=== PATIENT | male | born 1945 | race Caucasian/White ===

== ENCOUNTER → 2024-12-18 15:56 | Outpatient (BNVA) | payer OTHER, MEDICARE, SELFPAY | PROVIDERS: PCP Student in an Organized Health Care Education/Training Program; Visit Provider Internal Medicine Cardiovascular Disease | DX: R07.9 Chest pain, unspecified (principal) | CPT/HCPCS: 93005 ==

== ENCOUNTER → 2025-01-28 13:19 | Outpatient (BNVA) | payer MEDICARE, SELFPAY | PROVIDERS: PCP Student in an Organized Health Care Education/Training Program; Visit Provider Nurse Practitioner Family | DX: I25.10 Atherosclerotic heart disease of native coronary artery without angina pectoris (principal); I10 Essential (primary) hypertension; E78.5 Hyperlipidemia, unspecified | CPT/HCPCS: 99213 ==

== ENCOUNTER 2025-01-30 15:10 | Emergency (ER) | payer MEDICARE, SELFPAY ==
[2025-01-30] VITALS (8 sets, daily range): BP systolic 99–154; BP diastolic 48–74; PULSE 39–86; RESP 15–18; TEMP 36.4; O2SAT 96–99; BMI 31.2
--- NOTE | 2025-01-30 15:32 | XRR_ITS ---
PROCEDURE INFORMATION: Exam: XR Chest Exam date and time: 01/30/2025 4:23 PM Age: 79 years old Clinical indication: Dyspnea TECHNIQUE: Imaging protocol: Radiologic exam of the chest. Views: 1 view. COMPARISON: No relevant prior studies available. FINDINGS: Lungs: Unremarkable. No consolidation or mass. Pleural spaces: Unremarkable. No pleural effusion. No pneumothorax. Heart/Mediastinum: Unremarkable. No cardiomegaly. Bones/joints: Unremarkable. XR/XR chest 1V portable 09000 IMPRESSION: No acute findings.
--- NOTE | 2025-01-30 15:50 | ECG_ITS ---
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
--- NOTE | 2025-01-30 15:57 | W.ED.GENADLT ---
HPI - General Adult General: Chief complaint: General Medical Stated complaint: low hr Time Seen by Provider: 01/30/25 15:42 History of Present Illness: 79-year-old male with three-vessel coronary artery disease who presents to the emergency department with bradycardia. It was noted incidentally while checking his twice daily blood pressures. He first noticed it last night around midnight. The rate has been mostly in the 40s and occasionally in the 80s. His blood pressure has been essentially normal. He had 1 blood pressure of 91/52 with a pulse rate of 47. Otherwise he has been normotensive. We have a long list of pulse and blood pressure that the has been recording. It does look like he has an irregular rhythm on the monitor and on exam. He denies any history of A-fib. No heart block. He takes no calcium channel blockers or beta-blockers. He is not on any antiarrhythmics. The patient does have three-vessel coronary artery disease and was recommended for CABG. However he did his own research and talk to multiple people and decided to refuse this. He has seen Dr. Arriola--Dr. Arriola is going to review his relatively recent angioplasty to consider him for high risk PCI. The patient reports he has not had any chest pressure tightness or discomfort. He feels a little bit winded and dizzy when he first stands up. However after about 15 seconds he feels normal. No other symptoms reported. Related Data Home Medications ?Medication ?Instructions ?Recorded ?Confirmed clopidogrel 75 mg tablet 75 mg PO DAILY 04/25/21 01/28/25 Berberine PO 12/18/24 01/28/25 Carb & Sugar Kiesha PO 12/18/24 01/28/25 Immununeti PO 12/18/24 01/28/25 apple cider vinegar 500 mg tablet mg PO 12/18/24 01/28/25 ascorbic acid (vitamin C) 500 mg 1 g PO DAILY 12/18/24 01/28/25 chewable tablet aspirin 81 mg tablet,delayed 81 mg PO DAILY 12/18/24 01/28/25 release atorvastatin 40 mg tablet (Lipitor) 40 mg PO DAILY 12/18/24 01/28/25 calcium carbonate 600 mg PO DAILY 12/18/24 01/28/25 cholecalciferol (vitamin D3) 125 125 mcg PO DAILY 12/18/24 01/28/25 mcg (5,000 unit) capsule chromium picolinate 1,000 mcg 1,000 mcg PO DAILY 12/18/24 01/28/25 tablet coenzyme Q10 400 mg capsule 400 mg PO DAILY 12/18/24 01/28/25 cyanocobalamin (vitamin B-12) 500 250 mcg PO DAILY 12/18/24 01/28/25 mcg tablet empagliflozin 25 mg tablet 25 mg PO DAILY 12/18/24 01/28/25 (Jardiance) ferrous sulfate 325 mg (65 mg 325 mg PO DAILY 12/18/24 01/28/25 iron) tablet fish oil PO 12/18/24 01/28/25 folic acid 400 mcg tablet 0.4 mg PO DAILY 12/18/24 01/28/25 gabapentin 300 mg capsule 300 mg PO DIRECTED 12/18/24 01/28/25 gkpusgaviwb-vmzsiotkq-P-Mn-boron tab PO 12/18/24 01/28/25 750 mg-600 mg-30 mg-1mg-1.5mg tablet herba vision gold PO 12/18/24 01/28/25 insulin NPH isoph U-100 human 100 20 unit SUBCUT QAM PRN 12/18/24 01/28/25 unit/mL (3 mL) subcutaneous pen (Novolin N FlexPen) insulin degludec 100 unit/mL (3 20 unit SUBCUT BID PRN 12/18/24 01/28/25 mL) subcutaneous pen (Tresiba FlexTouch U-100 insulin) isosorbide mononitrate 30 mg 30 mg PO DAILY 12/18/24 01/28/25 tablet,extended release 24 hr lidocaine HCl 4 %-menthol 1 % ea topical 12/18/24 01/28/25 topical solution roll-on (Nervive Pain Relieving) magnesium oxide 400 mg (241.3 mg 400 mg PO DAILY 12/18/24 01/28/25 magnesium) tablet metformin 1,000 mg tablet 500 mg PO DAILY 12/18/24 01/28/25 modern mushrooms PO 12/18/24 01/28/25 nitroglycerin 0.4 mg sublingual 0.4 mg sublingual Q5M PRN 12/18/24 01/28/25 tablet semaglutide 1 mg/dose (4 mg/3 mL) mg SUBCUT 12/18/24 01/28/25 subcutaneous pen injector (Ozempic) true focus PO 12/18/24 01/28/25 turmeric 400 mg capsule mg PO 12/18/24 01/28/25 vitamin A acetate 3,000 mcg mcg PO 12/18/24 01/28/25 (10,000 unit) sublingual tablet vitamin E (dl, acetate) 180 mg 180 mg PO DAILY 12/18/24 01/28/25 (400 unit) capsule zinc acetate 50 mg (zinc) capsule 50 mg PO DAILY 12/18/24 01/28/25 Previous Rx's ?Medication ?Instructions ?Recorded lisinopril 5 mg tablet 5 mg PO DAILY #90 tabs 12/18/24 Allergies Allergy/AdvReac Type Severity Reaction Status Date / Time No Known Allergies Allergy Verified 01/30/25 15:53 Review of Systems General: Reports: 10 or more systems reviewed and unremarkable except in HPI and below PFSH ED PFSH: Medical History (Updated 01/30/25 @ 20:00 by Jesse Bradford MD) CAD (coronary artery disease) HTN (hypertension) Family History Mother Pulmonary emboli Father Aortic aneurysm Brother Aortic aneurysm Sister Stroke Social History Smoking and tobacco/nicotine status: former use of tobacco/nicotine Physical Exam Const: COMMON NORMALS: no limitations, alert and well nourished EXAM LIMITATIONS: no altered mental status HENMT: COMMON NORMALS: normocephalic, atraumatic and external ears normal HEAD & SCALP: normocephalic and atraumatic EXTERNAL EAR: Yes external ears normal MOUTH: no muffled voice Eye: COMMON NORMALS: EOMs intact bilaterally, conjunctivae normal and no scleral icterus CONJUNCTIVA: Yes conjunctivae normal Neck/C-Spine: GENERAL: Yes normal visual inspection and Yes trachea midline Resp: COMMON NORMALS: normal respiratory effort, No use of accessory muscles and clear to auscultation bilaterally AUSCULTATION: clear to auscultation bilaterally Cardio: RATE: bradycardic RHYTHM: abnormal rhythm GI: COMMON NORMALS: Soft to palpation and non-tender PALPATION: Yes Soft to palpation and No Guarding due to palpation present (GI) Extremity: COMMON NORMALS: normal to inspection Neuro: COMMON NORMALS: moves all extremities, no focal motor deficits and no sensory deficits noted SENSORIUM/ORIENTATION: Yes alert SPEECH: speech normal Psych: COMMON NORMALS: mental status grossly normal, Normal thought process present, cooperative, normal affect and speech normal SPEECH: Yes normal speech THOUGHT PROCESS: Normal thought process present Skin: COMMON NORMALS: no rashes or lesions noted, turgor normal and no jaundice GENERAL SKIN EXAM: no rashes or lesions noted and turgor normal Course Vital Signs: Vital signs: Vital Signs Temperature 97.6 F 01/30/25 15:31 Pulse Rate 82 01/30/25 19:24 Respiratory Rate 16 01/30/25 19:24 Blood Pressure 135/69 01/30/25 19:24 Pulse Oximetry 97 01/30/25 19:24 Oxygen Delivery Me thod Room Air 01/30/25 19:24 MDM - General Adult Medical Decision Making EKG was obtained at 1537. This EKG does not have any apparent P waves. The QRS duration is slightly prolonged. There are no concerning ST segment elevations or depressions. There are prominent T waves through the precordium. The R to R interval appears normal. Rhythm is unclear. This could be a heart block or junctional rhythm. Shortly after this EKG, the patient's heart rate returned to the 80s and appeared irregular. We went to repeat an EKG and it dropped back down again. EKG was obtained at 1550. Ventricular rate is 41. The R to R interval is irregular. This appears to be a bradycardic atrial fibrillation. There is again prominent T waves through the precordium. No concerning ischemic changes otherwise. Differential diagnosis includes hyperkalemia, cardiomyopathy, coronary artery disease with ischemia, infarction of the atrial ventricular or sinoatrial nodes. Patient does not take any antiarrhythmics. Fortunately, he is hemodynamically stable at this time. I consulted with Dr. Cheek. He is advised that we look for secondary causes. He is also advised that we admit to the hospital. He can do a temporary pacer if needed. UPDATE 1615 Repeat EKG was obtained at 1609. This shows what appears to be a regular rhythm, ventricular rate of 80, no visible P waves. QRS duration of 100 ms. PVC x 1. Continues to have slightly prominent T waves through the precordium. Potassium is mildly elevated at 5.6. This seems unlikely to cause the arrhythmia on its own but could be contributing. We will err on the side of treatment. Patient has informed me that he will not be staying in the hospital. I have explained his abnormal rhythm and significant bradycardia is a great concern. I have advised him of hyperkalemia that may be contributing. I have advised him that the standard of care would be treatment of hyperkalemia and other secondary causes, admission to the hospital, cardiology consultation, telemetry. Patient advises that he understands but refuses. Patient is aware that if he becomes bradycardic he could lose consciousness and even have a cardiac arrest. Patient reports that he has elected to be DNR. He will take reasonable treatment in the emergency department. Initially he refused an IV. However, after informing him that the reasonable treatment for hyperkalemia involves IV medications in addition to oral medications, he consented to an IV. However, he request that he and his both have meal trays ordered. Patient understands that he will have to leave AGAINST MEDICAL ADVICE. My intention is to order him a hyperkalemia protocol including calcium gluconate, insulin with glucose, sodium bicarbonate, Kayexalate, Lasix. I will then repeat his potassium in a few hours. Update 2000 Patient heart rate in the 80s. He is having episodes of trigeminy, a few triplet PVCs. Patient's repeat troponin was stable. His potassium was repeated and has decreased to a normal level. I had a long discussion with the patient and his . The patient states he is aware of his abnormal rhythms including trigeminy, intermittent proximal atrial fibrillation with slow ventricular response, junctional rhythm with significant bradycardia, frequent PVCs. Patient understands that he could have decompensation to the point of loss of consciousness, , permanent disability. He refuses admission to the hospital. His is at bedside and disagrees with his decision. However, she agrees to check his vital signs frequently. The patient was invited to return to the emergency department if he changes his mind and wants treatment. He was given specific return precautions. I have asked that he follow-up with his lamination technician on Sunday. He also needs to have repeat kidney function and electrolytes next week. Lab Data 01/30/25 16:04 01/30/25 18:47 Radiology Impressions Chest X-Ray 01/30/25 15:32 IMPRESSION: No acute findings. Laboratory Results WBC 8.49 10^3/uL (3.29-11.43) 01/30/25 16:04 RBC 3.90 10^6/uL (3.85-5.65) 01/30/25 16:04 Hgb 12.00 g/dL (11.27-16.99) 01/30/25 16:04 Hct 38.8 % (37-53) 01/30/25 16:04 MCV 99.5 fl (82-101) 01/30/25 16:04 MCH 30.8 pg (27-33) 01/30/25 16:04 MCHC 30.9 g/dL (30-55) 01/30/25 16:04 RDW 13.8 % (12.1-15.1) 01/30/25 16:04 Plt Count 161 10^3/cmm (157-399) 01/30/25 16:04 MPV 12.5 fL (7.4-10.4) H 01/30/25 16:04 Neut % (Auto) 70.7 % 01/30/25 16:04 Lymph % (Auto) 19.0 % 01/30/25 16:04 [facility] % (Auto) 8.8 % 01/30/25 16:04 Eos % (Auto) 1.1 % 01/30/25 16:04 Baso % (Auto) 0.2 % 01/30/25 16:04 Neut # (Auto) 6.00 10^3/uL (1.8-7.7) 01/30/25 16:04 Lymph # (Auto) 1.6 10^3/uL (0.8-4.8) 01/30/25 16:04 [facility] # (Auto) 0.8 10^3/uL (0.2-0.9) 01/30/25 16:04 Eos # (Auto) 0.1 10^3/uL (0.0-0.8) 01/30/25 16:04 Baso # (Auto) 0.0 10^3/uL (0.0-0.1) 01/30/25 16:04 Nucleated RBC % (auto) 0 % 01/30/25 16:04 Nucleated RBCs # 0.0 /100WBC 01/30/25 16:04 Specimen Type Arterial 01/30/25 15:48 Sample Site Radial, right 01/30/25 15:48 Krzysztof Test Pos 01/30/25 15:48 Sodium 131.0 mmol/L (131-143) 01/30/25 15:48 Potassium 5.6 mmol/L (3.5-5.0) H 01/30/25 15:48 Glucose 113.0 mg/dL (70-115) 01/30/25 15:48 Ionized Calcium 1.2 mmol/L (1.1-1.4) 01/30/25 15:48 O2 Delivery Device Room air 01/30/25 15:48 FiO2 21.0 % 01/30/25 15:48 Pony Ride Operator ID [place] 01/30/25 15:48 Sodium 133 mmol/L (136-145) L 01/30/25 16:04 Potassium 4.8 mmol/L (3.5-5.1) 01/30/25 18:47 Chloride 102 mmol/L (98-107) 01/30/25 16:04 Carbon Dioxide 19 mmol/L (22-29) L 01/30/25 16:04 Anion Gap 18.2 (5-19) 01/30/25 16:04 BUN 51 mg/dL (8-23) H 01/30/25 16:04 Creatinine 2.3 mg/dL (0.7-1.2) H 01/30/25 16:04 GFR Calculation Not Reportable 01/30/25 16:04 Glucose 117 mg/dL (65-115) H 01/30/25 16:04 Calculated Osmolality 291 mOsm/kg (285-295) 01/30/25 16:04 Calcium 8.4 mg/dL (8.5-10.5) L 01/30/25 16:04 Magnesium 2.6 mg/dL (1.7-2.3) H 01/30/25 16:04 Total Bilirubin 0.4 mg/dL (0.15-1.2) 01/30/25 16:04 AST 25 U/L (0-40) 01/30/25 16:04 ALT 27 U/L (0-41) 01/30/25 16:04 Alkaline Phosphatase 90 U/L (40-130) 01/30/25 16:04 Troponin T Baseline 23 ng/L (0-15) H 01/30/25 16:04 Troponin T 120 Minute 22.44 ng/L (0-15) H 01/30/25 18:47 Delta Troponin T -0.56 ABS# (0-10) L 01/30/25 18:47 Total Protein 6.3 g/dL (6.6-8.7) L 01/30/25 16:04 Albumin 4.4 g/dL (3.5-5.2) 01/30/25 16:04 Globulin 1.9 g/dL (1.3-4.6) 01/30/25 16:04 All radiology interpretation(s) finalized by discharge ED provider radiology interpretation(s): Chest x-ray 1 view. No acute disease process. Critical Care Time Critical Care Time: Critical Care Time: Yes Total Critical Care Time: 30 Attestation: This case had a high probability of a clinically significant, sudden, or life threatening deterioration of this patient's condition which required my full and direct attention, intervention and personal management. Treatment of bradycardia and arrhythmia as well as hyperkalemia, discussions about goals of care, discussions about standards of care, and developing a treatment plan for the patient that would meet his needs and desires. Discharge Plan Discharge Patient Disposition: Left Against Medical Advice Clinical Impression: Junctional rhythm, Bradycardia, Atrial fibrillation with slow ventricular response, Trigeminy, Frequent PVCs, ADILENE (acute kidney injury), Hyperkalemia Condition: Stable Prescriptions: No Action clopidogrel 75 mg tablet 75 mg PO DAILY gabapentin 300 mg capsule 300 mg PO DIRECTED Rx Instructions: 300mg in the AM and 600mg in the PM metformin 1,000 mg tablet 500 mg PO DAILY isosorbide mononitrate 30 mg tablet extended release 24 hr 30 mg PO DAILY aspirin 81 mg tablet,delayed release (DR/EC) 81 mg PO DAILY Jardiance 25 mg tablet 25 mg PO DAILY Berberine PO Carb & Sugar Kiesha PO Immununeti PO vitamin A acetate 3,000 mcg (10,000 unit) tablet, sublingual PO cyanocobalamin (vitamin B-12) 500 mcg tablet 250 mcg PO DAILY cholecalciferol (vitamin D3) 125 mcg (5,000 unit) capsule 125 mcg PO DAILY vitamin E (dl, acetate) 180 mg (400 unit) capsule 180 mg PO DAILY chromium picolinate 1,000 mcg tablet 1,000 mcg PO DAILY modern mushrooms PO true focus PO turmeric 400 mg capsule PO folic acid 400 mcg tablet 0.4 mg PO DAILY ferrous sulfate 325 mg (65 mg iron) tablet 325 mg PO DAILY herba vision gold PO ascorbic acid (vitamin C) 500 mg tablet,chewable 1 g PO DAILY fish oil PO zinc acetate 50 mg (zinc) capsule 50 mg PO DAILY magnesium oxide 400 mg (241.3 mg magnesium) tablet 400 mg PO DAILY calcium carbonate 600 mg calcium (1,500 mg) tablet 600 mg PO DAILY apple cider vinegar 500 mg tablet PO thjsgdsb-bwuagj-qep C-Mn-boron 289-518-79-1 mg tablet PO atorvastatin [Lipitor] 40 mg tablet 40 mg PO DAILY Nervive Pain Relieving 4-1 % solution roll-on topical coenzyme Q10 400 mg capsule 400 mg PO DAILY nitroglycerin 0.4 mg tablet, sublingual 0.4 mg sublingual Q5M PRN Rx Instructions: do not exceed 3 doses per episode Novolin N FlexPen 100 unit/mL (3 mL) insulin pen 20 unit SUBCUT QAM PRN insulin degludec [Tresiba FlexTouch U-100] 100 unit/mL (3 mL) insulin pen 20 unit SUBCUT BID PRN Ozempic 1 mg/dose (4 mg/3 mL) pen injector SUBCUT lisinopril 5 mg tablet 5 mg PO DAILY Qty: 90 3RF Referrals: Yao Murcia [Primary Care Provider] - 02/06/25 Autumn Hale MD [Physician] - 02/02/25 (Bradycardia, frequent pvcs, pAF slow ventricular response, trigeminy, adilene, hyperK) Patient Instructions: Acute Kidney Injury (DC), Hyperkalemia (ED), Bradycardia (ED), Premature Ventricular Contractions (ED) Activity Restrictions/Additional Instructions: 1. You have had multiple different abnormal rhythms including junctional rhythm with bradycardia, brief episodes of what appears to be atrial fibrillation with slow ventricular response, frequent PVCs, triplets of PVCs, trigeminy. All of these are a sign of a sick pacemaker and conduction pathway in your heart. This can be a sign of underlying heart disease. You are known to have coronary artery disease. At any point in time, your heart rate could drop extremely low and you could lose consciousness or even suffer or permanent disability. Please follow-up with Dr. Arriola on Sunday. If you change your mind and want to have treatment in the hospital, return to the emergency department. 2. You had elevated potassium. This might be contributing. You were treated in the emergency department and your potassium normalized. Your kidney function was also abnormal. We do not have your baseline creatinine. You should have your potassium rechecked next week. Please read all discharge instructions and abide by recommendations and return precautions. Make an appointment to follow-up with your primary care doctor as directed for follow-up. Return to ER if getting worse or other emergent symptoms. Print Language: Central African Coding Level of Care Code ED Kelp Cutter for Uma Carlton
[2025-01-30 15:59] LABS: Blood Gas Allen Test Pos; Blood Gas Operator Identificat WALCI; Blood Gas Sample Site Radial, right; Blood Gas Sample Type Arterial; Ionized Calcium Level - ABG 1.2 mmol/L (1.1-1.4); Oxygen Device ROOM AIR; Potassium Level - ABG 5.6 mmol/L (3.5-5.0)
[2025-01-30 16:12] LABS: Basophils % 0.2 %; Eosinophils # 0.1 10^3/uL (0.0-0.8); Eosinophils % 1.1 %; Hematocrit 38.8 % (37-53); Lymphocytes # 1.6 10^3/uL (0.8-4.8); Mean Corpuscular HGB Conc 30.9 g/dL (30-55); Mean Corpuscular Hemoglobin 30.8 pg (27-33); Mean Corpuscular Volume 99.5 fl (82-101); Mean Platelet Volume 12.5 fL (7.4-10.4); Monocytes # 0.8 10^3/uL (0.2-0.9); Monocytes % 8.8 %; Neutrophils % 70.7 %; Nucleated Red Blood Cells % 0 %; Platelet Count 161 10^3/cmm (157-399); Red Cell Distribution Width 13.8 % (12.1-15.1); White Blood Count 8.49 10^3/uL (3.29-11.43)
[2025-01-30 16:33] LABS: Alanine Aminotransferase 27 U/L (0-41); Albumin Level 4.4 g/dL (3.5-5.2); Alkaline Phosphatase 90 U/L (40-130); Anion Gap 18.2 (5-19); Aspartate Amino Transferase 25 U/L (0-40); Blood Urea Nitrogen 51 mg/dL (8-23); Calcium 8.4 mg/dL (8.5-10.5); Carbon Dioxide 19 mmol/L (22-29); Chloride 102 mmol/L (98-107); Globulin 1.9 g/dL (1.3-4.6); Glucose 117 mg/dL (65-115); Magnesium 2.6 mg/dL (1.7-2.3); Osmolality Calculated 291 mOsm/kg (285-295); Potassium 6.2 mmol/L (3.5-5.1); Sodium 133 mmol/L (136-145); Total Bilirubin 0.4 mg/dL (0.15-1.2); Total Protein 6.3 g/dL (6.6-8.7)
[2025-01-30 16:34] LABS: Troponin(5th) Baseline 23 ng/L (0-15)
[2025-01-30] MEDS: sodium polystyrene sulfonate 15 gm/60 mL Btl PO (16:56)
[2025-01-30] MEDS: calcium gluconate 0.1 gm/mL 10% SDV 10mL 2 GM IVP (16:57)
[2025-01-30] MEDS: FUROsemide 10 mg/mL SDV 4mL 40 MG IVP (16:58)
[2025-01-30] MEDS: sodium bicarbonate 8.4% 1 mEq/mL 50mL Syr 50 MEQ IVP (16:59)
[2025-01-30] MEDS: dextrose 10% 250 ML 1000 ML IV (17:00)
[2025-01-30] MEDS: insulin regular-human 100 units/1 mL 10 UNIT IVP (17:00)
--- NOTE | 2025-01-30 17:34 | ECG_ITS ---
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
[2025-01-30 19:14] LABS: Troponin 5 2HR 22.44 ng/L (0-15)
[2025-01-30 19:15] LABS: Potassium 4.8 mmol/L (3.5-5.1); Troponin 5 2HR Delta -0.56 ABS# (0-10)
--- NOTE | 2025-01-30 21:34 | ECG_ITS ---
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
== END 2025-01-30 20:28 | disposition left against medical advice (07) ==
PROVIDERS: Emergency Provider Emergency Medicine; PCP Family Medicine
DX: R00.1 Bradycardia, unspecified (principal); I49.2 Junctional premature depolarization; I48.91 Unspecified atrial fibrillation; R00.8 Other abnormalities of heart beat; I49.3 Ventricular premature depolarization; N17.9 Acute kidney failure, unspecified; E87.5 Hyperkalemia; Z79.02 Long term (current) use of antithrombotics/antiplatelets; Z79.84 Long term (current) use of oral hypoglycemic drugs; Z79.82 Long term (current) use of aspirin; Z79.4 Long term (current) use of insulin; Z87.891 Personal history of nicotine dependence; I25.10 Atherosclerotic heart disease of native coronary artery without angina pectoris; I10 Essential (primary) hypertension
CPT/HCPCS: 36415; 36600; 71045; 80051; 80053; 83735; 84132; 84484; 85025; 93005; 96374; 96375; 99285; J0612; J1815; J1940; J7799; J9999

== ENCOUNTER 2025-02-24 08:23 | Inpatient (IN) | payer MEDICARE, SELFPAY ==
[2025-02-24] VITALS (22 sets, daily range): BP systolic 113–154; BP diastolic 50–84; PULSE 69–79; RESP 1–19; TEMP 36.4–36.6; O2SAT 88–100; BMI 32.1; BMI 31.1
[2025-02-24] MEDS: diphenhydrAMINE 50 mg Capsule PO (06:25)
[2025-02-24 06:36] LABS: Basophils % 0.5 %; Eosinophils # 0.3 10^3/uL (0.0-0.8); Eosinophils % 3.1 %; Hematocrit 39.9 % (37-53); Lymphocytes # 1.6 10^3/uL (0.8-4.8); Lymphocytes % 18.8 %; Mean Corpuscular HGB Conc 32.3 g/dL (30-55); Mean Corpuscular Hemoglobin 31.3 pg (27-33); Mean Corpuscular Volume 96.8 fl (82-101); Monocytes # 0.7 10^3/uL (0.2-0.9); Monocytes % 7.8 %; Neutrophils # 5.87 10^3/uL (1.8-7.7); Neutrophils % 69.4 %; Nucleated Red Blood Cells % 0 %; Platelet Count 181 10^3/cmm (157-399); Red Blood Count 4.12 10^6/uL (3.85-5.65); Red Cell Distribution Width 13.3 % (12.1-15.1); White Blood Count 8.45 10^3/uL (3.29-11.43)
[2025-02-24 06:55] LABS: Blood Urea Nitrogen 36 mg/dL (8-23); Calcium 9.1 mg/dL (8.5-10.5); Carbon Dioxide 25 mmol/L (22-29); Chloride 102 mmol/L (98-107); Creatinine Clr Calc Pharmacy 48.2836; Glucose 99 mg/dL (65-115); Osmolality Calculated 296 mOsm/kg (285-295); Sodium 139 mmol/L (136-145)
[2025-02-24 07:00] LABS: Anion Gap 16.4 (5-19); Potassium 4.4 mmol/L (3.5-5.1)
--- NOTE | 2025-02-24 07:28 | W.PM.OPSUD ---
Surgery/Procedure H&P Update DATE OF PROCEDURE: February 24, 2025 DATE H&P PERFORMED: 01/28/25 H&P UPDATE INFORMATION: I have reviewed H&P completed within last 30 days, I have examined patient prior to procedure and No changes to prior documentation PREOP DIAGNOSIS: Multivessel coronary artery disease refused CABG PRIMARY INDICATION FOR PROCEDURE: 79-year-old male past medical history significant for coronary artery disease hypertension hyperlipidemia congestive heart failure chronic kidney disease who refused CABG at multiple instances and would not like to have any open heart surgery even if he has complication during the procedure. Patient clearly understood that we do not have a surgical backup I have detailed discussion with him that in case of emergency will he allow me to transfer him to nearby hospital such as [facility] in [place] or in [place], patient in the presence of his refused and told me that he should be managed conservatively and if it is time to go let him go otherwise he will be full code in perioperative. Patient clearly understand he has 10 to 15% risk of stroke major bleed, he understand he has 15 to 20% risk of urgent emergent bypass surgery which he refused, he has 15 to 20% risk of vascular complications. Given his age underlying risk factors if femoral iliac arteries or not much diseased I would like to proceed with Impella supported multivessel PCI to reduce his risk for complication and to get through this multivessel high risk PCI. Again patient has been explained in detail all risk-benefit and alternative for the procedure as above. He would like to proceed with that. He clearly understand 10 to 15% risk of contrast-induced nephropathy leading to temporary or permanent dialysis. He has excepted all the risk and would like to proceed with it. PLANNED PROCEDURE: Operation Date: 02/24/25 07:00 Proposed Procedures p Cardiac Catheterization - [facility] w/wo LV & Coros(Left) - Autumn Hale MD PATIENT REASSESSED PRIOR TO SEDATION, WITH NO CHANGE NOTED: Yes PHYSICAL EXAM: alert, oriented x 3, clear to auscultation bilaterally, regular rate & rhythm and operative site marked AIRWAY EVAL/ANESTHESIA PLAN: ASA II, Risks, benefits & alternatives of sedation and/or procedure discussed and Patient agrees to continue as planned
--- NOTE | 2025-02-24 12:11 | PM.PROC ---
Procedure Note: Date of procedure: 02/24/25 Pre-procedure diagnosis: Multivessel coronary artery disease, refused CABG Post-procedure diagnosis: same Procedure: Impella facilitated multivessel PCI including ostial LAD mid LAD and proximal to mid circumflex using drug-eluting stents, balloon angioplasty of diagonal branch. Impella was taken out at the end of the procedure. Right common femoral artery was closed with preclosed Complication none Patient will be reloaded with Brilinta 180 mg today followed by 90 mg p.o. twice daily from tomorrow Continue aspirin 81 mg once a day from tomorrow Continue aspirin statin beta-dante Bedrest for 6 hours IV fluid 100 mL/h Check CBC BMP in the morning and Full note to be dictated. Coding Level of Care Code Acute Code for Uma Carlton
--- NOTE | 2025-02-24 12:21 | ECG_ITS ---
[facility] Test Date: 2025-02-24 Pat Name: Dago Bravo Department: Room: ICU10 Gender: Male Slagger: : 1945 Requested By: Autumn Hale Order Number: [id number] Collin MD: Kamaljit Abad M.D. Measurements Intervals [place] Rate: 74 P: 91 OR: 237 QRS: 2 QRSD: 181 T: 102 QT: 463 QTc: 516 Interpretive Statements SINUS RHYTHM WITH FIRST DEGREE AV BLOCK LEFT BUNDLE BRANCH BLOCK [120+ ms QRS DURATION, 80+ ms Q/S IN V1/V2, 85+ ms R IN I/aVL/V5/V6] Compared to ECG 01/30/2025 17:36:46 First degree AV block now present Left bundle-branch block now present Ventricular premature complex(es) no longer present Electronically Signed On 02-24-2025 21:20:21 CDT by Kamaljit Abad M.D. [id number] [id number]
[2025-02-24] MEDS: nitroglycerin drip 50 MG/250 ML PREMIX IV (12:35)
[2025-02-24] MEDS: sodium chloride 0.9% 1,000 ML 50 ML IV (12:36)
[2025-02-24] MEDS: aspirin 81 mg EC Tablet PO (12:38)
[2025-02-24] MEDS: sodium chloride 0.9% 1,000 ML 100 ML IV (12:38)
--- NOTE | 2025-02-24 12:45 | ECG_ITS ---
[facility] Test Date: 2025-02-24 Pat Name: Dago Bravo Department: Room: ICU10 Gender: Male Learning Support Resource Room Teacher: : 1945 Requested By: Autumn Hale Order Number: [id number] Collin MD: Kamaljit Abad M.D. Measurements Intervals [place] Rate: 76 P: 94 TN: 216 QRS: -1 QRSD: 186 T: 93 QT: 462 QTc: 520 Interpretive Statements SINUS RHYTHM WITH FIRST DEGREE AV BLOCK INTRAVENTRICULAR CONDUCTION DELAY [130+ ms QRS DURATION] Compared to ECG 02/24/2025 12:21:36 Intraventricular conduction delay now present Left bundle-branch block no longer present Electronically Signed On 02-25-2025 08:45:54 CDT by Kamaljit Abad M.D. [email or web address]
--- NOTE | 2025-02-24 12:48 | PC.NURSE ---
Patient arrived to ICU at 1212. Alert and orientated, slightly lethargic from sedation from procedure. Upon arrival hooked patient to telemetry, noticed change in tele, notified labor law professor, Dr. Hale bedside gave orders for EKG and repeat another EKG in 20 mins. Also received verbal orders for Nitro for chest pain. See MAR. Orders placed.
--- NOTE | 2025-02-24 12:57 | PC.NURSE ---
Dr Hale back for repeat EKG, gave orders for a pleitez and lasix, see MAR.
--- NOTE | 2025-02-24 13:05 | PC.NURSE ---
Patient refused pleitez at this time.
[2025-02-24] MEDS: FUROsemide 10 mg/mL SDV 4mL 40 MG IVP (13:07)
--- NOTE | 2025-02-24 16:18 | PC.NURSE ---
Patients voiced concern at how the femoral site appeared. Myself, charge nurse and another nurse assessed the site and all agreed that the site looked normal. Patient did not express any concern and had no complaints of pain or discomfort. is very anxious and continues to watch monitors and site.
[2025-02-24] MEDS: ondansetron 2 mg/ML SDV 2 mL 4 MG IVP (16:41)
--- NOTE | 2025-02-24 17:28 | PC.NURSE ---
Witnessed looking at IV pumps, medications, and touching pumps. Shortly after pumps began to sound. educated on importance of not touching medical equipment.
--- NOTE | 2025-02-24 18:12 | PC.NURSE ---
Dr Hale gave verbal orders to hold evening dose of Brilinta and begin 02/25/25 morning. Order for 40mg of protonix PO daily. Order placed.
[2025-02-24] MEDS: pantoprazole DR 40 mg Tablet PO (18:31)
[2025-02-24] MEDS: atorvastatin 40 mg Tablet 80 MG PO (21:23)
[2025-02-25] VITALS (96 sets, daily range): BP systolic 121–138; BP diastolic 53–64; PULSE 70–89; RESP 0–26; TEMP 36.8; O2SAT 97–100; BMI 31.1
[2025-02-25] MEDS: acetaminophen 325 mg Tablet 650 MG PO (02:23)
[2025-02-25] MEDS: sodium chloride 0.9% 1,000 ML 100 ML IV (02:58)
[2025-02-25 05:08] LABS: Basophils % 0.2 %; Eosinophils % 0.2 %; Hematocrit 39.3 % (37-53); Lymphocytes % 7.1 %; Mean Corpuscular HGB Conc 32.3 g/dL (30-55); Mean Corpuscular Hemoglobin 30.9 pg (27-33); Mean Corpuscular Volume 95.6 fl (82-101); Mean Platelet Volume 12.2 fL (7.4-10.4); Monocytes # 1.4 10^3/uL (0.2-0.9); Monocytes % 10.4 %; Neutrophils # 10.88 10^3/uL (1.8-7.7); Neutrophils % 81.6 %; Nucleated Red Blood Cells % 0 %; Platelet Count 193 10^3/cmm (157-399); Red Blood Count 4.11 10^6/uL (3.85-5.65); Red Cell Distribution Width 13.2 % (12.1-15.1); White Blood Count 13.33 10^3/uL (3.29-11.43)
[2025-02-25 05:45] LABS: Anion Gap 18.1 (5-19); Blood Urea Nitrogen 35 mg/dL (8-23); Calcium 8.6 mg/dL (8.5-10.5); Carbon Dioxide 21 mmol/L (22-29); Chloride 101 mmol/L (98-107); Creatinine Clr Calc Pharmacy 47.6556; Glucose 180 mg/dL (65-115); Osmolality Calculated 295 mOsm/kg (285-295); Potassium 4.1 mmol/L (3.5-5.1); Sodium 136 mmol/L (136-145)
[2025-02-25] MEDS: ondansetron 2 mg/ML SDV 2 mL 4 MG IVP (06:01)
--- OUTSIDE RECORDS SUMMARY | 2025-02-25 07:24 | XMS_ITS | Encounter Summary ---
Author Organization [facility] Address [address] [place] [address] Care Team Providers Care Rug Touch Up Painter Name Role Phone Micheline Cunningham Primary Care Provider Encounter Details Date Type Department Care Team (Latest Contact Info) Description 09/09/2001 Outpatient Historical [facility] Medicine[address] [address] Harjit Hinds MD [address] [address] DIABETES UNCOMPL ADULT-TYPE II (CMS/HCC) (Primary Dx); Pure hypercholesterolem; AFTERCARE PATIENT CASE MANAGER USE MEDICATN Social History Tobacco Use Types Packs/Day Years Used Date Smoking Tobacco: Never Assessed Sex and Gender Information Value Date Recorded Sex Assigned at Not on file Legal Sex Male 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 [facility] [address] PCP - General 11/24/03 documented as of this encounter
--- OUTSIDE RECORDS SUMMARY | 2025-02-25 07:24 | XMS_ITS | Clinical Summary ---
Author Organization [facility] Address [address] [place] [address] Care Team Providers Care Tin Can Laborer Name Role Phone Micheline Cunningham SHOP COORDINATOR Primary Care Provider Allergies No known active allergies Medications lovastatin (MEVACOR) 40 mg Oral tablet Take 40 mg by mouth daily with supper. Active metFORMIN (GLUCOPHAGE) 1,000 mg Oral tablet Take 1,000 mg by mouth 2 times daily with meals. Active clopidogrel (PLAVIX) 75 mg Oral Tab Take 75 mg by mouth daily. Active ENALAPRIL MALEATE ORAL Take by mouth. Ac tive NPH, HUMAN INSULIN ISOPHANE (NOVOLIN N SUBCUT) Inject by subcutaneous injection. 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 Sacroiliitis, not elsewhere classified 1 Family History Medical History Relation Name Comments Broken Bones Brother Hypertension Brother Stroke Brother Arthritis-osteo Father Diabetes Maternal Aunt Diabetes Maternal Uncle Heart Disease Mother Diabetes Paternal Aunt Diabetes Paternal Uncle Hypertension Sister Stroke Sister Relation Name Status Comments Brother Father Maternal Aunt Maternal Uncle Mother Paternal Aunt Paternal Uncle Sister Social History Tobacco Use Types Packs/Day Years Used Date Smoking Tobacco: Former Cigarettes Q uit: 04/19/1976 Smokeless Tobacco: Never Alcohol Use Standard Drinks/Week Comments Yes 0.8 (1 standard drink = 0.6 oz p ure alcohol) Sex and Gender Information Value Date Recorded Sex Assigned at Not on file Legal Sex Male 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 Gender Identity Not on file Sexual Orientation Not on file Last Filed Vital Signs Vital Sign Reading Time Taken Comments Blood Pressure 143/62 04/19/2011 11:49 AM CDT Pulse 80 04/19/2011 11:49 AM CDT Temperature - - Respiratory Rate - - Oxygen Saturation - - Inhaled Oxygen Concentration - - Weight 117.9 kg (260 lb) 04/19/2011 11:49 AM CDT Height 179.1 cm (5' 10.5 ) 04/19/2011 11:49 AM C DT Body Mass Index 36.78 04/19/2011 11:49 AM CDT Plan of Treatment Health Maintenance Due Date Last Done Comments DTAP/TDAP/TD VACCINES (1 - Tdap) 1963 PNEUMOCOCCAL VACCINE 50+ YEARS (1 of 1 - PCV) 06/27/19 94 ZOSTER VACCINE (1 of 2) 1994 RSV VACCINE (60+ or ) (1 - 1-dose 75+ series) 2019 INFLUENZA VACCINE (#1) 2024 Insurance MEDICARE PART [facility] B [facility] Care Teams Tin Can Laborer Relationship Specialty Start Date End Date Micheline Cunningham FNP [facility] [address], [address] [facility] [address] PCP - General 11/24/03
--- OUTSIDE RECORDS SUMMARY | 2025-02-25 07:24 | XMS_ITS | Encounter Summary ---
Author Organization [facility] Address [address] [place] [address] Care Team Providers Care Systems Navigator Name Role Phone Micheline Cunningham Primary Care Provider Encounter Details Date Type Department Care Team (Latest Contact Info) Description 07/15/2001 Outpatient Historical [facility] Medicine[address] [address] Harjit Hinds MD [address] [facility] [address] [place] [address] Type II or unspecified type diabetes mellitus without mention of complication, not stated as uncontrolled (Primary Dx); Edema Social History Tobacco Use Types Packs/Day Years Used Date Smoking Tobacco: Never Assessed Sex and Gender Information Value Date Recorded Sex Assigned at Not on file Legal Sex Male 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 [facility] [address] PCP - General 11/24/03 documented as of this encounter
--- OUTSIDE RECORDS SUMMARY | 2025-02-25 07:24 | XMS_ITS | Encounter Summary ---
Author Organization [facility] Address [address] [place] [address] Care Team Providers Care Entry Operator Name Role Phone Micheline Cunningham Primary Care Provider [phone] Encounter Details Date Type Department Care Team (Latest Contact Info) Description 05/16/2005 Outpatient Historical [facility] Medicine[address] [address] Maye Anderson MD [address] [place] [address] DIABETES MELLITUS TYPE II-UNCOMPL (CMS/HCC) (Primary Dx) Social History Tobacco Use Types Packs/Day Years Used Date Smoking Tobacco: Never Assessed Sex and Gender Information Value Date Recorded Sex Assigned at Not on file Legal Sex Male 4:03 AM 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 [place], [address] PCP - General 11/24/03 documented as of this encounter
--- OUTSIDE RECORDS SUMMARY | 2025-02-25 07:24 | XMS_ITS | Patient Health Record ---
Author Organization [facility] Address [address] [place], [place] [address] Care Team Providers Care Buckle Frame Shaper Name Role Phone Yuan Heath MD Unavailable [phone] Favian Murcia DO Unavailable Unavailable Reason For Referral No Information Medications Medication SIG (Take, Route, Frequency, Duration) Notes Start Date End Date Status Calcium, Magnesium and Zinc as directed Active Ozempic (0.25 mg or 0.5 mg dose) 2 mg/1.5 mL as directed subcutaneously once a week for 30 day(s) Active Vitamin B Complex as directed Active Echinacea as directed Active Tresiba FlexTouch 100 units/mL as directed subcutaneously once a day Active lisinopril 10 mg 1 tab orally once a day Active Vitamin D3 1000 intl units as directed orally once a day Active glimepiride 4 mg 1 tab orally 2 times a day Active Vitamin C 1000 mg 1 tab orally once a day Active metFORMIN 1000 mg 1 tab orally 2 times a day Active lovastatin 40 mg 1 tab orally once a day Active Turmeric Active [place]-3 1000 mg orally as directed Active NovoLIN R human recombinant 100 units/mL subcutaneously as directed Active Co Q-10 100 mg 1 cap orally once a day Active red yeast rice 600 mg orally as directed Active Plavix 75 mg 1 tab orally once a day Active gabapentin 300 mg 1 cap po orally TID for 90 days Active Social History Tobacco Use: Social History Observation Description Date Details (start date - stop date) Former Smoker NA - NA alcohol Question Answer Notes Did you have a drink containing alcohol in the p ast year? No Points 0 Interpretation Negative Tobacco use: Question Answer Notes : former smoker How long has it been since you last smoked? > 10 years When did you stop smoking? 1977 Problems Problem Type SNOMED Code ICD Code Onset Dates Problem Status W/U Status Risk Notes Problem Diabetic peripheral neuropathy associated with type 2 diabetes mellitus (0180604896233) Type 2 diabetes mellitus with diabetic neuropathy, unspecified (E11.40) Active confirmed Problem Sleep disorder (68501850) Other sleep disorders (G47.8) Active confirmed Problem Long-term current use of drug therapy (084524014) Other alf (current) drug therapy (Z79.899) Active confirmed Plan Of Treatment No Information Insurance Providers Payer Name Payer Address Payer Phone Subscriber Number Group Number Insured Name Patient Relationship to Insured Coverage Start Date Coverage End Date WPS Medicare Part B Claims Department [address] [address] [place] [address] [id number] Dago Bravo Self - patient is the insured [employer] [address] [place] [address] [id number] Dago Bravo Self - patient is the insured Medical (General) History Medical History History ICD Code Diabetes mellitus type II - uncontrolled Hypertension Hyperlipdidemia Actinic keratosis Shingles Diabetic neuropathy Left shoulder pain Surgical History Surgery Date(Month/Year) Appendectomy, 1964 Placement of heart stent, performed at [facility], 2002 Stent replaced, performed in [place], 2006 Bilateral cataract surgeries, performed at [facility] and [facility], 2014 Hospitalization History Reason Date(Month/Year) Covid, treated at [facility], 07/23/20
--- OUTSIDE RECORDS SUMMARY | 2025-02-25 07:24 | XMS_ITS | Encounter Summary ---
Author Organization [facility] Address [address] [place] [address] Care Team Providers Care Ship Design Teacher Name Role Phone Micheline Cunningham Primary Care Provider [phone] Encounter Details Date Type Department Care Team (Latest Contact Info) Description 06/11/2001 Outpatient Historical [facility] Medicine[address] [address] Pepe Dubon MD [address] [place] [address] Type II or unspecified type diabetes mellitus without mention of complication, not stated as uncontrolled (Primary Dx); Other noninfectious disorders of lymphatic channels; Other lymphedema Social History Tobacco Use Types Packs/Day Years Used Date Smoking Tobacco: Never Assessed Sex and Gender Information Value Date Recorded Sex Assigned at Not on file Legal Sex Male 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 [place], [address] PCP - General 11/24/03 documented as of this encounter
--- OUTSIDE RECORDS SUMMARY | 2025-02-25 07:24 | XMS_ITS | Encounter Summary ---
Author Organization [facility] Address [address] [place] [address] Care Team Providers Care Truck Driver Heavy Name Role Phone Micheline Cunningham Primary Care Provider Encounter Details Date Type Department Care Team (Latest Contact Info) Description 06/20/2004 Outpatient Historical [facility] Medicine- [address] [address] Maye Anderson MD [address] [place] [address] ASCVD (Primary Dx); DIABETES MELLITUS TYPE II-UNCOMPL (CMS/[facility]) Social History Tobacco Use Types Packs/Day Years Used Date Smoking Tobacco: Never Assessed Sex and Gender Information Value Date Recorded Sex Assigned at Not on file Legal Sex Male 4:03 AM PAPIER MACHE MOLDER Gender Identity Not on file Sexual Orientation Not on file documented as of this encounter Plan of Treatment Not on file documented as of this encounter Visit Diagnoses Diagnosis ASCVD- Primary Unspecified cardiovascular disease Type II or unspecified type diabetes mellitus without mention of complication, not stated as uncontrolled documented in this encounter Care Teams Truck Driver Heavy Relationship Specialty Start Date End Date Micheline Cunningham FNP [facility] [address], [address] [facility] [address] PCP - General 11/24/03 documented as of this encounter
--- OUTSIDE RECORDS SUMMARY | 2025-02-25 07:24 | XMS_ITS | Encounter Summary ---
Author Organization [facility] Address [address] [place] [address] Care Team Providers Care Flap Lining Binder Name Role Phone Micheline Cunningham Primary Care Provider [phone] Encounter Details Date Type Department Care Team (Late st Contact Info) Description 11/09/2003 Outpatient Historical [facility] Medicine[address] [address] Micheline Cunningham FNP [facility] [address], [address] [facility] [address] [facility] [address] Social History Tobacco Use Types Packs/Day Years Used Date Smoking Tobacco: Never Assessed Sex and Gender Information Value Date Recorded Sex Assigned at Not on file Legal Sex Male 4:03 AM LENS MAKER Gender Identity Not on file Sexual Orientation Not on file documented as of this encounter Plan of Treatment Not on file documented as of this encounter Visit Diagnoses Not on filedocumented in this encounter Care Teams Flap Lining Binder Relationship Specialty Start Date End Date Micheline Cunningham FNP [facility] [address], [address] [facility] [address] PCP - General 11/24/03 documented as of this encounter
--- OUTSIDE RECORDS SUMMARY | 2025-02-25 07:24 | XMS_ITS | Encounter Summary ---
Author Organization [facility] Address [address] [place] [address] Care Team Providers Care Air Chief Marshal Name Role Phone Micheline Cunningham Primary Care Provider Encounter Details Date Type Department Care Team (Latest Contact Info) Description 02/16/2003 Outpatient Historical [facility] Medicine[address] [address] Harjit Hinds MD [address] [address] Pure hypercholesterolem (Primary Dx); AFTERCARE [facility] USE MEDICATN Social History Tobacco Use Types Packs/Day Years Used Date Smoking Tobacco: Never Assessed Sex and Gender Information Value Date Recorded Sex Assigned at Not on file Legal Sex Male 4:03 AM ASSOCIATE PROFESSOR OF BIOLOGY Gender Identity Not on file Sexual Orientation Not on file documented as of this encounter Plan of Treatment Not on file documented as of this encounter Visit Diagnoses Diagnosis Pure hypercholesterolem- Primary Pure hypercholesterolemia Encounter for long-term (current) use of other medications documented in this encounter Care Teams Air Chief Marshal Relationship Specialty Start Date End Date Micheline Cunningham FNP [facility] [address], [address] [place], [address] PCP - General 11/24/03 documented as of this encounter
--- OUTSIDE RECORDS SUMMARY | 2025-02-25 07:24 | XMS_ITS | Encounter Summary ---
Author Organization [facility] Address [address] [place] [address] Care Team Providers Care Appliance Mechanic Name Role Phone Micheline Cunningham Primary Care Provider [phone] Encounter Details Date Type Department Care Team (Latest Contact Info) Description 06/13/2005 Outpatient Historical [facility] Medicine[address] [address] Micheline Cunningham FNP [facility] [address], 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 [facility] [address] PCP - General 11/24/03 documented as of this encounter
--- OUTSIDE RECORDS SUMMARY | 2025-02-25 07:24 | XMS_ITS | Encounter Summary ---
Author Organization [facility] Address [address] [place] [address] Care Team Providers Care District Agent Name Role Phone Micheline Cunningham Primary Care Provider [phone] Encounter Details Date Type Department Care Team (Latest Contact Info) Description 11/24/2003 [facility] [address] [place] [address] Maye Anderson MD [address] [facility] [place] [address] CHEST PAIN NOS (Primary Dx) Social History Tobacco Use Types Packs/Day Years Used Date Smoking Tobacco: Never Assessed Sex and Gender Information Value Date Recorded Sex Assigned at Not on file Legal Sex Male 4:03 AM PATROL MAN Gender Identity Not on file Sexual Orientation Not on file documented as of this encounter Plan of Treatment Not on file documented as of this encounter Visit Diagnoses Diagnosis Chest pain, unspecified- Primary documented in this encounter Care Teams District Agent Relationship Specialty Start Date End Date Micheline Cunningham FNP [facility] [address], [address] [place], [address] PCP - General 11/24/03 documented as of this encounter
--- OUTSIDE RECORDS SUMMARY | 2025-02-25 07:24 | XMS_ITS | Encounter Summary ---
Author Organization [facility] Address [address] [place] [address] Care Team Providers Care Highballer Name Role Phone Micheline Cunningham Primary Care Provider Encounter Details Date Type Department Care Team (Latest Contact Info) Description 01/19/2004 Outpatient Historical [facility] Cardiology- [place] [address] [place] [address] Bot-Jadyn Bear, CAN CARRIER [address] [facility] [address] [place] [address] CHR ISCHEMIC HRT DIS NEC (Primary Dx); MIXED HYPERLIPIDEMIA Social History Tobacco Use Types Packs/Day Years Used Date Smoking Tobacco: Never Assessed Sex and Gender Information Value Date Recorded Sex Assigned at Not on file Legal Sex Male 4:03 AM ORACLE ENGINEER Gender Identity Not on file Sexual Orientation Not on file documented as of this encounter Plan of Treatment Not on file documented as of this encounter Visit Diagnoses Diagnosis 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 [place], [address] PCP - General 11/24/03 documented as of this encounter
--- OUTSIDE RECORDS SUMMARY | 2025-02-25 07:24 | XMS_ITS | Encounter Summary ---
Author Organization [facility] Address [address] [place] [address] Care Team Providers Care Care Companion Name Role Phone Micheline Cunningham Primary Care Provider Encounter Details Date Type Department Care Team (Latest Contact Info) Description 12/03/2003 Outpatient Historical [facility] Cardiology- [place] [address] [place] [address] Satinder Coleman MD NO ADDRESS ON FILE ANGINA PECTORIS NEC/NOS (Primary Dx); MIXED HYPERLIPIDEMIA; ABNORMAL CARDIOVASC STUDY NOS Social History Tobacco Use Types Packs/Day Years Used Date Smoking Tobacco: Never Assessed Sex and Gender Information Value Date Recorded Sex Assigned at Not on file Legal Sex Male 4:03 AM ORACLE DATABASE DEVELOPER Gender Identity Not on file Sexual Orientation Not on file documented as of this encounter Plan of Treatment Not on file documented as of this encounter Visit Diagnoses Diagnosis Other and unspecified angina pectoris- Primary Mixed hyperlipidemia Nonspecific abnormal unspecified cardiovascular function study documented in this encounter Care Teams Care Companion Relationship Specialty Start Date End Date Micheline Cunningham FNP [facility] [address], [address] [place], [address] PCP - General 11/24/03 documented as of this encounter
--- OUTSIDE RECORDS SUMMARY | 2025-02-25 07:24 | XMS_ITS | Encounter Summary ---
Author Organization [facility] Address [address] [place] [address] Care Team Providers Care Wall Worker Name Role Phone Micheline Cunningham Primary Care Provider Encounter Details Date Type Department Care Team (Latest Contact Info) Description 05/01/2001 Outpatient Historical [facility] [address] Harjit Hinds MD [address] [address] Type II or unspecified type diabetes mellitus without mention of complication, not stated as uncontrolled (Primary Dx); Pure hypercholesterolem Social History Tobacco Use Types Packs/Day Years Used Date Smoking Tobacco: Never Assessed Sex and Gender Information Value Date Recorded Sex Assigned at Not on file Legal Sex Male 4:03 AM WOOL SPOTTER Gender Identity Not on file Sexual Orientation Not on file documented as of this encounter Plan of Treatment Not on file documented as of this encounter Visit Diagnoses Diagnosis Type II or unspecified type diabetes mellitus without mention of complication, not stated as uncontrolled- Primary Pure hypercholesterolem Pure hypercholesterolemia documented in this encounter Care Teams Wall Worker Relationship Specialty Start Date End Date Micheline Cunningham FNP [facility] [address], [address] [place] [address] PCP - General 11/24/03 documented as of this encounter
--- OUTSIDE RECORDS SUMMARY | 2025-02-25 07:24 | XMS_ITS | Encounter Summary ---
Author Organization [facility] Address [address] [place] [address] Care Team Providers Care Print Controller Name Role Phone Micheline Cunningham Primary Care Provider Encounter Details Date Type Department Care Team (Latest Contact Info) Description 11/20/2005 Outpatient Historical [facility] [place] [address] [place] [address] Satinder Coleman MD NO ADDRESS ON FILE ADMINISTRTVE ENCOUNT NOS (Primary Dx) Social History Tobacco Use Types Packs/Day Years Used Date Smoking Tobacco: Never Assessed Sex and Gender Information Value Date Recorded Sex Assigned at Not on file 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 76, [address] [facility] [id number] PCP - General 11/24/03 documented as of this encounter
--- OUTSIDE RECORDS SUMMARY | 2025-02-25 07:24 | XMS_ITS | Encounter Summary ---
Author Organization [facility] Address [address] [place] [address] Care Team Providers Care Food Counter Attendant Name Role Phone Micheline Cunningham Primary Care Provider Encounter Details Date Type Department Care Team (Latest Contact Info) Description 12/08/2003 Inpatient Historical [facility] Cardiac Material Mixer [address] [place] [address] Satinder Coleman MD NO ADDRESS ON FILE CORON ATHEROSCL [place] CORON VESSEL (Primary Dx) Social History Tobacco Use Types Packs/Day Years Used Date Smoking Tobacco: Never Assessed Sex and Gender Information Value Date Recorded Sex Assigned at Not on file 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 [facility] [id number] PCP - General 11/24/03 documented as of this encounter
--- OUTSIDE RECORDS SUMMARY | 2025-02-25 07:24 | XMS_ITS | Encounter Summary ---
Author Organization [facility] Address [address] [place] [address] Care Team Providers Care Cdl Service Technician Name Role Phone Micheline Cunningham Primary Care Provider [phone] Encounter Details Date Type Department Care Team (Latest Contact Info) Description 11/09/2003 Outpatient Historical [facility] Medicine[address] [address] Maye Anderson MD [address] [place] [address] DIABETES UNCOMPL ADULT-TYPE II (CMS/HCC) (Primary Dx); ESOPHAGEAL REFLUX; CHEST PAIN NOS Social History Tobacco Use Types Packs/Day Years Used Date Smoking Tobacco: Never Assessed Sex and Gender Information Value Date Recorded Sex Assigned at Not on file 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 [facility] [address] PCP - General 11/24/03 documented as of this encounter
--- OUTSIDE RECORDS SUMMARY | 2025-02-25 07:24 | XMS_ITS | Encounter Summary ---
Author Organization [facility] Address [address] [place] [address] Care Team Providers Care Supervisor Grounds Name Role Phone Valentin Lovett DO Primary Care Provider [phone] Encounter Details Date Type Department Care Team (Late st Contact Info) Description 02/03/2025 External Device Data [facility] ABSTRACTION Provider, Abstract NO ADDRESS ON FILE Social History Tobacco Use Types Packs/Day Years Used Date Smoking Tobacco: Former Cigarettes Q uit: 04/19/1976 Smokeless Tobacco: Never Alcohol Use Standard Drinks/Week Comments Yes 0.8 (1 standard drink = 0.6 oz p ure alcohol) Feeling Safe Answer Date Recorded Are you in a relationship wi th someone who hurts you emotionally and/or physically? 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
--- OUTSIDE RECORDS SUMMARY | 2025-02-25 07:24 | XMS_ITS | Encounter Summary ---
Author Organization [facility] Address [address] [place] [address] Care Team Providers Care Maintenance And Engineering Manager Name Role Phone Micheline Cunningham Primary Care Provider Encounter Details Date Type Department Care Team (Latest Contact Info) Description 12/08/2005 Outpatient Historical [facility] Medicine[address] [address] Micheline Cunningham FNP [facility] [address], 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 [place], [address] PCP - General 11/24/03 documented as of this encounter
--- OUTSIDE RECORDS SUMMARY | 2025-02-25 07:24 | XMS_ITS | Encounter Summary ---
Author Organization [facility] Address [address] [place] [address] Care Team Providers Care Incident Analyst Name Role Phone Micheline Cunningham Primary Care Provider Encounter Details Date Type Department Care Team (Late st Contact Info) Description 02/16/2003 Outpatient Historical [address] [address] Micheline Cunningham FNP [facility] [address], [address] 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 [facility] [address] PCP - General 11/24/03 documented as of this encounter
--- OUTSIDE RECORDS SUMMARY | 2025-02-25 07:25 | XMS_ITS | Clinical Summary ---
Author Organization [facility] Address [address] [facility] Attn: Epic Prelude ADT [place] [address] Care Team Providers Care Tree Chipper Name Role Phone Valentin Lovett DO Primary Care Provider [phone] Allergies No known active allergies Medications metFORMIN (GLUCOPHAGE XR) 500 mg Extended Release 24 hour tablet Take 500 mg by mouth daily. Active gabapentin (NEURONTIN) 100 mg capsule Take 100 mg by mouth. Active empagliflozin (Jardiance) 10 mg tablet Take by mouth daily in the morning. Active aspirin (MATTHEW CHEWABLE) 81 mg Tablet, Chewable Take 1 Tablet (81 mg) by mouth daily with breakfast. 60 Tablet 1 12/10/2024 Active atorvastatin (LIPITOR) 40 mg tablet Take 1 Tablet (40 mg) by mouth daily at bedtime. 60 Tablet 12/09/2024 Active clopidogreL (PLAVIX) 75 mg Tablet Take 1 Tablet (75 mg) by mouth daily. 60 Tablet 1 12/09/2024 Active isosorbide mononitrate (IMDUR) 30 mg Extended Release 24 hour tablet Take 1 Tablet (30 mg) by mouth daily in the morning. 60 Tablet 1 12/09/2024 4:42 PM ENVIRONMENTAL ENGINEER SCIENTIST 12/09/2024 Active nitroglycerin (NITROSTAT) 0.4 mg Tablet, Sublingual Place 1 Tablet (0.4 mg) under tongue every 5 minutes as needed for Chest Pain. 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 Sacroiliitis, not elsewhere classified 1 Encounters Date Type Department Care Team Description 02/03/2025 External Device Data [facility]STRACTION Provider, Abstract 01/07/2025 External Device Data [facility] Provider, Abstract 01/07/2025 External Device Data [facility]CTION Provider, Abstract 12/10/2024 Abstract [facility] [address] [place] [address] Provider, Abstract 12/10/2024 Orders Only [facility] [address] [place] [address] Provider, Abstract 12/09/2024 6:57 AM ENVIRONMENTAL ENGINEER SCIENTIST - 12/09/2024 11:59 PM ENVIRONMENTAL ENGINEER SCIENTIST Hospital Encounter [facility] Non-Invasive Procedure [address] [place] [id number] Discharge Disposition: Home or Self Care 12/09/2024 6:57 AM ENVIRONMENTAL ENGINEER SCIENTIST - 12/09/2024 11:59 PM ENVIRONMENTAL ENGINEER SCIENTIST Hospital Encounter [facility] Non-Invasive Procedure [address] [place] [address] Discharge Disposition: Home or Self Care 12/09/2024 External Device Data [facility] ABSTRACTION Provider, Abstract 12/09/2024 External Device Data [facility]CTION Provider, Abstract 12/09/2024 External Device Data [facility] ABSTRACTION Provider, Abstract 12/08/2024 2:10 PM ENVIRONMENTAL ENGINEER SCIENTIST - 12/08/2024 3:05 PM ENVIRONMENTAL ENGINEER SCIENTIST Surgery [facility] Cardiac Rebar Fabricator [address] [place] [address] Zenia Aguirre, DO Left heart cath 12/08/2024 7:05 AM ENVIRONMENTAL ENGINEER SCIENTIST - 12/08/2024 11:59 PM ENVIRONMENTAL ENGINEER SCIENTIST Hospital Encounter [facility] Echo [address] [place] [address] Vj Bar MD Discharge Disposition: Home or Self Care 12/08/2024 Abstract [facility] Cardiothoracic Surgery [facility] [address] [place] [address] Lobo Barnett 12/07/2024 Prep for Surgery [facility] Cardiology [facility] [address] [place] [address] Sinai Shah, MARISA NSTEMI, initial episode of care ([facility]) 12/06/2024 10:19 AM ENVIRONMENTAL ENGINEER SCIENTIST - 12/09/2024 4:49 PM ENVIRONMENTAL ENGINEER SCIENTIST Hospital Encounter [facility] 4A Cardiac [address] [facility] [place] [address] Venkata Lee, Vj Rodriguez MD Sohail, Muhammad Saad, MD NSTEMI (non-ST elevated myocardial infarction) ([facility]) Discharge Disposition: Left Against Medical Advice 12/06/2024 Travel from Last 3 Months Family History Medical History Relation Name Comments [...] on file Legal Sex Male 1:08 AM ENVIRONMENTAL ENGINEER SCIENTIST Gender Identity Not on file Sexual Orientation Not on file Last Filed Vital Signs Vital Sign Reading Time Taken Comments Blood Pressure 110/75 12/09/2024 1:21 PM ENVIRONMENTAL ENGINEER SCIENTIST Pulse 80 12/09/2024 1:21 PM ENVIRONMENTAL ENGINEER SCIENTIST Temperature 36.2 ??C (97.2 ??F) 12/09/2024 1:21 PM CS T Respiratory Rate 19 12/09/2024 1:21 PM ENVIRONMENTAL ENGINEER SCIENTIST Oxygen Saturation 97% 12/09/2024 1:21 PM ENVIRONMENTAL ENGINEER SCIENTIST Inhaled Oxygen Concentration - - Weight 112.3 kg (247 lb 9.2 oz) 12/09/2024 5:37 AM ENVIRONMENTAL ENGINEER SCIENTIST Height 179.1 cm (5' 10.5 ) 12/08/2024 4:54 AM CS T Body Mass Index 35.02 12/08/2024 4:54 AM ENVIRONMENTAL ENGINEER SCIENTIST Plan of Treatment Health Maintenance Due Date Last Done Comments DIABETES ANNUAL FOOT EXAM 1962 DIABETES ANNUAL RETINAL EXAM 1962 DIABETES MICROALBUMIN ANNUAL SCREEN 1962 LDL CHOLESTEROL ANNUAL 1962 DTAP/TDAP/TD VACCINES (1 - Tdap) 1963 PNEUMOCOCCAL VACCINE 50+ YEARS (1 of 2 - PCV) 06/27/19 63 ZOSTER VACCINE (1 of 2) 1994 RSV VACCINE (60+ or ) (1 - 1-dose 75+ series) 2019 INFLUENZA VACCINE (#1) 2024 DIABETES HBA1C Q 6 MONTHS 06/05/2025 12/06/2024 Procedures Procedure Name Priority Date/Time Associated Diagnosis Comments TELEMETRY REPORT 12/10/2024 2:20 AM ENVIRONMENTAL ENGINEER SCIENTIST POC GLUCOSE Routine 12/09/2024 11:45 AM ENVIRONMENTAL ENGINEER SCIENTIST US AD DOPPLER MAPPING LEGS BILAT Stat 12/09/2024 9:38 AM ENVIRONMENTAL ENGINEER SCIENTIST US CAROTID DOPPLER Stat 12/09/2024 9: 38 AM ENVIRONMENTAL ENGINEER SCIENTIST UNFRACTIONATED HEPARIN ACTIVITY Timed Study 12/09/2024 7:49 AM ENVIRONMENTAL ENGINEER SCIENTIST PULMONARY FUNCTION TEST Stat 12/09/2024 7:04 AM ENVIRONMENTAL ENGINEER SCIENTIST POC GLUCOSE Routine 12/09/2024 7:00 AM ENVIRONMENTAL ENGINEER SCIENTIST COMPREHENSIVE METABOLIC PANEL Routine 12/09/2024 2:08 AM ENVIRONMENTAL ENGINEER SCIENTIST UNFRACTIONATED HEPARIN ACTIVITY Timed Study 12/09/2024 2:08 AM ENVIRONMENTAL ENGINEER SCIENTIST CT CHEST WO CONTRAST Stat 12/08/2024 11:05 PM ENVIRONMENTAL ENGINEER SCIENTIST POC GLUCOSE Routine 12/08/2024 8:48 PM ENVIRONMENTAL ENGINEER SCIENTIST LEFT HEART CATH Routine 12/08/2024 3:08 PM ENVIRONMENTAL ENGINEER SCIENTIST NSTEMI, initial episode of care ([facility]) UNFRACTIONATED HEPARIN ACTIVITY Timed Study 12/08/2024 11:44 AM ENVIRONMENTAL ENGINEER SCIENTIST ECHO COMPLETE Routine 12/08/2024 9:30 AM ENVIRONMENTAL ENGINEER SCIENTIST POC GLUCOSE Routine 12/08/2024 7:22 AM ENVIRONMENTAL ENGINEER SCIENTIST UNFRACTIONATED HEPARIN ACTIVITY Stat 12/08/2024 4:41 AM ENVIRONMENTAL ENGINEER SCIENTIST COMPREHENSIVE METABOLIC PANEL Routine 12/08/2024 4:41 AM ENVIRONMENTAL ENGINEER SCIENTIST UNFRACTIONATED HEPARIN ACTIVITY Timed Study 12/07/2024 8:43 PM ENVIRONMENTAL ENGINEER SCIENTIST UNFRACTIONATED HEPARIN ACTIVITY Timed Study 12/07/2024 12:12 PM ENVIRONMENTAL ENGINEER SCIENTIST UNFRACTIONATED HEPARIN ACTIVITY Timed Study 12/07/2024 2:20 AM ENVIRONMENTAL ENGINEER SCIENTIST COMPREHENSIVE METABOLIC PANEL Routine 12/07/2024 2:20 AM ENVIRONMENTAL ENGINEER SCIENTIST EKG 12-LEAD Stat 12/06/2024 11:49 PM ENVIRONMENTAL ENGINEER SCIENTIST UNFRACTIONATED HEPARIN ACTIVITY Stat 12/06/2024 9:49 PM ENVIRONMENTAL ENGINEER SCIENTIST CT HEAD WO CONTRAST Stat 12/06/2024 6 :58 PM ENVIRONMENTAL ENGINEER SCIENTIST COMPREHENSIVE METABOLIC PANEL Stat 12/06/2024 4:58 PM ENVIRONMENTAL ENGINEER SCIENTIST TROPONIN 6 HR, 5TH GEN Timed Study 4:58 PM ENVIRONMENTAL ENGINEER SCIENTIST HEMOGLOBIN A1C Stat 12/06/2024 1:50 PM ENVIRONMENTAL ENGINEER SCIENTIST UNFRACTIONATED HEPARIN ACTIVITY Stat 12/06/2024 1:50 PM ENVIRONMENTAL ENGINEER SCIENTIST PTT Stat 12/06/2024 1:50 PM ENVIRONMENTAL ENGINEER SCIENTIST CBC WITHOUT DIFFERENTIAL Stat 12/06/2024 1:50 PM ENVIRONMENTAL ENGINEER SCIENTIST TROPONIN 2 HR, 5TH GEN Timed Study 12:47 PM ENVIRONMENTAL ENGINEER SCIENTIST EXTRA TUBE (URINE OLIVER) Stat 12/06/2024 11:10 AM ENVIRONMENTAL ENGINEER SCIENTIST URINALYSIS W/REFLEX MICROSCOPIC Stat 12/06/2024 11:10 AM ENVIRONMENTAL ENGINEER SCIENTIST INFLUENZA A/B, RSV AND COVID-19 PCR PANEL Stat 12/06/2024 10:49 AM ENVIRONMENTAL ENGINEER SCIENTIST INFLUENZA A/B, RSV AND COVID-19 PCR PANEL Stat 12/06/2024 10:49 AM ENVIRONMENTAL ENGINEER SCIENTIST TROPONIN BASELINE, 5TH GEN Stat 12/06/2024 10:49 AM ENVIRONMENTAL ENGINEER SCIENTIST EKG 12-LEAD Stat 12/06/2024 10:28 AM ENVIRONMENTAL ENGINEER SCIENTIST CRITICAL CARE Routine 12/06/2024 10:19 AM ENVIRONMENTAL ENGINEER SCIENTIST COMPREHENSIVE METABOLIC PANEL Routine 12/06/2024 8:19 AM ENVIRONMENTAL ENGINEER SCIENTIST PROTIME-INR Routine 12/06/2024 from Last 3 Months Results * TELEMETRY REPORT (12/10/2024 2:20 AM ENVIRONMENTAL ENGINEER SCIENTIST) us Provider Scanning ECG ORDERABLES Final Result * (ABNORMAL) POC GLUCOSE (12/09/2024 11:45 AM ENVIRONMENTAL ENGINEER SCIENTIST) Only the most recent of3 resultswithin the time period is included. GLUCOSE POC 159(A) 65 - 99 mg/dL [facility] SPECIMEN SOURCE, GLUCOSE POC [facility] INTERNAL KIT QC POC Pass Pass [facility] KIT LOT NUMBER POC 0 [facility] KIT EXP DATE POC 0 [facility] Comment:0 Blood, capillary 12/09/2024 11:45 AM ENVIRONMENTAL ENGINEER SCIENTIST us Autumn Wilson MD POINT OF CARE TESTING Fi nal Result Performing Organization Address City/State/[facility] Co de Phone Number [facility] CLIA#[id number](waived ) CLIA#[id number](non waived) [address] [place] [address] * US AD DOPPLER MAPPING LEGS BILAT (12/09/2024 9:38 AM ENVIRONMENTAL ENGINEER SCIENTIST) Anatomical Region Laterality Modality Lower Extremity Ultrasound 12/09/2024 7:50 AM ENVIRONMENTAL ENGINEER SCIENTIST Narrative 12/09/2024 5:28 PM ENVIRONMENTAL ENGINEER SCIENTIST [facility] Cardiovascular Services Noninvasive Vascular Laboratory [address] [place] [address] Noninvasive Vascular Lab Vein Mapping Complete Lower Extremity Patient: ?Lolly Siegel Study ID: ?? US AD DOPPLER M Gender: ? M : ?1945 Age: ?79 Room: ? 4123 Height: ? 179.1cm Weight: ? 112.3kg BSA: ?2.4m^2 Pt status: ??Inpatient Study Date: 12/09/2024 Study Time: 07:50:34 AM BSA: ?2.4m^2 Ordering: Mar Conteh Interpreting:Jamal Ramirez Caretaker Resort: Goldie Bryant RVT Indications: ?? Pre op. Summary Impression: 1. No evidence of deep or superficial venous thrombosis involving the right ?? lower extremity. 2. Pt did not wish to have the mapping exam completed and asked that the exam ?? be ended. Study data: ??Bilateral lower extremity vein mapping ? Vessel mapping. Height: 179.1cm. Height: 70.5in. ?Weight: 112.3kg. Weight: 247.6lb. ?BMI: 35kg/m^2. ?BSA: 2.4m^2. ??Location: ??Bedside. ??Patient status: ??Inpatient. ?? Study status: ??Routine. ??Procedure: ??A vascular evaluation was performed. Image quality was good. Venous flow and imaging: - Right common femoral Patent; Normal phasicity; spontaneous; compressible; ??normal augmentation - Right profunda femoral Patent; Normal phasicity; spontaneous; compressible; ??normal augmentation - Right femoral Patent; Normal phasicity; spontaneous; compressible; normal ??augmentation - Right popliteal Patent; Normal phasicity; spontaneous; compressible; normal ??augmentation - Right small saphenous Patent; Normal phasicity; spontaneous; compressible; ??normal augmentation - Right posterior tibial Patent; Compressible; normal augmentation - Right peroneal Patent; Compressible; normal augmentation - Right great saphenous Patent; Normal phasicity; spontaneous; compressible; ??normal augmentation - Left common femoral Patent; Normal phasicity; spontaneous; compressible; ??normal augmentation [facility] Vascular Lab is accredited with the Intersocietal Commission for the Accreditation of Vascular Laboratories (ICAVL) Prepared and Electronically Authenticated Jamal Ramirez Confirmed ?12/09/2024 17:28 Procedure Note Jamal Ramirez MD - 12/09/2024 [facility] Cardiovascular Services Noninvasive Vascular Laboratory [address] [place] [id number] Noninvasive Vascular Lab Vein Mapping Complete Lower Extremity Patient: Lolly Siegel Study ID: US AD DOPPLER M Gender: Hebert : 1945 Age: 79 Room: [facility] Height: 179.1cm Weight: 112.3kg BSA: 2.4m^2 Pt status: Inpatient Study Date: 12/09/2024 Study Time: 07:50:34 AM BSA: 2.4m^2 Ordering: Mar Conteh Interpreting:Jamal Ramirez Caretaker Resort: Goldie Bryant RVT Indications: Pre op. Summary Impression: 1. No evidence of deep or superficial venous thrombosis involving theright lower extremity. 2. Pt did not wish to have the mapping exam completed and asked that theexam be ended. Study data: Bilateral lower extremity vein mapping Vessel mapping. Height: 179.1cm. Height: 70.5in. Weight: 112.3kg. Weight: 247.6lb.BMI: 35kg/m^2. BSA: 2.4m^2. Location: Bedside. Patient status:Inpatient. Study status: Routine. Procedure: A vascular evaluation wasperformed. Image quality was good. Venous flow and imaging: - Right common femoral Patent; Normal phasicity; spontaneous;compressible; normal augmentation - Right profunda femoral Patent; Normal phasicity; spontaneous;compressible; normal augmentation - Right femoral Patent; Normal phasicity; spontaneous; compressible;normal augmentation - Right popliteal Patent; Normal phasicity; spontaneous; compressible;normal augmentation - Right small saphenous Patent; Normal phasicity; spontaneous;compressible; normal augmentation - Right posterior tibial Patent; Compressible; normal augmentation - Right peroneal Patent; Compressible; normal augmentation - Right great saphenous Patent; Normal phasicity; spontaneous;compressible; normal augmentation - Left common femoral Patent; Normal phasicity; spontaneous;compressible; normal augmentation [facility] Vascular Lab is accredited with theIntersoci[place] health [place] Commission for the Accreditation of Vascular Laboratories (ICAVL) Prepared and Electronically Authenticated Jamal Ramirez Confirmed 12/09/2024 17:28 us Mar [place] US ORDERABLES Final Re sult * US CAROTID DOPPLER (12/09/2024 9:38 AM ENVIRONMENTAL ENGINEER SCIENTIST) Anatomical Region Laterality Modality Neck Ultrasound 12/09/2024 7:56 AM ENVIRONMENTAL ENGINEER SCIENTIST Narrative 12/09/2024 5:17 PM ENVIRONMENTAL ENGINEER SCIENTIST [facility] Cardiovascular Services Noninvasive V[facility] [place] [address] Noninvasive Vascular Lab Cerebrovascular Exam Carotid Duplex Patient: ?Lolly Siegel Alex Study ID: ?? US CAROTID DOPPL Gender: ? M : ?1945 Age: ?79 Room: ? 4123 Height: ? 179.1cm Weight: ? 112.3kg BSA: ?2.4m^2 Pt status: ??Inpatient Study Date: 12/09/2024 Study Time: 07:56:47 AM BSA: ?2.4m^2 Ordering: Mar Conteh Interpreting:Jamal Ramirez Caretaker Resort: Goldie Bryant RVT Indications: ?? Pre op. History: ?? Coronary artery disease. ??Risk factors: ??Hypertension. Diabetes mellitus. Dyslipidemia. Summary Impression: Study demonstrates a <50% stenosis involving the right internal carotid artery and the left internal carotid artery. Study data: ??Carotid duplex study. ? Complete study and Doppler flow study including spectral analysis, color and oliver scale imaging. ?Height: 179.1cm. Height: 70.5in. ?Weight: 112.3kg. Weight: 247.6lb. ?BMI: 35kg/m^2. BSA: 2.4m^2. ??Location: ??Bedside. ??Patient status: ??Inpatient. ? Study status: ??Routine. ??Objective: ?? Pre-procedural evaluation for surgery. Procedure: ??A vascular evaluation was performed. Image quality was fair. Arterial flow: - Right CCA proximal: Right CCA proximal 1.19m/sec 0.14m/sec - Right CCA distal: Right CCA distal 0.77m/sec 0.1m/sec - Right ICA proximal: Right ICA proximal 0.6m/sec 0.1m/sec 0.5 0.72 - Right ICA distal: Right ICA distal 0.86m/sec 0.16m/sec 0.73 1.2 - Right ECA: Right ECA 1.02m/sec - Right vertebral: Right vertebral 0.78m/sec - Left CCA proximal: Left CCA proximal 1.31m/sec 0.17m/sec - Left CCA distal: Left CCA distal 1.09m/sec 0.17m/sec - Left ICA proximal: Left ICA proximal 0.78m/sec 0.18m/sec 0.6 1.08 - Left ICA distal: Left ICA distal 0.73m/sec 0.18m/sec 0.56 1.07 - Left ECA: Left ECA 1.19m/sec - Left vertebral: Left vertebral 0.45m/sec Velocity ratios: + +-----+-----+ ! ? !R PSV!L PSV! + +-----+-----+ !Proximal ICA/prox CCA!0.5 ??!0.6 ??! + +-----+-----+ [facility] Vascular Lab is accredited with the Intersocietal Commission for the Accreditation of Vascular Laboratories (ICAVL) Prepared and Electronically Authenticated Jamal Ramirez Confirmed ?12/09/2024 17:17 Procedure Note Jamal Ramirez MD - 12/09/2024 [facility] Cardiovascular Services Noninvasive Vascular Laboratory [address] [place] [address] Noninvasive Vascular Lab Cerebrovascular Exam Carotid Duplex Patient: Lolly Siegel Study ID: US CAROTID DOPPL Gender: M : 1945 Age: 79 Room: [facility] Height: 179.1cm Weight: 112.3kg BSA: 2.4m^2 Pt status: Inpatient Study Date: 12/09/2024 Study Time: 07:56:47 AM BSA: 2.4m^2 Ordering: Mar Conteh Interpreting:Jamal Ramierz Caretaker Resort: Goldie Bryant RVT Indications: Pre op. History: Coronary artery disease. Risk factors: Hypertension.Diabetes mellitus. Dyslipidemia. Summary Impression: Study demonstrates a <50% stenosis involving the right internal carotidartery and the left internal carotid artery. Study data: Carotid duplex study. Complete study and Doppler flowstudy including spectral analysis, color and oliver scale imaging. Height:179.1cm. Height: 70.5in. Weight: 112.3kg. Weight: 247.6lb. BMI: 35kg/m^2. BSA: 2.4m^2. Location: Bedside. Patient status: Inpatient. Study status: Routine. Objective: Pre-procedural evaluation for surgery. Procedure: A vascular evaluation was performed. Image quality was fair. Arterial flow: - Right CCA proximal: Right CCA proximal 1.19m/sec 0.14m/sec - Right CCA distal: Right CCA distal 0.77m/sec 0.1m/sec - Right ICA proximal: Right ICA proximal 0.6m/sec 0.1m/sec 0.5 0.72 - Right ICA distal: Right ICA distal 0.86m/sec 0.16m/sec 0.73 1.2 - Right ECA: Right ECA 1.02m/sec - Right vertebral: Right vertebral 0.78m/sec - Left CCA proximal: Left CCA proximal 1.31m/sec 0.17m/sec - Left CCA distal: Left CCA distal 1.09m/sec 0.17m/sec - Left ICA proximal: Left ICA proximal 0.78m/sec 0.18m/sec 0.6 1.08 - Left ICA distal: Left ICA distal 0.73m/sec 0.18m/sec 0.56 1.07 - Left ECA: Left ECA 1.19m/sec - Left vertebral: Left vertebral 0.45m/sec Velocity ratios: + +-----+-----+ ! !R PSV!L PSV! + +-----+-----+ !Proximal ICA/prox CCA!0.5 !0.6 ! + +-----+-----+ [facility] Vascular Lab is accredited with theIntersocietal Commission for the Accreditation of Vascular Laboratories (ICAVL) Prepared and Electronically Authenticated Jamal Ramirez Confirmed 12/09/2024 17:17 us Mar Conteh [facility] US ORDERABLES Final Re sult * UNFRACTIONATED HEPARIN MONITORING (12/09/2024 7:49 AM ENVIRONMENTAL ENGINEER SCIENTIST) Only the most recent of9 resultswithin the time period is included. ANTI-XA UNFRAC HEP 0.64 See Interpretation IU/mL 12/09/2024 8:12 AM [facility] Blood Venipuncture / Unknown 12/09/2024 7:49 AM ENVIRONMENTAL ENGINEER SCIENTIST 12/09/2024 7:55 AM [facility] Narrative [facility] - 12/09/2024 8:12 AM [facility] Therapeutic Range: PT/DVT Heparin Protocol ??0.3 - 0.7 IU/ml Cardiac Heparin Protocol ??0.3 - 0.6 IU/ml The reference range for this test is specific to the anticoagulant and is not appropriate for monitoring patients on a DOAC protocol. Autumn Wilson MD HEMATOLOGY ORDERABLES Fi nal Result [facility] CLMIRIAM # [id number] [id number] [place] [address] * PULMONARY FUNCTION TEST (12/09/2024 7:04 AM ENVIRONMENTAL ENGINEER SCIENTIST) Narrative Shanita Bowman RCP - 12/09/2024 7:04 AM ENVIRONMENTAL ENGINEER SCIENTIST Shanita Bowman RCP ? 12/09/2024 ??7:07 AM Pulmonary Function test order noted. ??PFT held due to patient in droplet isolation per department protocol. ?? Mar Schneider Yady WOOD CUT ENGRAVER PFT ORDERABLES Final Re sult * (ABNORMAL) COMPREHENSIVE METABOLIC PANEL (12/09/2024 2:08 AM ENVIRONMENTAL ENGINEER SCIENTIST) Only the most recent of5 resultswithin the time period is included. SODIUM 133(L) 136 - 145 mmol/L 12/09/2024 2:55 AM [facility] POTASSIUM 4.5 3.5 - 5.1 mmol/L 12/09/2024 2:55 AM [facility] CHLORIDE 97(L) 98 - 107 mmol/L 12/09/2024 2:55 AM [facility] CO2 20(L) 22 - 29 mmol/L 12/09/2024 2:55 AM [facility] CALCIUM 8.9 8.8 - 10.2 mg/dL 12/09/2024 2:55 AM [facility] BUN 29(H) 8 - 23 mg/dL 12/09/2024 2:55 AM [facility] CREATININE 1.66(H) 0.67 - 1.17 mg/dL 12/09/2024 2:55 AM [facility] Comment:The GFR result is no t clinically significant on patients <18 or >70 years of age. GLUCOSE 109(H) 74 - 99 mg/dL 12/09/2024 2:55 AM [facility] TOTAL PROTEIN 6.5 6.4 - 8.3 g/dL 12/09/2024 2:55 AM [facility] ALBUMIN 3.9 3.5 - 5.2 g/dL 12/09/2024 2:55 AM [facility] BILIRUBIN TOTAL 0.3 0.2 - 1.0 mg/dL 12/09/2024 2:55 AM [facility] ALKALINE PHOSPHATASE 86 40 - 129 U/L 12/09/2024 2:55 AM [facility] AST 27 10 - 50 U/L 12/09/2024 2:55 AM [facility] ALT 15 <=50 U/L 12/09/2024 2:55 AM [facility] GFR 41 mL/min/1. 73 sq meter 12/09/2024 2:55 AM [facility] Comment:eGFR calculated with 2020 CKD-EPI equation. Vegetarian diet, extremely high or low muscle mass, and may affect results. Cystatin C with Glomerular Filtration Rate is a suitable alternative for these patients. ANION GAP 16 9 - 20 mmol/L 12/09/2024 2:55 AM [facility] Blood Venipuncture / Unknown 12/09/2024 2:08 AM ENVIRONMENTAL ENGINEER SCIENTIST 12/09/2024 2:23 AM ENVIRONMENTAL ENGINEER SCIENTIST Vj Bar MD CHEMISTRY ORDERABLES Final Res ult [facility] CLIA # [id number] [address] [place] [address] [place] [address] * CT CHEST WO CONTRAST (12/08/2024 11:05 PM ENVIRONMENTAL ENGINEER SCIENTIST) Anatomical Region Laterality Modality Chest Computed Tomogra phy 12/08/2024 11:0 5 PM ENVIRONMENTAL ENGINEER SCIENTIST Impressions 12/08/2024 11:24 PM ENVIRONMENTAL ENGINEER SCIENTIST IMPRESSION: Please see below. Exam: CT CHEST WO CONTRAST Date/Time of Exam: 12/08/2024 11:05 PM Reason For Exam: Aortic atherosclerosis, CABG, aortic atherosclerosis. Diagnosis: NSTEMI (non-ST elevated myocardial infarction) ([facility]); Influenza A; NSTEMI, initial episode of care ([facility]). Technique: CT of the chest was performed without the administration of intravenous contrast. Findings: No IV contrast was utilized. There are no comparisons. There is no pneumothorax. There is minimal bilateral lower lobe atelectasis and/or scarring. The lungs are otherwise clear. No pathologic axillary, mediastinal or hilar mass or adenopathy is appreciated. No mediastinal fluid collections are noted. There is mild to moderate atherosclerotic calcification of the thoracic aorta. There is no evidence for thoracic aortic aneurysm. The main pulmonary artery is not enlarged. Heart size is within normal limits. There is severe coronary artery calcification. There is mild bilateral renal cortical scarring. There is mild bilateral perinephric stranding. There is an incompletely visualized right renal cyst. The bones are osteopenic. No acute bony abnormality is noted. IMPRESSION: 1. No acute radiographic abnormality. 2. Severe coronary artery calcifications. Narrative Procedure Note Selam Stein MD - 12/08/2024 IMPRESSION: Please see below. Exam: CT CHEST WO CONTRAST Date/Time of Exam: 12/08/2024 11:05 PM Reason For Exam: Aortic atherosclerosis, CABG, aortic atherosclerosis. Diagnosis: NSTEMI (non-ST elevated myocardial infarction) ([facility]); Influenza A; NSTEMI, initial episode of care ([facility]). Technique: CT of the chest was performed without the administration of intravenous contrast. Findings: No IV contrast was utilized. There are no comparisons. There is no pneumothorax. There is minimal bilateral lower lobe atelectasis and/or scarring. The lungs are otherwise clear. No pathologic axillary, mediastinal or hilar mass or adenopathy is appreciated. No mediastinal fluid collections are noted. There is mild to moderate atherosclerotic calcification of the thoracic aorta. There is no evidence for thoracic aortic aneurysm. The main pulmonary artery is not enlarged. Heart size is within normal limits. There is severe coronary artery calcification. There is mild bilateral renal cortical scarring. There is mild bilateral perinephric stranding. There is an incompletely visualized right renal cyst. The bones are osteopenic. No acute bony abnormality is noted. IMPRESSION: 1. No acute radiographic abnormality. 2. Severe coronary artery calcifications. Mar Conteh [facility] CT ORDERABLES Final Re sult * LEFT HEART CATH (12/08/2024 3:08 PM ENVIRONMENTAL ENGINEER SCIENTIST) 12/08/2024 2:51 PM ENVIRONMENTAL ENGINEER SCIENTIST Narrative [facility] - 12/08/2024 4:30 PM ENVIRONMENTAL ENGINEER SCIENTIST ?Ost RCA to Prox RCA lesion is 99% stenosed. ?Mid Cx lesion is 80% stenosed. ?1st Mrg lesion is 60% stenosed. ?Prox LAD lesion is 90% stenosed. ?1st Diag lesion is 90% stenosed. Multivessel calcific CAD RECOMMENDATIONS: CTS consult for CABG Coronary Findings Diagnostic Dominance: Right Left Main: There is mild diffuse disease in the vessel. Left Anterior Descending: Prox LAD lesion is 90% stenosed. The lesion is located at the bifurcation. The lesion is calcified. First Diagonal Branch: 1st Diag lesion is 90% stenosed. The lesion is located at the bifurcation. The lesion is calcified. Left Circumflex: Mid Cx lesion is 80% stenosed. First Obtuse Marginal Branch: 1st Mrg lesion is 60% stenosed. Right Coronary Artery: Ost RCA to Prox RCA lesion is 99% stenosed. The lesion is calcified. Intervention No interventions have been documented. Estimated Blood Loss There was minimal blood loss during procedure. [facility] CUP CATH ORDERABLES Final Re sult [facility] CLIA [id number] [address] [facility] [address] [place] [id number], [place] [phone] * ECHO COMPLETE - CONTRAST AND STRAIN IF INDICATED (12/08/2024 9:30 AM ENVIRONMENTAL ENGINEER SCIENTIST) EJECTION FRACTION 60 INTERFACE SYSTEM 12/08/2024 9:08 AM ENVIRONMENTAL ENGINEER SCIENTIST Narrative INTERFACE SYSTEM - 12/08/2024 11:16 AM ENVIRONMENTAL ENGINEER SCIENTIST [facility] Cardiovascular Services Echocardiography Laboratory [address] [place] [address] Transthoracic Echocardiography Patient: ?Lolly Siegel Study ID: ??ECHO COMPLETE - Gender: ? M ? : ?1945 Age: ? 79 Room: ? [facility] ? Study Date: 12/08/2024 Pt Status: Inpatient Study Time: 09:08:42 AM ? CSN #: ?[id number] Ordering:Vj Bar Caretaker Resort: Belia Ash Indications and History: ?Acute coronary syndrome. Summary and Conclusion: - Left ventricle: The cavity size is normal. Wall thickness is normal. Global ??systolic function is normal. For Epic reporting: the left ventricular ??ejection fraction is 60% by visual assessment. No diagnostic regional wall ??motion abnormality identified. Left ventricular diastolic function ??parameters are normal. - Right ventricle: The cavity size is normal. Systolic function is normal. The ??estimated peak pressure is 30mm Hg. - Aortic valve: There is mild regurgitation. - Mitral valve: The annulus is mildly calcified. There is trivial to mild ??regurgitation. - Tricuspid valve: There is mild regurgitation. - Pulmonic valve: There is mild regurgitation. Procedure information: ??No prior study is available for comparison. ??Study status: ??Routine. ??Procedure: ??A transthoracic echocardiogram was performed. Image quality was adequate. Scanning was performed from the parasternal, apical, subcostal, and suprasternal notch acoustic windows. ?Study components: M-mode, 2D, complete spectral Doppler, and color Doppler. Height: 179.1cm. Height: 70.5in. ?Weight: 112.3kg. Weight: 247.6lb. ?BMI: 35kg/m^2. ?BSA: 2.4m^2. ??Blood pressure: ? 116/46 ?Study date: 12/08/2024. Study time: 09:08 AM. ??Location: ??Bedside. Cardiac Anatomy: LEFT VENTRICLE: ??The cavity size is normal. Wall thickness is normal. Global systolic function is normal. For Epic reporting: the left ventricular ejection fraction is 60% by visual assessment. No diagnostic regional wall motion abnormality identified. Left ventricular diastolic function parameters are normal. RIGHT VENTRICLE: ??The cavity size is normal. Systolic function is normal. The estimated peak pressure is 30mm Hg. LEFT ATRIUM: ??The atrium is normal in size. RIGHT ATRIUM: ??The atrium is normal in size. ATRIAL SEPTUM: ??Not well visualized. AORTIC VALVE: ??Mobility is not restricted. ??There is no stenosis. ?? There is mild regurgitation. MITRAL VALVE: ??The annulus is mildly calcified. Mobility is not restricted. No evidence for prolapse. ??There is no evidence for stenosis. ?? There is trivial to mild regurgitation. TRICUSPID VALVE: ??Mobility is unrestricted. ??There is no evidence for stenosis. ?? There is mild regurgitation. PULMONIC VALVE: ??Not well visualized. ??The valve appears to be grossly normal. ?? There is no evidence for stenosis. ?? There is mild regurgitation. PERICARDIUM: ?? There is no pericardial effusion. AORTA: Aortic root: The root is not dilated. Measurements Left ventricle ? Value ? Right ventricle ? Value CHRISTINE, LAX ? 4.7 ?? cm ?CHRISTINE, LAX ?2.5 ?cm ESD, LAX ? 2.9 ?? cm ?CHRISTINE ? 2.5 ?cm CHRISTINE/bsa, LAX ? 2.0 ?? cm/m^2 ESD/bsa, LAX ? 1.2 ?? cm/m^2 ??Left atrium ? Value FS, LAX ?39 ?% ? AP dim, ES ?3.2 ?cm ESD major ax, A4C ?7.4 ?? cm ?AP dim index, ES ?1.3 ?cm/m^2 ESD/bsa major ax, A4C ??3.1 ?? cm/m^2 ??SI dim, A4C ? 5.1 ?cm CHRISTINE minor ax, A4C ?7.4 ?? cm ?Area ES, A4C ?14 ? cm^2 CHRISTINE/bsa minor ax, A4C ??3.1 ?? cm/m^2 ??Vol, S ?38 ? ml CHRISTINE major ax, A2C ?8.9 ?? cm ?Vol/bsa, S ?16 ? ml/m^2 ESD major ax, A2C ?7.4 ?? cm ?Vol, ES, 1-p A4C ?31 ? ml CHRISTINE/bsa major ax, A2C ??3.7 ?? cm/m^2 ??Vol/bsa, ES, 1-p A4C ??13 ? ml/m^2 ESD/bsa major ax, A2C ??3.1 ?? cm/m^2 ??Vol, ES, 1-p A2C ?40 ? ml IVS, ED ?0.8 ?? cm ?Vol/bsa, ES, 1-p A2C ??17 ? ml/m^2 ESD ?2.9 ?? cm ?Vol, ES, A/L ?32 ? ml ESD/bsa ?1.2 ?? cm/m^2 ??Vol/bsa, ES, A/L ?14 ? ml/m^2 PW, ED ? 0.8 ?? cm IVS/PW, ED ? 1.02 ?Right atrium ?Value EDV, 1-p A2C ? 93 ?ml ?Area, ES ?11 ? cm^2 ESV, 1-p A2C ? 54 ?ml ?Area, ES, A4C ? 11 ? cm^2 EF, 1-p A2C ?59 ?% EDV/bsa, 1-p A2C ? 38 ?ml/m^2 ??Aortic valve ?Value ESV/bsa, 1-p A2C ? 23 ?ml/m^2 ??Peak v, S ? 143.18 cm/sec EDV, 1-p A4C ? 101 ?? ml ?Peak grad, S ?8 ?mm Hg ESV, 1-p A4C ? 34 ?ml ?LVOT/AV, Vpeak ratio ??0.59 EF, 1-p A4C ?67 ?% ? AR peak v ? 3.41 ?? m/sec SV, 1-p A4C ?68 ?ml ?AR PHT ?489 ?ms EDV/bsa, 1-p A4C ? 42 ?ml/m^2 ??AR peak grad ?46 ? mm Hg ESV/bsa, 1-p A4C ? 14 ?ml/m^2 SV/bsa, 1-p A4C ?28 ?ml/m^2 ??Mitral valve ?Value EDV, 2-p ? 97 ?ml ?Peak E ?66.95 ??cm/sec ESV, 2-p ? 36 ?ml ?Peak A ?83.93 ??cm/sec EF, 2-p ?63 ?% ? Decel time ?191 ?ms SV, 2-p ?38 ?ml ?PHT ? 56 ? ms EDV/bsa, 2-p ? 40 ?ml/m^2 ??Peak E/A ratio ?0.8 ESV/bsa, 2-p ? 15 ?ml/m^2 ??MVA, PHT ?3.96 ?? cm^2 SV/bsa, 2-p ?15.9 ??ml/m^2 ??MVA/bsa, PHT ?1.65 ?? cm^2/m^2 ?Vena contracta width ??2.5 ?cm LVOT ? Value Peak coby, S ?83.89 cm/sec ??Tricuspid valve ? Value Peak grad, S ? 3 ? mm Hg ?? TR peak v ? 262.43 cm/sec ?Peak RV-RA grad, S ?28 ? mm Hg Legend: (L) ??and ??(H) ??gian values outside specified reference range. [facility] are accredited with the Intersocietal Accreditation Commission - Echocardiography. Prepared and Electronically Authenticated Clayton Danny FLOOD Confirmed ? 12/08/2024 11:16 Procedure Note Clayton Delgado MD - 12/08/2024 [facility] Echocardiography Laboratory [facility] [place] [address] Transthoracic Echocardiography Patient: Lolly Siegel Study ID: ECHOCOMPLETE - Gender: M : 1945 Age: 79 Room: [facility] Study Date: 12/08/2024 Pt Status: Inpatient Study Time: 09:08:42 AM CSN #: [id number] Ordering:Vj Bar Caretaker Resort: Belia Ash Indications and History: Acute coronary syndrome. Summary and Conclusion: - Left ventricle: The cavity size is normal. Wall thickness is normal.Global systolic function is normal. For Epic reporting: the left ventricular ejection fraction is 60% by visual assessment. No diagnostic regionalwall motion abnormality identified. Left ventricular diastolic function parameters are normal. - Right ventricle: The cavity size is normal. Systolic function is normal.The estimated peak pressure is 30mm Hg. - Aortic valve: There is mild regurgitation. - Mitral valve: The annulus is mildly calcified. There is trivial tomild regurgitation. - Tricuspid valve: There is mild regurgitation. - Pulmonic valve: There is mild regurgitation. Procedure information: No prior study is available for comparison.Study status: Routine. Procedure: A transthoracic echocardiogram wasperformed. Image quality was adequate. Scanning was performed from the parasternal, apical, subcostal, and suprasternal notch acoustic windows.Study components: M-mode, 2D, complete spectral Doppler, and color Doppler. Height: 179.1cm. Height: 70.5in. Weight: 112.3kg. Weight: 247.6lb.BMI: 35kg/m^2. BSA: 2.4m^2. Blood pressure: 116/46 Study date: 12/08/2024. Study time: 09:08 AM. Location: Bedside. Cardiac Anatomy: LEFT VENTRICLE: The cavity size is normal. Wall thickness is normal.Global systolic function is normal. For Epic reporting: the left ventricularejection fraction is 60% by visual assessment. No diagnostic regional wall motion abnormality identified. Left ventricular diastolic function parametersare normal. RIGHT VENTRICLE: The cavity size is normal. Systolic function is normal.The estimated peak pressure is 30mm Hg. LEFT ATRIUM: The atrium is normal in size. RIGHT ATRIUM: The atrium is normal in size. ATRIAL SEPTUM: Not well visualized. AORTIC VALVE: Mobility is not restricted. There is no stenosis. Thereis mild regurgitation. MITRAL VALVE: The annulus is mildly calcified. Mobility is notrestricted. No evidence for prolapse. There is no evidence for stenosis. There istrivial to mild regurgitation. TRICUSPID VALVE: Mobility is unrestricted. There is no evidence for stenosis. There is mild regurgitation. PULMONIC VALVE: Not well visualized. The valve appears to be grosslynormal. There is no evidence for stenosis. There is mild regurgitation. PERICARDIUM: There is no pericardial effusion. AORTA: Aortic root: The root is not dilated. Measurements Left ventricle Value Right ventricle Value CHRISTINE, LAX 4.7 cm CHRISTINE, LAX 2.5 cm ESD, LAX 2.9 cm CHRISTINE 2.5 cm CHRISTINE/bsa, LAX 2.0 cm/m^2 ESD/bsa, LAX 1.2 cm/m^2 Left atrium Value FS, LAX 39 % AP dim, ES 3.2 cm ESD major ax, A4C 7.4 cm AP dim index, ES 1.3cm/m^2 ESD/bsa major ax, A4C 3.1 cm/m^2 SI dim, A4C 5.1 cm CHRISTINE minor ax, A4C 7.4 cm Area ES, A4C 14 cm^2 CHRISTINE/bsa minor ax, A4C 3.1 cm/m^2 Vol, S 38 ml CHRISTINE major ax, A2C 8.9 cm Vol/bsa, S 16ml/m^2 ESD major ax, A2C 7.4 cm Vol, ES, 1-p A4C 31 ml CHRISTINE/bsa major ax, A2C 3.7 cm/m^2 Vol/bsa, ES, 1-p A4C 13ml/m^2 ESD/bsa major ax, A2C 3.1 cm/m^2 Vol, ES, 1-p A2C 40 ml IVS, ED 0.8 cm Vol/bsa, ES, 1-p A2C 17ml/m^2 ESD 2.9 cm Vol, ES, A/L 32 ml ESD/bsa 1.2 cm/m^2 Vol/bsa, ES, A/L 14ml/m^2 PW, ED 0.8 cm IVS/PW, ED 1.02 Right atrium Value EDV, 1-p A2C 93 ml Area, ES 11 cm^2 ESV, 1-p A2C 54 ml Area, ES, A4C 11 cm^2 EF, 1-p A2C 59 % EDV/bsa, 1-p A2C 38 ml/m^2 Aortic valve Value ESV/bsa, 1-p A2C 23 ml/m^2 Peak v, S 143.18cm/sec EDV, 1-p A4C 101 ml Peak grad, S 8 mm Hg ESV, 1-p A4C 34 ml LVOT/AV, Vpeak ratio 0.59 EF, 1-p A4C 67 % AR peak v 3.41 m/sec SV, 1-p A4C 68 ml AR PHT 489 ms EDV/bsa, 1-p A4C 42 ml/m^2 AR peak grad 46 mm Hg ESV/bsa, 1-p A4C 14 ml/m^2 SV/bsa, 1-p A4C 28 ml/m^2 Mitral valve Value EDV, 2-p 97 ml Peak E 66.95cm/sec ESV, 2-p 36 ml Peak A 83.93cm/sec EF, 2-p 63 % Decel time 191 ms SV, 2-p 38 ml PHT 56 ms EDV/bsa, 2-p 40 ml/m^2 Peak E/A ratio 0.8 ESV/bsa, 2-p 15 ml/m^2 MVA, PHT 3.96 cm^2 SV/bsa, 2-p 15.9 ml/m^2 MVA/bsa, PHT 1.65cm^2/m^2 Vena contracta width 2.5 cm LVOT Value Peak coby, S 83.89 cm/sec Tricuspid valve Value Peak grad, S 3 mm Hg TR peak v 262.43cm/sec Peak RV-RA grad, S 28 mm Hg Legend: (L) and (H) gian values outside specified reference range. [facility] are accredited with the[facility] Hospitalciunc health [place] Accreditation Commission - Echocardiography. Prepared and Electronically Authenticated Clayton Delgado MD Confirmed 12/08/2024 11:16 us Vj Bar MD US ORDERABLES Final Result Performing Organization Address [facility]/ZIP Co de Phone Number INTERFACE SYSTEM Refer to clinic/hospital department * (ABNORMAL) POC GLUCOSE (12/08/2024 7:22 AM ENVIRONMENTAL ENGINEER SCIENTIST) [facility] GLUCOSE POC 164(H) 74 - 99 mg/dL 12/08/2024 7:22 AM ENVIRONMENTAL ENGINEER SCIENTIST [facility] SPECIMEN SOURCE, GLUCOSE POC Capillary 12/08/2024 7:22 AM ENVIRONMENTAL ENGINEER SCIENTIST [facility] Blood, whole 12/08/2024 7:22 AM ENVIRONMENTAL ENGINEER SCIENTIST 12/08/2024 7:33 AM ENVIRONMENTAL ENGINEER SCIENTIST us Autumn Wilson MD POINT OF CARE TESTING Fi nal Result Performing Organization Address [facility] Co de Phone Number [facility] CLIA # [id number] [address] [facility] [place] [address] * EKG 12-LEAD (12/06/2024 11:49 PM ENVIRONMENTAL ENGINEER SCIENTIST) Only the most recent of2 resultswithin the time period is included. 12/06/2024 11:4 9 PM ENVIRONMENTAL ENGINEER SCIENTIST Narrative INTERFACE SYSTEM - 12/07/2024 1:03 PM ENVIRONMENTAL ENGINEER SCIENTIST ?[facility] ? [address] [place] [address] ? Test Date: ?2024-12-06 Pat Name: ? LOLLY SIEGEL ? Department: ?? 12 ? Room: ? 4123 01 Gender: ? Male ? Portable Router Operator: ?? [id number] : ?1945 ? Requested By: ?? Order Number: [id number] ? Reading MD: ?? Molly Dedrick ? Measurements Intervals ?[place] ? Rate: ? 93 ? P: ?46 FL: ? 210 ?QRS: ?41 QRSD: ? 104 ?T: ?-43 QT: ? 338 ? QTc: ?420 ? Interpretive Statements Sinus rhythm with 1st degree AV block Septal infarct, age undetermined ST & T wave abnormality, consider inferior ischemia Abnormal ECG Electronically Signed On 12-07-2024 13:03:06 ENVIRONMENTAL ENGINEER SCIENTIST by Molly Tse Procedure Note Provider, Historical - 12/07/2024 [id number] [place] [address] Test Date: 2024-12-06 Pat Name: LOLLY SIEGEL Department: 12 Room: [address] [place] [address] Gender: Male Portable Router Operator: [id number] : 1945 Requested By: Order Number: [id number] Reading MD: Molly Tse Measurements Intervals [place] Rate: 93 P: 46 FL: 210 QRS: 41 QRSD: 104 T: -43 QT: 338 QTc: 420 Interpretive Statements Sinus rhythm with 1st degree AV block Septal infarct, age undetermined ST & T wave abnormality, consider inferior ischemia Abnormal ECG Electronically Signed On 12-07-2024 13:03:06 ENVIRONMENTAL ENGINEER SCIENTIST by Molly Tse Vj Bar MD ECG ORDERABLES Final Result INTERFACE SYSTEM Refer to clinic/hospital department * CT HEAD WO CONTRAST (12/06/2024 6:58 PM ENVIRONMENTAL ENGINEER SCIENTIST) Anatomical Region Laterality Modality Head Computed Tomogra phy 12/06/2024 6:51 PM ENVIRONMENTAL ENGINEER SCIENTIST Impressions 12/06/2024 7:18 PM ENVIRONMENTAL ENGINEER SCIENTIST IMPRESSION: ?? Prominent generalized parenchymal atrophy and chronic small vessel disease are present. Narrative 12/06/2024 7:18 PM ENVIRONMENTAL ENGINEER SCIENTIST Exam: CT HEAD WO CONTRAST Date/Time of Exam: 12/06/2024 6:58 PM Reason For Exam: Head trauma, visual loss. Technique: Contiguous axial images were obtained through the head without IV contrast. Findings: Prominent generalized atrophy is present. ??Diffuse hypodensity is seen in the periventricular white matter, consistent with changes of chronic small vessel disease. ??There is no evidence of any intracranial hemorrhage or abnormal extra axial fluid collections. ?? There is no midline shift or mass effect and the basilar cisterns are patent. ??No fractures are seen at the levels that were scanned. Procedure Note Yuan Conway MD - 12/06/2024 Exam: CT HEAD WO CONTRAST Date/Time of Exam: 12/06/2024 6:58 PM Reason For Exam: Head trauma, visual loss. Technique: Contiguous axial images were obtained through the head without IV contrast. Findings: Prominent generalized atrophy is present. Diffuse hypodensity is seen in the periventricular white matter, consistent with changes of chronic small vessel disease. There is no evidence of any intracranial hemorrhage or abnormal extra axial fluid collections. There is no midline shift or mass effect and the basilar cisterns are patent. No fractures are seen at the levels that were scanned. IMPRESSION: Prominent generalized parenchymal atrophy and chronic small vessel disease are present. us Vj Bar MD CT ORDERABLES Final Result * (ABNORMAL) TROPONIN 6 HR, 5TH GEN (12/06/2024 4:58 PM ENVIRONMENTAL ENGINEER SCIENTIST) TROPONIN T, 6 HR 5TH GEN 313(HH) <=15 ng/L 12/06/2024 5:49 PM ENVIRONMENTAL ENGINEER SCIENTIST [facility] [employer] [facility] DEL[place] 6HR TROPONIN T % 46(HH) See Interp. % 12/06/2024 5:49 PM ENVIRONMENTAL ENGINEER SCIENTIST [facility] [employer] [facility] Blood Venipuncture / Unknown 12/06/2024 4:58 PM ENVIRONMENTAL ENGINEER SCIENTIST 12/06/2024 5:05 PM ENVIRONMENTAL ENGINEER SCIENTIST Narrative [facility] [employer] [facility] - 12/06/2024 5:49 PM ENVIRONMENTAL ENGINEER SCIENTIST Troponin elevated. Delta significant change. Venkata Lee DO CHEMISTRY ORDERABLES Final Resu lt [facility] CLIA # [id number] [address] [address] * PTT (12/06/2024 1:50 PM ENVIRONMENTAL ENGINEER SCIENTIST) [facility] PTT 34.8 24.8 - 37.2 seconds 12/06/2024 2:12 PM [facility] Blood Venipuncture / Unknown 12/06/2024 1:50 PM ENVIRONMENTAL ENGINEER SCIENTIST 12/06/2024 1:55 PM ENVIRONMENTAL ENGINEER SCIENTIST [facility] - 12/06/2024 2:12 PM ENVIRONMENTAL ENGINEER SCIENTIST Therapeutic Range: ?? Hi-level PE/DVT heparin protocol ?? 80.1 - 95.0 sec ? Lo-level PE/DVT ??heparin protocol ??70.1 - 85.0 sec ?? Cardiac Heparin Protocol 70.1 - 100.0 sec Venkata Lee DO HEMATOLOGY ORDERABLES Final Res ult [facility] CLIA # [id number] [address] [place] [address] * (ABNORMAL) CBC WITHOUT DIFFERENTIAL (12/06/2024 1:50 PM ENVIRONMENTAL ENGINEER SCIENTIST) [facility] WBC 6.4 4.8 - 10.8 K/uL 12/06/2024 1:58 PM [facility] RBC 4.43(L) 4.60 - 6.20 M/uL 12/06/2024 1:58 PM [facility] HEMOGLOBIN 13.8(L) 14.0 - 18.0 g/dL 12/06/2024 1:58 PM [facility] HEMATOCRIT 42.2 41.0 - 53.0 % 12/06/2024 1:58 PM [facility] MCV 95.3 84.0 - 103.0 fL 12/06/2024 1:58 PM [facility] MCH 31.2 27.0 - 34.0 pg 12/06/2024 1:58 PM [facility] MCHC 32.7 30.0 - 35.0 g/dL 12/06/2024 1:58 PM [facility] PLATELETS 133(L) 140 - 440 K/uL 12/06/2024 1:58 PM [facility] MPV 12.4 8.9 - 12.8 fL 12/06/2024 1:58 PM [facility] RDW 12.6 11.0 - 14.5 % 12/06/2024 1:58 PM [facility] RDW-STDEV 44.4 37.0 - 54.0 fL 12/06/2024 1:58 PM [facility] Blood Venipuncture / Unknown 12/06/2024 1:50 PM ENVIRONMENTAL ENGINEER SCIENTIST 12/06/2024 1:55 PM ENVIRONMENTAL ENGINEER SCIENTIST Vj Bar MD HEMATOLOGY ORDERABLES Final Re sult [facility] CLIA # [id number] [address] [place] [address] * (ABNORMAL) HEMOGLOBIN A1C (12/06/2024 1:50 PM ENVIRONMENTAL ENGINEER SCIENTIST) HEMOGLOBIN A1C 7.9(H) <=5.6 % 12/10/2024 10:17 AM [facility] EST. AVG GLUCOSE, A1C 180 mg/dL 12/10/2024 10:17 AM [facility] Blood Venipuncture / Unknown 12/06/2024 1:50 PM ENVIRONMENTAL ENGINEER SCIENTIST 12/06/2024 1:55 PM ENVIRONMENTAL ENGINEER SCIENTIST Narrative [facility] - 12/10/2024 10:17 AM ENVIRONMENTAL ENGINEER SCIENTIST HGB A1C INTERPRETATION NORMAL: ? <5.7% PRE-DIABETES: 5.7 - 6.4% DIABETES: ? 6.5% OR GREATER us Mar Conteh WOOD CUT ENGRAVER CHEMISTRY ORDERABLES Fin al Result Performing Organization Address [facility] Co de Phone Number [facility] CLIA # [id number] [address] [address] [place] [address] * (ABNORMAL) TROPONIN 2 HR, 5TH GEN (12/06/2024 12:47 PM ENVIRONMENTAL ENGINEER SCIENTIST) TROPONIN T, 2 HR 5TH GEN 260(HH) <=15 ng/L 12/06/2024 1:29 PM ENVIRONMENTAL ENGINEER SCIENTIST [facility] DELTA 2HR TROPONIN T % 21(HH) See Interp. % 12/06/2024 1:29 PM ENVIRONMENTAL ENGINEER SCIENTIST [facility] Blood Venipuncture / Unknown 12/06/2024 12:47 PM ENVIRONMENTAL ENGINEER SCIENTIST 12/06/2024 12:54 PM ENVIRONMENTAL ENGINEER SCIENTIST Narrative [facility] - 12/06/2024 1:29 PM ENVIRONMENTAL ENGINEER SCIENTIST Troponin elevated. Delta significant change. us Venkata Lee DO CHEMISTRY ORDERABLES Final Resu lt Performing Organization Address [facility] Co de Phone Number [facility] CLIA # [id number] [address] [address] [place] [address] * EXTRA TUBE (URINE OLIVER) (12/06/2024 11:10 AM ENVIRONMENTAL ENGINEER SCIENTIST) Urine URINE SPECIMEN OBTAINED BY CLEAN CATCH PROCEDURE / Unknown Collection / Unknown 12/06/2024 11:10 AM ENVIRONMENTAL ENGINEER SCIENTIST 12/06/2024 11:16 AM ENVIRONMENTAL ENGINEER SCIENTIST Venkata Lee DO URINE ORDERABLES Final Result Performing Organization Address [facility] Co de Phone Number [facility] CLIA # [id number] [address] [place] [address] * (ABNORMAL) URINALYSIS WITH REFLEX MICROSCOPIC (12/06/2024 11:10 AM ENVIRONMENTAL ENGINEER SCIENTIST) Pathologist [facility] COLOR UA Pale Yellow Pale to Dark Yellow 12/06/2024 11:29 AM [facility] CLARITY UA Clear Clear 12/06/2024 11:29 AM [facility] SPECIFIC GRAVITY UA 1.021 1.003 - 1.035 12/06/2024 11:29 AM [facility] PH UA 6.0 5.0 - 8.0 12/06/2024 11:29 AM [facility] LEUKOCYTE ESTERASE UA Negative Negative 12/06/2024 11:29 AM [facility] NITRITE UA Negative Negative 12/06/2024 11:29 AM [facility] PROTEIN UA Negative Negative 12/06/2024 11:29 AM [facility] GLUCOSE UA 4+(A) Negative 12/06/2024 11:29 AM [facility] [facility] UA Negative Negative 12/06/2024 11:29 AM [facility] UROBILINOGEN UA <2.0 <2.0 mg/dL 11:29 AM [facility] BILIRUBIN UA Negative Negative 12/06/2024 11:29 AM [facility] BLOOD UA Negative Negative 12/06/2024 11:29 AM [facility] Urine URINE SPECIMEN OBTAINED BY CLEAN CATCH PROCEDURE / Unknown Collection / Unknown 12/06/2024 11:10 AM ENVIRONMENTAL ENGINEER SCIENTIST 12/06/2024 11:16 AM [facility] Venkata Lee DO URINE ORDERABLES Final Result [facility] CLIA # [id number] [address] [place] [address] [place], [place] [id number] * (ABNORMAL) INFLUENZA A/B, RSV AND COVID-19 PCR PANEL (12/06/2024 10:49 AM ENVIRONMENTAL ENGINEER SCIENTIST) Pathologist [facility] [place] COVID-19 PCR NOT DETECTED Not Detected 12/06/19 11:54 AM [facility] Influenza A by PCR DETECTED(A) Not Detected 12/06/2024 11:54 AM [facility] Influenza B by PCR NOT DETECTED Not Detected 12/06/2024 11:54 AM [facility] RSV by PCR NOT DETECTED Not Detected 12/06/2024 11:54 AM [facility] Upper Respiratory ENTIRE NASOPHARYNX / Unknown Collection / Unknown 12/06/2024 10:49 AM ENVIRONMENTAL ENGINEER SCIENTIST 12/06/2024 10:55 AM ENVIRONMENTAL ENGINEER SCIENTIST Cheng [facility] - 12/06/2024 11:54 AM ENVIRONMENTAL ENGINEER SCIENTIST This test has been authorized by the FDA under an Emergency Use Authorization for use by authorized laboratories.?? This test has been validated in accordance with the FDA's guidance regarding Coronavirus Disease-2019 testing.?? Optimum specimen types and timing for peak viral levels during infection have not been determined.?? A negative RT-PCR result does not rule out infection with the 2019-Novel Coronavirus. us Venkata Lee DO MICROBIOLOGY - GENERAL ORDERABL ES Final Result [facility] CLIA # [id number] [address] [place] [address] * (ABNORMAL) TROPONIN BASELINE, 5TH GEN (12/06/2024 10:49 AM ENVIRONMENTAL ENGINEER SCIENTIST) TROPONIN T, BASELINE 5TH GEN 215(HH) <=15 ng/L 12/06/2024 11:38 AM ENVIRONMENTAL ENGINEER SCIENTIST [facility] Blood Venipuncture / Unknown 12/06/2024 10:49 AM ENVIRONMENTAL ENGINEER SCIENTIST 12/06/2024 10:59 AM ENVIRONMENTAL ENGINEER SCIENTIST Cheng [facility] - 12/06/2024 11:38 AM ENVIRONMENTAL ENGINEER SCIENTIST Troponin elevated. us Venkata Lee DO CHEMISTRY ORDERABLES Final Resu lt [facility] CLIA # [id number] [id number] [place] [address] * Critical Care (12/06/2024 10:19 AM ENVIRONMENTAL ENGINEER SCIENTIST) Narrative Venkata Lee DO - 12/06/2024 10:19 AM ENVIRONMENTAL ENGINEER SCIENTIST Venkata Lee, DO ? 12/06/2024 ??1:38 PM Critical Care Performed by: Venkata Lee DO Authorized by: Venkata Lee DO ?? Critical care provider statement: ??Critical care time (minutes): ??35 ??Critical care time was exclusive of: ??Separately billable procedures and treating other patients and teaching time ??Critical care was necessary to treat or prevent imminent or life-threatening deterioration of the following conditions: ??Cardiac failure ??Critical care was time spent personally by me on the following activities: ??Blood draw for specimens, development of treatment plan with patient or surrogate, discussions with consultants, evaluation of patient's response to treatment, examination of patient, interpretation of cardiac output measurements, obtaining history from patient or surrogate, ordering and performing treatments and interventions, ordering and review of laboratory studies, ordering and review of radiographic studies, pulse oximetry, re-evaluation of patient's condition and review of old charts Venkata Lee DO PROCEDURE/MINOR SURGICAL ORDERA BLES Final Result * PROTIME-INR (12/06/2024) ABSTRACTED PROTIME 11.1 ABSTRACTED INR 1 Blood 12/06/2024 Abstract Provider HEMATOLOGY ORDERABLES Final Re sult from Last 3 Months Insurance [facility] [id number] RX [employer] (INTERNAL) [facility] Internal Plans Advance Directives For more information, please contact: [phone] * Full Code (Latest Code Status on File) Date Activated Date Inactivated Comments 12/08/2024 5:19 PM 12/09/2024 6:55 PM * NO CPR (In Event of Cardiopulmonary Arrest) Date Activated Date Inactivated Comments 12/07/2024 4:44 PM 12/08/2024 5:19 PM Question Answer Comments Mechanical Ventilation (for respiratory distress) - Invasive (i.e. intubation): Yes Mechanical Ventilation (for respiratory distress) - Non-Invasive (i.e. BiPAP, CPAP): Yes * Full Code Date Activated Date Inactivated Comments 12/06/2024 9:02 PM 12/07/2024 4:44 PM * NO CPR (In Event of Cardiopulmonary Arrest) Date Activated Date Inactivated Comments 12/06/2024 4:22 PM 12/06/2024 9:02 PM Question Answer Comments Mechanical Ventilation (for respiratory distress) - Invasive (i.e. intubation): No Mechanical Ventilation (for respiratory distress) - Non-Invasive (i.e. BiPAP, CPAP): Yes Care Teams Tree Chipper Relationship Specialty Start Date End Date Valentin Lovett DO [address] [place] [address] PCP - General Family Practice 12/06/24
[2025-02-25] MEDS: ticagrelor 90 mg Tablet PO (08:59)
[2025-02-25] MEDS: pantoprazole DR 40 mg Tablet PO (08:59)
[2025-02-25] MEDS: aspirin 81 mg EC Tablet PO (09:00)
--- NOTE | 2025-02-25 09:28 | PM.PN ---
Subjective Subjective: Patient seen today in rounds with Dr. Hale and is doing well s/p high risk stenting to the ostial LAD, mid LAD, and proximal to mid circ. with balloon angioplasty of the diag and impella placement. Creatinine is stable at 1.5. His groin site looks good with some minor bruising. He is eager to go home. Vitals/I&O/Wt Last Vital Signs Temp 98.2 F 02/25/25 08:00 Pulse 73 02/25/25 09:00 Resp 12 02/25/25 09:00 BP 121/61 02/25/25 09:00 Pulse Ox 99 02/25/25 08:00 O2 Del Method Nasal Cannula 02/24/25 16:00 O2 Flow Rate 2 02/24/25 16:00 02/24/25 02/25/25 02/25/25 22:59 06:59 14:59 Intake Total 1480 / 1484.817 0 / 1484.817 360 / 360 Output Total 400 / 850 200 / 200 Balance 1080 / 634.817 0 / 634.817 160 / 160 Weight last 48 hrs Weight 223 lb 12.307 oz Weight 223 lb 12.307 oz Weight 230 lb Physical Exam Narrative: General: No apparent distress, healthy appearing, well nourished HENMT: normoceophalic Eye: PERRL Muskuloskeletal: Full ROM Respiratory: Normal respiratory effort, clear to auscultation bilaterally throughout all lung powell, no use of accessory muscles Cardio: No JVD, regular rate, regular rhythm, S1 S2 normal, no murmurs, peripheral pulses 2+ radial palpated bilaterally GI: Normal to inspection, nondistended Extremities: Full ROM, normal, normal capillary refill, no cyanosis, trace edema bilateral lower extremities Neuro: Alert and oriented x4, no focal motor deficits Psych: Affect normal,mental status grossly normal Skin: evidence of varicose veins present bilaterally, right groin site clean, dry, w/o hematoma, soft, nontender, mild bruising to the area Data 02/25/25 04:37 02/25/25 04:37 A&P Assessment and plan (1) HTN (hypertension): Qualifiers: Hypertension type: essential hypertension Qualified Code(s): I10 - Essential (primary) hypertension (2) CAD (coronary artery disease): Qualifiers: Associated angina: without angina Coronary Disease-Associated Artery/Lesion type: [place] artery [place] vs. transplanted heart: [place] heart Qualified Code(s): I25.10 - Atherosclerotic heart disease of [place] coronary artery without angina pectoris (3) Diabetes mellitus: Qualifiers: Diabetes mellitus complication detail: with other circulatory complications Diabetes mellitus complication status: with circulatory complication Diabetes mellitus terminal press operator insulin use: with fdc use Diabetes mellitus type: type 2 Qualified Code(s): E11.59 - Type 2 diabetes mellitus with other circulatory complications; Z79.4 - long term acute care registered nurse (current) use of insulin (4) CKD (chronic kidney disease): Qualifiers: Chronic kidney disease stage: unspecified stage Qualified Code(s): N18.9 - Chronic kidney disease, unspecified Plan Originally, the plan was to keep the patient for 2 days, but he is doing well, renal function is stable. He has walked without difficulty. He would like to go home at this time. We will have him seen in the clinic in 7 days. He will need to come get a BMP Sunday to recheck renal function. We will give him lasix and potassium prn weight gain of 3 pounds in 1 day. He will continue Brilinta and Aspirin. We will start him on coreg as well. PDMP PDMP Reviewed: Not Reviewed Attestations Medical Necessity Statement*: Patient stay not expected to cross 2 midnights due to above defined care. Coding Level of Care Code Acute Code for [facility] Fwd Diagnoses Essential hypertension I10 Hypertension type: essential hypertension Coronary artery disease involving [place] coronary artery of [place] heart without angina pectoris I25.10 Associated angina: without angina Coronary Disease-Associated Artery/Lesion type: [place] artery [place] vs. transplanted heart: [place] heart Type 2 diabetes mellitus with other circulatory complication, with long-term current use of insulin E11.59; Z79.4 Diabetes mellitus complication detail: with other circulatory complications Diabetes mellitus complication status: with circulatory complication Diabetes mellitus terminal press operator insulin use: with fdc use Diabetes mellitus type: type 2 Chronic kidney disease, unspecified CKD stage N18.9 Chronic kidney disease stage: unspecified stage
--- NOTE | 2025-02-25 09:36 | P.DS_ITS ---
<Statement entered by Autumn Hale MD - 02/25/25 11:53> Patient was evaluated and cared for in conjunction with an advanced practice practitioner. I personally examined the patient and reviewed the chart and all pertinent data including imaging, telemetry, and laboratory results. I discussed the patient in detail with the advanced practice practitioner. Please see their note for complete H&P testing result and agreed upon plan of care for the patient. Discharge Providers Date of Admission: 02/24/25 08:23 Date of Discharge: February 25, 2025 Attending Provider at Admission: Autumn Hale MD Attending Provider at Discharge: Autumn Hale MD Primary Care Provider: Valentin Lovett MD Diagnoses at Discharge Discharge Diagnosis (1) HTN (hypertension): Status: Acute Qualifiers: Hypertension type: essential hypertension Qualified Code(s): I10 - Essential (primary) hypertension (2) CAD (coronary artery disease): Status: Acute Qualifiers: Associated angina: without angina Coronary Disease-Associated Artery/Lesion type: [place] artery [place] vs. transplanted heart: [place] heart Qualified Code(s): I25.10 - Atherosclerotic heart disease of [place] coronary artery without angina pectoris (3) Diabetes mellitus: Status: Acute Qualifiers: Diabetes mellitus complication detail: with other circulatory complications Diabetes mellitus complication status: with circulatory complication Diabetes mellitus alf insulin use: with alf use Diabetes mellitus type: type 2 Qualified Code(s): E11.59 - Type 2 diabetes mellitus with other circulatory complications; Z79.4 - jail (current) use of insulin (4) CKD (chronic kidney disease): Status: Chronic Qualifiers: Chronic kidney disease stage: unspecified stage Qualified Code(s): N18.9 - Chronic kidney disease, unspecified Reason for Visit Reason for Visit: I25.10 Brief History: The patient is an 79-year-old male presenting with hx of recurrent chest discomfort and dizziness. He has a documented history of coronary artery disease with stent placement performed in April 2006. The patient notes chronic chest discomfort thought to be due to gastroesophageal reflux disease (GERD). He experiences burning chest sensations after meals, more pronounced when eating late, managed partially with Prilosec. The patient reported episodes of chest discomfort during physical exertion, which resembles his typical GERD symptoms rather than exertional angina. Occasional dizziness occurs primarily with positional changes, though without loss of consciousness. He has undergone multiple cardiovascular assessments, including a nuclear stress test, showing no definitive new pathology, and an angiogram identifying significant coronary blockages. Evaluation for potential interventions noted surgical options; however, the patient has declined CABG as recommended. He had angiogram at another facility showing severe 3 vessel disease. Echo showed preserved EF. He refused CABG and came for planned high risk PCI. - Tests and Diagnostics: - Nuclear Stres s Test (March 2021): No significant abnormalities noted. - Coronary Angiography (November): Identi fied four blockages with 90% stenosis at the proximal LAD, and other relevant stenosis at different segments. Please see cath report. - Carotid Ultrasound: Less than 50% sten osis bilaterally. Hospital Course Hospital Course Patient underwent Impella facilitated multivessel PCI including ostial LAD mid LAD and proximal to mid circumflex using drug-eluting stents, balloon angioplasty of diagonal branch. Impella was taken out at the end of the procedure. Right common femoral artery was closed with preclosed Complication none Patient was reloaded with Brilinta 180 mg today followed by 90 mg p.o. twice daily. He did well w/o complications. Renal function was stable. Originally, the plan was to keep him inpatient, however, he improved and did better than expected and was deemed appropriate for discharge. Due to this, he was discharged in stable to improved condition. Physical Exam Narrative: General: No apparent distress, healthy appearing, well nourished HENMT: normoceophalic Eye: PERRL Muskuloskeletal: Full ROM Respiratory: Normal respiratory effort, clear to auscultation bilaterally throughout all lung powell, no use of accessory muscles Cardio: No JVD, regular rate, regular rhythm, S1 S2 normal, no murmurs, periph eral pulses 2+ radial palpated bilaterally GI: Normal to inspection, nondistended Extremities: Full ROM, normal, normal capillary refill, no cyanosis, trace edema bilateral lower extremities Neuro: Alert and oriented x4, no focal motor deficits Psych: Affect normal,mental status grossly normal Skin: evidence of varicose veins present bilaterally, right groin site clean, dry, w/o hematoma, soft, nontender, mild bruising to the area Discharge Data Studies Completed and Pending Pending at discharge Category Date Time Status [employer] AGENT request for service Routine Exams 02/24/25 06:01 Taken Laboratory Results WBC 13.33 10^3/uL (3.29-11.43) H 04/23/25 04:37 RBC 4.11 10^6/uL (3.85-5.65) 02/25/25 04:37 Hgb 12.70 g/dL (11.27-16.99) 02/25/25 04:37 Hct 39.3 % (37-53) 02/25/25 04:37 MCV 95.6 fl (82-101) 02/25/25 04:37 MCH 30.9 pg (27-33) 02/25/25 04:37 MCHC 32.3 g/dL (30-55) 02/25/25 04:37 RDW 13.2 % (12.1-15.1) 02/25/25 04:37 Plt Count 193 10^3/cmm (157-399) 02/25/25 04:37 MPV 12.2 fL (7.4-10.4) H 02/25/25 04:37 Neut % (Auto) 81.6 % 02/25/25 04:37 Lymph % (Auto) 7.1 % 02/25/25 04:37 [place] % (Auto) 10.4 % 02/25/25 04:37 Eos % (Auto) 0.2 % 02/25/25 04:37 Baso % (Auto) 0.2 % 02/25/25 04:37 Neut # (Auto) 10.88 10^3/uL (1.8-7.7) H 02/25/25 04:37 Lymph # (Auto) 1.0 10^3/uL (0.8-4.8) 02/25/25 04:37 [place] # (Auto) 1.4 10^3/uL (0.2-0.9) H 02/25/25 04:37 Eos # (Auto) 0.0 10^3/uL (0.0-0.8) 02/25/25 04:37 Baso # (Auto) 0.0 10^3/uL (0.0-0.1) 02/25/25 04:37 Nucleated RBC % (auto) 0 % 02/25/25 04:37 Nucleated RBCs # 0.0 /100WBC 02/25/25 04:37 Sodium 136 mmol/L (136-145) 02/25/25 04:37 Potassium 4.1 mmol/L (3.5-5.1) 02/25/25 04:37 Chloride 101 mmol/L (98-107) 02/25/25 04:37 Carbon Dioxide 21 mmol/L (22-29) L 02/25/25 04:37 Anion Gap 18.1 (5-19) 02/25/25 04:37 BUN 35 mg/dL (8-23) H 02/25/25 04:37 Creatinine 1.5 mg/dL (0.7-1.2) H 02/25/25 04:37 GFR Calculation Not Reportable 02/25/25 04:37 Glucose 180 mg/dL (65-115) H 02/25/25 04:37 Calculated Osmolality 295 mOsm/kg (285-295) 02/25/25 04:37 Calcium 8.6 mg/dL (8.5-10.5) 02/25/25 04:37 Procedures Performed Date of procedure: 02/24/25 Pre-procedure diagnosis: Multivessel coronary artery disease, refused CABG Post-procedure diagnosis: same Procedure: Impella facilitated multivessel PCI including ostial LAD mid LAD and proximal to mid circumflex using drug-eluting stents, balloon angioplasty of diagonal branch. Impella was taken out at the end of the procedure. Right common femoral artery was closed with preclosed Complication none Vitals Last Vital Signs Temp 98.2 F 02/25/25 08:00 Pulse 73 02/25/25 09:00 Resp 12 02/25/25 09:00 BP 121/61 02/25/25 09:00 Pulse Ox 99 02/25/25 08:00 O2 Del Method Nasal Cannula 02/24/25 16:00 O2 Flow Rate 2 02/24/25 16:00 Discharge Plan Discharge Patient Disposition: Home Condition: Stable Prescriptions: New atorvastatin [Lipitor] 80 mg tablet 80 mg PO BEDTIME Qty: 30 0RF aspirin 81 mg Tablet,Delayed Release (Dr/Ec) 81 mg PO DAILY Qty: 90 0RF pantoprazole 40 mg Tablet,Delayed Release (Dr/Ec) 40 mg PO DAILY Qty: 30 0RF Brilinta 90 mg Tablet 90 mg PO BID Qty: 180 0RF carvedilol [Coreg] 3.125 mg tablet 3.125 mg PO BID Qty: 60 1RF Rx Instructions: must administer with a meal/food furosemide [Lasix] 40 mg tablet 40 mg PO PRN PRN (Reason: weight gain) Qty: 30 0RF Rx Instructions: take 1 40 mg tablet orally as needed with one 20 meq potassium for weight gain of 3 pounds in 1 day potassium chloride [K-Tab] 20 mEq tablet extended release 20 meq PO PRN PRN (Reason: weight gain) Qty: 30 0RF Rx Instructions: Take 1 20 meq tablet as needed only if you have to take a lasix for weight gain Continued gabapentin 300 mg capsule 300 mg PO DIRECTED Rx Instructions: 300mg in the AM and 600mg in the PM isosorbide mononitrate 30 mg tablet extended release 24 hr 30 mg PO DAILY Jardiance 25 mg tablet 25 mg PO DAILY Carb & Sugar Kiesha 1 tab PO DAILY Immununeti 1 tab PO DAILY vitamin A acetate 3,000 mcg (10,000 unit) tablet, sublingual 3,000 mcg PO DAILY cyanocobalamin (vitamin B-12) 500 mcg tablet 250 mcg PO DAILY cholecalciferol (vitamin D3) 125 mcg (5,000 unit) capsule 125 mcg PO DAILY vitamin E (dl, acetate) 180 mg (400 unit) capsule 180 mg PO DAILY chromium picolinate 1,000 mcg tablet 1,000 mcg PO DAILY modern mushrooms 1 tab PO DAILY true focus 1 tab PO DAILY turmeric 400 mg capsule 400 mg PO DAILY folic acid 400 mcg tablet 0.4 mg PO DAILY ferrous sulfate 325 mg (65 mg iron) tablet 325 mg PO DAILY herba vision gold 1 tab PO DAILY ascorbic acid (vitamin C) 500 mg tablet,chewable 1 g PO DAILY fish oil 1 cap PO DAILY zinc acetate 50 mg (zinc) capsule 50 mg PO DAILY magnesium oxide 400 mg (241.3 mg magnesium) tablet 400 mg PO DAILY calcium carbonate 600 mg calcium (1,500 mg) tablet 600 mg PO DAILY apple cider vinegar 500 mg tablet 500 mg PO DAILY [id number]-dqn C-Mn-boron [id number] mg tablet 1 tab PO DAILY Nervive Pain Relieving 4-1 % solution roll-on 1 ea topical DAILY coenzyme Q10 400 mg capsule 400 mg PO DAILY nitroglycerin 0.4 mg tablet, sublingual 0.4 mg sublingual Q5M PRN (Reason: Chest Pain) Rx Instructions: do not exceed 3 doses per episode Novolin N FlexPen 100 unit/mL (3 mL) insulin pen 20 unit SUBCUT QAM PRN (Reason: Hyperglycemia) insulin degludec [Tresiba FlexTouch U-100] 100 unit/mL (3 mL) insulin pen 20 unit SUBCUT BID PRN (Reason: Hyperglycemia) Changed lisinopril 5 mg tablet 2.5 mg PO DAILY Qty: 90 3RF Held metformin 1,000 mg tablet 500 mg PO DAILY Hold Instructions: Resume on 02/28/25. Discontinued clopidogrel 75 mg tablet 75 mg PO DAILY aspirin 81 mg tablet,delayed release (DR/EC) 81 mg PO DAILY atorvastatin [Lipitor] 40 mg tablet 40 mg PO DAILY Discharge Orders: Discharge Order (Routine); Ordered 02/25/25 Ordered By: Jazmine Horn Other Ambulatory Orders: Basic Metabolic Panel (Routine) Timeframe: 2 Days Facility: [facility] - Location: Lab - Main Lab Ordered By: Jazmine Horn Complete Blood Count w/Auto (Routine) Timeframe: 2 Days Location: Determined by Patient Ordered By: Jazmine Horn Referrals: Selam Bateman FNP [Nurse Practitioner] - 4-7 days (F/U in at least 7 days) Nando Sprague MD [Physician] - 2 weeks Discharge Diet: Cardiac and Diabetic Discharge Activity: Limit activity as instructed Patient Instructions: Coronary Artery Disease (DC), Coronary Angioplasty (DC), Chest Pain Stoplight, Opioid Safety, Post Angiogram Home Care Instructions Activity Restrictions/Additional Instructions: Discussed with patient no heavy lifting more than a gallon of milk as well as going up or down steps for 3 days. No driving for 3 days. Monitor for and report signs or symptoms of bleeding. Monitor for and report s/s of infection such as fever 101 or greater, swelling, redness or pain to the groin. Plan of Treatment: Patient will be discharged home. Continue Brilinta and Aspirin. Repeat BMP and CBC on Sunday, f/u in the clinic in 7 days for reassessment. We have sent a referral to endocrinology for diabetes management. Discharge Attestations Time Spent in Discharge Care*: less than 30 min Quality Metrics Clinical Quality Measures [ No reported AMI, CVA or VTE this stay] Coding Level of Care Code Acute Code for [facility] Fwd Diagnoses Essential hypertension I10 Hypertension type: essential hypertension Coronary artery disease involving [place] coronary artery of [place] heart without angina pectoris I25.10 Associated angina: without angina Coronary Disease-Associated Artery/Lesion type: [place] artery [place] vs. transplanted heart: [place] heart Type 2 diabetes mellitus with other circulatory complication, with long-term current use of insulin E11.59; Z79.4 Diabetes mellitus complication detail: with other circulatory complications Diabetes mellitus complication status: with circulatory complication Diabetes mellitus intermodal customer service insulin use: with alf use Diabetes mellitus type: type 2 Chronic kidney disease, unspecified CKD stage N18.9 Chronic kidney disease stage: unspecified stage
--- NOTE | 2025-02-25 11:24 | PC.NURSE ---
Patient discharged via wheelchair to personal vehicle with at 1115. Patient given discharge paperwork with followup appointments, discharge instructions, education on care following cath procedure and stent placement, medication changes reviewed and patient had no questions about them. Ivs removed, pressure applied and sites wrapped. No bleeding noted from IV site when dressed. All prescriptions sent to patients preferred pharmacy. All discharge education discussed with patient and . Both stated understanding. All personal belongings sent with patient.
--- NOTE | 2025-02-25 11:55 | PM.HP ---
Providers/Chief Complaint Admitting Physician: Autumn Hale MD Primary Care Provider: Valentin Lovett MD Chief Complaint: I25.10 History of Present Illness Please note that this is H&P from yesterday dated Dago Bravo is a 79 year old male past medical history significant for hypertension hyperlipidemia coronary artery disease chronic kidney disease underwent left heart catheterization as an outside hospital, due to multivessel highly calcified coronary artery disease, patient was suggested for coronary artery bypass surgery. Patient refused at multiple occasion CABG, he would like to proceed with left heart catheterization with PCI only and also refused in case of emergency any backup CT surgery. Today he is here for left heart catheterization and PCI which will be Impella guided due to high risk nature of the multivessel coronary artery disease and moderately depressed left ventricular ejection fraction. Patient has been explained all risk-benefit and alternative for the procedure he would like to proceed with it. Medications/Allergies Home Medications ?Medication ?Instructions ?Recorded ?Confirmed ?Last Taken ?Type Carb & Sugar Kiesha 1 tab PO DAILY 12/18/24 02/24/25 02/22/25 History Immununeti 1 tab PO DAILY 12/18/24 02/24/25 02/23/25 08:00 History apple cider vinegar 500 mg tablet 500 mg PO DAILY 12/18/24 02/24/25 02/22/25 History ascorbic acid (vitamin C) 500 mg 1 g PO DAILY 12/18/24 02/24/25 02/22/25 History chewable tablet calcium carbonate 600 mg PO DAILY 12/18/24 02/24/25 02/22/25 History cholecalciferol (vitamin D3) 125 125 mcg PO DAILY 12/18/24 02/24/25 02/23/25 08:00 History mcg (5,000 unit) capsule chromium picolinate 1,000 mcg 1,000 mcg PO DAILY 12/18/24 02/24/25 02/23/25 08:00 History tablet coenzyme Q10 400 mg capsule 400 mg PO DAILY 12/18/24 02/23/25 Unknown History cyanocobalamin (vitamin B-12) 500 250 mcg PO DAILY 12/18/24 02/24/25 02/23/25 08:00 History mcg tablet empagliflozin 25 mg tablet 25 mg PO DAILY 12/18/24 02/24/25 02/23/25 08:00 History (Jardiance) ferrous sulfate 325 mg (65 mg 325 mg PO DAILY 12/18/24 02/24/25 02/22/25 History iron) tablet fish oil 1 cap PO DAILY 12/18/24 02/24/25 02/22/25 History folic acid 400 mcg tablet 0.4 mg PO DAILY 12/18/24 02/24/25 02/22/25 History gabapentin 300 mg capsule 300 mg PO DIRECTED 12/18/24 02/24/25 02/23/25 08:00 History xfnauxwvodw-rrkyzvxvh-L-Mn-boron 1 tab PO DAILY 12/18/24 02/24/25 02/22/25 History 750 mg-600 mg-30 mg-1mg-1.5mg tablet herba vision gold 1 tab PO DAILY 12/18/24 02/24/25 02/22/25 History insulin NPH isoph U-100 human 100 20 unit SUBCUT QAM PRN 12/18/24 02/23/25 Unknown History unit/mL (3 mL) subcutaneous pen Hyperglycemia (Novolin N FlexPen) insulin degludec 100 unit/mL (3 20 unit SUBCUT BID PRN 12/18/24 02/24/25 02/23/25 20:00 History mL) subcutaneous pen (Tresiba Hyperglycemia FlexTouch U-100 insulin) isosorbide mononitrate 30 mg 30 mg PO DAILY 12/18/24 02/24/25 02/23/25 08:00 History tablet,extended release 24 hr lidocaine HCl 4 %-menthol 1 % 1 ea topical DAILY 12/18/24 02/24/25 Unknown History topical solution roll-on (Nervive Pain Relieving) magnesium oxide 400 mg (241.3 mg 400 mg PO DAILY 12/18/24 02/24/25 02/22/25 History magnesium) tablet metformin 1,000 mg tablet 500 mg PO DAILY 12/18/24 02/24/25 02/23/25 08:00 History Held on 02/25/25. Instructions: Resume on 02/28/25. modern mushrooms 1 tab PO DAILY 12/18/24 02/24/25 02/22/25 History nitroglycerin 0.4 mg sublingual 0.4 mg sublingual Q5M PRN Chest 12/18/24 02/23/25 Unknown History tablet Pain true focus 1 tab PO DAILY 12/18/24 02/24/25 02/22/25 History turmeric 400 mg capsule 400 mg PO DAILY 12/18/24 02/24/25 02/22/25 History vitamin A acetate 3,000 mcg 3,000 mcg PO DAILY 12/18/24 02/24/25 02/23/25 08:00 History (10,000 unit) sublingual tablet vitamin E (dl, acetate) 180 mg 180 mg PO DAILY 12/18/24 02/24/25 02/23/25 08:00 History (400 unit) capsule zinc acetate 50 mg (zinc) capsule 50 mg PO DAILY 12/18/24 02/24/25 02/22/25 History aspirin 81 mg tablet,delayed 81 mg PO DAILY #90 tabs 02/25/25 Unknown Rx release atorvastatin 80 mg tablet (Lipitor) 80 mg PO BEDTIME #30 tabs 02/25/25 Unknown Rx carvedilol 3.125 mg tablet (Coreg) 3.125 mg PO BID #60 tabs 02/25/25 Unknown Rx furosemide 40 mg tablet (Lasix) 40 mg PO PRN PRN weight gain #30 02/25/25 Unknown Rx tabs lisinopril 5 mg tablet 2.5 mg (1/2 x 5 mg) PO DAILY #90 02/25/25 02/24/25 02/23/25 08:00 Rx tabs pantoprazole 40 mg tablet,delayed 40 mg PO DAILY #30 tabs 02/25/25 Unknown Rx release potassium chloride 20 mEq 20 meq PO PRN PRN weight gain #30 02/25/25 Unknown Rx tablet,extended release (K-Tab) tabs ticagrelor 90 mg tablet (Brilinta) 90 mg PO BID #180 tabs 02/25/25 Unknown Rx Allergies Allergy/AdvReac Type Severity Reaction Status Date / Time No Known Allergies Allergy Verified 01/30/25 15:53 PFSH Acute PFSH: Medical History (Updated 02/25/25 @ 09:32 by Jazmine Horn NP) Diabetes mellitus CAD (coronary artery disease) HTN (hypertension) Family History Mother Pulmonary emboli Father Aortic aneurysm Brother Aortic aneurysm Sister Stroke Social History Smoking and tobacco/nicotine status: former use of tobacco/nicotine Vitals/I&O/Wt Last Vital Signs Temp 98.2 F 02/25/25 10:16 Pulse 89 02/25/25 10:28 Resp 12 02/25/25 10:28 BP 121/60 02/25/25 10:30 Pulse Ox 98 02/25/25 10:16 O2 Del Method Nasal Cannula 02/24/25 16:00 O2 Flow Rate 2 02/24/25 16:00 02/24/25 02/25/25 02/25/25 22:59 06:59 14:59 Intake Total 1480 / 1484.817 0 / 1484.817 360 / 360 Output Total 400 / 850 200 / 200 Balance 1080 / 634.817 0 / 634.817 160 / 160 Weight last 48 hrs Weight 223 lb 12.307 oz Weight 223 lb 12.307 oz Weight 230 lb Physical Exam Const: OTHER: GENERAL: Patient is alert, awake and oriented x3. HEART: Regular S1 and S2. No murmur, rub or gallop. LUNGS: Clear to auscultate bilaterally. CENTRAL NERVOUS SYSTEM: Grossly nonfocal. EXTREMITIES: Lower extremities with out edema bilaterally. Data 02/25/25 04:37 02/25/25 04:37 A&P Assessment and plan (1) CAD (coronary artery disease): Qualifiers: Coronary Disease-Associated Artery/Lesion type: pilot station artery [place] vs. transplanted heart: pilot station heart Associated angina: without angina Qualified Code(s): I25.10 - Atherosclerotic heart disease of [place] coronary artery without angina pectoris (2) HTN (hypertension): Qualifiers: Hypertension type: essential hypertension Qualified Code(s): I10 - Essential (primary) hypertension (3) CKD (chronic kidney disease): Qualifiers: Chronic kidney disease stage: unspecified stage Qualified Code(s): N18.9 - Chronic kidney disease, unspecified Plan Patient has been explained all risk-benefit and already for the procedure he would like to proceed with it. Will proceed with Impella guided multivessel PCI which is high risk. PDMP PDMP Reviewed: Not Reviewed Attestations Medical Necessity Statement*: I am expecting patient stay to cross more than 2 midnights. Reason behind his Impella guided multivessel high risk PCI chronic kidney disease requiring IV hydration post PCI in order to monitor for any complication. Coding Level of Care Code Acute Code for Chg Fwd Diagnoses Coronary artery disease involving pilot station coronary artery of [place] heart without angina pectoris I25.10 Coronary Disease-Associated Artery/Lesion type: pilot station artery [place] vs. transplanted heart: pilot [place] heart Associated angina: without angina Essential hypertension I10 Hypertension type: essential hypertension Chronic kidney disease, unspecified CKD stage N18.9 Chronic kidney disease stage: unspecified stage
== END 2025-02-25 11:15 | disposition home or self-care (01) | DRG 218 ==
LOC: ICU 13:39
PROVIDERS: Admitting Provider Internal Medicine Cardiovascular Disease; PCP Family Medicine; Visit Provider Internal Medicine Cardiovascular Disease
PROC: 02HA3RJ Insertion of Short-term External Heart Assist System into Heart, Intraoperative, Percutaneous Approach (ICD-10-PCS; principal; 2025-02-24 07:00)
PROC: 02HA3RJ Insertion of Short-term External Heart Assist System into Heart, Intraoperative, Percutaneous Approach (ICD-10-PCS; 2025-02-24 07:00)
DX: I25.10 Atherosclerotic heart disease of native coronary artery without angina pectoris (principal); N18.9 Chronic kidney disease, unspecified; E11.22 Type 2 diabetes mellitus with diabetic chronic kidney disease; E78.5 Hyperlipidemia, unspecified; I12.9 Hypertensive chronic kidney disease with stage 1 through stage 4 chronic kidney disease, or unspecified chronic kidney disease; E11.59 Type 2 diabetes mellitus with other circulatory complications; Z79.84 Long term (current) use of oral hypoglycemic drugs; Z79.4 Long term (current) use of insulin; Z79.82 Long term (current) use of aspirin; Z87.891 Personal history of nicotine dependence
CPT/HCPCS: 33990; 36415; 80048; 85025; 85347; 92972; 92978; 93005; 93458; 96374; 99152; 99153; C1725; C1753; C1760; C1761; C1769; C1874; C1887; C1894; C9600; C9601; G0269; J1644; J1940; J2250; J2405; J3010; J3490; J7030; J9999; Q0163; Q9967

== ENCOUNTER → 2025-03-02 16:05 | Outpatient (BNVA) | payer MEDICARE, SELFPAY | PROVIDERS: PCP Family Medicine; Visit Provider Internal Medicine Cardiovascular Disease | DX: I25.10 Atherosclerotic heart disease of native coronary artery without angina pectoris (principal); I11.0 Hypertensive heart disease with heart failure; I50.20 Unspecified systolic (congestive) heart failure; Z87.891 Personal history of nicotine dependence | CPT/HCPCS: 99214 ==

== ENCOUNTER 2025-03-31 04:51 | Observation (INO) | payer MEDICARE, SELFPAY ==
[2025-03-31] VITALS (9 sets, daily range): BP systolic 98–122; BP diastolic 46–67; PULSE 74–99; RESP 16–22; TEMP 36.5–37.1; O2SAT 93–98; BMI 30.7
--- NOTE | 2025-03-31 04:55 | XRR_ITS ---
PROCEDURE INFORMATION: Exam: XR Chest Exam date and time: 03/31/2025 5:04 AM Age: 79 years old Clinical indication: Pain; Chest pressure; Additional info: Chest pain TECHNIQUE: Imaging protocol: Radiologic exam of the chest. Views: 1 view. COMPARISON: CR XR chest 1V portable [id number] 01/30/2025 4:23 PM FINDINGS: Lungs: Unremarkable. No consolidation. Low lung volumes. Pleural spaces: Unremarkable. No pleural effusion. No pneumothorax. Heart/Mediastinum: Unremarkable. No cardiomegaly. Bones/joints: Unremarkable. XR/XR chest 1V portable [id number] IMPRESSION: No evidence of acute cardiopulmonary process.
--- NOTE | 2025-03-31 04:56 | ECG_ITS ---
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1945 Requested By: Haydee Stanford Order Number: [id number] Collin MD: VIVIANA CALL Measurements Intervals [place] Rate: 84 P: 88 MA: 201 QRS: -10 QRSD: 172 T: 110 QT: 458 QTc: 542 Interpretive Statements SINUS RHYTHM WITH FREQUENT VENTRICULAR PREMATURE COMPLEXES LEFT BUNDLE BRANCH BLOCK [120+ ms QRS DURATION, 80+ ms Q/S IN V1/V2, 85+ ms R IN I/aVL/V5/V6] Compared to ECG 02/24/2025 12:52:47 Ventricular premature complex(es) now present Left bundle-branch block now present First degree AV block no longer present Intraventricular conduction delay no longer present Electronically Signed On 04-08-2025 22:53:09 CDT by VIVIANA CALL [email or web address] [id number]
--- NOTE | 2025-03-31 04:56 | ECG_ITS ---
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1945 Requested By: Haydee Stanford Order Number: [id number] Collin MD: VIVIANA CALL Measurements Intervals [place] Rate: 84 P: 88 MN: 201 QRS: -10 QRSD: 172 T: 110 QT: 458 QTc: 542 Interpretive Statements SINUS RHYTHM WITH FREQUENT VENTRICULAR PREMATURE COMPLEXES LEFT BUNDLE BRANCH BLOCK [120+ ms QRS DURATION, 80+ ms Q/S IN V1/V2, 85+ ms R IN I/aVL/V5/V6] Compared to ECG 02/24/2025 12:52:47 Ventricular premature complex(es) now present Left bundle-branch block now present First degree AV block no longer present Intraventricular conduction delay no longer present Electronically Signed On 04-08-2025 22:45:31 CDT by VIVIANA CALL [id number]
--- NOTE | 2025-03-31 05:01 | W.ED.CHESTPA ---
Documented by User: Haydee Turner MD 03/31/25 05:22 HPI - Chest Pain General: Chief Complaint: Chest Pain Stated Complaint: Chest Pains Time Seen by Provider: 03/31/25 04:55 History of Present Illness: 79-year-old with a history of coronary artery disease with multivessel disease was opted to not do a CABG, congestive heart failure, hyperlipidemia, and diabetes who presents to the emergency room with chest pain and shortness of breath. He said he awoke about [address] Says he feels a knot in his lower central chest area. Some tightness. No new lower extremity swelling. No fevers. No cough. No altered mental status. Related Data Home Medications ?Medication ?Instructions ?Recorded ?Confirmed Carb & Sugar Kiesha 1 tab PO DAILY 12/18/24 03/02/25 Immununeti 1 tab PO DAILY 12/18/24 03/02/25 apple cider vinegar 500 mg tablet 500 mg PO DAILY 12/18/24 03/02/25 ascorbic acid (vitamin C) 500 mg 1 g PO DAILY 12/18/24 03/02/25 chewable tablet calcium carbonate 600 mg PO DAILY 12/18/24 03/02/25 cholecalciferol (vitamin D3) 125 125 mcg PO DAILY 12/18/24 03/02/25 mcg (5,000 unit) capsule chromium picolinate 1,000 mcg 1,000 mcg PO DAILY 12/18/24 03/02/25 tablet coenzyme Q10 400 mg capsule 400 mg PO DAILY 12/18/24 03/02/25 cyanocobalamin (vitamin B-12) 500 250 mcg PO DAILY 12/18/24 03/02/25 mcg tablet empagliflozin 25 mg tablet 25 mg PO DAILY 12/18/24 03/02/25 (Jardiance) ferrous sulfate 325 mg (65 mg 325 mg PO DAILY 12/18/24 03/02/25 iron) tablet fish oil 1 cap PO DAILY 12/18/24 03/02/25 folic acid 400 mcg tablet 0.4 mg PO DAILY 12/18/24 03/02/25 gabapentin 300 mg capsule 300 mg PO DIRECTED 12/18/24 03/02/25 uutfewxyqtk-weaeekbwb-H-Mn-boron 1 tab PO DAILY 12/18/24 03/02/25 750 mg-600 mg-30 mg-1mg-1.5mg tablet herba vision gold 1 tab PO DAILY 12/18/24 03/02/25 insulin NPH isoph U-100 human 100 20 unit SUBCUT QAM PRN 12/18/24 03/02/25 unit/mL (3 mL) subcutaneous pen Hyperglycemia (Novolin N FlexPen) insulin degludec 100 unit/mL (3 20 unit SUBCUT BID PRN 12/18/24 03/02/25 mL) subcutaneous pen (Tresiba Hyperglycemia FlexTouch U-100 insulin) isosorbide mononitrate 30 mg 30 mg PO DAILY 12/18/24 03/02/25 tablet,extended release 24 hr lidocaine HCl 4 %-menthol 1 % 1 ea topical DAILY 12/18/24 03/02/25 topical solution roll-on (Nervive Pain Relieving) magnesium oxide 400 mg (241.3 mg 400 mg PO DAILY 12/18/24 03/02/25 magnesium) tablet metformin 1,000 mg tablet 500 mg PO DAILY 12/18/24 03/02/25 Held on 02/25/25. Instructions: Resume on 02/28/25. modern mushrooms 1 tab PO DAILY 12/18/24 03/02/25 nitroglycerin 0.4 mg sublingual 0.4 mg sublingual Q5M PRN Chest 12/18/24 03/02/25 tablet Pain true focus 1 tab PO DAILY 12/18/24 03/02/25 turmeric 400 mg capsule 400 mg PO DAILY 12/18/24 03/02/25 vitamin A acetate 3,000 mcg 3,000 mcg PO DAILY 12/18/24 03/02/25 (10,000 unit) sublingual tablet vitamin E (dl, acetate) 180 mg 180 mg PO DAILY 12/18/24 03/02/25 (400 unit) capsule zinc acetate 50 mg (zinc) capsule 50 mg PO DAILY 12/18/24 03/02/25 Previous Rx's ?Medication ?Instructions ?Recorded aspirin 81 mg tablet,delayed 81 mg PO DAILY #90 tabs 02/25/25 release atorvastatin 80 mg tablet (Lipitor) 80 mg PO BEDTIME #30 tabs 02/25/25 clopidogrel 300 mg tablet 600 mg (2 x 300 mg) PO ONCE #2 tabs 02/25/25 furosemide 40 mg tablet (Lasix) 40 mg PO PRN PRN weight gain #30 02/25/25 tabs lisinopril 5 mg tablet 2.5 mg (1/2 x 5 mg) PO DAILY #90 02/25/25 tabs potassium chloride 20 mEq 20 meq PO PRN PRN weight gain #30 02/25/25 tablet,extended release (K-Tab) tabs carvedilol 3.125 mg tablet (Coreg) 3.125 mg PO BID #180 tabs 03/13/25 omeprazole 40 mg capsule,delayed 40 mg PO BID #180 caps 03/13/25 release ticagrelor 90 mg tablet (Brilinta) 90 mg PO BID #180 tabs 03/13/25 Allergies Allergy/AdvReac Type Severity Reaction Status Date / Time No Known Allergies Allergy Verified 03/02/25 16:46 Review of Systems Narrative: Constitutional symptoms: Negative except as documented in HPI. Skin symptoms: Negative except as documented in HPI. Eye symptoms: Negative except as documented in HPI. ENMT symptoms: Negative except as documented in HPI. Respiratory symptoms: Negative except as documented in HPI. Cardiovascular symptoms: Negative except as documented in HPI. Gastrointestinal symptoms: Negative except as documented in HPI. Genitourinary symptoms: Negative except as documented in HPI. Musculoskeletal symptoms: Negative except as documented in HPI. Neurologic symptoms: Negative except as documented in HPI. Psychiatric symptoms: Negative except as documented in HPI. Endocrine symptoms: Negative except as documented in HPI. PFS ED PFSH: Medical History (Updated 03/31/25 @ 07:01 by Shane Giron DO) Diabetes mellitus CAD (coronary artery disease) HTN (hypertension) Family History Mother Pulmonary emboli Father Aortic aneurysm Brother Aortic aneurysm Sister Stroke Social History Smoking and tobacco/nicotine status: former use of tobacco/nicotine Physical Exam Narrative: EXAM NARRATIVE: General: Alert, no acute distress. Skin: Warm, dry. Head: Normocephalic, atraumatic. Neck: Supple, trachea midline. Eye: Extraocular movements are intact. Ears, nose, mouth and throat: mucosa moist. Cardiovascular: Regular, Normal peripheral perfusion. Respiratory: Lungs are clear to auscultation, respirations are non-labored, breath sounds are equal, Symmetrical chest wall expansion. Gastrointestinal: Soft, Nontender, Non distended Musculoskeletal: Normal ROM, no deformity. Neurological: Alert and oriented, No focal neurological deficit observed. Psychiatric: Cooperative, appropriate mood & affect. Course Vital Signs: Vital signs: Vital Signs Temperature 98.8 F 03/31/25 04:54 Pulse Rate 88 03/31/25 06:18 Respiratory Rate 17 03/31/25 06:18 Blood Pressure 98/61 03/31/25 06:18 Pulse Oximetry 94 03/31/25 06:18 Oxygen Delivery Me thod Room Air 03/31/25 06:00 MDM - Chest Pain Medical Decision Making Differential diagnosis for patient with chest pain includes but is not limited to and based on the above HPI, review of systems and physical exam: Pneumonia. unstable angina. angina. Acute coronary syndrome / MN. Pulmonary embolism. Costochondritis / musculoskeletal. Pleurisy. Pericarditis. Esophageal spasm. Pancreatis. Cholecystitis. Orders placed to evaluate differential diagnosis based on the above differential, HPI and physical exam EKG: Time 4:56 AM. Rate 84. Normal sinus rhythm, No ST-T changes, PVCs, left bundle branch block, This was reviewed and interpreted by myself the ER physician at 5:00 AM. Left bundle branch block has been present in the past. Compared to previous EKGs. Chest x-ray: No acute process. No infiltrate. No pneumothorax. Films were interpreted by myself the emergency room provider and pending final radiology review. Lab Review: Laboratory results were reviewed and interpreted by myself the emergency room physician. I reviewed the patient's medical record. He has been to the culinary manager recently. Is opted not to have surgical intervention for multivessel coronary disease. Patient care transitioned Dr. Giron at shift change. Lab Data 03/31/25 05:00 03/31/25 05:00 Radiology Impressions Chest X-Ray 03/31/25 04:55 IMPRESSION: No evidence of acute cardiopulmonary process. Laboratory Results WBC 10.27 10^3/uL (3.29-11.43) 03/31/25 05:00 RBC 4.18 10^6/uL (3.85-5.65) 03/31/25 05:00 Hgb 12.80 g/dL (11.27-16.99) 03/31/25 05:00 Hct 40.8 % (37-53) 03/31/25 05:00 MCV 97.6 fl (82-101) 03/31/25 05:00 MCH 30.6 pg (27-33) 03/31/25 05:00 MCHC 31.4 g/dL (30-55) 03/31/25 05:00 RDW 13.3 % (12.1-15.1) 03/31/25 05:00 Plt Count 148 10^3/cmm (157-399) L 03/31/25 05:00 MPV 12.1 fL (7.4-10.4) H 03/31/25 05:00 Neut % (Auto) 80.4 % 03/31/25 05:00 Lymph % (Auto) 7.1 % 03/31/25 05:00 [place] % (Auto) 11.4 % 03/31/25 05:00 Eos % (Auto) 0.1 % 03/31/25 05:00 Baso % (Auto) 0.3 % 03/31/25 05:00 Neut # (Auto) 8.26 10^3/uL (1.8-7.7) H 03/31/25 05:00 Lymph # (Auto) 0.7 10^3/uL (0.8-4.8) L 03/31/25 05:00 [place] # (Auto) 1.2 10^3/uL (0.2-0.9) H 03/31/25 05:00 Eos # (Auto) 0.0 10^3/uL (0.0-0.8) 03/31/25 05:00 Baso # (Auto) 0.0 10^3/uL (0.0-0.1) 03/31/25 05:00 Nucleated RBC % (auto) 0 % 03/31/25 05:00 Nucleated RBCs # 0.0 /100WBC 03/31/25 05:00 Sodium 136 mmol/L (136-145) 03/31/25 05:00 Potassium 4.9 mmol/L (3.5-5.1) 03/31/25 05:00 Chloride 97 mmol/L (98-107) L 03/31/25 05:00 Carbon Dioxide 20 mmol/L (22-29) L 03/31/25 05:00 Anion Gap 23.9 (5-19) H 03/31/25 05:00 BUN 31 mg/dL (8-23) H 03/31/25 05:00 Creatinine 1.8 mg/dL (0.7-1.2) H 03/31/25 05:00 GFR Calculation Not Reportable 03/31/25 05:00 Glucose 169 mg/dL (65-115) H 03/31/25 05:00 Calculated Osmolality 292 mOsm/kg (285-295) 03/31/25 05:00 Calcium 9.7 mg/dL (8.5-10.5) 03/31/25 05:00 Total Bilirubin 0.7 mg/dL (0.15-1.2) 03/31/25 05:00 AST 13 U/L (0-40) 03/31/25 05:00 ALT 10 U/L (0-41) 03/31/25 05:00 Alkaline Phosphatase 123 U/L (40-130) 03/31/25 05:00 Troponin T Baseline 55 ng/L (0-15) H 03/31/25 05:00 Total Protein 7.4 g/dL (6.6-8.7) 03/31/25 05:00 Albumin 4.5 g/dL (3.5-5.2) 03/31/25 05:00 Globulin 2.9 g/dL (1.3-4.6) 03/31/25 05:00 Discharge Plan Discharge Patient Disposition: Admitted As Inpatient Clinical Impression: Unstable angina pectoris, Diabetes mellitus, CKD (chronic kidney disease), Multiple vessel coronary artery disease, CAD (coronary artery disease) Condition: Stable Sign Out Sign Out Data: Patient Sign Out occurred on 03/31/25 at 05:29. Patient's care was discussed, and care was transferred from Haydee Turner MD to Shane Giron DO. Coding Level of Care Code ED Skin Washer for Chg Fwd Documented by User: Shane Giron DO 03/31/25 07:01 HPI - Chest Pain General: Chief Complaint: Chest Pain Stated Complaint: Chest Pains Time Seen by Provider: 03/31/25 04:55 Related Data Home Medications ?Medication ?Instructions ?Recorded ?Confirmed Carb & Sugar Kiesha 1 tab PO DAILY 12/18/24 03/02/25 Immununeti 1 tab PO DAILY 12/18/24 03/02/25 apple cider vinegar 500 mg tablet 500 mg PO DAILY 12/18/24 03/02/25 ascorbic acid (vitamin C) 500 mg 1 g PO DAILY 12/18/24 03/02/25 chewable tablet calcium carbonate 600 mg PO DAILY 12/18/24 03/02/25 cholecalciferol (vitamin D3) 125 125 mcg PO DAILY 12/18/24 03/02/25 mcg (5,000 unit) capsule chromium picolinate 1,000 mcg 1,000 mcg PO DAILY 12/18/24 03/02/25 tablet coenzyme Q10 400 mg capsule 400 mg PO DAILY 12/18/24 03/02/25 cyanocobalamin (vitamin B-12) 500 250 mcg PO DAILY 12/18/24 03/02/25 mcg tablet empagliflozin 25 mg tablet 25 mg PO DAILY 12/18/24 03/02/25 (Jardiance) ferrous sulfate 325 mg (65 mg 325 mg PO DAILY 12/18/24 03/02/25 iron) tablet fish oil 1 cap PO DAILY 12/18/24 03/02/25 folic acid 400 mcg tablet 0.4 mg PO DAILY 12/18/24 03/02/25 gabapentin 300 mg capsule 300 mg PO DIRECTED 12/18/24 03/02/25 rptzhrgtsqc-tdhozwksx-Z-Mn-boron 1 tab PO DAILY 12/18/24 03/02/25 750 mg-600 mg-30 mg-1mg-1.5mg tablet herba vision gold 1 tab PO DAILY 12/18/24 03/02/25 insulin NPH isoph U-100 human 100 20 unit SUBCUT QAM PRN 12/18/24 03/02/25 unit/mL (3 mL) subcutaneous pen Hyperglycemia (Novolin N FlexPen) insulin degludec 100 unit/mL (3 20 unit SUBCUT BID PRN 12/18/24 03/02/25 mL) subcutaneous pen (Tresiba Hyperglycemia FlexTouch U-100 insulin) isosorbide mononitrate 30 mg 30 mg PO DAILY 12/18/24 03/02/25 tablet,extended release 24 hr lidocaine HCl 4 %-menthol 1 % 1 ea topical DAILY 12/18/24 03/02/25 topical solution roll-on (Nervive Pain Relieving) magnesium oxide 400 mg (241.3 mg 400 mg PO DAILY 12/18/24 03/02/25 magnesium) tablet metformin 1,000 mg tablet 500 mg PO DAILY 12/18/24 03/02/25 Held on 02/25/25. Instructions: Resume on 02/28/25. modern mushrooms 1 tab PO DAILY 12/18/24 03/02/25 nitroglycerin 0.4 mg sublingual 0.4 mg sublingual Q5M PRN Chest 12/18/24 03/02/25 tablet Pain true focus 1 tab PO DAILY 12/18/24 03/02/25 turmeric 400 mg capsule 400 mg PO DAILY 12/18/24 03/02/25 vitamin A acetate 3,000 mcg 3,000 mcg PO DAILY 12/18/24 03/02/25 (10,000 unit) sublingual tablet vitamin E (dl, acetate) 180 mg 180 mg PO DAILY 12/18/24 03/02/25 (400 unit) capsule zinc acetate 50 mg (zinc) capsule 50 mg PO DAILY 12/18/24 03/02/25 Previous Rx's ?Medication ?Instructions ?Recorded aspirin 81 mg tablet,delayed 81 mg PO DAILY #90 tabs 02/25/25 release atorvastatin 80 mg tablet (Lipitor) 80 mg PO BEDTIME #30 tabs 02/25/25 clopidogrel 300 mg tablet 600 mg (2 x 300 mg) PO ONCE #2 tabs 02/25/25 furosemide 40 mg tablet (Lasix) 40 mg PO PRN PRN weight gain #30 02/25/25 tabs lisinopril 5 mg tablet 2.5 mg (1/2 x 5 mg) PO DAILY #90 02/25/25 tabs potassium chloride 20 mEq 20 meq PO PRN PRN weight gain #30 02/25/25 tablet,extended release (K-Tab) tabs carvedilol 3.125 mg tablet (Coreg) 3.125 mg PO BID #180 tabs 03/13/25 omeprazole 40 mg capsule,delayed 40 mg PO BID #180 caps 03/13/25 release ticagrelor 90 mg tablet (Brilinta) 90 mg PO BID #180 tabs 03/13/25 Allergies Allergy/AdvReac Type Severity Reaction Status Date / Time No Known Allergies Allergy Verified 03/02/25 16:46 [facility] ED PFSH: Medical History (Updated 03/31/25 @ 07:01 by Shane Giron DO) Diabetes mellitus CAD (coronary artery disease) HTN (hypertension) Family History Mother Pulmonary emboli Father Aortic aneurysm Brother Aortic aneurysm Sister Stroke Social History Smoking and tobacco/nicotine status: former use of tobacco/nicotine Course Vital Signs: Vital signs: Vital Signs Temperature 98.8 F 03/31/25 04:54 Pulse Rate 88 03/31/25 06:18 Respiratory Rate 17 03/31/25 06:18 Blood Pressure 98/61 03/31/25 06:18 Pulse Oximetry 94 03/31/25 06:18 Oxygen Delivery Me thod Room Air 03/31/25 06:00 MDM - Chest Pain Medical Decision Making Differential diagnosis for patient with chest pain includes but is not limited to and based on the above HPI, review of systems and physical exam: Pneumonia. unstable angina. angina. Acute coronary syndrome / MN. Pulmonary embolism. Costochondritis / musculoskeletal. Pleurisy. Pericarditis. Esophageal spasm. Pancreatis. Cholecystitis. Orders placed to evaluate differential diagnosis based on the above differential, HPI and physical exam EKG: Time 4:56 AM. Rate 84. Normal sinus rhythm, No ST-T changes, PVCs, left bundle branch block, This was reviewed and interpreted by myself the ER physician at 5:00 AM. Left bundle branch block has been present in the past. Compared to previous EKGs. Chest x-ray: No acute process. No infiltrate. No pneumothorax. Films were interpreted by myself the emergency room provider and pending final radiology review. Lab Review: Laboratory results were reviewed and interpreted by myself the emergency room physician. I reviewed the patient's medical record. He has been to the culinary manager recently. Is opted not to have surgical intervention for multivessel coronary disease. Patient care transitioned Dr. Giron at shift change. Care assumed at change of shift patient has not had his morning medicines tells me he is taking all of his regular medicines through last evening. He did have some relief of his chest pain with sublingual nitro at home he still having chest pain now he was given fentanyl and topical nitro had good relief after the topical nitro. He has multivessel disease declined CABG. Confirmed with the patient and his who is at the bedside that they do not wish to be resuscitated he wants to be Do Not Recussitate. Will admit for possible NSTEMI. Discussed with cardiology waiting on second Trope he does have some chronic kidney disease which could be the cause of his initial Trope being elevated. Dr. Avalos recommends awaiting if there is a positive delta to initiate heparin. He is advises that the patient should be on heparin for 48 hours if there is a positive delta. Initial EKG shows a left bundle branch block which has been present in the past. Patient does wish to continue to be medical management only. Discussed with hospitalist will admit consult cardiology Lab Data 03/31/25 05:00 03/31/25 05:00 Radiology Impressions Chest X-Ray 03/31/25 04:55 IMPRESSION: No evidence of acute cardiopulmonary process. Laboratory Results WBC 10.27 10^3/uL (3.29-11.43) 03/31/25 05:00 RBC 4.18 10^6/uL (3.85-5.65) 03/31/25 05:00 Hgb 12.80 g/dL (11.27-16.99) 03/31/25 05:00 Hct 40.8 % (37-53) 03/31/25 05:00 MCV 97.6 fl (82-101) 03/31/25 05:00 MCH 30.6 pg (27-33) 03/31/25 05:00 MCHC 31.4 g/dL (30-55) 03/31/25 05:00 RDW 13.3 % (12.1-15.1) 03/31/25 05:00 Plt Count 148 10^3/cmm (157-399) L 03/31/25 05:00 MPV 12.1 fL (7.4-10.4) H 03/31/25 05:00 Neut % (Auto) 80.4 % 03/31/25 05:00 Lymph % (Auto) 7.1 % 03/31/25 05:00 [place] % (Auto) 11.4 % 03/31/25 05:00 Eos % (Auto) 0.1 % 03/31/25 05:00 Baso % (Auto) 0.3 % 03/31/25 05:00 Neut # (Auto) 8.26 10^3/uL (1.8-7.7) H 03/31/25 05:00 Lymph # (Auto) 0.7 10^3/uL (0.8-4.8) L 03/31/25 05:00 [place] # (Auto) 1.2 10^3/uL (0.2-0.9) H 03/31/25 05:00 Eos # (Auto) 0.0 10^3/uL (0.0-0.8) 03/31/25 05:00 Baso # (Auto) 0.0 10^3/uL (0.0-0.1) 03/31/25 05:00 Nucleated RBC % (auto) 0 % 03/31/25 05:00 Nucleated RBCs # 0.0 /100WBC 03/31/25 05:00 Sodium 136 mmol/L (136-145) 03/31/25 05:00 Potassium 4.9 mmol/L (3.5-5.1) 03/31/25 05:00 Chloride 97 mmol/L (98-107) L 03/31/25 05:00 Carbon Dioxide 20 mmol/L (22-29) L 03/31/25 05:00 Anion Gap 23.9 (5-19) H 03/31/25 05:00 BUN 31 mg/dL (8-23) H 03/31/25 05:00 Creatinine 1.8 mg/dL (0.7-1.2) H 03/31/25 05:00 GFR Calculation Not Reportable 03/31/25 05:00 Glucose 169 mg/dL (65-115) H 03/31/25 05:00 Calculated Osmolality 292 mOsm/kg (285-295) 03/31/25 05:00 Calcium 9.7 mg/dL (8.5-10.5) 03/31/25 05:00 Total Bilirubin 0.7 mg/dL (0.15-1.2) 03/31/25 05:00 AST 13 U/L (0-40) 03/31/25 05:00 ALT 10 U/L (0-41) 03/31/25 05:00 Alkaline Phosphatase 123 U/L (40-130) 03/31/25 05:00 Troponin T Baseline 55 ng/L (0-15) H 03/31/25 05:00 Total Protein 7.4 g/dL (6.6-8.7) 03/31/25 05:00 Albumin 4.5 g/dL (3.5-5.2) 03/31/25 05:00 Globulin 2.9 g/dL (1.3-4.6) 03/31/25 05:00 All radiology interpretation(s) finalized by discharge Discharge Plan Discharge Patient Disposition: Admitted As Inpatient Clinical Impression: Unstable angina pectoris, Diabetes mellitus, CKD (chronic kidney disease), Multiple vessel coronary artery disease, CAD (coronary artery disease) Condition: Stable Sign Out Sign Out Data: Patient Sign Out occurred on 03/31/25 at 05:29. Patient's care was discussed, and care was transferred from Haydee Turner MD to Shane Giron DO. Coding Level of Care Code ED Skin Washer for Uma Carlton
[2025-03-31 05:13] LABS: Basophils % 0.3 %; Eosinophils % 0.1 %; Hematocrit 40.8 % (37-53); Lymphocytes # 0.7 10^3/uL (0.8-4.8); Lymphocytes % 7.1 %; Mean Corpuscular HGB Conc 31.4 g/dL (30-55); Mean Corpuscular Hemoglobin 30.6 pg (27-33); Mean Corpuscular Volume 97.6 fl (82-101); Mean Platelet Volume 12.1 fL (7.4-10.4); Monocytes # 1.2 10^3/uL (0.2-0.9); Monocytes % 11.4 %; Neutrophils # 8.26 10^3/uL (1.8-7.7); Neutrophils % 80.4 %; Nucleated Red Blood Cells % 0 %; Platelet Count 148 10^3/cmm (157-399); Red Blood Count 4.18 10^6/uL (3.85-5.65); Red Cell Distribution Width 13.3 % (12.1-15.1); White Blood Count 10.27 10^3/uL (3.29-11.43)
[2025-03-31 05:31] LABS: Troponin(5th) Baseline 55 ng/L (0-15)
[2025-03-31 05:46] LABS: Alanine Aminotransferase 10 U/L (0-41); Albumin Level 4.5 g/dL (3.5-5.2); Alkaline Phosphatase 123 U/L (40-130); Anion Gap 23.9 (5-19); Aspartate Amino Transferase 13 U/L (0-40); Blood Urea Nitrogen 31 mg/dL (8-23); Calcium 9.7 mg/dL (8.5-10.5); Carbon Dioxide 20 mmol/L (22-29); Chloride 97 mmol/L (98-107); Creatinine Clr Calc Pharmacy 39.3963; Globulin 2.9 g/dL (1.3-4.6); Glucose 169 mg/dL (65-115); Osmolality Calculated 292 mOsm/kg (285-295); Potassium 4.9 mmol/L (3.5-5.1); Sodium 136 mmol/L (136-145); Total Bilirubin 0.7 mg/dL (0.15-1.2); Total Protein 7.4 g/dL (6.6-8.7)
[2025-03-31] MEDS: fentaNYL 50 mcg/mL INJ 2mL 25 MCG IVP (06:18)
[2025-03-31] MEDS: aspirin 81 mg Chew Tablet 324 MG PO (06:18)
[2025-03-31] MEDS: nitroglycerin 1 gm/inch oint Pkt 0.5 INCH TOPICAL (06:18)
[2025-03-31 07:03] LABS: Troponin 5 2HR 48.71 ng/L (0-15); Troponin 5 2HR Delta -6.29 ABS# (0-10)
--- NOTE | 2025-03-31 09:38 | P.CONIM_ITS ---
<Statement entered by Emmett Cheek M.D - 03/31/25 23:14> Patient was evaluated and cared for in conjunction with an advanced practice practitioner. I personally examined the patient and reviewed the chart and all pertinent data including imaging, telemetry, and laboratory results. I discussed the patient in detail with the advanced practice practitioner. Please see their note for complete progress note, results and agreed upon plan of care for the patient. Patient had PCI of LAD and left circumflex artery last month. He has presented with chest pain that woke him up during the night. On discussion he feels sore in the chest still. He has residual left main artery disease. Patient does not want any further invasive procedures. He only wants medical therapy. Troponins elevated but trending down. I have recommended him to continue medical therapy and have 48 hours of anticoagulation however patient is adament he wants to go home and does not want to stay. Risks associated with leaving including and CA discussed. Discharge plan per primary team however cardiology recommendations are to continue medical therapy for 48 hours. GENERAL: Patient is alert and oriented HEART: Regular S1 and S2 LUNGS: Clear to auscultation bilaterally EXTREMITIES: Lower extremities with no edema Providers/Reason For Consult 2 Consulting Physician/Specialty*: Dr Cheek, cardiology Reason for Consult*: Chest pain, troponin elevation Requesting Physician: Dr Giron Attending Physician: Chandana Celaya MD Primary Care Provider: Valentin Lovett MD History of Present Illness History of Present Illness Dago Bravo is a 79 year old male with past medical history of multivessel CAD and has declined CABG, underwent PCI of the ostial LAD, mid LAD to proximal left circumflex and balloon angioplasty of the diagonal last month. Also has history of systolic CHF, LVEF by LV gram last month 45%, hypertension, hyperlipidemia, diabetes, CKD. He presented to the emergency room this morning after waking up with chest pain around 3 AM, described as a twisting sensation in the epigastric region accompanied by shortness of breath. The chest pain was worse with inspiration. Troponin series: 55-> 48. His baseline creatinine is 1.5, today is 1.8. He appears euvolemic. Review of Systems 2 Const: Denies: fever(s), chills, change in weight, fatigue or diaphoresis Eyes: Denies: change in vision ENMT: Denies: epistaxis Card: Denies: chest pain, palpitations, irregular heart rhythm, edema, syncope, pre-syncope, dyspnea on exertion, orthopnea or leg pain with exertion Resp: Denies: dyspnea, productive cough or wheezing GI: Denies: nausea, vomiting, hematemesis, hematochezia or melena : Denies: hematuria Musc: Denies: extremity swelling Carlos/Lymph: Denies: easy bruising or easy bleeding Medications/Allergies Home Medications ?Medication ?Instructions ?Recorded ?Confirmed ?Last Taken ?Type Carb & Sugar Kiesha 1 tab PO DAILY 12/18/2403/0603/29/25 History Immununeti 1 tab PO DAILY 12/18/2403/0603/29/25 History apple cider vinegar 500 mg tablet 500 mg PO DAILY 12/0603/31/25 03/29/25 History ascorbic acid (vitamin C) 500 mg 1 g PO DAILY 12/18/24 03/31/25 03/29/25 History chewable tablet calcium carbonate 600 mg PO DAILY 12/18/2403/29/25 History cholecalciferol (vitamin D3) 125 125 mcg PO DAILY 12/0603/31/25 03/29/25 History mcg (5,000 unit) capsule chromium picolinate 1,000 mcg 1,000 mcg PO DAILY 12/1803/31/25 03/29/25 History tablet coenzyme Q10 400 mg capsule 400 mg PO DAILY 12/18/24 0 03/31/25 Unknown History cyanocobalamin (vitamin B-12) 500 250 mcg PO DAILY 03/31/25 03/29/25 History mcg tablet empagliflozin 25 mg tablet 25 mg PO DAILY 12/18/2403/30/25 History (Jardiance) ferrous sulfate 325 mg (65 mg 325 mg PO DAILY 12/18/24 03/31/25 03/29/25 History iron) tablet folic acid 400 mcg tablet 0.4 mg PO DAILY 12/18/2403/29/25 History gabapentin 300 mg capsule 300 mg PO DIRECTED 03/31/25 03/30/25 History awdikdcjeod-nqjmjqmya-J-Mn-boron 1 tab PO DAILY 03/31/25 03/29/25 History 750 mg-600 mg-30 mg-1mg-1.5mg tablet herba vision gold 2 gummy PO DAILY 12/18/2403/29/25 History insulin NPH isoph U-100 human 100 20 unit SUBCUT QAM P RN 12/18/24 03/31/25 Unknown History unit/mL (3 mL) subcutaneous pen Hyperglycemia (Novolin N FlexPen) insulin degludec 100 unit/mL (3 20 unit SUBCUT BID PRN 12/18/24 03/31/25 03/30/25 History mL) subcutaneous pen (Tresiba Hyperglycemia FlexTouch U-100 insulin) isosorbide mononitrate 30 mg 30 mg PO DAILY 12/18/24 0 03/31/25 03/30/25 History tablet,extended release 24 hr magnesium oxide 400 mg (241.3 mg 400 mg PO DAILY 12/1803/31/25 03/29/25 History magnesium) tablet metformin 1,000 mg tablet 500 mg PO DAILY 12/18/2403/30/25 History Held on 02/25/25. Instructions: Resume on 02/28/25. modern mushrooms 1 tab PO DAILY 12/18/2403/0603/29/25 History nitroglycerin 0.4 mg sublingual 0.4 mg sublingual Q5M PRN Chest 12/18/24 03/31/25 03/31/25 History tablet Pain true focus 1 tab PO DAILY 12/18/24/05/2903/29/25 History turmeric 400 mg capsule 400 mg PO DAILY 12/18/2403/29/25 History vitamin A acetate 3,000 mcg 3,000 mcg PO DAILY 5 03/31/25 03/29/25 History (10,000 unit) sublingual tablet vitamin E (dl, acetate) 180 mg 180 mg PO DAILY 5 03/31/25 03/30/25 History (400 unit) capsule zinc acetate 50 mg (zinc) capsule 50 mg PO DAILY 12/1803/31/25 03/29/25 History aspirin 81 mg tablet,delayed 81 mg PO DAILY #90 tabs 0 02/25/25 03/31/25 03/30/25 Rx release atorvastatin 80 mg tablet (Lipitor) 80 mg PO BEDTIME # 30 tabs 02/25/25 03/31/25 03/30/25 Rx furosemide 40 mg tablet (Lasix) 40 mg PO PRN PRN weigh t gain #30 02/25/25 03/31/25 Unknown Rx tabs lisinopril 5 mg tablet 2.5 mg (1/2 x 5 mg) PO DAILY #90 02/25/25 03/31/25 03/30/25 Rx tabs carvedilol 3.125 mg tablet (Coreg) 3.125 mg PO BID #18 0 tabs 03/13/25 03/31/25 03/30/25 Rx omeprazole 40 mg capsule,delayed 40 mg PO BID #180 cap s 03/13/25 03/31/25 03/30/25 Rx release ticagrelor 90 mg tablet (Brilinta) 90 mg PO BID #180 t abs 03/13/25 03/31/25 Unknown Rx Nervive 3 tab PO DAILY 03/31/2503/0603/29/25 History clopidogrel 75 mg tablet 75 mg PO DAILY 03/31/2503/0603/30/25 History omega 9-fey-ytu-fish oil 1,000 mg 2 cap PO DAILY 03/3103/31/25 03/29/25 History (120 mg-180 mg) capsule (Fish Oil) potassium chloride 20 mEq See Rx Instructions .Route . COMPLEX 03/31/25 03/31/25 Unknown History tablet,extended release Allergies Allergy/AdvReac Type Severity Reaction Status Date / Time No Known Allergies Allergy Verified 03/31/25 07:34 PFSH Acute 2 PFSH: Medical History Diabetes mellitus CAD (coronary artery disease) HTN (hypertension) Family History Mother Pulmonary embolism Father Aortic aneurysm Brother Aortic aneurysm Sister Stroke Social History Smoking and tobacco/nicotine status: unknown if used tobacco/nicotine Vitals/I&O/Wt Last Vital Signs Temp 98.8 F 03/31/25 04:54 Pulse 81 03/31/25 08:33 Resp 18 03/31/25 06:58 BP 112/65 03/31/25 08:33 Pulse Ox 95 03/31/25 08:33 O2 Del Method Room Air 03/31/25 06:58 Weight last 48 hrs Weight 220 lb Physical Exam 2 Const: COMMON NORMALS: no acute distress and patient oriented x3 GENERAL APPEARANCE: cooperative and comfortable ORIENTATION/CONSCIOUSNESS: Yes awake, Yes oriented to person, Yes oriented to place and Yes oriented to time Chest: COMMONS NORMALS: normal inspection of the chest and normal palpation of entire chest wall CHEST: Yes Symmetrical chest wall rise Resp: COMMON NORMALS: normal respiratory effort, No retractions, No use of accessory muscles and clear to auscultation bilaterally EFFORT & INSPECTION: Yes symmetric chest movement AUSCULTATION: clear to auscultation bilaterally Cardio: COMMON NORMALS: regular rate, regular rhythm, S1 normal heart sound present, S2 normal heart sound present, No gallops present (Cardio), No clicks present (Cardio), No murmurs present (Cardio) and No rub (Cardio) RATE: r egular rate RHYTHM: regular rhythm HEART SOUNDS: S1 normal heart sound present and S2 normal heart sound present PERIPHERAL PULSES: radial pulses present Extremity: COMMON NORMALS: no pedal edema Neuro: COMMON NORMALS: patient oriented x3 and moves all extremities S ENSORIUM/ORIENTATION: Yes oriented to person, Yes oriented to place and Yes oriented to time Data 03/31/25 05:00 03/31/25 05:00 A&P Assessment and plan (1) CAD (coronary artery disease): (2) Heart failure with reduced ejection fraction: (3) HTN (hypertension): (4) CKD (chronic kidney disease): (5) Diabetes mellitus: Plan He has troponin elevation and woke up with chest pain this morning. Creatinine is elevated higher than baseline, cannot rule out NSTEMI however troponin is downtrending currently and he is chest pain-free. Recommendation would be to continue DAPT, start him on heparin infusion for 48 hours since he did have residual 1st diagonal disease from the procedure last month. However, patient is adamant, despite the risks to go home. Will discuss with hospitalist service, plan to discharge home with medical management of chest pain. Blood pressure and heart rate are stable. PDMP PDMP Reviewed: Not Reviewed Consult Attestations 2 Medical Necessity Statement: chest pain, troponin elevation, hx of multivessel CAD Coding Level of Care Code Acute Code for g Fwd Diagnoses Coronary artery disease involving [place] coronary artery of [place] heart without angina pectoris I25.10 Associated angina: without angina Coronary Disease-Associated Artery/Lesion type: [place] artery [place] vs. 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
--- NOTE | 2025-03-31 09:38 | PM.CONSULT ---
Providers/Reason For Consult Consulting Physician/Specialty*: Dr Cheek, cardiology Reason for Consult*: Chest pain, troponin elevation Requesting Physician: Dr Giron Attending Physician: Chandana Celaya MD Primary Care Provider: Valentin Lovett MD History of Present Illness History of Present Illness Dago Bravo is a 79 year old male with past medical history of multivessel CAD and has declined CABG, underwent PCI of the ostial LAD, mid LAD to proximal left circumflex and balloon angioplasty of the diagonal last month. Also has history of systolic CHF, LVEF by LV gram last month 45%, hypertension, hyperlipidemia, diabetes, CKD. He presented to the emergency room this morning after waking up with chest pain around 3 AM, described as a twisting sensation in the epigastric region accompanied by shortness of breath. The chest pain was worse with inspiration. Troponin series: 55-> 48. His baseline creatinine is 1.5, today is 1.8. He appears euvolemic. Review of Systems Const: Denies: fever(s), chills, change in weight, fatigue or diaphoresis Eyes: Denies: change in vision ENMT: Denies: epistaxis Card: Denies: chest pain, palpitations, irregular heart rhythm, edema, syncope, pre-syncope, dyspnea on exertion, orthopnea or leg pain with exertion Resp: Denies: dyspnea, productive cough or wheezing GI: Denies: nausea, vomiting, hematemesis, hematochezia or melena : Denies: hematuria Musc: Denies: extremity swelling Carlos/Lymph: Denies: easy bruising or easy bleeding Medications/Allergies Home Medications ?Medication ?Instructions ?Recorded ?Confirmed ?Last Taken ?Type Carb & Sugar Kiesha 1 tab PO DAILY 12/18/24 03/31/25 03/29/25 History Immununeti 1 tab PO DAILY 12/18/24 03/31/25 03/29/25 History apple cider vinegar 500 mg tablet 500 mg PO DAILY 12/18/24 03/31/25 03/29/25 History ascorbic acid (vitamin C) 500 mg 1 g PO DAILY 12/18/24 03/31/25 03/29/25 History chewable tablet calcium carbonate 600 mg PO DAILY 12/18/24 03/31/25 03/29/25 History cholecalciferol (vitamin D3) 125 125 mcg PO DAILY 12/18/24 03/31/2503/29/25 History mcg (5,000 unit) capsule chromium picolinate 1,000 mcg 1,000 mcg PO DAILY 12/18/24 03/31/25 03/29/25 History tablet coenzyme Q10 400 mg capsule 400 mg PO DAILY 12/18/24 03/31/25 Unknown History cyanocobalamin (vitamin B-12) 500 250 mcg PO DAILY 12/18/24 03/31/25 03/29/25 History mcg tablet empagliflozin 25 mg tablet 25 mg PO DAILY 12/18/24 03/31/25 03/30/25 History (Jardiance) ferrous sulfate 325 mg (65 mg 325 mg PO DAILY 12/18/24 03/31/25 03/29/25 History iron) tablet folic acid 400 mcg tablet 0.4 mg PO DAILY 12/18/24 03/31/25 03/29/25 History gabapentin 300 mg capsule 300 mg PO DIRECTED 12/18/24 03/31/25 03/30/25 History onmymxwzija-eltzvakme-T-Mn-boron 1 tab PO DAILY 12/18/24 03/31/25 03/29/25 History 750 mg-600 mg-30 mg-1mg-1.5mg tablet herba vision gold 2 gummy PO DAILY 12/18/24 03/31/25 03/29/25 History insulin NPH isoph U-100 human 100 20 unit SUBCUT QAM PRN 12/18/24 03/31/25 Unknown History unit/mL (3 mL) subcutaneous pen Hyperglycemia (Novolin N FlexPen) insulin degludec 100 unit/mL (3 20 unit SUBCUT BID PRN 12/18/24 03/31/25 03/30/25 History mL) subcutaneous pen (Tresiba Hyperglycemia FlexTouch U-100 insulin) isosorbide mononitrate 30 mg 30 mg PO DAILY 12/18/24 03/31/25 03/30/25 History tablet,extended release 24 hr magnesium oxide 400 mg (241.3 mg 400 mg PO DAILY 12/18/24 03/31/25 03/29/25 History magnesium) tablet metformin 1,000 mg tablet 500 mg PO DAILY 12/18/24 03/31/25 03/30/25 History Held on 02/25/25. Instructions: Resume on 02/28/25. modern mushrooms 1 tab PO DAILY 12/18/24 03/31/25 03/29/25 History nitroglycerin 0.4 mg sublingual 0.4 mg sublingual Q5M PRN Chest 12/18/24 03/31/25 03/31/25 History tablet Pain true focus 1 tab PO DAILY 12/18/24 03/31/25 03/29/25 History turmeric 400 mg capsule 400 mg PO DAILY 12/18/24 03/31/25 03/29/25 History vitamin A acetate 3,000 mcg 3,000 mcg PO DAILY 12/18/24 03/31/25 03/29/25 History (10,000 unit) sublingual tablet vitamin E (dl, acetate) 180 mg 180 mg PO DAILY 12/18/24 03/31/25 03/30/25 History (400 unit) capsule zinc acetate 50 mg (zinc) capsule 50 mg PO DAILY 12/18/24 03/31/25 03/29/25 History aspirin 81 mg tablet,delayed 81 mg PO DAILY #90 tabs 02/25/25 03/31/25 03/30/25 Rx release atorvastatin 80 mg tablet (Lipitor) 80 mg PO BEDTIME #30 tabs 02/25/25 03/31/25 03/30/25 Rx furosemide 40 mg tablet (Lasix) 40 mg PO PRN PRN weight gain #30 02/25/25 03/31/25 Unknown Rx tabs lisinopril 5 mg tablet 2.5 mg (1/2 x 5 mg) PO DAILY #90 02/25/25 03/31/25 03/30/25 Rx tabs carvedilol 3.125 mg tablet (Coreg) 3.125 mg PO BID #180 tabs 03/13/25 03/31/25 03/30/25 Rx omeprazole 40 mg capsule,delayed 40 mg PO BID #180 caps 03/13/25 03/31/25 03/30/25 Rx release ticagrelor 90 mg tablet (Brilinta) 90 mg PO BID #180 tabs 03/13/25 03/31/25 Unknown Rx Nervive 3 tab PO DAILY 03/31/25 03/31/25 03/29/25 History clopidogrel 75 mg tablet 75 mg PO DAILY 03/31/25 03/31/25 03/30/25 History omega 8-fxr-nph-fish oil 1,000 mg 2 cap PO DAILY 03/31/25 03/31/25 03/29/25 History (120 mg-180 mg) capsule (Fish Oil) potassium chloride 20 mEq See Rx Instructions .Route .COMPLEX 03/31/25 03/31/25 Unknown History tablet,extended release Allergies Allergy/AdvReac Type Severity Reaction Status Date / Time No Known Allergies Allergy Verified 03/31/25 07:34 PFSH Acute PFSH: Medical History Diabetes mellitus CAD (coronary artery disease) HTN (hypertension) Family History Mother Pulmonary embolism Father Aortic aneurysm Brother Aortic aneurysm Sister Stroke Social History Smoking and tobacco/nicotine status: unknown if used tobacco/nicotine Vitals/I&O/Wt Last Vital Signs Temp 98.8 F 03/31/25 04:54 Pulse 81 03/31/25 08:33 Resp 18 03/31/25 06:58 BP 112/65 03/31/25 08:33 Pulse Ox 95 03/31/25 08:33 O2 Del Method Room Air 03/31/25 06:58 Weight last 48 hrs Weight 220 lb Physical Exam Const: COMMON NORMALS: no acute distress and patient oriented x3 GENERAL APPEARANCE: cooperative and comfortable ORIENTATION/CONSCIOUSNESS: Yes awake, Yes oriented to person, Yes oriented to place and Yes oriented to time Chest: COMMONS NORMALS: normal inspection of the chest and normal palpation of entire chest wall CHEST: Yes Symmetrical chest wall rise Resp: COMMON NORMALS: normal respiratory effort, No retractions, No use of accessory muscles and clear to auscultation bilaterally EFFORT & INSPECTION: Yes symmetric chest movement AUSCULTATION: clear to auscultation bilaterally Cardio: COMMON NORMALS: regular rate, regular rhythm, S1 normal heart sound present, S2 normal heart sound present, No gallops present (Cardio), No clicks present (Cardio), No murmurs present (Cardio) and No rub (Cardio) RATE: regular rate RHYTHM: regular rhythm HEART SOUNDS: S1 normal heart sound present and S2 normal heart sound present PERIPHERAL PULSES: radial pulses present Extremity: COMMON NORMALS: no pedal edema Neuro: COMMON NORMALS: patient oriented x3 and moves all extremities SENSORIUM/ORIENTATION: Yes oriented to person, Yes oriented to place and Yes oriented to time Data 03/31/25 05:00 03/31/25 05:00 A&P Assessment and plan (1) CAD (coronary artery disease): (2) Heart failure with reduced ejection fraction: (3) HTN (hypertension): (4) CKD (chronic kidney disease): (5) Diabetes mellitus: Plan He has troponin elevation and woke up with chest pain this morning. Creatinine is elevated higher than baseline, cannot rule out NSTEMI however troponin is downtrending currently and he is chest pain-free. Recommendation would be to continue DAPT, start him on heparin infusion for 48 hours since he did have residual 1st diagonal disease from the procedure last month. However, patient is adamant, despite the risks to go home. Will discuss with hospitalist service, plan to discharge home with medical management of chest pain. Blood pressure and heart rate are stable. PDMP PDMP Reviewed: Not Reviewed Consult Attestations Medical Necessity Statement: chest pain, troponin elevation, hx of multivessel CAD Coding Level of Care Code Acute Code for [facility] Fwd Diagnoses Coronary artery disease involving [place] coronary artery of [place] heart without angina pectoris I25.10 Associated angina: without angina Coronary Disease-Associated Artery/Lesion type: [place] artery [place] vs. 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
--- NOTE | 2025-03-31 10:00 | PC.NURSE ---
Patient states that after being seen by Selam Bateman NP that he will be discharging.
[2025-03-31 10:18] LABS: Creatine Phosphokinase 26 U/L (39-308)
[2025-03-31 10:43] LABS: D Dimer 0.71 ug/mLFEU (0-0.59)
[2025-03-31 11:19] LABS: Troponin 5 6HR 51.91 ng/L (0-15); Troponin 5 6HR Delta -3.09 ng/L (0-12)
--- NOTE | 2025-03-31 11:52 | PM.SDS ---
Short Stay Summary Providers Date of Admit/Discharge: 03/31/25 Attending Provider: Chandana Celaya MD Primary Care Provider: Valentin Lovtet MD Chief Complaint: Chest Pains HPI History of Present Illness Dago Bravo is a 79 year old male with a history of advanced coronary artery disease with multiple blockages and diabetes mellitus presented with chest pain described as a knot in the middle of the chest, which started around 2 AM and woke the patient from sleep. The pain would get worse with turning like onto his side or taking deep breaths. The pain was initially rated 4-5/10 and decreased to 2/10 at the time of evaluation. The patient took nitroglycerin tablets at home three times with only partial relief. In the hospital, the patient received fentanyl, nitroglycerin paste, and four aspirins. The patient denied recent cough, shortness of breath, phlegm production, headache, muscle aches, nausea, vomiting, or diarrhea. There was a report of chills the previous night, which resolved after using an electric blanket. The patient reported a bed sore on the buttocks and some dryness on the arms. No recent swelling in the legs, though there was swelling about a week ago, for which furosemide was taken once. The patient denied increased shortness of breath when lying flat but noted that deep breaths increased chest pain. No history of oxygen use or sleep apnea. The patient uses insulin (Tresiba) for diabetes, last taken on Sunday, and as-needed Novolog, not used in the past five days. No recent hypoglycemia reported. The patient takes aspirin and clopidogrel for heart disease, with the last dose on Sunday. There was some confusion about the correct dose of clopidogrel. The patient denied burning with urination, blood in urine, urgency, or skin rashes. The patient is being admitted for monitoring and further evaluation of chest pain, with a cardiology consult planned. On discussion of CODE STATUS he would not want resuscitative attempts or artificial means of life support. Review of Systems Const: Denies: fever(s), chills, body aches or malaise ENMT: Denies: throat pain Card: Denies: chest pain, edema, pre-syncope or dyspnea on exertion Resp: Denies: dyspnea, productive cough, change in phlegm color or hemoptysis GI: Denies: abdominal pain, nausea, vomiting, diarrhea, constipation, hematochezia or melena : Denies: flank pain, difficulty urinating, urinary frequency or hematuria Musc: Denies: back pain, joint swelling or joint redness Skin/Breast: Denies: rash or new lesions Neuro: Denies: headache(s) or confusion Home Meds/Allergies Home Medications and Allergies Home Medications ?Medication ?Instructions ?Recorded ?Confirmed ?Type Carb & Sugar Kiesha 1 tab PO DAILY 12/18/24 03/31/25 History Immununeti 1 tab PO DAILY 12/18/24 03/31/25 History apple cider vinegar 500 mg tablet 500 mg PO DAILY 12/18/24 03/31/25 History ascorbic acid (vitamin C) 500 mg 1 g PO DAILY 12/18/24 03/31/25 History chewable tablet calcium carbonate 600 mg PO DAILY 12/18/24 03/31/25 History cholecalciferol (vitamin D3) 125 125 mcg PO DAILY 12/18/24 03/31/25 History mcg (5,000 unit) capsule chromium picolinate 1,000 mcg 1,000 mcg PO DAILY 12/18/24 03/31/25 History tablet coenzyme Q10 400 mg capsule 400 mg PO DAILY 12/18/24 03/31/25 History cyanocobalamin (vitamin B-12) 500 250 mcg PO DAILY 12/18/24 03/31/25 History mcg tablet empagliflozin 25 mg tablet 25 mg PO DAILY 12/18/24 03/31/25 History (Jardiance) ferrous sulfate 325 mg (65 mg 325 mg PO DAILY 12/18/24 03/31/25 History iron) tablet folic acid 400 mcg tablet 0.4 mg PO DAILY 12/18/24 03/31/25 History gabapentin 300 mg capsule 300 mg PO DIRECTED 12/18/24 03/31/25 History uzbricxutit-nmeebrtul-D-Mn-boron 1 tab PO DAILY 12/18/24 03/31/25 History 750 mg-600 mg-30 mg-1mg-1.5mg tablet herba vision gold 2 gummy PO DAILY 12/18/24 03/31/25 History insulin NPH isoph U-100 human 100 20 unit SUBCUT QAM PRN 12/18/24 03/31/25 History unit/mL (3 mL) subcutaneous pen Hyperglycemia (Novolin N FlexPen) insulin degludec 100 unit/mL (3 20 unit SUBCUT BID PRN 12/18/24 03/31/25 History mL) subcutaneous pen (Tresiba Hyperglycemia FlexTouch U-100 insulin) isosorbide mononitrate 30 mg 30 mg PO DAILY 12/18/24 03/31/25 History tablet,extended release 24 hr magnesium oxide 400 mg (241.3 mg 400 mg PO DAILY 12/18/24 03/31/25 History magnesium) tablet metformin 1,000 mg tablet 500 mg PO DAILY 12/18/24 03/31/25 History modern mushrooms 1 tab PO DAILY 12/18/24 03/31/25 History nitroglycerin 0.4 mg sublingual 0.4 mg sublingual Q5M PRN Chest 12/18/24 03/31/25 History tablet Pain true focus 1 tab PO DAILY 12/18/24 03/31/25 History turmeric 400 mg capsule 400 mg PO DAILY 12/18/24 03/31/25 History vitamin A acetate 3,000 mcg 3,000 mcg PO DAILY 12/18/24 03/31/25 History (10,000 unit) sublingual tablet vitamin E (dl, acetate) 180 mg 180 mg PO DAILY 12/18/24 03/31/25 History (400 unit) capsule zinc acetate 50 mg (zinc) capsule 50 mg PO DAILY 12/18/24 03/31/25 History Nervive 3 tab PO DAILY 03/31/25 03/31/25 History clopidogrel 75 mg tablet 75 mg PO DAILY 03/31/25 03/31/25 History omega 0-hsr-wal-fish oil 1,000 mg 2 cap PO DAILY 03/31/25 03/31/25 History (120 mg-180 mg) capsule (Fish Oil) potassium chloride 20 mEq See Rx Instructions .Route .COMPLEX 03/31/25 03/31/25 History tablet,extended release Allergies Allergy/AdvReac Type Severity Reaction Status Date / Time No Known Allergies Allergy Verified 03/31/25 07:34 PFSH Acute PFSH: Medical History Diabetes mellitus CAD (coronary artery disease) HTN (hypertension) Family History Mother Pulmonary embolism Father Aortic aneurysm Brother Aortic aneurysm Sister Stroke Social History Smoking and tobacco/nicotine status: unknown if used tobacco/nicotine Vitals/I&O/Wt Last Vital Signs Temp 98.8 F 03/31/25 04:54 Pulse 75 03/31/25 10:00 Resp 20 H 03/31/25 10:00 BP 105/49 03/31/25 10:00 Pulse Ox 94 03/31/25 10:00 O2 Del Method Room Air 03/31/25 06:58 Weight last 48 hrs Weight 99.79 kg Physical Exam Narrative: Accompanied by his both on initial evaluation and reevaluation prior to discharge. Const: COMMON NORMALS: patient oriented x3 and alert GENERAL APPEARANCE: cooperative ORIENTATION/CONSCIOUSNESS: Yes awake HENMT: COMMON NORMALS: oropharynx normal Neck/C-Spine: COMMON NORMALS: no JVD Resp: COMMON NORMALS: normal respiratory effort and clear to auscultation bilaterally AUSCULTATION: clear to auscultation bilaterally Cardio: COMMON NORMALS: no JVD, regular rhythm, S1 normal heart sound present, S2 normal heart sound present and No murmurs present (Cardio) RHYTHM: regular rhythm HEART SOUNDS: S1 normal heart sound present and S2 normal heart sound present GI: COMMON NORMALS: Normal to inspection, nondistended, normoactive bowel sounds present, Soft to palpation and non-tender PALPATION: Yes Soft to palpation Extremity: COMMON NORMALS: no joint enlargement GENERAL: Yes edema (Trace) Neuro: COMMON NORMALS: patient oriented x3 and moves all extremities SENSORIUM/ORIENTATION: Yes alert Skin: COMMON NORMALS: no rashes or lesions noted GENERAL SKIN EXAM: no rashes or lesions noted Hospital Course Hospital Course He was hospitalized, troponin series completed with noted mild to moderate elevation 55-48-52, with old LBBB on EKG. the pain was somewhat atypical, worse when he was turning or taking a deep breath. Further workup was in progress, D-dimer obtained, 0.71, appropriate for his age. Vitals, CBC, CMP, chest x-ray were reviewed. Chest x-ray without evidence of acute cardiopulmonary process. Further assessment sought with echocardiogram, cardiology evaluation, continues on aspirin and Plavix, and on discussion with cardiology was recommended to undergo 48 hours of treatment with heparin with monitoring with risk of bleeding, as cardiac ischemia could not be definitively excluded with severe underlying coronary disease. He declined further assessment and treatment after discussion with cardiology, and discussed again with cardiology and then also myself regarding risks for discharge, choosing to still go ahead and return home. Discussed with him noted soft blood pressure on presentation 98/61, possibly low blood pressure at home. Discussed to hold lisinopril for now with risk of hypotension possibly contributing to her symptoms, monitor blood pressure closely, hold other medications that may decrease blood pressure in case of low blood pressure including carvedilol, Imdur, gabapentin. He takes Lasix only as needed. Please reassess blood pressures in the office. He is asked to follow-up for reassessment with PCP as well as cardiology. He incidentally mentions early pressure sore on his bottom from frequently sitting in the chair, please visit with him. SSS Data Data Completed and Pending: Completed Studies During Hospitalization Category Date Time Status XR chest 1V winter ble 38861 Stat Exams 03/31/25 04:55 Completed Pending at discharge Category Date Time Status Complete Blood Co unt w/Auto AM LABS Lab 04/01/25 04:00 Ordered Comprehensive Met abolic Panel AM LA BS Lab 04/01/25 04:00 Ordered Diagnoses at Discharge Discharge Diagnosis (1) CAD (coronary artery disease): Status: Acute Qualifiers: Associated angina: without angina Coronary Disease-Associated Artery/Lesion type: [place] artery [place] vs. transplanted heart: [place] heart Qualified Code(s): I25.10 - Atherosclerotic heart disease of [place] coronary artery without angina pectoris (2) Heart failure with reduced ejection fraction: Status: Acute (3) HTN (hypertension): Status: Acute Qualifiers: Hypertension type: essential hypertension Qualified Code(s): I10 - Essential (primary) hypertension (4) CKD (chronic kidney disease): Status: Chronic Qualifiers: Chronic kidney disease stage: unspecified stage Qualified Code(s): N18.9 - Chronic kidney disease, unspecified (5) Diabetes mellitus: Status: Acute Qualifiers: Diabetes mellitus complication detail: with other circulatory complications Diabetes mellitus complication status: with circulatory complication Diabetes mellitus exterminator insulin use: with senior living use Diabetes mellitus type: type 2 Qualified Code(s): E11.59 - Type 2 diabetes mellitus with other circulatory complications; Z79.4 - terminal worker (current) use of insulin Discharge Plan Discharge Patient Disposition: Home Condition: Fair Prescriptions: New lidocaine 5 % Adhesive Patch,Medicated 1 patch topical [id number] Qty: 5 0RF Continued gabapentin 300 mg capsule 300 mg PO DIRECTED Rx Instructions: 300mg in the AM and 600mg in the PM metformin 1,000 mg tablet 500 mg PO DAILY isosorbide mononitrate 30 mg tablet extended release 24 hr 30 mg PO DAILY Jardiance 25 mg tablet 25 mg PO DAILY Carb & Sugar Kiesha 1 tab PO DAILY Immununeti 1 tab PO DAILY vitamin A acetate 3,000 mcg (10,000 unit) tablet, sublingual 3,000 mcg PO DAILY cyanocobalamin (vitamin B-12) 500 mcg tablet 250 mcg PO DAILY cholecalciferol (vitamin D3) 125 mcg (5,000 unit) capsule 125 mcg PO DAILY vitamin E (dl, acetate) 180 mg (400 unit) capsule 180 mg PO DAILY chromium picolinate 1,000 mcg tablet 1,000 mcg PO DAILY modern mushrooms 1 tab PO DAILY true focus 1 tab PO DAILY turmeric 400 mg capsule 400 mg PO DAILY folic acid 400 mcg tablet 0.4 mg PO DAILY ferrous sulfate 325 mg (65 mg iron) tablet 325 mg PO DAILY herba vision gold 2 gummy PO DAILY ascorbic acid (vitamin C) 500 mg tablet,chewable 1 g PO DAILY zinc acetate 50 mg (zinc) capsule 50 mg PO DAILY magnesium oxide 400 mg (241.3 mg magnesium) tablet 400 mg PO DAILY calcium carbonate 600 mg calcium (1,500 mg) tablet 600 mg PO DAILY apple cider vinegar 500 mg tablet 500 mg PO DAILY dynjtvfl-wccllu-zki C-Mn-boron [id number] mg tablet 1 tab PO DAILY coenzyme Q10 400 mg capsule 400 mg PO DAILY nitroglycerin 0.4 mg tablet, sublingual 0.4 mg sublingual Q5M PRN (Reason: Chest Pain) Rx Instructions: do not exceed 3 doses per episode Novolin N FlexPen 100 unit/mL (3 mL) insulin pen 20 unit SUBCUT QAM PRN (Reason: Hyperglycemia) insulin degludec [Tresiba FlexTouch U-100] 100 unit/mL (3 mL) insulin pen 20 unit SUBCUT BID PRN (Reason: Hyperglycemia) omeprazole 40 mg capsule,delayed release(DR/EC) 40 mg PO BID Qty: 180 3RF carvedilol [Coreg] 3.125 mg tablet 3.125 mg PO BID Qty: 180 3RF Rx Instructions: must administer with a meal/food Brilinta 90 mg tablet 90 mg PO BID Qty: 180 3RF atorvastatin [Lipitor] 80 mg tablet 80 mg PO BEDTIME Qty: 30 0RF aspirin 81 mg Tablet,Delayed Release (Dr/Ec) 81 mg PO DAILY Qty: 90 0RF furosemide [Lasix] 40 mg tablet 40 mg PO PRN PRN (Reason: weight gain) Qty: 30 0RF Rx Instructions: take 1 40 mg tablet orally as needed with one 20 meq potassium for weight gain of 3 pounds in 1 day clopidogrel 75 mg tablet 75 mg PO DAILY omega 8-ero-kdi-fish oil [Fish Oil] 1,000 (120-180) mg Capsule 2 cap PO DAILY potassium chloride 20 mEq tablet extended release See Rx Instructions .ROUTE .COMPLEX Rx Instructions: TAKE 1 TABLET BY MOUTH ONCE DAILY NEEDED WEIGHT GAIN . TAKE ONLY IF YOU HAVE TO TAKE THE LASIX Nervive 3 tab PO DAILY Held lisinopril 5 mg tablet 2.5 mg PO DAILY Qty: 90 3RF Hold Instructions: Resume on 04/02/25. Discharge Orders: Discharge Order (Routine); Ordered 03/31/25 Ordered By: Eduard Zamora Referrals: Selam Bateman FNP [Nurse Practitioner, Cardiology] - 04/07/25 2:00 pm Valentin Lovett MD [Primary Care Provider] - 04/06/25 11:40 am Patient Instructions: Heart Failure (DC), CHF Stoplight, Chest Pain Stoplight Activity Restrictions/Additional Instructions: Follow-up with your primary doctor as well as with cardiology for reassessment after episode of chest pain. Chest pain may be musculoskeletal, but cannot rule out cardiac ischemia with significant underlying coronary artery disease. Please note that your workup and treatment was not completed in the hospital with you leaving prematurely with possible heart attack or other cause of the pain not excluded, with risk of possible life-threatening and/or disabling event. Please seek medical attention in case of any worsening or new concerning symptoms. Your blood pressure is noted to sometimes trend down on the low side down into the 90s, please hold lisinopril at this time, take Lasix only as needed, and if blood pressure is low (less than 100 top number or 60 bottom number) hold Imdur and carvedilol at that time as well. Please note gabapentin can also decrease your blood pressure. Please follow-up with your primary doctor and cardiology for reassessment of blood pressures and further adjustment of your medications. Attestations Medical Necessity Statement*: Observation in hospital due to chest pain with underlying advanced coronary disease. Time Spent in Patient Care*: greater than 30 min Quality Metrics Clinical Quality Measures: [ No reported AMI, CVA or VTE this stay] and High MDM includes amount and/or complexity of data reviewed/ordered [ resulted lab(s)/test(s), ordered lab(s)/test(s) and other healthcare professional discussion] and described risk of complication, morbidity or mortality of management as documented Diagnoses Coronary artery disease involving [place] coronary artery of [place] heart without angina pectoris I25.10 Associated angina: without angina Coronary Disease-Associated Artery/Lesion type: [place] artery [place] vs. transplanted heart: [place] heart Heart failure with reduced ejection fraction I50.20 Essential hypertension I10 Hypertension type: essential hypertension Chronic kidney disease, unspecified CKD stage N18.9 Chronic kidney disease stage: unspecified stage Type 2 diabetes mellitus with other circulatory complication, with long-term current use of insulin E11.59; Z79.4 Diabetes mellitus complication detail: with other circulatory complications Diabetes mellitus complication status: with circulatory complication Diabetes mellitus senior living insulin use: with exterminator use Diabetes mellitus type: type 2
== END 2025-03-31 14:00 | disposition home or self-care (01) ==
LOC: ER 07:01 → CSU 11:42
PROVIDERS: Emergency Medicine; Admitting Provider Internal Medicine; Emergency Provider Family Medicine; PCP Family Medicine; Visit Provider Internal Medicine
DX: R07.9 Chest pain, unspecified (principal); I25.10 Atherosclerotic heart disease of native coronary artery without angina pectoris; I13.0 Hypertensive heart and chronic kidney disease with heart failure and stage 1 through stage 4 chronic kidney disease, or unspecified chronic kidney disease; E11.22 Type 2 diabetes mellitus with diabetic chronic kidney disease; N18.9 Chronic kidney disease, unspecified; I50.20 Unspecified systolic (congestive) heart failure; Z79.4 Long term (current) use of insulin; Z79.82 Long term (current) use of aspirin; K21.9 Gastro-esophageal reflux disease without esophagitis; E78.5 Hyperlipidemia, unspecified; Z87.891 Personal history of nicotine dependence; Z66 Do not resuscitate; Z79.84 Long term (current) use of oral hypoglycemic drugs
CPT/HCPCS: 36415; 71045; 80053; 82550; 84484; 85025; 85378; 93005; 96374; 96375; 99285; G0378; J3010; J9999

== ENCOUNTER → 2025-04-07 13:49 | Outpatient (BNVA) | payer MEDICARE, SELFPAY | PROVIDERS: PCP Family Medicine; Visit Provider Nurse Practitioner Family | DX: I25.10 Atherosclerotic heart disease of native coronary artery without angina pectoris (principal); Z09 Encounter for follow-up examination after completed treatment for conditions other than malignant neoplasm; I13.0 Hypertensive heart and chronic kidney disease with heart failure and stage 1 through stage 4 chronic kidney disease, or unspecified chronic kidney disease; E11.22 Type 2 diabetes mellitus with diabetic chronic kidney disease; N18.30 Chronic kidney disease, stage 3 unspecified; I50.23 Acute on chronic systolic (congestive) heart failure; Z79.4 Long term (current) use of insulin; Z79.84 Long term (current) use of oral hypoglycemic drugs; K21.9 Gastro-esophageal reflux disease without esophagitis; M25.519 Pain in unspecified shoulder; Z79.02 Long term (current) use of antithrombotics/antiplatelets; Z79.82 Long term (current) use of aspirin; Z87.891 Personal history of nicotine dependence | CPT/HCPCS: 99214 ==

== ENCOUNTER 2025-04-16 09:51 | Observation (INO) | payer MEDICARE, SELFPAY ==
[2025-04-16] VITALS (8 sets, daily range): BP systolic 104–129; BP diastolic 55–62; PULSE 57–82; RESP 16–20; TEMP 36.4–36.8; O2SAT 91–95; BMI 30.7
--- NOTE | 2025-04-16 10:14 | XR_ITS ---
WS: [id number] Portable AP upright chest, 04/16/2025 Clinical Data: Weakness Comparison: Portable chest, 03/31/2025 Findings: There are patchy opacities in both lower lobes more on the left than the right. There may be a small left effusion. The heart is enlarged. No nodules or masses are present. The upper lobes are clear and there is no pulmonary vascular congestion. No pneumothorax is noted. The aortic arch shows calcification. Monitor leads are on the chest wall. Both shoulders show osteoarthritis. XR/XR chest 1V portable [id number] Impression: 1. Patchy opacities in both lower lobes more on left than right which could rep resent atelectasis and/or pneumonia. 2. Atherosclerosis and cardiomegaly.
--- NOTE | 2025-04-16 10:14 | ECG_ITS ---
[facility] Test Date: 2025-04-16 Pat Name: Dago Bravo Department: Room: 268 Gender: Male Residential Treatment Specialist: : 1945 Requested By: Haydee Stanford Order Number: [id number] Polanco MD: Emmett Cheek M.D. Measurements Intervals [place] Rate: 80 P: 26 [place]: 195 QRS: 23 QRSD: 181 T: 135 QT: 432 QTc: 501 Interpretive Statements SINUS RHYTHM WITH OCCASIONAL VENTRICULAR PREMATURE COMPLEXES LEFT BUNDLE BRANCH BLOCK [120+ ms QRS DURATION, 80+ ms Q/S IN V1/V2, 85+ ms R IN I/aVL/V5/V6] WARNING: DATA QUALITY MAY AFFECT INTERPRETATION Compared to ECG 03/31/2025 04:56:28 No significant changes Electronically Signed On 04-17-2025 14:58:22 CDT by Emmett Cheek M.D. [email or web address]
--- NOTE | 2025-04-16 10:20 | W.ED.RECABL ---
HPI - Recheck/Abnormal Lab/Rx General: Chief Complaint: Recheck/Abnormal Lab/Rx Stated Complaint: abnormal heart monitor readings Time Seen by Provider: 04/16/25 10:07 History of Present Illness: 79-year-old man with history of coronary artery disease and congestive heart failure, chronic kidney disease, and diabetes who presents to the emergency room at the instruction of his doctor with abnormal labs. Patient is unsure what lab he was worried about but he thinks it has to do with his heart. Review of the lab work that he brought does show a proBNP of 7900. Otherwise his renal function appears at baseline. No leukocytosis. No anemia. Also his CRP is quite elevated at 14. He says he did have some swelling in his legs a few days ago but took some extra Lasix and that has improved. No shortness of breath. He says he was at the doctor because he just was not feeling well. He is sleeping all the time and achy all over. His doctor started him on doxycycline yesterday. He has had 1 dose. He thinks he might have tick disease. Related Data Home Medications ?Medication ?Instructions ?Recorded ?Confirmed Carb & Sugar Kiesha 1 tab PO DAILY 12/18/24 04/16/25 Immununeti 1 tab PO DAILY 12/18/24 04/07/25 apple cider vinegar 500 mg tablet 500 mg PO DAILY 12/18/24 04/16/25 ascorbic acid (vitamin C) 500 mg 1 g PO DAILY 12/18/24 04/16/25 chewable tablet calcium carbonate 600 mg PO DAILY 12/18/24 04/16/25 cholecalciferol (vitamin D3) 125 125 mcg PO DAILY 12/18/24 04/16/25 mcg (5,000 unit) capsule chromium picolinate 1,000 mcg 1,000 mcg PO DAILY 12/18/24 04/16/25 tablet coenzyme Q10 400 mg capsule 400 mg PO DAILY 12/18/24 04/07/25 cyanocobalamin (vitamin B-12) 500 250 mcg PO DAILY 12/18/24 04/07/25 mcg tablet empagliflozin 25 mg tablet 25 mg PO DAILY 12/18/24 04/07/25 (Jardiance) ferrous sulfate 325 mg (65 mg 325 mg PO DAILY 12/18/24 04/07/25 iron) tablet folic acid 400 mcg tablet 0.4 mg PO DAILY 12/18/24 04/07/25 gabapentin 300 mg capsule 300 mg PO DIRECTED 12/18/24 04/07/25 dzlyifcgwiw-noturmbkh-U-Mn-boron 1 tab PO DAILY 12/18/24 04/07/25 750 mg-600 mg-30 mg-1mg-1.5mg tablet herba vision gold 2 gummy PO DAILY 12/18/24 04/07/25 insulin NPH isoph U-100 human 100 20 unit SUBCUT QAM PRN 12/18/24 04/07/25 unit/mL (3 mL) subcutaneous pen Hyperglycemia (Novolin N FlexPen) insulin degludec 100 unit/mL (3 20 unit SUBCUT BID PRN 12/18/24 04/07/25 mL) subcutaneous pen (Tresiba Hyperglycemia FlexTouch U-100 insulin) isosorbide mononitrate 30 mg 30 mg PO DAILY 12/18/24 04/07/25 tablet,extended release 24 hr magnesium oxide 400 mg (241.3 mg 400 mg PO DAILY 12/18/24 04/07/25 magnesium) tablet metformin 1,000 mg tablet 500 mg PO DAILY 12/18/24 04/07/25 modern mushrooms 1 tab PO DAILY 12/18/24 04/07/25 nitroglycerin 0.4 mg sublingual 0.4 mg sublingual Q5M PRN Chest 12/18/24 04/07/25 tablet Pain true focus 1 tab PO DAILY 12/18/24 04/07/25 turmeric 400 mg capsule 400 mg PO DAILY 12/18/24 04/07/25 vitamin A acetate 3,000 mcg 3,000 mcg PO DAILY 12/18/24 04/07/25 (10,000 unit) sublingual tablet vitamin E (dl, acetate) 180 mg 180 mg PO DAILY 12/18/24 04/07/25 (400 unit) capsule zinc acetate 50 mg (zinc) capsule 50 mg PO DAILY 12/18/24 04/07/25 Nervive 3 tab PO DAILY 03/31/25 04/07/25 clopidogrel 75 mg tablet 75 mg PO DAILY 03/31/25 04/16/25 omega 0-xac-por-fish oil 1,000 mg 2 cap PO DAILY 03/31/25 04/07/25 (120 mg-180 mg) capsule (Fish Oil) potassium chloride 20 mEq See Rx Instructions .Route .COMPLEX 03/31/25 04/07/25 tablet,extended release doxycycline hyclate 100 mg tablet 100 mg PO BID [id number] 04/16/25 04/16/25 pantoprazole 40 mg tablet,delayed 40 mg PO QAM 04/16/25 04/16/25 release Previous Rx's ?Medication ?Instructions ?Recorded aspirin 81 mg tablet,delayed 81 mg PO DAILY #90 tabs 02/25/25 release atorvastatin 80 mg tablet (Lipitor) 80 mg PO BEDTIME #30 tabs 02/25/25 furosemide 40 mg tablet (Lasix) 40 mg PO PRN PRN weight gain #30 02/25/25 tabs lisinopril 5 mg tablet 2.5 mg (1/2 x 5 mg) PO DAILY #90 02/25/25 tabs carvedilol 3.125 mg tablet (Coreg) 3.125 mg PO BID #180 tabs 03/13/25 lidocaine 5 % topical patch 1 patch topical [id number] #5 ea 03/31/25 pantoprazole 40 mg tablet,delayed 40 mg PO DAILY #30 tabs 04/03/25 release Allergies Allergy/AdvReac Type Severity Reaction Status Date / Time No Known Allergies Allergy Verified 04/07/25 13:54 Review of Systems Narrative: Constitutional symptoms: Negative except as documented in HPI. Skin symptoms: Negative except as documented in HPI. Eye symptoms: Negative except as documented in HPI. ENMT symptoms: Negative except as documented in HPI. Respiratory symptoms: Negative except as documented in HPI. Cardiovascular symptoms: Negative except as documented in HPI. Gastrointestinal symptoms: Negative except as documented in HPI. Genitourinary symptoms: Negative except as documented in HPI. Musculoskeletal symptoms: Negative except as documented in HPI. Neurologic symptoms: Negative except as documented in HPI. Psychiatric symptoms: Negative except as documented in HPI. Endocrine symptoms: Negative except as documented in HPI. PFSH ED PFSH: Medical History Diabetes mellitus CAD (coronary artery disease) HTN (hypertension) Family History Mother Pulmonary embolism Father Aortic aneurysm Brother Aortic aneurysm Sister Stroke Social History Smoking and tobacco/nicotine status: former use of tobacco/nicotine Physical Exam Narrative: EXAM NARRATIVE: General: Alert, no acute distress. Skin: Warm, dry. Head: Normocephalic, atraumatic. Neck: Supple, trachea midline. Eye: Extraocular movements are intact. Ears, nose, mouth and throat: mucosa moist. Cardiovascular: Regular, Normal peripheral perfusion. Respiratory: Lungs are clear to auscultation, respirations are non-labored, breath sounds are equal, Symmetrical chest wall expansion. Gastrointestinal: Soft, Nontender, Non distended Musculoskeletal: Normal ROM, no deformity. Neurological: Alert and oriented, No focal neurological deficit observed. Psychiatric: Cooperative, appropriate mood & affect. Course Vital Signs: Vital signs: Vital Signs Temperature 98.2 F 04/16/25 10:14 Pulse Rate 82 04/16/25 10:14 Respiratory Rate 18 04/16/25 10:14 Blood Pressure 104/60 04/16/25 10:14 Pulse Oximetry 92 04/16/25 10:14 Oxygen Delivery Me thod Room Air 04/16/25 10:14 MDM - Recheck/Abnormal Lab/Rx Medical Decision Making Medical decision making: Differential diagnosis for patient presenting with generalized weakness including but not limited to and based on the above HPI, review of systems and physical exam: Sepsis. Dehydration. Renal failure. Electrolyte abnormalities. Anemia. Congestive heart failure. Hypotension. Coronary syndrome. Hepatitis. Cirrhosis. Infections such as pneumonia, urinary tract infection, Tick bourne illness, Cellulitis, Viral infections including influenza and Covid-19. Workup: labwork and lab/exam driven imaging ordered to evaluate, rule in and rule out above pathologies. EKG: Time 10:06 AM. Rate 80. Normal sinus rhythm, No ST-T changes, PVCs, right bundle branch block, This was reviewed and interpreted by myself the ER physician at 10:10 AM. Chest x-ray: Atherosclerosis. Cardiomegaly. Patchy opacities in both lower lobes that could be atelectasis or pneumonia. This was reviewed and interpreted by myself the emergency room physician. I also reviewed the radiology report. CT chest ordered to clarify chest x-ray: Bilateral moderate pleural effusions with compressive atelectasis. Severe coronary disease. This was reviewed and interpreted by myself the emergency room physician. I also reviewed the radiology report. Lab Review: Laboratory results were reviewed and interpreted by myself the emergency room physician. Leukocytosis improving from yesterday. Hemoglobin stable at 10. BUN/creatinine slightly above baseline at 34 and 1.5. CRP is elevated at 300 but down from yesterday. He has been receiving doxycycline. proBNP was 1000 according to the patient's physician in February. It was almost 8000 yesterday and over 10,000 today. Worsening heart failure. I reviewed the patient's medical record. Reexamination: Patient remained stable. No increased work of breathing. No altered mental status. No focal motor deficits. Consultation: I spoke with Dr. Valentin Lovett. This was the patient's PCP. He had sent him here. He had concern for pneumonia. Take disease. And worsening heart failure. Consultation: I spoke with Dr. Zamora who is on-call for the hospitalist service who agrees to admission to observation. Assessment and plan: Congestive heart failure Malaise Possible tick illness Pleural effusions Coronary artery disease ?IV Lasix and IV doxycycline in the emergency room -I discussed the patient with the hospitalist on-call who is admitting the patient. - Discussed findings and plan with patient. Answered any questions. - All laboratory values were reviewed and interpreted personally by myself, the ER physician - All imaging was reviewed and interpreted personally by myself, the ER physician. - Evaluation and treatment of this problem were appropriate in the emergency setting Lab Data 04/16/25 10:33 04/16/25 10:33 Radiology Impressions Chest X-Ray 04/16/25 10:14 Impression: 1. Patchy opacities in both lower lobes more on left than right which could represent atelectasis and/or pneumonia. 2. Atherosclerosis and cardiomegaly. Chest CT 04/16/25 10:37 IMPRESSION: 1. Moderate bilateral pleural effusions with compressive atelectasis. 2. Severe coronary arterial calcification, indicating the presence of coronary artery disease. If the patient has associated symptoms recommend management as per chest pain guidelines. If the patient is asymptomatic consider reviewing modifiable cardiovascular risk factors and managing as per guidelines for primary prevention. Laboratory Results WBC 7.70 10^3/uL (3.29-11.43) 04/16/25 10:33 RBC 3.43 10^6/uL (3.85-5.65) L 04/16/25 10:33 Hgb 10.10 g/dL (11.27-16.99) L 04/16/25 10:33 Hct 31.8 % (37-53) L 04/16/25 10:33 MCV 92.7 fl (82-101) 04/16/25 10:33 MCH 29.4 pg (27-33) 04/16/25 10:33 MCHC 31.8 g/dL (30-55) 04/16/25 10:33 RDW 13.8 % (12.1-15.1) 04/16/25 10:33 Plt Count 225 10^3/cmm (157-399) 04/16/25 10:33 MPV 11.7 fL (7.4-10.4) H 04/16/25 10:33 Neut % (Auto) 77.2 % 04/16/25 10:33 Lymph % (Auto) 8.7 % 04/16/25 10:33 Lanier % (Auto) 12.9 % 04/16/25 10:33 Eos % (Auto) 0.3 % 04/16/25 10:33 Baso % (Auto) 0.4 % 04/16/25 10:33 Neut # (Auto) 5.95 10^3/uL (1.8-7.7) 04/16/25 10:33 Lymph # (Auto) 0.7 10^3/uL (0.8-4.8) L 04/16/25 10:33 [place]ier # (Auto) 1.0 10^3/uL (0.2-0.9) H 04/16/25 10:33 Eos # (Auto) 0.0 10^3/uL (0.0-0.8) 04/16/25 10:33 Baso # (Auto) 0.0 10^3/uL (0.0-0.1) 04/16/25 10:33 Nucleated RBC % (auto) 0 % 04/16/25 10:33 Nucleated RBCs # 0.0 /100WBC 04/16/25 10:33 ESR 33 mm/hr (0-10) H 04/16/25 10:33 Sodium 135 mmol/L (136-145) L 04/16/25 10:33 Potassium 4.1 mmol/L (3.5-5.1) 04/16/25 10:33 Chloride 98 mmol/L (98-107) 04/16/25 10:33 Carbon Dioxide 20 mmol/L (22-29) L 04/16/25 10:33 Anion Gap 21.1 (5-19) H 04/16/25 10:33 BUN 34 mg/dL (8-23) H 04/16/25 10:33 Creatinine 1.5 mg/dL (0.7-1.2) H 04/16/25 10:33 GFR Calculation Not Reportable 04/16/25 10:33 Glucose 112 mg/dL (65-115) 04/16/25 10:33 Calculated Osmolality 288 mOsm/kg (285-295) 04/16/25 10:33 Lactic Acid 0.8 mmol/L (0.5-2.2) 04/16/25 10:33 Calcium 8.3 mg/dL (8.5-10.5) L 04/16/25 10:33 Total Bilirubin 0.5 mg/dL (0.15-1.2) 04/16/25 10:33 AST 39 U/L (0-40) 04/16/25 10:33 ALT 51 U/L (0-41) H 04/16/25 10:33 Alkaline Phosphatase 156 U/L (40-130) H 04/16/25 10:33 Troponin T Baseline 66 ng/L (0-15) H 04/16/25 10:33 C-Reactive Protein 302.4 mg/L (0.0-4.9) H 04/16/25 10:33 NT-Pro-B Natriuret Pep 62686 pg/mL (0-450) H 04/16/25 10:33 Total Protein 5.4 g/dL (6.6-8.7) L 04/16/25 10:33 Albumin 3.2 g/dL (3.5-5.2) L 04/16/25 10:33 Globulin 2.2 g/dL (1.3-4.6) 04/16/25 10:33 Procalcitonin 0.19 ng/mL (0-0.5) 04/16/25 10:33 All radiology interpretation(s) finalized by discharge Discharge Plan Discharge Patient Disposition: Placed in Observation Clinical Impression: Heart failure with reduced ejection fraction, Pleural effusion, bilateral, Multiple vessel coronary artery disease CKD (chronic kidney disease) Qualifiers: Chronic kidney disease stage: unspecified stage Qualified Code(s): N18.9 - Chronic kidney disease, unspecified Coding Level of Care Code ED Calender [employer] Up Tender for Uma Carlton
--- NOTE | 2025-04-16 10:37 | CTR_ITS ---
PROCEDURE INFORMATION: Exam: CT Chest Without Contrast; Diagnostic Exam date and time: 04/16/2025 10:53 AM Age: 79 years old Clinical indication: Abnormal findings; Abnormal radiologic exam of lung or chest; Additional info: Abnormal chest xray TECHNIQUE: Imaging protocol: Diagnostic computed tomography of the chest without contrast. Total images: 1 Radiation optimization: All CT scans at this facility use at least one of these dose optimization techniques: automated exposure control; mA and/or kV adjustment per patient size (includes targeted exams where dose is matched to clinical indication); or iterative reconstruction. COMPARISON: CT chest wo con [id number] 12/08/2024 10:59 PM RADIATION DOSE METRICS: Total DLP (mGy-cm): 602.35 FINDINGS: Lungs: Compressive atelectasis of the lungs. Pleural spaces: Moderate bilateral pleural effusions are present. Heart: Unremarkable. No cardiomegaly. No pericardial effusion. Coronary arteries: Severe coronary arterial calcification, indicating the presence of coronary artery disease. Lymph nodes: Unremarkable. No enlarged lymph nodes. Vasculature: Unremarkable. No aortic aneurysm. Bones/joints: Spondylosis is noted with exuberant anterior and lateral osteophyte formation. Soft tissues: Unremarkable. Other findings: Moderate atherosclerotic disease burden is evident. CT/CT chest wo con [id number] IMPRESSION: 1. Moderate bilateral pleural effusions with compressive atelectasis. 2. Severe coronary arterial calcification, indicating the presence of coronary artery disease. If the patient has associated symptoms recommend management as per chest pain guidelines. If the patient is asymptomatic consider reviewing modifiable cardiovascular risk factors and managing as per guidelines for primary prevention.
--- NOTE | 2025-04-16 10:39 | PC.PHAR ---
Addendum entered by Kavita Bourgeois 04/16/25 11:32: Pt carries his own list of medications and many supplements. Original Note: [facility] 10:39am 04/16/25
[2025-04-16 10:45] LABS: Basophils % 0.4 %; Eosinophils % 0.3 %; Hematocrit 31.8 % (37-53); Lymphocytes # 0.7 10^3/uL (0.8-4.8); Lymphocytes % 8.7 %; Mean Corpuscular HGB Conc 31.8 g/dL (30-55); Mean Corpuscular Hemoglobin 29.4 pg (27-33); Mean Corpuscular Volume 92.7 fl (82-101); Mean Platelet Volume 11.7 fL (7.4-10.4); Monocytes % 12.9 %; Neutrophils # 5.95 10^3/uL (1.8-7.7); Neutrophils % 77.2 %; Nucleated Red Blood Cells % 0 %; Platelet Count 225 10^3/cmm (157-399); Red Blood Count 3.43 10^6/uL (3.85-5.65); Red Cell Distribution Width 13.8 % (12.1-15.1)
[2025-04-16 10:52] LABS: Erythrocyte Sedimentation Rate 33 mm/hr (0-10)
[2025-04-16 11:06] LABS: Troponin(5th) Baseline 66 ng/L (0-15)
[2025-04-16 11:09] LABS: Lactic Sepsis W/Reflex 0.8 mmol/L (0.5-2.2)
[2025-04-16 11:24] LABS: Procalcitonin 0.19 ng/mL (0-0.5)
[2025-04-16 11:25] LABS: Alanine Aminotransferase 51 U/L (0-41); Albumin Level 3.2 g/dL (3.5-5.2); Alkaline Phosphatase 156 U/L (40-130); Anion Gap 21.1 (5-19); Aspartate Amino Transferase 39 U/L (0-40); Blood Urea Nitrogen 34 mg/dL (8-23); C Reactive Protein 302.4 mg/L (0.0-4.9); Calcium 8.3 mg/dL (8.5-10.5); Carbon Dioxide 20 mmol/L (22-29); Chloride 98 mmol/L (98-107); Creatinine Clr Calc Pharmacy 47.2756; Globulin 2.2 g/dL (1.3-4.6); Glucose 112 mg/dL (65-115); NT Pro B Type Natriuretic Pept 10991 pg/mL (0-450); Osmolality Calculated 288 mOsm/kg (285-295); Potassium 4.1 mmol/L (3.5-5.1); Sodium 135 mmol/L (136-145); Total Bilirubin 0.5 mg/dL (0.15-1.2); Total Protein 5.4 g/dL (6.6-8.7)
[2025-04-16] MEDS: doxycycline 100 mg Tablet PO ×2 (12:12→17:41)
--- NOTE | 2025-04-16 12:14 | ECG_ITS ---
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 Measurements Intervals [place] Rate: 80 P: 26 GA: 195 QRS: 23 QRSD: 181 T: 135 QT: 432 QTc: 501 Interpretive Statements SINUS RHYTHM WITH OCCASIONAL VENTRICULAR PREMATURE COMPLEXES LEFT BUNDLE BRANCH BLOCK [120+ ms QRS DURATION, 80+ ms Q/S IN V1/V2, 85+ ms R IN I/aVL/V5/V6] WARNING: DATA QUALITY MAY AFFECT INTERPRETATION Compared to ECG 03/31/2025 04:56:28 No significant changes Electronically Signed On 04-17-2025 15:10:49 CDT by Emmett Cheek M.D. [email or web address]
[2025-04-16] MEDS: FUROsemide 10 mg/mL SDV 10mL 40 MG IVP (12:26)
[2025-04-16 13:06] LABS: Troponin 5 2HR 63.77 ng/L (0-15)
[2025-04-16 13:07] LABS: Troponin 5 2HR Delta -2.23 ABS# (0-10)
[2025-04-16 13:25] LABS: Bilirubin Urine Negative (Negative); Blood Urine Negative (Negative); Glucose Urine UA 3+ (Normal); Ketones Urine 1+ (Negative); Leukocyte Esterase Urine Negative (Negative); Nitrate Urine Negative (Negative); Protein Urine 1+ (Negative); Specific Gravity, Urine 1.017 (1.005-1.030); Urine Appearance Clear (CLEAR); Urine Color Yellow (Yellow)
[2025-04-16 13:27] LABS: Bacteria Urine None Seen /hpf; Hyaline Casts Urine 1.65 /lpf; RBC Urine 0-2 /hpf (0-2); Squamous Epithelial Cell Urine 0-5 /hpf (0-5); WBC Urine 0-5 /hpf (0-5)
[2025-04-16 13:41] LABS: Creatine Phosphokinase 37 U/L (39-308)
--- NOTE | 2025-04-16 13:58 | PM.HP ---
Providers/Chief Complaint Admitting Physician: Eduard Zamora Primary Care Provider: Valentin Lovett MD Chief Complaint: abnormal heart monitor readings History of Present Illness Dago Bravo is a 79 year old male Pleasant 79-year-old gentleman with history of CAD, HTN, DM2, congestive heart failure, following with Dr. Hale, with multivessel coronary disease, had declined CABG, underwent revascularization with stenting on 02/24/2025, short hospital stay on 03/31 with an episode of chest pain at that time, possible unstable angina, was initially on treatment with anticoagulation, assessed by cardiology, although ended up leaving that hospitalization prematurely. He had since followed up with primary provider, had been experiencing generalized weakness after sustaining several tick bites, as well as pain and discomfort in both right and left shoulders subsequently some pain and discomfort going toward the elbows was started on doxycycline after tick panel was sent out by his primary provider. He came in for evaluation to emergency department after finding of abnormal labs, it appears with elevation of CRP and ESR, elevation of NT proBNP up to 10,991 here in the emergency department. He is found to have bilateral pleural effusions on CT of the chest in addition to NT-proBNP elevation. He and his report generalized weakness to where he was having trouble lifting his legs onto the bed. His ESR is 33, his CRP is 302.4. When asked about symptoms of infection, he denies any respiratory symptoms, any GI symptoms. He denies any urinary, integumentary or other symptoms of infection. On questioning he does report having had an earache on the left side a couple days ago which had since resolved. He denies any current chest pain or discomfort. Denies current shoulder pain. Denies any vision loss, any temporal tenderness or pain, jaw claudication. Review of Systems Const: Reports: body aches and fatigue; Denies: fever(s) or chills ENMT: Denies: throat pain Card: Reports: edema (A few days ago); Denies: chest pain, pre-syncope or dyspnea on exertion Resp: Denies: dyspnea, productive cough, change in phlegm color or hemoptysis GI: Denies: abdominal pain, nausea, vomiting, diarrhea, constipation, hematochezia or melena : Denies: flank pain, difficulty urinating, urinary frequency or hematuria Musc: Denies: back pain, joint swelling or joint redness Skin/Breast: Denies: rash or new lesions Neuro: Denies: headache(s) or confusion Medications/Allergies Home Medications ?Medication ?Instructions ?Recorded ?Confirmed ?Last Taken ?Type Carb & Sugar Kiesha 1 tab PO DAILY 12/18/24 04/16/25 04/16/25 History Immununeti 1 tab PO DAILY 12/18/24 04/16/25 04/15/25 History apple cider vinegar 500 mg tablet 500 mg PO DAILY 12/18/24 04/16/25 04/16/25 History ascorbic acid (vitamin C) 500 mg 1 g PO DAILY 12/18/24 04/16/25 04/16/25 History chewable tablet calcium carbonate 600 mg PO DAILY 12/18/24 04/16/25 04/16/25 History cholecalciferol (vitamin D3) 125 125 mcg PO DAILY 12/18/24 04/16/25 04/16/25 History mcg (5,000 unit) capsule chromium picolinate 1,000 mcg 1,000 mcg PO DAILY 12/18/24 04/16/25 04/16/25 History tablet coenzyme Q10 400 mg capsule 400 mg PO DAILY 12/18/24 04/16/25 04/16/25 History cyanocobalamin (vitamin B-12) 500 250 mcg PO DAILY 12/18/24 04/16/25 04/16/25 History mcg tablet empagliflozin 25 mg tablet 25 mg PO DAILY 12/18/24 04/16/25 04/16/25 History (Jardiance) ferrous sulfate 325 mg (65 mg 325 mg PO DAILY 12/18/24 04/16/25 04/16/25 History iron) tablet folic acid 400 mcg tablet 0.4 mg PO DAILY 12/18/24 04/16/25 04/16/25 History gabapentin 300 mg capsule See Rx Instructions .Route .COMPLEX 12/18/24 04/16/25 04/16/25 History qkqjfkvfqsa-bxaoeqnws-P-Mn-boron 1 tab PO DAILY 12/18/24 04/16/25 04/16/25 History 750 mg-600 mg-30 mg-1mg-1.5mg tablet herba vision gold 2 gummy PO DAILY 12/18/24 04/16/25 04/16/25 History insulin NPH isoph U-100 human 100 20 unit SUBCUT QAM PRN 12/18/24 04/16/25 Unknown History unit/mL (3 mL) subcutaneous pen Hyperglycemia (Novolin N FlexPen) insulin degludec 100 unit/mL (3 20 unit SUBCUT BID PRN 12/18/24 04/16/25 04/16/25 History mL) subcutaneous pen (Tresiba Hyperglycemia FlexTouch U-100 insulin) magnesium oxide 400 mg (241.3 mg 400 mg PO DAILY 12/18/24 04/16/25 04/15/25 History magnesium) tablet metformin 1,000 mg tablet 500 mg PO DAILY 12/18/24 04/16/25 04/16/25 History modern mushrooms 1 tab PO DAILY 12/18/24 04/16/25 04/15/25 History nitroglycerin 0.4 mg sublingual 0.4 mg sublingual Q5M PRN Chest 12/18/24 04/16/25 03/31/25 History tablet Pain true focus 1 tab PO DAILY 12/18/24 04/16/25 04/15/25 History turmeric 400 mg capsule 400 mg PO DAILY 12/18/24 04/16/25 04/15/25 History vitamin A acetate 3,000 mcg 3,000 mcg PO DAILY 12/18/24 04/16/25 04/15/25 History (10,000 unit) sublingual tablet vitamin E (dl, acetate) 180 mg 180 mg PO DAILY 12/18/24 04/16/25 04/15/25 History (400 unit) capsule zinc acetate 50 mg (zinc) capsule 50 mg PO DAILY 12/18/24 04/16/25 04/15/25 History aspirin 81 mg tablet,delayed 81 mg PO DAILY #90 tabs 02/25/25 04/16/25 04/16/25 Rx release atorvastatin 80 mg tablet (Lipitor) 80 mg PO BEDTIME #30 tabs 02/25/25 04/16/25 04/15/25 Rx furosemide 40 mg tablet (Lasix) 40 mg PO PRN PRN weight gain #30 02/25/25 04/16/25 Unknown Rx tabs lisinopril 5 mg tablet 2.5 mg (1/2 x 5 mg) PO DAILY #90 02/25/25 04/16/25 04/16/25 Rx tabs carvedilol 3.125 mg tablet (Coreg) 3.125 mg PO BID #180 tabs 03/13/25 04/16/25 04/16/25 Rx Nervive 3 tab PO DAILY 03/31/25 04/16/25 04/15/25 History clopidogrel 75 mg tablet 75 mg PO DAILY 03/31/25 04/16/25 04/16/25 History lidocaine 5 % topical patch 1 patch topical [id number] #5 ea 03/31/25 04/16/25 Unknown Rx omega 9-eck-mgq-fish oil 1,000 mg 2 cap PO DAILY 03/31/25 04/16/25 04/15/25 History (120 mg-180 mg) capsule (Fish Oil) potassium chloride 20 mEq See Rx Instructions .Route .COMPLEX 03/31/25 04/16/25 Unknown History tablet,extended release pantoprazole 40 mg tablet,delayed 40 mg PO DAILY #30 tabs 04/03/25 04/16/25 04/16/25 Rx release doxycycline hyclate 100 mg tablet 100 mg PO BID [id number] 04/16/25 04/16/25 04/16/25 History isosorbide mononitrate 60 mg 60 mg PO QAM 04/16/25 04/16/25 04/16/25 History tablet,extended release 24 hr Allergies Allergy/AdvReac Type Severity Reaction Status Date / Time No Known Allergies Allergy Verified 04/07/25 13:54 PFSH Acute PFSH: Medical History Diabetes mellitus CAD (coronary artery disease) HTN (hypertension) Family History Mother Pulmonary embolism Father Aortic aneurysm Brother Aortic aneurysm Sister Stroke Social History Smoking and tobacco/nicotine status: former use of tobacco/nicotine Alcohol intake: never Substance/Drug Use: never Marital status: Vitals/I&O/Wt Last Vital Signs Temp 98.2 F 04/16/25 10:14 Pulse 79 04/16/25 12:41 Resp 16 04/16/25 12:41 BP 129/55 04/16/25 12:41 Pulse Ox 93 04/16/25 12:41 O2 Del Method Room Air 04/16/25 12:24 Weight last 48 hrs Weight 99.79 kg Physical Exam Narrative: Accompanied by his Const: COMMON NORMALS: patient oriented x3 and alert GENERAL APPEARANCE: cooperative ORIENTATION/CONSCIOUSNESS: Yes awake HENMT: COMMON NORMALS: oropharynx normal OTHER: Opacification with fluid behind the left TM minor surrounding erythema Neck/C-Spine: COMMON NORMALS: no JVD Resp: COMMON NORMALS: normal respiratory effort and clear to auscultation bilaterally AUSCULTATION: clear to auscultation bilaterally Cardio: COMMON NORMALS: no JVD, regular rhythm, S1 normal heart sound present, S2 normal heart sound present and No murmurs present (Cardio) RHYTHM: regular rhythm HEART SOUNDS: S1 normal heart sound present and S2 normal heart sound present GI: COMMON NORMALS: Normal to inspection, nondistended, normoactive bowel sounds present, Soft to palpation and non-tender PALPATION: Yes Soft to palpation Extremity: COMMON NORMALS: no joint enlargement and no pedal edema OTHER: Trace lower extremity edema Shoulder bilaterally without swelling, erythema, tenderness on palpation, full ROM. No impingement. Without sign of tendinitis or bursitis. Neuro: COMMON NORMALS: patient oriented x3 and moves all extremities SENSORIUM/ORIENTATION: Yes alert Skin: COMMON NORMALS: no rashes or lesions noted GENERAL SKIN EXAM: no rashes or lesions noted Data 04/16/25 10:33 04/16/25 10:33 Micro: Microbiology 04/16/25 10:39 Blood Culture - Preliminary Blood SPECIMEN COLLECTED 04/16/25 10:33 Blood Culture - Preliminary Blood SPECIMEN COLLECTED A&P Assessment and plan (1) Generalized weakness: Generalized weakness and malaise. With bilateral shoulder and upper arm pain a few days ago. Elevated CRP, ESR. She is noted to have acute systolic congestive heart failure with bilateral pleural effusions, elevated NT proBNP at 10,991. Some dyspnea on exertion. Denies orthopnea. No significant peripheral edema. Has had a recent brief hospitalization for possible unstable angina which ended prematurely. Discussed with him and his will obtain additional imaging with TTE to further reassess cardiac function. Continue cardiac medications at this time. Reviewed vitals, CBC, CMP, troponin, CK, procalcitonin, UA, chest x-ray, chest CT, ED provider note, discussed with ED provider. Discussed therapy elevation could be secondary to recent ear infection with noted opacification of fluid behind left TM. His symptoms overall have improved pain resolved. No active drainage. Discussed treatment with antibiotic at this time with consideration of treatment of possible PMR. Recent tick bites with possible tickborne infection, although without leukopenia, does have some mild lymphopenia, 0.7, WBC normal. Minimal transaminitis, ALT up to 51. Minimal hyponatremia 135. Platelets are normal. Afebrile. Empirically on doxycycline and tick panel had been sent by PCP per ED provider discussion. Continue doxycycline for now. With possibility of PMR with elevated inflammatory markers, shoulder girdle symptoms, without signs of ongoing infection apart from recovering from the recent suspected otitis media, possible recent viral illness, will request broader viral panel, he reports recently tested for flu and COVID and was negative. Has not had symptoms of GCA, cautioned him and his to watch out for any symptoms of temporal pain, vision loss or change, jaw claudication, etc. Discussed consideration of initiation of treatment given significant symptoms, discussed options and risk with corticosteroid treatment with prednisone, including hyperglycemia, hypertension, gastritis. They are agreeable to initiate. Will obtain PT assessment. 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 Requested CK. Check aldolase, LDH. (2) Heart failure with reduced ejection fraction: Treat acute systolic CHF with noted bilateral pleural effusions, NT proBNP elevation. Recent brief hospitalization due to chest pain, possible unstable angina with known coronary disease for which previously CABG had been discussed and considered, patient elected instead of CABG to undergo high risk PCI performed in February. Troponin with mild elevation with flat trend so far, complete series. Will reassess TTE with acute CHF, requested. Diuresis with IV Lasix every 12 hours, monitor electrolytes with risk of deficiency, reassess kidney function with risk of ADILENE. Monitor intake and output. (3) Pleural effusion, bilateral: Treat CHF as above. Will need follow-up. As discussed with him his should improve with diuresis, would not usually drain these. (4) Tick bites: Reported recent tick bites, tick panel been sent by PCP. Continue doxycycline. (5) Otitis media: With noted opacification, fluid behind left TM, recent ear pain which had resolved. Discussed with him and his treatment with amoxicillin. Plan CAD, with recent bradycardia stay in the hospital with possible unstable angina. Continue aspirin, Plavix, hold beta-kiesha for now with soft blood pressure, reassess blood pressures. 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 With multivessel coronary disease, previously with consideration of CABG. DM2 continue insulin, monitor POC glucose. Consult carbohydrate diet. HTN: Blood pressure soft, hold carvedilol. Monitor blood pressures. Goals of care discussion: On discussion with him and his , in case of cardiopulmonary arrest would not want CPR or resuscitation, however, in case of isolated respiratory arrest would be okay with mechanical ventilatory support. PDMP PDMP Reviewed: Not Reviewed Attestations Medical Necessity Statement*: Place in observation for additional assessment management of acute systolic CHF, generalized weakness, possible PMR, possible tickborne infection, additional comorbidities as above. and High MDM includes amount and/or complexity of data reviewed/ordered [ previous or external records, resulted lab(s)/test(s), ordered lab(s)/test(s) and other healthcare professional discussion] and described risk of complication, morbidity or mortality of management as documented Diagnoses Generalized weakness R53.1 Heart failure with reduced ejection fraction I50.20 Pleural effusion, bilateral J90 Tick bites W57.XXXA Otitis media H66.90
--- NOTE | 2025-04-16 14:05 | USCV_ITS ---
Dago Bravo Age: 79 Gender: M : 1945 Exam Date: 04/16/2025 21:09 Ordering Phys: Eduard Zamora MD Technologist: FINESSE Exam Location: [facility] – [place] Indication: chf History of CAD s/p cardiac stenting, HTN, DM2, CHF, bilateral pleural effusions. BP: 114 / 57 HR: 76 Rhythm: Sinus Technical Quality: Adequate MEASUREMENTS (Male / Female) Normal Values 2D ECHO LV Diastolic Diameter PLAX 4.9 cm 4.2 - 5.9 / 3.9 - 5.3 cm IVS Diastolic Thickness 1.4 cm 0.6 - 1.0 / 0.6 - 0.9 cm IVS Systolic Thickness 1.3 cm LVPW Diastolic Thickness 1.3 cm 0.6 - 1.0 / 0.6 - 0.9 cm LVPW Systolic Thickness 1.6 cm LVOT Diameter 2.1 cm LV Ejection Fraction 2D Teich 32.5 % LV Ejection Fraction MOD 4C 27.7 % LV Ejection Fraction MOD 2C 34.0 % LV Ejection Fraction 2C AL 34.5 % LA Diameter 3.7 cm Aorta at Sinotubular Diameter 2.4 cm IVC Diameter 2.1 cm M-MODE LA Ao Ratio MM 1.5 AV Cusp Separation MM 1.6 cm DOPPLER AV Peak Velocity 184.0 cm/s LVOT Peak Velocity 79.0 cm/s AV Area Cont Eq vti 1.5 cm squared AV Area Cont Eq pk 1.5 cm squared MV Peak Velocity 108.0 cm/s MV Area PHT 6.2 cm squared Mitral E to A Ratio 1.5 TV Peak Velocity 281.5 cm/s TR Peak Velocity 293.0 cm/s TR Peak Gradient 34.3 mmHg TV Peak E Velocity 37.0 cm/s PV Peak Velocity 109.0 cm/s FINDINGS Left Ventricle Left ventricle is normal in size. LV systolic function is severely reduced with EF of 30-35%. Moderate to severe global hypokinesis with severe hypokinesis of the inferolateral and anterolateral love. Right Ventricle Grossly normal Right Atrium Normal in size Left Atrium Dilated Mitral Valve Structurally normal mitral valve. Mild mitral regurgitation. Aortic Valve Aortic valve is thickened. Mild to moderate aortic regurgitation.No significant stenosis. Tricuspid Valve Mild tricuspid regurgitation. RVSP is 35 to 40 mmHg. This is consistent with mild pulmonary hypertension. Pulmonic Valve Not well visualized Pericardium Pleural effusion seen Aorta Normal in size IVC Appears to be dilated CONCLUSIONS LV systolic function is severely reduced with EF of 30-35%. Left atrial dilation. Mild mitral regurgitation. Mild to moderate aortic regurgitation. Mild tricuspid regurgitation. Mild pulmonary hypertension. Pleural effusion seen. The IVC appears to be dilated. Emmett Cheek MD (Electronically Signed) Final Date: 17 April 2025 10:29 S
[2025-04-16] MEDS: predniSONE 20 mg Tablet PO (14:55)
--- NOTE | 2025-04-16 15:20 | ECG_ITS ---
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 Measurements Intervals [place] Rate: 80 P: 7 [place]: 168 QRS: 8 QRSD: 184 T: 146 QT: 429 QTc: 498 Interpretive Statements SUPRAVENTRICULAR IRREGULAR RHYTHM. BASELINE ARTIFACT LEFT BUNDLE BRANCH BLOCK [120+ ms QRS DURATION, 80+ ms Q/S IN V1/V2, 85+ ms R IN I/aVL/V5/V6] Compared to ECG 04/16/2025 10:06:05 No significant changes Electronically Signed On 04-17-2025 15:09:04 CDT by Emmett Cheek M.D. [id number]
[2025-04-16 15:54] LABS: Adenovirus Not Detected (NOT DETECT); Chlamydia Pneumoniae Not Detected (NOT DETECT); Coronavirus 229E,HKU1,NL63,OC4 Not Detected (NOT DETECT); Human Metapneumovirus Not Detected (NOT DETECT); Human Rhinovirus/Enterovirus Not Detected (NOT DETECT); Influenza A Not Detected (NOT DETECT); Influenza A H1 Not Detected (NOT DETECT); Influenza A H1-2009 Not Detected (NOT DETECT); Influenza A H3 Not Detected (NOT DETECT); Influenza B Not Detected (NOT DETECT); Mycoplasma Pneumoniae Not Detected (NOT DETECT); Parainfluenza Virus Type 1 Not Detected (NOT DETECT); Parainfluenza Virus Type 2 Not Detected (NOT DETECT); Parainfluenza Virus Type 3 Not Detected (NOT DETECT); Parainfluenza Virus Type 4 Not Detected (NOT DETECT); Respiratory Syncytial Virus A Not Detected (NOT DETECT); Respiratory Syncytial Virus B Not Detected (NOT DETECT); SARS-COV-2 Not Detected (NOT DETECT)
--- NOTE | 2025-04-16 17:02 | PC.NURSE ---
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 The reading on his dexcom this evening read 102 so nurse did not administer insulin and messaged the doctor asking if we can use patient's monitoring system. Waiting for doctor to respond.
[2025-04-16 17:15] LABS: Troponin 5 6HR 64.97 ng/L (0-15)
[2025-04-16 17:16] LABS: Troponin 5 6HR Delta -1.03 ng/L (0-12)
[2025-04-16] MEDS: gabapentin 300 mg Capsule 600 MG PO (17:41)
[2025-04-16 17:42] LABS: Lactate Dehydrogenase 188 U/L (135-225)
[2025-04-16] MEDS: amoxicillin 500 mg Capsule PO (17:42)
--- NOTE | 2025-04-16 22:03 | PC.NURSE ---
pt refused both lantus and humalog, stated blood sugar is 171 and he does not want to take any insulin because he doesnt feel he needs to
[2025-04-17] VITALS (8 sets, daily range): BP systolic 107–123; BP diastolic 55–79; PULSE 71–122; RESP 16–21; TEMP 36.3–36.7; O2SAT 94–97
--- NOTE | 2025-04-17 01:13 | PC.NURSE ---
pt requesting some insulin now because he is concerned his BS is not coming down as he expected, spoke with Dr. Celaya and order received to give 15 units of lantus, pt verbalized concern about what lantus might do to his blood sugar because at home he takes trucivia and Dr. Celaya stated that both Lantus and trucivia is 24 hour and pt would benefit more from long acting and if pt wants short acting we can also give him 2 units but pt declined short acting
[2025-04-17] MEDS: insulin glargine 100 units/1 mL 15 UNIT SUBCUT (01:40)
[2025-04-17] MEDS: FUROsemide 10 mg/mL SDV 4mL 40 MG IVP (03:54)
[2025-04-17 05:36] LABS: Basophils % 0.1 %; Hematocrit 38.4 % (37-53); Lymphocytes # 0.6 10^3/uL (0.8-4.8); Lymphocytes % 8.4 %; Mean Corpuscular HGB Conc 32.6 g/dL (30-55); Mean Corpuscular Hemoglobin 29.8 pg (27-33); Mean Corpuscular Volume 91.6 fl (82-101); Mean Platelet Volume 11.6 fL (7.4-10.4); Monocytes # 0.6 10^3/uL (0.2-0.9); Monocytes % 7.9 %; Neutrophils # 6.25 10^3/uL (1.8-7.7); Neutrophils % 83.2 %; Nucleated Red Blood Cells % 0 %; Platelet Count 269 10^3/cmm (157-399); Red Blood Count 4.19 10^6/uL (3.85-5.65); Red Cell Distribution Width 13.8 % (12.1-15.1); White Blood Count 7.51 10^3/uL (3.29-11.43)
[2025-04-17 05:55] LABS: Alanine Aminotransferase 146 U/L (0-41); Albumin Level 3.5 g/dL (3.5-5.2); Alkaline Phosphatase 181 U/L (40-130); Anion Gap 24.2 (5-19); Aspartate Amino Transferase 199 U/L (0-40); Blood Urea Nitrogen 38 mg/dL (8-23); Calcium 8.5 mg/dL (8.5-10.5); Carbon Dioxide 20 mmol/L (22-29); Chloride 93 mmol/L (98-107); Creatinine Clr Calc Pharmacy 44.3208; Globulin 3.7 g/dL (1.3-4.6); Glucose 177 mg/dL (65-115); Magnesium 2.3 mg/dL (1.7-2.3); Osmolality Calculated 289 mOsm/kg (285-295); Potassium 4.2 mmol/L (3.5-5.1); Sodium 133 mmol/L (136-145); Total Bilirubin 0.4 mg/dL (0.15-1.2); Total Protein 7.2 g/dL (6.6-8.7)
[2025-04-17] MEDS: isosorbide mononitrate ER 60 mg Tablet PO (06:06)
[2025-04-17] MEDS: gabapentin 300 mg Capsule PO (06:06)
[2025-04-17] MEDS: metoprolol tartrate 25 mg Tablet 12.5 MG PO ×3 (07:52→20:08)
--- NOTE | 2025-04-17 07:53 | ECG_ITS ---
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 Measurements Intervals [place] Rate: 122 P: 0 [place]: 0 QRS: 11 QRSD: 180 T: 152 QT: 362 QTc: 517 Interpretive Statements ATRIAL FIBRILLATION WITH RAPID VENTRICULAR RESPONSE LEFT BUNDLE BRANCH BLOCK [120+ ms QRS DURATION, 80+ ms Q/S IN V1/V2, 85+ ms R IN I/aVL/V5/V6] Compared to ECG 04/16/2025 15:20:03 Sinus rhythm no longer present Ventricular premature complex(es) no longer present Electronically Signed On 04-17-2025 15:02:21 CDT by Emmett Cheek M.D. [email or web address]
[2025-04-17] MEDS: amiodarone 150 MG/100 ML PREMIX 400 MG IV (08:21)
[2025-04-17] MEDS: ferrous sulfate EC 325 mg Tablet PO (08:55)
[2025-04-17] MEDS: predniSONE 20 mg Tablet PO (08:55)
[2025-04-17] MEDS: magnesium oxide 400 mg tablet PO (08:55)
[2025-04-17] MEDS: pantoprazole DR 40 mg Tablet PO (08:55)
[2025-04-17] MEDS: doxycycline 100 mg Tablet PO ×2 (08:55→17:26)
[2025-04-17] MEDS: clopidogrel 75 mg Tablet PO (08:55)
[2025-04-17] MEDS: aspirin 81 mg EC Tablet PO (08:55)
[2025-04-17] MEDS: amoxicillin 500 mg Capsule PO ×2 (09:47→17:26)
[2025-04-17] MEDS: digoxin 250 mcg/ml INJ 2 mL 125 MCG IVP (09:47)
--- NOTE | 2025-04-17 10:39 | PC.NURSE ---
received into room 112-2 from m/s at 1000.report received.pt is alert and awake and oriented x 4.denies pain at present.afib on monitor with rate 99-110.had been bolused with amiodarone prior to arrival.amiodarone infusion began at 1 mg per hour as orderered.oriented to room environment.instructed to notify staff for any chest pain,sob,dizziness or for any concerns at all.pt verb understanding of instructions
--- NOTE | 2025-04-17 14:57 | P.PN_ITS ---
Subjective 2 Subjective: He denies chest pain or pressure. He feels little bit better, stronger today, is able to get up and sit at the edge of the bed go to the restroom and back. Today he is having atrial fibrillation with RVR. Denies chest pain or pressure. No shortness of breath. Vitals/I&O/Wt Last Vital Signs Temp 97.5 F L 04/17/25 11:49 Pulse 98 04/17/25 11:49 Resp 17 04/17/25 11:49 BP 118/66 04/17/25 11:49 Pulse Ox 97 04/17/25 11:49 O2 Del Method Room Air 04/17/25 11:49 04/16/25 04/17/25 04/17/25 22:59 06:59 14:59 Intake Total 780 / 780 480 / 1260 460 / 460 Balance 780 / 780 480 / 1260 460 / 460 Weight last 48 hrs Weight 99.79 kg Weight 99.79 kg Weight 99.79 kg Physical Exam 2 Narrative: Accompanied by his on second visit Const: COMMON NORMALS: patient oriented x3 and alert GENERAL APPEARANCE: c ooperative ORIENTATION/CONSCIOUSNESS: Yes awake HENMT: COMMON NORMALS: oropharynx normal Neck/C-Spine: COMMON NORMALS: no JVD Resp: COMMON NORMALS: normal respiratory effort and clear to auscultation bilaterally AUSCULTATION: clear to auscultation bilaterally Cardio: COMMON NORMALS: no JVD, regular rhythm, S1 normal heart sound present, S2 normal heart sound present and No murmurs present (Cardio) RATE: t achycardic RHYTHM: regular rhythm HEART SOUNDS: S1 normal heart sound present and S2 normal heart sound present GI: COMMON NORMALS: Normal to inspection, nondistended, normoactive bowel sounds present, Soft to palpation and non-tender PALPATION: Yes Soft to palpation Extremity: COMMON NORMALS: no joint enlargement and no pedal edema OTHER: 2+ lower extremity edema Shoulder bilaterally without swelling, erythema, tenderness on palpation, full ROM. No impingement. Without sign of tendinitis or bursitis. Neuro: COMMON NORMALS: patient oriented x3 and moves all extremities S ENSORIUM/ORIENTATION: Yes alert Skin: COMMON NORMALS: no rashes or lesions noted GENERAL SKIN EXAM: no rashes or lesions noted Data 04/17/25 05:20 04/17/25 05:20 Micro: Microbiology 04/16/25 10:33 Blood Culture - Preliminary Blood NEGATIVE TO DATE 04/16/25 10:39 Blood Culture - Preliminary Blood NEGATIVE TO DATE A&P Assessment and plan (1) Paroxysmal atrial fibrillation with RVR: New atrial fibrillation with RVR this morning, heart rates 120s, rising up as high as 160s. Blood pressure soft on presentation could not resume carvedilol. Blood pressure slightly better today after holding Imdur, lisinopril, started on metoprolol 12.5 mg twice daily. Heart rate still persistently elevated, started amiodarone drip after bolus. Had to moved to [facility]. Gave small dose of digoxin, but will not continue due to renal dysfunction. Discussed with him risk of premature discharge as he had been stating he is leaving home today. Discussed risk of persistent tachycardia, congestive heart failure, low output failure, lack of organ perfusion, significant/severe disability and/or . Discussed with him he is requiring monitoring with treatment with antiarrhythmic. He stated understanding, states that in case the things happen he has been prepared for them and is not afraid. Discussed with him consideration of hospice care which he declines at the moment. Discussed also with his . Further discussed with him and his regarding risk of stroke. Discussed with cardiology, appreciate recommendation. Concern for risk of bleeding with triple therapy. Discussed initiation of anticoagulation, will be able to stop aspirin continue Plavix with Eliquis. He is agreeable. Does appear to have history of atrial fibrillation on review of old EKG from January. (2) Generalized weakness: Symptomatically he is feeling slightly better today. Reviewed echocardiogram, noted new decrease in ejection fraction down to 35% compared to 45% prior noted on coronary angiogram. IVC is dilated. Pleural effusion. Acute systolic congestive heart failure. Discussed with cardiology, recently also with brief stay in hospital with possible unstable angina although left prematurely. Consideration of further ischemic cardiomyopathy leading to decrease in EF versus tachycardia related cardiomyopathy, although did not have atrial fibrillation on presentation, only noted this morning. Possibility of paroxysmal episodes as he is not very symptomatic with the tachycardia. Appreciate cardiology consultation. 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 Follow-up aldolase. Noted new transaminitis discussed with him and his . Continue doxycycline. Tick panel pending with the PCP. Reviewed vitals, CBC, CMP. Discussed with nursing, field case manager. Generalized weakness and malaise. With bilateral shoulder and upper arm pain a few days ago. Elevated CRP, ESR. He is noted to have acute systolic congestive heart failure with bilateral pleural effusions. Recent tick bites with possible tickborne infection. With possibility of PMR with elevated inflammatory markers, shoulder girdle symptoms, without signs of ongoing infection apart from recovering from the recent suspected otitis media, possible recent viral illness, will request broader viral panel, he reports recently tested for flu and COVID and was negative. Has not had symptoms of GCA, cautioned him and his to watch out for any symptoms of temporal pain, vision loss or change, jaw claudication, etc. Discussed consideration of initiation of treatment given significant symptoms, discussed options and risk with corticosteroid treatment with prednisone, including hyperglycemia, hypertension, gastritis. They are agreeable to initiate. Pending PT assessment. 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 Reviewed CK, unremarkable. Reviewed aldolase, LDH. Aldolase pending. LDH normal. (3) Heart failure with reduced ejection fraction: Reviewed intake and output. No output charted. Still significant lower extremity edema. Noted dilated IVC on echo. Will increase Lasix to 60 mg. Monitor for risk of electrolyte deficiency. Reviewed magnesium, chemistry. Treat acute systolic CHF with noted bilateral pleural effusions, NT proBNP elevation. Recent brief hospitalization due to chest pain, possible unstable angina with known coronary disease for which previously CABG had been discussed and considered, patient elected instead of CABG to undergo high risk PCI performed in February. Troponin with mild elevation with flat trend so far, complete series. Will reassess TTE with acute CHF, requested. Diuresis with IV Lasix every 12 hours, monitor electrolytes with risk of deficiency, reassess kidney function with risk of ADILENE. Monitor intake and output. (4) Pleural effusion, bilateral: Treat CHF as above. Will need follow-up. As discussed with him his should improve with diuresis, would not usually drain these. (5) Tick bites: Reported recent tick bites, tick panel been sent by PCP. Continue doxycycline. (6) Otitis media: With noted opacification, fluid behind left TM, recent ear pain which had resolved. Discussed with him and his treatment with amoxicillin. Plan CAD, with recent bradycardia stay in the hospital with possible unstable angina. Continue aspirin, Plavix, hold beta-dante for now with soft blood pressure, reassess blood pressures. 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 With multivessel coronary disease, previously with consideration of CABG. DM2 continue insulin, monitor POC glucose. Consult carbohydrate diet. HTN: Blood pressure soft, hold carvedilol. Monitor blood pressures. Goals of care discussion: On discussion with him and his , in case of cardiopulmonary arrest would not want CPR or resuscitation, however, in case of isolated respiratory arrest would be okay with mechanical ventilatory support. PDMP PDMP Reviewed: Not Reviewed Attestations 2 Medical Necessity Statement*: Continue hospitalization for additional assessment and management of acute systolic congestive heart failure, treating with A-fib with RVR, additional consideration of ischemic cardiomyopathy, cardiology consultation. and High MDM includes amount and/or complexity of data reviewed/ordered [ resulted lab(s)/test(s), ordered lab(s)/test(s) and other healthcare professional discussion] and described risk of complication, morbidity or mortality of management as documented Diagnoses Paroxysmal atrial fibrillation with RVR I48.0 Generalized weakness R53.1 Heart failure with reduced ejection fraction I50.20 Pleural effusion, bilateral J90 Tick bites W57.XXXA Otitis media H66.90
[2025-04-17] MEDS: enoxaparin 40 mg/0.4 mL Syringe SUBCUT (15:26)
--- NOTE | 2025-04-17 15:31 | P.CONIM_ITS ---
Providers/Reason For Consult 2 Consulting Physician/Specialty*: MITCHELL Abad MD/cardiology Reason for Consult*: Patient with history of atherosclerotic heart diseas, presenting with generalized weakness found to have new onset of atrial fibrillation with rapid ventricular rate Requesting Physician: Dr. Zamora Attending Physician: Eduard Zamora Primary Care Provider: Valentin Lovett MD History of Present Illness History of Present Illness Dago Bravo is a 79 year old male with a history of atherosclerotic heart diseas, high blood pressure, dyslipidemia, is admitted to hospital through the emergency room where he presented with complaints of progressive weakness/fatigue. He was found to be atrial fibrillation with rapid ventricular rate. His echocardiac revealed an ejection fraction around 30 to 35%, a significant drop from the ejection fraction in February of this year. Cardiology consult is requested for further cardiac evaluation and recommendations. Mr. Orona is known to have atherosclerotic heart disease. He had the initial PCI in 2002. 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 He went to [facility] on medical tourism and had PCI in [facility]. According to the patient, he has been doing okay since then with no specific cardiac symptoms. He used to be followed by . In December of this year, he had an episode of syncope , for which he was finally taken to the [facility]. He had a cardiac catheterization and was told to undergo open heart surgery. The patient refused the open heart surgery and was discharged home. He was referred to for a second opinion. Patient underwent multivessel angioplasty/stent placement here in this hospital in February with hemodynamic support-Impella. The patient had an uneventful postprocedure course. He has been compliant with the medications. Last Sunday he was on the road. Apparently he started getting extremely weak and somewhat listless. So he had to spend the night in a motel. His advised him to take more oral fluids. He took Pedialyte and other type of oral fluids. In the morning, he felt better. But he continued to have the feeling of weakness/fatigue. He was seen by his primary care provider yesterday and subsequently was sent to our emergency room for further evaluation management. He was found to have features of congestive heart failure and chest x-ray evidence of possible pneumonia/consolidation findings from atelectasis. He is admitted to hospital for further evaluation. While being in the telemetry floor, he was found to be in atrial fibrillation with rapid ventricular rate. He was moved down to the CSU for close monitoring and further management. He was started on IV amiodarone. He also tis taking metoprolol p.o. The heart rate seems to be slowly getting under control. He has no chest pain. No fever, chills or cough. No unusual shortness of breath. He was found to have bilateral pleural effusion, at least moderate by chest x-ray. Review of Systems 2 Narrative: CONSTITUTIONAL: No fever or chills. Feeling of generalized weakness/fatigue EYES: No blurring of vision or other visual disturbances lately. ENT: No hoarseness of voice, auditory disturbances or sore throat. CARDIOVASCULAR: As mentioned above. RESPIRATORY: No significant cough. GASTROINTESTINAL: No hematemesis or melena. GENITOURINARY: No dysuria or hematuria. INTEGUMENTARY: No skin rashes or history of skin cancer. NEURO: No transient ischemic attacks or amaurosis. PSYCHIATRIC: No history of psychosis or major depression. HEMATOLOGIC: No bleeding disorders or significant anemia. ENDOCRINE: No history of polyuria or polydipsia. MUSCULOSKELETAL: No recent joint pain or swelling. ALLERGY/IMMUNOLOGY: As mentioned above. Medications/Allergies Home Medications ?Medication ?Instructions ?Recorded ?Confirmed ?Last Taken ?Type Carb & Sugar Kiesha 1 tab PO DAILY 12/18/2404/0504/16/25 History Immununeti 1 tab PO DAILY 12/18/2404/0504/15/25 History apple cider vinegar 500 mg tablet 500 mg PO DAILY 12/0604/16/25 04/16/25 History ascorbic acid (vitamin C) 500 mg 1 g PO DAILY 12/18/24 04/16/25 04/16/25 History chewable tablet calcium carbonate 600 mg PO DAILY 12/18/2410/2904/16/25 History cholecalciferol (vitamin D3) 125 125 mcg PO DAILY 12/0604/16/25 04/16/25 History mcg (5,000 unit) capsule chromium picolinate 1,000 mcg 1,000 mcg PO DAILY 12/1804/16/25 04/16/25 History tablet coenzyme Q10 400 mg capsule 400 mg PO DAILY 12/18/24 0 04/16/25 04/16/25 History cyanocobalamin (vitamin B-12) 500 250 mcg PO DAILY 04/16/25 04/16/25 History mcg tablet empagliflozin 25 mg tablet 25 mg PO DAILY 12/18/2410/2904/16/25 History (Jardiance) ferrous sulfate 325 mg (65 mg 325 mg PO DAILY 12/18/24 04/16/25 04/16/25 History iron) tablet folic acid 400 mcg tablet 0.4 mg PO DAILY 12/18/2410/2904/16/25 History gabapentin 300 mg capsule See Rx Instructions .Route . COMPLEX 12/18/24 04/16/25 04/16/25 History wgkaygzesld-nnitskfbp-O-Mn-boron 1 tab PO DAILY 04/16/25 04/16/25 History 750 mg-600 mg-30 mg-1mg-1.5mg tablet herba vision gold 2 gummy PO DAILY 12/18/2404/16/25 History insulin NPH isoph U-100 human 100 20 unit SUBCUT QAM P RN 12/18/24 04/16/25 Unknown History unit/mL (3 mL) subcutaneous pen Hyperglycemia (Novolin N FlexPen) insulin degludec 100 unit/mL (3 20 unit SUBCUT BID PRN 12/18/24 04/16/25 04/16/25 History mL) subcutaneous pen (Tresiba Hyperglycemia FlexTouch U-100 insulin) magnesium oxide 400 mg (241.3 mg 400 mg PO DAILY 12/1804/16/25 04/15/25 History magnesium) tablet metformin 1,000 mg tablet 500 mg PO DAILY 12/18/2410/2904/16/25 History modern mushrooms 1 tab PO DAILY 12/18/2404/0504/15/25 History nitroglycerin 0.4 mg sublingual 0.4 mg sublingual Q5M PRN Chest 12/18/24 04/16/25 03/31/25 History tablet Pain true focus 1 tab PO DAILY 12/18/2404/0504/15/25 History turmeric 400 mg capsule 400 mg PO DAILY 12/18/2410/2904/15/25 History vitamin A acetate 3,000 mcg 3,000 mcg PO DAILY 5 04/16/25 04/15/25 History (10,000 unit) sublingual tablet vitamin E (dl, acetate) 180 mg 180 mg PO DAILY 5 04/16/25 04/15/25 History (400 unit) capsule zinc acetate 50 mg (zinc) capsule 50 mg PO DAILY 12/1804/16/25 04/15/25 History aspirin 81 mg tablet,delayed 81 mg PO DAILY #90 tabs 0 02/25/25 04/16/25 04/16/25 Rx release atorvastatin 80 mg tablet (Lipitor) 80 mg PO BEDTIME # 30 tabs 02/25/25 04/16/25 04/15/25 Rx furosemide 40 mg tablet (Lasix) 40 mg PO PRN PRN weigh t gain #30 02/25/25 04/16/25 Unknown Rx tabs lisinopril 5 mg tablet 2.5 mg (1/2 x 5 mg) PO DAILY #90 02/25/25 04/16/25 04/16/25 Rx tabs carvedilol 3.125 mg tablet (Coreg) 3.125 mg PO BID #18 0 tabs 03/13/25 04/16/25 04/16/25 Rx Nervive 3 tab PO DAILY 03/31/2504/0504/15/25 History clopidogrel 75 mg tablet 75 mg PO DAILY 03/31/2504/0504/16/25 History lidocaine 5 % topical patch 1 patch topical [id number] #5 ea 03/31/25 04/16/25 Unknown Rx omega 0-bsx-jhe-fish oil 1,000 mg 2 cap PO DAILY 03/3104/16/25 04/15/25 History (120 mg-180 mg) capsule (Fish Oil) potassium chloride 20 mEq See Rx Instructions .Route . COMPLEX 03/31/25 04/16/25 Unknown History tablet,extended release pantoprazole 40 mg tablet,delayed 40 mg PO DAILY #30 t abs 04/03/25 04/16/25 04/16/25 Rx release doxycycline hyclate 100 mg tablet 100 mg PO BID x10day s 04/16/25 04/16/25 04/16/25 History isosorbide mononitrate 60 mg 60 mg PO QAM 04/16/2510/2904/16/25 History tablet,extended release 24 hr Allergies Allergy/AdvReac Type Severity Reaction Status Date / Time No Known Allergies Allergy Verified 04/07/25 13:54 Current Medications Generic Name Dose Route Start Last Admin Trade Name Dorita PRN Reason Stop Dose Admin Amoxicillin 500 mg 04/16/25 18:00 04/17/25 09:47 Amoxicillin 500 Mg Capsule PO 500 mg BID [facility] Administration Protocol Aspirin 81 mg 04/17/25 09:00 04/17/25 08:55 Aspirin 81 Mg Ec Tablet PO 81 mg DAILY AKHIL Administration Clopidogrel Bisulfate 75 mg 04/17/25 09:00 04/17/25 08:55 Clopidogrel 75 Mg Tablet PO 75 mg DAILY [facility] Administration Doxycycline Monohydrate 100 mg 04/16/25 18:00 04/17/25 08:55 Doxycycline 100 Mg Tablet PO 100 mg BID AKHIL Administration Enoxaparin Sodium 40 mg 04/16/25 15:00 04/17/25 15:26 Enoxaparin 40 Mg/0.4 Ml Syringe SUBCUT 40 mg Q24H AKHIL Administration Ferrous Sulfate 325 mg 04/17/25 09:00 04/17/25 08:55 Ferrous Sulfate Ec 325 Mg Tablet PO 325 mg DAILY AKHIL Administration Gabapentin 300 mg 04/17/25 06:00 04/17/25 06:06 Gabapentin 300 Mg Capsule PO 300 mg QAM [facility] Administration Gabapentin 600 mg 04/16/25 18:00 04/16/25 17:41 Gabapentin 300 Mg Capsule PO 600 mg QPM [facility] Administration Amiodarone HCl/Dextrose 360 mg in 200 mls @ 0 mls/hr 04/17/25 07:57 04/17/25 10:15 Nexterone IV 1 mg/min .Q0M [facility] 33.33 mls/hr Protocol Administration Per Protocol Insulin Glargine 20 unit 04/16/25 20:00 04/17/25 08:22 Insulin Glargine 100 Units/1 Ml SUBCUT Not Given Q12H [facility] Insulin Human Lispro 0 unit 04/16/25 18:00 04/17/25 14:10 Insulin Lispro 100 Unit/1 Ml SUBCUT Not Given WM&BEDTIME [facility] Protocol Isosorbide Mononitrate 60 mg 04/17/25 06:00 04/17/25 06:06 Isosorbide Mononitrate Er 60 Mg Tablet PO 60 mg QAM AKHIL Administration Magnesium Oxide 400 mg 04/17/25 09:00 04/17/25 08:55 Magnesium Oxide 400 Mg Tablet PO 400 mg DAILY AKHIL Administration Metoprolol Tartrate 12.5 mg 04/17/25 09:00 04/17/25 07:52 Metoprolol Tartrate 25 Mg Tablet PO 12.5 mg BID@0900,2100 AKHIL Administration Pantoprazole Sodium 40 mg 04/17/25 09:00 04/17/25 08:[address] 40 Mg Tablet PO 40 mg DAILY AKHIL Administration Prednisone 20 mg 04/16/25 14:05 04/17/25 08:55 Prednisone 20 Mg Tablet PO 20 mg DAILY AKHIL Administration PFSH Acute 2 PFSH: Medical History Diabetes mellitus CAD (coronary artery disease) HTN (hypertension) Family History Mother Pulmonary embolism Father Aortic aneurysm Brother Aortic aneurysm Sister Stroke Social History Smoking and tobacco/nicotine status: former use of tobacco/nicotine Alcohol intake: never Substance/Drug Use: never Marital status: Vitals/I&O/Wt Last Vital Signs Temp 97.5 F L 04/17/25 11:49 Pulse 98 04/17/25 11:49 Resp 17 04/17/25 11:49 BP 118/66 04/17/25 11:49 Pulse Ox 97 04/17/25 11:49 O2 Del Method Room Air 04/17/25 11:49 04/17/25 04/17/25 04/17/25 06:59 14:59 22:59 Intake Total 480 / 1260 460 / 460 Balance 480 / 1260 460 / 460 Weight last 48 hrs Weight 220 lb Weight 220 lb Weight 220 lb Physical Exam 2 Narrative: GENERAL: The patient is alert and oriented times three. Not in any acute distress. HEENT: No significant pallor, icterus or lymphadenopathy.Oral cavity: There are no mucous membrane lesions. NECK: Trachea appears to be central. No masses noted. No JVD or thyromegaly appreciated. RESPIRATORY: Chest is symmetrical. No intercostals muscle retraction or any accessory muscle activation. There is no chest wall tenderness. Breath sounds are heard bilaterally. No rales or rhonchi heard. No evidence of any consolidation. BREASTS: Deferred. HEART: The heart sounds are normal. No S3 or S4. Short systolic murmur grade 2 or 6 in the mitral area. No diastolic murmurs. No pericardial rub ABDOMEN: No vessel pulsations or distention. No tenderness. No organomegaly appreciated. Bowel sounds are normally heard. : Deferred. RECTAL: Deferred. LYMPHATIC: No lymphadenopathy noted in the neck. EXTREMITIES: No edema or cyanosis. No clubbing. 1+ edema both lower extremities. MUSCULOSKELETAL: No acute joint deformities or swelling SKIN: There are no significant rashes or ecchymosis NEUROPSYCHIATRIC: The patient is alert and oriented x3. Appears to be in a good mood. No tremors or rigidity noted. Data 04/18/25 04:09 04/18/25 04:09 Other Labs: Laboratory Last Values WBC 7.51 10^3/uL (3.29-11.43) 04/17/25 05:20 RBC 4.19 10^6/uL (3.85-5.65) 04/17/25 05:20 Hgb 12.50 g/dL (11.27-16.99) 04/17/25 05:20 Hct 38.4 % (37-53) 04/17/25 05:20 MCV 91.6 fl (82-101) 04/17/25 05:20 MCH 29.8 pg (27-33) 04/17/25 05:20 MCHC 32.6 g/dL (30-55) 04/17/25 05:20 RDW 13.8 % (12.1-15.1) 04/17/25 05:20 Plt Count 269 10^3/cmm (157-399) 04/17/25 05:20 MPV 11.6 fL (7.4-10.4) H 04/17/25 05:20 Neut % (Auto) 83.2 % 04/17/25 05:20 Lymph % (Auto) 8.4 % 04/17/25 05:20 [place] % (Auto) 7.9 % 04/17/25 05:20 Eos % (Auto) 0.0 % 04/17/25 05:20 Baso % (Auto) 0.1 % 04/17/25 05:20 Neut # (Auto) 6.25 10^3/uL (1.8-7.7) 04/17/25 05:20 Lymph # (Auto) 0.6 10^3/uL (0.8-4.8) L 04/17/25 05:20 [place] # (Auto) 0.6 10^3/uL (0.2-0.9) 04/17/25 05:20 Eos # (Auto) 0.0 10^3/uL (0.0-0.8) 04/17/25 05:20 Baso # (Auto) 0.0 10^3/uL (0.0-0.1) 04/17/25 05:20 Nucleated RBC % (auto) 0 % 04/17/25 05:20 Nucleated RBCs # 0.0 /100WBC 04/17/25 05:20 ESR 33 mm/hr (0-10) H 04/16/25 10:33 Sodium 133 mmol/L (136-145) L 04/17/25 05:20 Potassium 4.2 mmol/L (3.5-5.1) 04/17/25 05:20 Chloride 93 mmol/L (98-107) L 04/17/25 05:20 Carbon Dioxide 20 mmol/L (22-29) L 04/17/25 05:20 Anion Gap 24.2 (5-19) H 04/17/25 05:20 BUN 38 mg/dL (8-23) H 04/17/25 05:20 Creatinine 1.6 mg/dL (0.7-1.2) H 04/17/25 05:20 GFR Calculation Not Reportable 04/17/25 05:20 Glucose 177 mg/dL (65-115) H 04/17/25 05:20 Calculated Osmolality 289 mOsm/kg (285-295) 04/17/25 05:20 Lactic Acid 0.8 mmol/L (0.5-2.2) 04/16/25 10:33 Calcium 8.5 mg/dL (8.5-10.5) 04/17/25 05:20 Magnesium 2.3 mg/dL (1.7-2.3) 04/17/25 05:20 Total Bilirubin 0.4 mg/dL (0.15-1.2) 04/17/25 05:20 AST 199 U/L (0-40) H 04/17/25 05:20 ALT 146 U/L (0-41) H 04/17/25 05:20 Alkaline Phosphatase 181 U/L (40-130) H 04/17/25 05:20 Lactate Dehydrogenase 188 U/L (135-225) 04/16/25 10:33 Creatine Kinase 37 U/L (39-308) L 04/16/25 12:22 Troponin T Baseline 66 ng/L (0-15) H 04/16/25 10:33 Troponin T 120 Minute 63.77 ng/L (0-15) H 04/16/25 12:22 Delta Troponin T -2.23 ABS# (0-10) L 04/16/25 12:22 Troponin T Hi Sens 6Hr 64.97 ng/L (0-15) H 04/16/25 16:18 Troponin T Hi Sens 6Hr Delta -1.03 ng/L (0-12) L 04/16/25 16:18 C-Reactive Protein 302.4 mg/L (0.0-4.9) H 04/16/25 10:33 NT-Pro-B Natriuret Pep 03613 pg/mL (0-450) H 04/16/25 10:33 Total Protein 7.2 g/dL (6.6-8.7) D 04/17/25 05:20 Albumin 3.5 g/dL (3.5-5.2) 04/17/25 05:20 Globulin 3.7 g/dL (1.3-4.6) 04/17/25 05:20 Procalcitonin 0.19 ng/mL (0-0.5) 04/16/25 10:33 Urine Color Yellow (Yellow) 04/16/25 13:12 Urine Appearance Clear (CLEAR) 04/16/25 13:12 Urine pH 5.0 (5-7) 04/16/25 13:12 Ur Specific [place] 1.017 (1.005-1.030) 04/16/25 13:12 Urine Protein 1+ (Negative) A 04/16/25 13:12 Urine Glucose (UA) 3+ (Normal) H 04/16/25 13:12 Urine Ketones 1+ (Negative) H 04/16/25 13:12 Urine Blood Negative (Negative) 04/16/25 13:12 Urine Nitrate Negative (Negative) 04/16/25 13:12 Urine Bilirubin Negative (Negative) 04/16/25 13:12 Urine Urobilinogen 1.0 mg/dL (Negative) 04/16/25 13:12 Ur Leukocyte Esterase Negative (Negative) 04/16/25 13:12 Urine RBC 0-2 /hpf (0-2) 04/16/25 13:12 Urine WBC 0-5 /hpf (0-5) 04/16/25 13:12 Ur Squamous Epith Cells 0-5 /hpf (0-5) 04/16/25 13:12 Amorphous Sediment Not Reportable 04/16/25 13:12 Urine Bacteria None seen /hpf (NONE) 04/16/25 13:12 Hyaline Casts 1.65 /lpf 04/16/25 13:12 Adenovirus (PCR) Not detected (NOT DETECT) 04/16/25 13:55 C. pneumoniae DNA (PCR) Not detected (NOT DETECT) 04/16/25 13:55 Coronavirus 229E (PCR) Not detected (NOT DETECT) 04/16/25 13:55 Human Metapneumovir PCR Not detected (NOT DETECT) 04/16/25 13:55 Influenza A (H1) PCR Not detected (NOT DETECT) 04/16/25 13:55 Influ A (H1/09) PCR Not detected (NOT DETECT) 04/16/25 13:55 Influenza A (H3) PCR Not detected (NOT DETECT) 04/16/25 13:55 Influenza Type A (PCR) Not detected (NOT DETECT) 04/16/25 13:55 Influenza Type B (PCR) Not detected (NOT DETECT) 04/16/25 13:55 M. pneumoniae (PCR) Not detected (NOT DETECT) 04/16/25 13:55 Parainfluenza 1 (PCR) Not detected (NOT DETECT) 04/16/25 13:55 Parainfluenza 2 (PCR) Not detected (NOT DETECT) 04/16/25 13:55 Parainfluenza 3 (PCR) Not detected (NOT DETECT) 04/16/25 13:55 Parainfluenza 4 (PCR) Not detected (NOT DETECT) 04/16/25 13:55 RSV Type A (PCR) Not detected (NOT DETECT) 04/16/25 13:55 RSV Type B (PCR) Not detected (NOT DETECT) 04/16/25 13:55 Entero/Rhino (PCR) Not detected (NOT DETECT) 04/16/25 13:55 SARS-CoV-2 (PCR) Not detected (NOT DETECT) 04/16/25 13:55 Micro: Microbiology 04/16/25 10:33 Blood Culture - Preliminary Blood NEGATIVE TO DATE 04/16/25 10:39 Blood Culture - Preliminary Blood NEGATIVE TO DATE Other data: Echocardiogram from yesterday LV systolic function is severely reduced with EF of 30-35%. Left atrial dilation. Mild mitral regurgitation. Mild to moderate aortic regurgitation. Mild tricuspid regurgitation. Mild pulmonary hypertension. Pleural effusion seen. The IVC appears to be dilated. Cardiac catheterization on 02/24/2025 iagnostic Findings * Left Main has no disease. * Proximal Left Anterior Descending: severe 90% stenosis, TRAVIS: 3 flow. * Mid Left Anterior Descending: severe 90% stenosis, TRAVIS: 3 flow. * Proximal Circumflex: severe 90% stenosis, TRAVIS: 3 flow. * Proximal Right Coronary Artery: subtotal occlusion, TRAVIS: 3 flow. * 1st Diagonal: severe 90% stenosis, TRAVIS: 3 flow. * CIRC AV: significant 80% stenosis, TRAVIS: 3 flow. * Coronary angiography shows left dominance. 1. There is subtotal occlusion coronary artery disease with three vessel disease. 2. The apex, septal, anterior, mid posterior love are hypokinetic. 3. Mild left ventricular systolic dysfunction. Ejection fraction of 45%. 4. Proximal Left Anterior Descending was treated with a Balloon, Drug Eluting Stent, Balloon, and Balloon. 5. Mid Left Anterior Descending was treated with a Drug Eluting Stent. 6. Proximal Circumflex was treated with a Balloon, Balloon, Balloon, Balloon, Drug Eluting Stent, Balloon, Balloon, and Balloon. 7. 1st Diagonal was treated with a Balloon. A&P Assessment and plan (1) Heart failure with reduced ejection fraction: Patient may be carefully treated with IV diuretics and other symptomatic measures. Try to optimize the afterload reducing agents. Will optimize the afterload reducing agent (2) New onset atrial fibrillation: Patient may be kept on the IV amiodarone for the time being. May gradually go up on the dose of the metoprolol. Based on the clinical response, further medication adjustments may need to be done. Also may be started on IV heparin, may switch to oral anticoagulants later on (3) Multiple vessel coronary artery disease: Patient status post multivessel PCI. May continue on the Plavix. Because of the advanced age and the need for Eliquis, it might be appropriate to hold off on the baby aspirin and continue the Plavix with the Eliquis (4) HTN (hypertension): Patient may continue the current medication. Need to closely monitor the blood pressure. (5) Diabetes mellitus: Importance of appropriate blood sugar control, cardiovascular complications of uncontrolled diabetes and the need for dietary compliance were discussed. Patient seems to understand these well. Advised to have close follow-up with the primary care provider (6) CKD (chronic kidney disease): Kidney function seems to be stable. May continue on the current management. 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 We may consider doing a Myocardial perfusion imaging sometime down the line to evaluate for any underlying coronary ischemia. Will continue on the Plavix, Eliquis and other medication. Will hold off on the baby aspirin for the time being. Plan Based on the patient clinical progress, further recommendations will be made. May consider starting the patient on hydralazine 25 mg p.o. 3 times daily, if the blood pressure tolerates. 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
[2025-04-17] MEDS: FUROsemide 10 mg/mL SDV 4mL 60 MG IVP (16:06)
[2025-04-17] MEDS: insulin lispro 100 unit/1 mL SUBCUT ×2 (17:25→20:09)
[2025-04-17] MEDS: gabapentin 300 mg Capsule 600 MG PO (17:27)
[2025-04-17] MEDS: insulin glargine 100 units/1 mL 20 UNIT SUBCUT (20:10)
[2025-04-18] VITALS: BP 97/46; PULSE 65; RESP 16; TEMP 36.6; O2SAT 96
[2025-04-18 03:40] VITALS: BP 99/53; PULSE 63; RESP 15; TEMP 36.4; O2SAT 95
[2025-04-18 04:45] LABS: Basophils % 0.1 %; Hematocrit 33.2 % (37-53); Lymphocytes # 0.9 10^3/uL (0.8-4.8); Mean Corpuscular HGB Conc 33.4 g/dL (30-55); Mean Corpuscular Hemoglobin 30.2 pg (27-33); Mean Corpuscular Volume 90.5 fl (82-101); Mean Platelet Volume 11.3 fL (7.4-10.4); Monocytes # 0.7 10^3/uL (0.2-0.9); Monocytes % 8.3 %; Neutrophils # 6.87 10^3/uL (1.8-7.7); Neutrophils % 81.1 %; Nucleated Red Blood Cells % 0 %; Platelet Count 243 10^3/cmm (157-399); Red Blood Count 3.67 10^6/uL (3.85-5.65); Red Cell Distribution Width 13.6 % (12.1-15.1); White Blood Count 8.47 10^3/uL (3.29-11.43)
[2025-04-18 04:51] LABS: Alanine Aminotransferase 127 U/L (0-41); Albumin Level 3.2 g/dL (3.5-5.2); Alkaline Phosphatase 152 U/L (40-130); Anion Gap 17.8 (5-19); Aspartate Amino Transferase 96 U/L (0-40); Blood Urea Nitrogen 45 mg/dL (8-23); Calcium 8.9 mg/dL (8.5-10.5); Carbon Dioxide 26 mmol/L (22-29); Chloride 95 mmol/L (98-107); Creatinine Clr Calc Pharmacy 42.0339; Glucose 190 mg/dL (65-115); Osmolality Calculated 297 mOsm/kg (285-295); Potassium 3.8 mmol/L (3.5-5.1); Sodium 135 mmol/L (136-145); Total Bilirubin 0.3 mg/dL (0.15-1.2); Total Protein 6.2 g/dL (6.6-8.7)
[2025-04-18] MEDS: isosorbide mononitrate ER 60 mg Tablet PO (05:52)
[2025-04-18] MEDS: gabapentin 300 mg Capsule PO (05:52)
[2025-04-18 08:00] VITALS: BP 107/71; PULSE 67; RESP 18; TEMP 36.2; O2SAT 97
--- NOTE | 2025-04-18 08:06 | PC.NURSE ---
04/17/25....dexcom readings at lunch were 187 and dinner 294.pt allowed tx with 8 units of humalog insulin per s/s prior to dinner.pt has refused accuchecks by staff.
[2025-04-18] MEDS: magnesium oxide 400 mg tablet PO (08:49)
[2025-04-18] MEDS: clopidogrel 75 mg Tablet PO (08:49)
[2025-04-18] MEDS: amoxicillin 500 mg Capsule PO (08:49)
[2025-04-18] MEDS: amiodarone 200 mg Tablet PO ×2 (08:49→11:12)
[2025-04-18] MEDS: ferrous sulfate EC 325 mg Tablet PO (08:49)
[2025-04-18] MEDS: predniSONE 20 mg Tablet PO (08:49)
[2025-04-18] MEDS: doxycycline 100 mg Tablet PO (08:49)
[2025-04-18] MEDS: pantoprazole DR 40 mg Tablet PO (08:49)
--- NOTE | 2025-04-18 08:54 | PC.NURSE ---
pt had converted to nsr overnight.bp has been soft.hr now low 60's.dr steele notified.she ordered to start amioderone 200 mg po and discontinue drip.
--- NOTE | 2025-04-18 10:25 | PM.PN ---
Subjective Subjective: The patient is feeling better. The rhythm changed to normal sinus last night. Currently he is staying in the sinus rhythm. No chest pain. No unusual shortness of breath. No chest pain or chest tightness. No fever or chills. The heart rate stays in the low 60s Medications: Medication Review Details: Current Medications Acetaminophen (Acetaminophen 325 Mg Tablet) 650 mg PO Q6H PRN PRN Reason: Mild/Mod Pain Or Temp >/= 101 Amiodarone HCl (Amiodarone 200 Mg Tablet) 200 mg PO BID [facility] Last Admin: 04/18/25 08:49 Dose: 200 mg Amoxicillin (Amoxicillin 500 Mg Capsule) 500 mg PO BID [facility]; Protocol Last Admin: 04/18/25 08:49 Dose: 500 mg Aspirin (Aspirin 81 Mg Ec Tablet) 81 mg PO DAILY [facility] Last Admin: 04/17/25 08:55 Dose: 81 mg Clopidogrel Bisulfate (Clopidogrel 75 Mg Tablet) 75 mg PO DAILY [facility] Last Admin: 04/18/25 08:49 Dose: 75 mg Doxycycline Monohydrate (Doxycycline 100 Mg Tablet) 100 mg PO BID [facility] Last Admin: 04/18/25 08:49 Dose: 100 mg Enoxaparin Sodium (Enoxaparin 40 Mg/0.4 Ml Syringe) 40 mg SUBCUT Q24H [facility] Last Admin: 04/17/25 15:26 Dose: 40 mg Ferrous Sulfate (Ferrous Sulfate Ec 325 Mg Tablet) 325 mg PO DAILY [facility] Last Admin: 04/18/25 08:49 Dose: 325 mg Furosemide (Furosemide 10 Mg/Ml Sdv 4ml) 60 mg IVP BID@0400,1600 [facility] Last Admin: 04/18/25 03:44 Dose: Not Given Gabapentin (Gabapentin 300 Mg Capsule) 300 mg PO QAM [facility] Last Admin: 04/18/25 05:52 Dose: 300 mg Gabapentin (Gabapentin 300 Mg Capsule) 600 mg PO QPM [facility] Last Admin: 04/17/25 17:27 Dose: 600 mg Glucagon (Glucagon 1 Mg/Ml Kit 1 Ml) 1 mg IM ONCE PRN; Protocol PRN Reason: Adult Acute Hypoglycemia Nursing Prot. Dextrose (D5w) 500 mls @ 0 mls/hr IV ONCE PRN; Protocol PRN Reason: Adult Acute Hypoglycemia Prot Dextrose (D10w) 125 mls @ 750 mls/hr IV PRN PRN; Protocol PRN Reason: Adult Acute Hypoglycemia Nursing Protocol Dextrose (D10w) 250 mls @ 1,000 mls/hr IV PRN PRN; Protocol PRN Reason: Adult Acute Hypoglycemia Nursing Protocol Amiodarone HCl/Dextrose (Nexterone) 360 mg in 200 mls @ 0 mls/hr IV .Q0M [facility]; Protocol Last Titration: 04/18/25 08:53 Dose: Infused Insulin Glargine (Insulin Glargine 100 Units/1 Ml) 20 unit SUBCUT Q12H [facility] Last Admin: 04/18/25 09:00 Dose: Not Given Insulin Human Lispro (Insulin Lispro 100 Unit/1 Ml) 0 unit SUBCUT WM&BEDTIME [facility]; Protocol Last Admin: 04/18/25 09:00 Dose: Not Given Isosorbide Mononitrate (Isosorbide Mononitrate Er 60 Mg Tablet) 60 mg PO QAM [facility] Last Admin: 04/18/25 05:52 Dose: 60 mg Magnesium Oxide (Magnesium Oxide 400 Mg Tablet) 400 mg PO DAILY [facility] Last Admin: 04/18/25 08:49 Dose: 400 mg Metoprolol Tartrate (Metoprolol Tartrate 25 Mg Tablet) 12.5 mg PO BID@0900,2100 [facility] Last Admin: 04/17/25 20:08 Dose: 12.5 mg Nitroglycerin (Nitroglycerin 0.4 Mg Sublingual Tablet) 0.4 mg SUBLINGUAL Q5M PRN PRN Reason: CHEST PAIN Ondansetron HCl (Ondansetron 2 Mg/Ml Sdv 2 Ml) 4 mg IVP Q8H PRN PRN Reason: vomiting, or N/V if npo Pantoprazole Sodium (Pantoprazole Dr 40 Mg Tablet) 40 mg PO DAILY [facility] Last Admin: 04/18/25 08:49 Dose: 40 mg Prednisone (Prednisone 20 Mg Tablet) 20 mg PO DAILY [facility] Last Admin: 04/18/25 08:49 Dose: 20 mg Vitals/I&O/Wt Last Vital Signs Temp 97.2 F L 04/18/25 08:00 Pulse 67 04/18/25 08:00 Resp 18 04/18/25 08:00 BP 107/71 04/18/25 08:00 Pulse Ox 97 04/18/25 08:00 O2 Del Method Nasal Cannula 04/18/25 08:00 O2 Flow Rate 2 04/18/25 08:00 04/17/25 04/18/25 04/18/25 22:59 06:59 14:59 Intake Total 584.425 / 1044.425 241.983 / 1286.408 560 / 560 Output Total 1750 / 1750 1100 / 2850 225 / 225 Balance -1165.575 / -705.575 -858.017 / -1563.592 335 / 335 Weight last 48 hrs Weight 223 lb 9.6 oz Weight 220 lb Weight 220 lb Physical Exam Narrative: GENERAL: The patient is alert and oriented times three. Not in any acute distress. HEENT: No significant pallor, icterus or lymphadenopathy.Oral cavity: There are no mucous membrane lesions. NECK: Trachea appears to be central. No masses noted. No JVD or thyromegaly appreciated. RESPIRATORY: Chest is symmetrical. No intercostals muscle retraction or any accessory muscle activation. There is no chest wall tenderness. Breath sounds are heard bilaterally. No rales or rhonchi heard. No evidence of any consolidation. BREASTS: Deferred. HEART: The heart sounds are normal. No S3 or S4. Short systolic murmur grade 2 or 6 in the mitral area. No diastolic murmurs. No pericardial rub ABDOMEN: No vessel pulsations or distention. No tenderness. No organomegaly appreciated. Bowel sounds are normally heard. : Deferred. RECTAL: Deferred. LYMPHATIC: No lymphadenopathy noted in the neck. EXTREMITIES: No edema or cyanosis. No clubbing. 1+ edema both lower extremities. MUSCULOSKELETAL: No acute joint deformities or swelling SKIN: There are no significant rashes or ecchymosis NEUROPSYCHIATRIC: The patient is alert and oriented x3. Appears to be in a good mood. No tremors or rigidity noted. Data 04/18/25 04:09 04/18/25 04:09 Micro: Microbiology 04/16/25 10:33 Blood Culture - Preliminary Blood NEGATIVE TO DATE 04/16/25 10:39 Blood Culture - Preliminary Blood NEGATIVE TO DATE A&P Assessment and plan (1) New onset atrial fibrillation: The patient will be started on amiodarone 4 oh milligram p.o. twice daily. Discontinue the IV amiodarone. Also because of bradycardia, may discontinue the metoprolol. Will do an EKG today to look for any new changes (2) Heart failure with reduced ejection fraction: Patient may be carefully treated with IV diuretics and other symptomatic measures. Try to optimize the afterload reducing agents. Patient may start on losartan 25 mg p.o. daily, if the blood pressure tolerates. May start on Entresto as an outpatient, if he tolerates the losartan well (3) Multiple vessel coronary artery disease: Patient status post multivessel PCI. May continue on the Plavix. Because of the advanced age and the need for Eliquis, it might be appropriate to hold off on the baby aspirin and continue the Plavix with the Eliquis (4) HTN (hypertension): Patient may continue the current medication. Need to closely monitor the blood pressure. (5) Diabetes mellitus: May continue on the current management (6) CKD (chronic kidney disease): Kidney function seems to be stable. May continue on the current management. This may need to be closely monitored (7) Elevated troponin: Most likely is related to type II AR. We may consider doing a Myocardial perfusion imaging sometime down the line to evaluate for any underlying coronary ischemia. Will continue on the Plavix, Eliquis and other medication. Will hold off on the baby aspirin for the time being. Plan if he continues to remain stable, may be discharged home with amiodarone 400 mg p.o. twice daily for a week followed by 400 mg daily for a week followed by 200 mg daily. Appointment at the [facility] to be seen by the nurse practitioner in 1 week. 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
[2025-04-18] MEDS: enoxaparin 100 mg/mL Syringe SUBCUT (11:12)
[2025-04-18] MEDS: aspirin 81 mg EC Tablet PO (11:12)
--- NOTE | 2025-04-18 11:57 | P.PN_ITS ---
Subjective 2 Subjective: seen this am pt's amio was turned off this AM. he was on 0.5 per hour since 4 pm yesterday switched to oral amio this am pt states he is asymptomatic and would like to go home pt's family member states that at night she somtimes sees him gasping for air. pt was placed on o2 overnight and now on 2L NC saturating 98%, i discussed regarding a sleep study. pt states that is long ways from now . Vitals/I&O/Wt Last Vital Signs Temp 97.2 F L 04/18/25 08:00 Pulse 67 04/18/25 08:00 Resp 18 04/18/25 08:00 BP 107/71 04/18/25 08:00 Pulse Ox 97 04/18/25 08:00 O2 Del Method Nasal Cannula 04/18/25 08:00 O2 Flow Rate 2 04/18/25 08:00 04/17/25 04/18/25 04/18/25 22:59 06:59 14:59 Intake Total 584.425 / 1044.425 241.983 / 1286.408 560 / 560 Output Total 1750 / 1750 1100 / 2850 225 / 225 Balance -1165.575 / -705.575 -858.017 / -1563.592 335 / 335 Weight last 48 hrs Weight 101.423 kg Weight 99.79 kg Weight 99.79 kg Physical Exam 2 Narrative: GENERAL: The patient is alert and oriented times three. Not in any acute distress. HEENT: No significant pallor, icterus or lymphadenopathy RESPIRATORY: Clear to auscultation b/l, no wheezes, no ronchi HEART: The heart sounds are normal. systolic murmur present. No diastolic murmurs. ABDOMEN: No vessel pulsations or distention. No tenderness. No organomegaly appreciated. Bowel sounds are normally heard. EXTREMITIES: No edema or cyanosis. No clubbing. 1+ edema both lower extremities. Data 04/18/25 04:09 04/18/25 04:09 Micro: Microbiology 04/16/25 10:33 Blood Culture - Preliminary Blood NEGATIVE TO DATE 04/16/25 10:39 Blood Culture - Preliminary Blood NEGATIVE TO DATE A&P Assessment and plan (1) Paroxysmal atrial fibrillation with RVR: New atrial fibrillation with RVR this morning, heart rates 120s, rising up as high as 160s. Blood pressure soft on presentation could not resume carvedilol. Blood pressure slightly better today after holding Imdur, lisinopril, started on metoprolol 12.5 mg twice daily. Heart rate still persistently elevated, started amiodarone drip after bolus. Had to moved to [facility]. Gave small dose of digoxin, but will not continue due to renal dysfunction. Discussed with him risk of premature discharge as he had been stating he is leaving home today. Discussed risk of persistent tachycardia, congestive heart failure, low output failure, lack of organ perfusion, significant/severe disability and/or . Discussed with him he is requiring monitoring with treatment with antiarrhythmic. He stated understanding, states that in case the things happen he has been prepared for them and is not afraid. Discussed with him consideration of hospice care which he declines at the moment. Discussed also with his . Further discussed with him and his regarding risk of stroke. Discussed with cardiology, appreciate recommendation. Concern for risk of bleeding with triple therapy. Discussed initiation of anticoagulation, will be able to stop aspirin continue Plavix with Eliquis. He is agreeable. Does appear to have history of atrial fibrillation on review of old EKG from January. (2) Generalized weakness: Symptomatically he is feeling slightly better today. Reviewed echocardiogram, noted new decrease in ejection fraction down to 35% compared to 45% prior noted on coronary angiogram. IVC is dilated. Pleural effusion. Acute systolic congestive heart failure. Discussed with cardiology, recently also with brief stay in hospital with possible unstable angina although left prematurely. Consideration of further ischemic cardiomyopathy leading to decrease in EF versus tachycardia related cardiomyopathy, although did not have atrial fibrillation on presentation, only noted this morning. Possibility of paroxysmal episodes as he is not very symptomatic with the tachycardia. Appreciate cardiology consultation. 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 Follow-up aldolase. Noted new transaminitis discussed with him and his . Continue doxycycline. Tick panel pending with the PCP. Reviewed vitals, CBC, CMP. Discussed with nursing, case packer and sealer. Generalized weakness and malaise. With bilateral shoulder and upper arm pain a few days ago. Elevated CRP, ESR. He is noted to have acute systolic congestive heart failure with bilateral pleural effusions. Recent tick bites with possible tickborne infection. With possibility of PMR with elevated inflammatory markers, shoulder girdle symptoms, without signs of ongoing infection apart from recovering from the recent suspected otitis media, possible recent viral illness, will request broader viral panel, he reports recently tested for flu and COVID and was negative. Has not had symptoms of GCA, cautioned him and his to watch out for any symptoms of temporal pain, vision loss or change, jaw claudication, etc. Discussed consideration of initiation of treatment given significant symptoms, discussed options and risk with corticosteroid treatment with prednisone, including hyperglycemia, hypertension, gastritis. They are agreeable to initiate. Pending PT assessment. 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 Reviewed CK, unremarkable. Reviewed aldolase, LDH. Aldolase pending. LDH normal. (3) Heart failure with reduced ejection fraction: Reviewed intake and output. No output charted. Still significant lower extremity edema. Noted dilated IVC on echo. Will increase Lasix to 60 mg. Monitor for risk of electrolyte deficiency. Reviewed magnesium, chemistry. Treat acute systolic CHF with noted bilateral pleural effusions, NT proBNP elevation. Recent brief hospitalization due to chest pain, possible unstable angina with known coronary disease for which previously CABG had been discussed and considered, patient elected instead of CABG to undergo high risk PCI performed in February. Troponin with mild elevation with flat trend so far, complete series. Will reassess TTE with acute CHF, requested. Diuresis with IV Lasix every 12 hours, monitor electrolytes with risk of deficiency, reassess kidney function with risk of ADILENE. Monitor intake and output. (4) Pleural effusion, bilateral: Treat CHF as above. Will need follow-up. As discussed with him his should improve with diuresis, would not usually drain these. (5) Tick bites: Reported recent tick bites, tick panel been sent by PCP. Continue doxycycline. (6) Otitis media: With noted opacification, fluid behind left TM, recent ear pain which had resolved. Discussed with him and his treatment with amoxicillin. Plan CAD, with recent bradycardia stay in the hospital with possible unstable angina. Continue aspirin, Plavix, hold beta-dante for now with soft blood pressure, reassess blood pressures. 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 With multivessel coronary disease, previously with consideration of CABG. DM2 continue insulin, monitor POC glucose. Consult carbohydrate diet. HTN: Blood pressure soft, hold carvedilol. Monitor blood pressures. Goals of care discussion: On discussion with him and his , in case of cardiopulmonary arrest would not want CPR or resuscitation, however, in case of isolated respiratory arrest would be okay with mechanical ventilatory support. 04/18/2025 seen this am stopped amio gtt will switch to oral amio 400 mg bid discussed with dr Abad at length pt will most likely need outpatient cath we will continue to monitor for now plan to dc home later today towards the afternoon. PDMP PDMP Reviewed: Not Reviewed Attestations 2 Medical Necessity Statement*: plan for dc later today Diagnoses Paroxysmal atrial fibrillation with RVR I48.0 Generalized weakness R53.1 Heart failure with reduced ejection fraction I50.20 Pleural effusion, bilateral J90 Tick bites W57.XXXA Otitis media H66.90
[2025-04-18 12:00] VITALS: BP 117/58; PULSE 67; RESP 16; TEMP 36.4; O2SAT 97
--- NOTE | 2025-04-18 13:10 | ECG_ITS ---
[facility] Date: 2025-04-18 Pat Name: Dago Bravo Department: Room: 103 Gender: Male Health Support Specialist: : 1945 Requested By: Kamaljit Abad Order Number: [id number] Collin MD: Kamaljit Abad M.D. Measurements Intervals [place] Rate: 66 P: 31 UT: 179 QRS: 6 QRSD: 180 T: 130 QT: 497 QTc: 524 Interpretive Statements SINUS RHYTHM LEFT BUNDLE BRANCH BLOCK [120+ ms QRS DURATION, 80+ ms Q/S IN V1/V2, 85+ ms R IN I/aVL/V5/V6] Compared to ECG 04/17/2025 07:53:38 Atrial fibrillation no longer present Electronically Signed On 04-18-2025 14:36:08 CDT by Kamaljit Abad M.D. [email or web address]
--- NOTE | 2025-04-18 13:27 | ECG_ITS ---
[facility] Test Date: 2025-04-18 Pat Name: Baljinder Rosas Department: Room: Gender: Male Motor Runner: : 1960-07-07 Requested By: Shane Stanford Order Number: [id number] Reading MD: Measurements Intervals [place] Rate: 66 P: 31 MT: 179 QRS: 6 QRSD: 180 T: 130 QT: 497 QTc: 524 Interpretive Statements SINUS RHYTHM LEFT BUNDLE BRANCH BLOCK [120+ ms QRS DURATION, 80+ ms Q/S IN V1/V2, 85+ ms R IN I/aVL/V5/V6] [email or web address]
--- NOTE | 2025-04-18 16:40 | P.DS_ITS ---
Discharge Providers Date of Admission: 04/16/25 13:27 Date of Discharge: April 18, 2025 Attending Provider at Admission: Eduard Zamora Attending Provider at Discharge: Tootie Greenberg MD Primary Care Provider: Valentin Lovett MD Diagnoses at Discharge Discharge Diagnosis (1) New onset atrial fibrillation: Status: Acute (2) Heart failure with reduced ejection fraction: Status: Acute (3) Multiple vessel coronary artery disease: Status: Acute (4) HTN (hypertension): Status: Acute Qualifiers: Hypertension type: essential hypertension Qualified Code(s): I10 - Essential (primary) hypertension (5) Diabetes mellitus: Status: Acute Qualifiers: Diabetes mellitus complication detail: with other circulatory complications Diabetes mellitus complication status: with circulatory complication Diabetes mellitus kitchen steward/stewardess insulin use: with senior care use Diabetes mellitus type: type 2 Qualified Code(s): E11.59 - Type 2 diabetes mellitus with other circulatory complications; Z79.4 - [facility] (current) use of insulin (6) CKD (chronic kidney disease): Status: Chronic Qualifiers: Chronic kidney disease stage: unspecified stage Qualified Code(s): N18.9 - Chronic kidney disease, unspecified (7) Elevated troponin: Status: Resolved (8) Pleural effusion, bilateral: Status: Resolved (9) Generalized weakness: Status: Resolved (10) Tick bites: Status: Resolved (11) Otitis media: Status: Resolved (12) Paroxysmal atrial fibrillation with RVR: Status: Acute Reason for Visit Reason for Visit: abnormal heart monitor readings Hospital Course Hospital Course Patient was mated to the hospital with new onset paroxysmal atrial fibrillation with RVR, generalized weakness and possible tick bite. He was placed on amiodarone drip. Cardiology was consulted. Patient was discharged home on amiodarone, aspirin, atorvastatin, Plavix. Eliquis 2.5 twice daily was added. Medications were discussed with cardiology at time of discharge. During hospitalization patient was also diuresed and has not improved. Please see previous progress notes for more detail. Physical Exam Narrative: GENERAL: The patient is alert and oriented times three. Not in any acute distress. HEENT: No significant pallor, icterus or lymphadenopathy RESPIRATORY: Clear to auscultation b/l, no wheezes, no ronchi HEART: The heart sounds are normal. systolic murmur present. No diastolic murmurs. ABDOMEN: No vessel pulsations or distention. No tenderness. No organomegaly appreciated. Bowel sounds are normally heard. EXTREMITIES: No edema or cyanosis. No clubbing. 1+ edema both lower extremities. Discharge Data Studies Completed and Pending Completed Studies During Hospitalization Category Date Time Status CT chest wo con [id number] Stat Cat Scan 04/16/25 10:37 Completed XR chest 1V portable [id number] Stat Exams 04/16/25 10:14 Completed CV. echo complete* [id number] Routine Ultrasound 04/16/25 14:05 Completed Pending at discharge Category Date Time Status Aldolase Routine Lab 04/16/25 10:33 Received Blood Culture Stat Lab 04/16/25 10:39 Results Complete Blood Count w/Auto AM LABS Lab 04/19/25 04:00 Ordered Comprehensive Metabolic Panel AM LABS Lab 04/19/25 04:00 Ordered Radiology Impressions Chest X-Ray 04/16/25 10:14 Impression: 1. Patchy opacities in both lower lobes more on left than right which could represent atelectasis and/or pneumonia. 2. Atherosclerosis and cardiomegaly. Chest CT 04/16/25 10:37 IMPRESSION: 1. Moderate bilateral pleural effusions with compressive atelectasis. 2. Severe coronary arterial calcification, indicating the presence of coronary artery disease. If the patient has associated symptoms recommend management as per chest pain guidelines. If the patient is asymptomatic consider reviewing modifiable cardiovascular risk factors and managing as per guidelines for primary prevention. Laboratory Results WBC 8.47 10^3/uL (3.29-11.43) 04/18/25 04:09 RBC 3.67 10^6/uL (3.85-5.65) L 04/18/25 04:09 Hgb 11.10 g/dL (11.27-16.99) L 04/18/25 04:09 Hct 33.2 % (37-53) L 04/18/25 04:09 MCV 90.5 fl (82-101) 04/18/25 04:09 MCH 30.2 pg (27-33) 04/18/25 04:09 MCHC 33.4 g/dL (30-55) 04/18/25 04:09 RDW 13.6 % (12.1-15.1) 04/18/25 04:09 Plt Count 243 10^3/cmm (157-399) 04/18/25 04:09 MPV 11.3 fL (7.4-10.4) H 04/18/25 04:09 Neut % (Auto) 81.1 % 04/18/25 04:09 Lymph % (Auto) 10.0 % 04/18/25 04:09 [place] % (Auto) 8.3 % 04/18/25 04:09 Eos % (Auto) 0.0 % 04/18/25 04:09 Baso % (Auto) 0.1 % 04/18/25 04:09 Neut # (Auto) 6.87 10^3/uL (1.8-7.7) 04/18/25 04:09 Lymph # (Auto) 0.9 10^3/uL (0.8-4.8) 04/18/25 04:09 [place] # (Auto) 0.7 10^3/uL (0.2-0.9) 04/18/25 04:09 Eos # (Auto) 0.0 10^3/uL (0.0-0.8) 04/18/25 04:09 Baso # (Auto) 0.0 10^3/uL (0.0-0.1) 04/18/25 04:09 Nucleated RBC % (auto) 0 % 04/18/25 04:09 Nucleated RBCs # 0.0 /100WBC 04/18/25 04:09 ESR 33 mm/hr (0-10) H 04/16/25 10:33 Sodium 135 mmol/L (136-145) L 04/18/25 04:09 Potassium 3.8 mmol/L (3.5-5.1) 04/18/25 04:09 Chloride 95 mmol/L (98-107) L 04/18/25 04:09 Carbon Dioxide 26 mmol/L (22-29) 04/18/25 04:09 Anion Gap 17.8 (5-19) 04/18/25 04:09 BUN 45 mg/dL (8-23) H 04/18/25 04:09 Creatinine 1.7 mg/dL (0.7-1.2) H 04/18/25 04:09 GFR Calculation Not Reportable 04/18/25 04:09 Glucose 190 mg/dL (65-115) H 04/18/25 04:09 Calculated Osmolality 297 mOsm/kg (285-295) H 04/18/25 04:09 Lactic Acid 0.8 mmol/L (0.5-2.2) 04/16/25 10:33 Calcium 8.9 mg/dL (8.5-10.5) 04/18/25 04:09 Magnesium 2.3 mg/dL (1.7-2.3) 04/17/25 05:20 Total Bilirubin 0.3 mg/dL (0.15-1.2) 04/18/25 04:09 AST 96 U/L (0-40) H 04/18/25 04:09 ALT 127 U/L (0-41) H 04/18/25 04:09 Alkaline Phosphatase 152 U/L (40-130) H 04/18/25 04:09 Lactate Dehydrogenase 188 U/L (135-225) 04/16/25 10:33 Creatine Kinase 37 U/L (39-308) L 04/16/25 12:22 Troponin T Baseline 66 ng/L (0-15) H 04/16/25 10:33 Troponin T 120 Minute 63.77 ng/L (0-15) H 04/16/25 12:22 Delta Troponin T -2.23 ABS# (0-10) L 04/16/25 12:22 Troponin T Hi Sens 6Hr 64.97 ng/L (0-15) H 04/16/25 16:18 Troponin T Hi Sens 6Hr Delta -1.03 ng/L (0-12) L 04/16/25 16:18 C-Reactive Protein 302.4 mg/L (0.0-4.9) H 04/16/25 10:33 NT-Pro-B Natriuret Pep 75232 pg/mL (0-450) H 04/16/25 10:33 Total Protein 6.2 g/dL (6.6-8.7) L 04/18/25 04:09 Albumin 3.2 g/dL (3.5-5.2) L 04/18/25 04:09 Globulin 3.0 g/dL (1.3-4.6) 04/18/25 04:09 Procalcitonin 0.19 ng/mL (0-0.5) 04/16/25 10:33 Urine Color Yellow (Yellow) 04/16/25 13:12 Urine Appearance Clear (CLEAR) 04/16/25 13:12 Urine pH 5.0 (5-7) 04/16/25 13:12 Ur Specific [place] 1.017 (1.005-1.030) 04/16/25 13:12 Urine Protein 1+ (Negative) A 04/16/25 13:12 Urine Glucose (UA) 3+ (Normal) H 04/16/25 13:12 Urine Ketones 1+ (Negative) H 04/16/25 13:12 Urine Blood Negative (Negative) 04/16/25 13:12 Urine Nitrate Negative (Negative) 04/16/25 13:12 Urine Bilirubin Negative (Negative) 04/16/25 13:12 Urine Urobilinogen 1.0 mg/dL (Negative) 04/16/25 13:12 Ur Leukocyte Esterase Negative (Negative) 04/16/25 13:12 Urine RBC 0-2 /hpf (0-2) 04/16/25 13:12 Urine WBC 0-5 /hpf (0-5) 04/16/25 13:12 Ur Squamous Epith Cells 0-5 /hpf (0-5) 04/16/25 13:12 Amorphous Sediment Not Reportable 04/16/25 13:12 Urine Bacteria None seen /hpf (NONE) 04/16/25 13:12 Hyaline Casts 1.65 /lpf 04/16/25 13:12 Adenovirus (PCR) Not detected (NOT DETECT) 04/16/25 13:55 C. pneumoniae DNA (PCR) Not detected (NOT DETECT) 04/16/25 13:55 Coronavirus 229E (PCR) Not detected (NOT DETECT) 04/16/25 13:55 Human Metapneumovir PCR Not detected (NOT DETECT) 04/16/25 13:55 Influenza A (H1) PCR Not detected (NOT DETECT) 04/16/25 13:55 Influ A (H1/09) PCR Not detected (NOT DETECT) 04/16/25 13:55 Influenza A (H3) PCR Not detected (NOT DETECT) 04/16/25 13:55 Influenza Type A (PCR) Not detected (NOT DETECT) 04/16/25 13:55 Influenza Type B (PCR) Not detected (NOT DETECT) 04/16/25 13:55 M. pneumoniae (PCR) Not detected (NOT DETECT) 04/16/25 13:55 Parainfluenza 1 (PCR) Not detected (NOT DETECT) 04/16/25 13:55 Parainfluenza 2 (PCR) Not detected (NOT DETECT) 04/16/25 13:55 Parainfluenza 3 (PCR) Not detected (NOT DETECT) 04/16/25 13:55 Parainfluenza 4 (PCR) Not detected (NOT DETECT) 04/16/25 13:55 RSV Type A (PCR) Not detected (NOT DETECT) 04/16/25 13:55 RSV Type B (PCR) Not detected (NOT DETECT) 04/16/25 13:55 Entero/Rhino (PCR) Not detected (NOT DETECT) 04/16/25 13:55 SARS-CoV-2 (PCR) Not detected (NOT DETECT) 04/16/25 13:55 Vitals Last Vital Signs Temp 97.6 F 04/18/25 12:00 Pulse 67 04/18/25 12:00 Resp 16 04/18/25 12:00 BP 117/58 04/18/25 12:00 Pulse Ox 97 04/18/25 12:00 O2 Del Method Nasal Cannula 04/18/25 12:00 O2 Flow Rate 3 04/18/25 12:00 Discharge Plan Discharge Patient Disposition: Home Condition: Stable Prescriptions: New amiodarone [Pacerone] 200 mg Tablet See Rx Instructions .ROUTE .COMPLEX Qty: 90 0RF Rx Instructions: 400 mg BID x 7 days 400 mg daily x 7 days 200 mg daily thereafter Eliquis 2.5 mg tablet 2.5 mg PO BID Qty: 60 0RF amoxicillin 500 mg Capsule 500 mg PO BID 5 Days Qty: 10 0RF Continued gabapentin 300 mg capsule See Rx Instructions .ROUTE .COMPLEX Rx Instructions: Take 300 mg by mouth in the AM and 600mg in the PM. Jardiance 25 mg tablet 25 mg PO DAILY Carb & Sugar Kiesha 1 tab PO DAILY Immununeti 1 tab PO DAILY vitamin A acetate 3,000 mcg (10,000 unit) tablet, sublingual 3,000 mcg PO DAILY cyanocobalamin (vitamin B-12) 500 mcg tablet 250 mcg PO DAILY cholecalciferol (vitamin D3) 125 mcg (5,000 unit) capsule 125 mcg PO DAILY vitamin E (dl, acetate) 180 mg (400 unit) capsule 180 mg PO DAILY turmeric 400 mg capsule 400 mg PO DAILY folic acid 400 mcg tablet 0.4 mg PO DAILY ferrous sulfate 325 mg (65 mg iron) tablet 325 mg PO DAILY herbtom vision gold 2 gummy PO DAILY ascorbic acid (vitamin C) 500 mg tablet,chewable 1 g PO DAILY zinc acetate 50 mg (zinc) capsule 50 mg PO DAILY magnesium oxide 400 mg (241.3 mg magnesium) tablet 400 mg PO DAILY calcium carbonate 600 mg calcium (1,500 mg) tablet 600 mg PO DAILY [id number]-hbw C-Mn-boron [id number] mg tablet 1 tab PO DAILY nitroglycerin 0.4 mg tablet, sublingual 0.4 mg sublingual Q5M PRN (Reason: Chest Pain) Rx Instructions: do not exceed 3 doses per episode Novolin N FlexPen 100 unit/mL (3 mL) insulin pen 20 unit SUBCUT QAM PRN (Reason: Hyperglycemia) insulin degludec [Tresiba FlexTouch U-100] 100 unit/mL (3 mL) insulin pen 20 unit SUBCUT BID PRN (Reason: Hyperglycemia) pantoprazole 40 mg tablet,delayed release (DR/EC) 40 mg PO DAILY Qty: 30 0RF atorvastatin [Lipitor] 80 mg tablet 80 mg PO BEDTIME Qty: 30 0RF aspirin 81 mg Tablet,Delayed Release (Dr/Ec) 81 mg PO DAILY Qty: 90 0RF clopidogrel 75 mg tablet 75 mg PO DAILY omega 6-bkg-use-fish oil [Fish Oil] 1,000 (120-180) mg Capsule 2 cap PO DAILY potassium chloride 20 mEq tablet extended release See Rx Instructions .ROUTE .COMPLEX Rx Instructions: TAKE 1 TABLET BY MOUTH ONCE DAILY NEEDED WEIGHT GAIN . TAKE ONLY IF YOU HAVE TO TAKE THE LASIX lidocaine 5 % Adhesive Patch,Medicated 1 patch topical [id number] Qty: 5 0RF doxycycline hyclate 100 mg Tablet 100 mg PO BID isosorbide mononitrate 60 mg tablet extended release 24 hr 60 mg PO QAM Changed furosemide [Lasix] 40 mg tablet 40 mg PO DAILY Qty: 30 0RF Rx Instructions: take 1 40 mg tablet orally as needed with one 20 meq potassium for weight gain of 3 pounds in 1 day Held metformin 1,000 mg tablet 500 mg PO DAILY Hold Instructions: see pcp chromium picolinate 1,000 mcg tablet 1,000 mcg PO DAILY Hold Instructions: see pcp modern mushrooms 1 tab PO DAILY Hold Instructions: see pcp true focus 1 tab PO DAILY Hold Instructions: see pcp coenzyme Q10 400 mg capsule 400 mg PO DAILY Hold Instructions: see pcp Nervive 3 tab PO DAILY Hold Instructions: see pcp Discontinued apple cider vinegar 500 mg tablet 500 mg PO DAILY carvedilol [Coreg] 3.125 mg tablet 3.125 mg PO BID Qty: 180 3RF Rx Instructions: must administer with a meal/food lisinopril 5 mg tablet 2.5 mg PO DAILY Qty: 90 3RF Discharge Orders: Discharge Order (Routine); Ordered 04/18/25 Ordered By: Tootie Greenberg Referrals: Kamaljit Abad MD [Physician, Cardiology] - 1 month Referral Note: We have notified your physician's clinic of the need for a follow-up appointment to be scheduled. If you have not heard from them within the next 2 business days, please call them directly. Selam Bateman FNP [Nurse Practitioner, Cardiology] - 4-7 days Referral Note: We have notified your physician's clinic of the need for a follow-up appointment to be scheduled. If you have not heard from them within the next 2 business days, please call them directly. Valentin Lovett MD [Primary Care Provider] - 1-3 days Referral Note: Patient will need to call Doctors office to make follow up appt in 7-10 days Discharge Diet: Cardiac Discharge Activity: Oxygen as instructed Patient Instructions: Atrial Fibrillation, Tick Bites, Amoxicillin (By mouth), Amiodarone (By mouth) (Cordarone, Pacerone), Apixaban (By mouth) (Eliquis), Heart Failure (DC), A-fib (Atrial Fibrillation) (DC), CHF Stoplight, Opioid Safety, Stroke Stoplight Discharge Attestations Time Spent in Discharge Care*: less than 30 min Quality Metrics Clinical Quality Measures [ No reported AMI, CVA or VTE this stay] Coding Level of Care Code Acute Code for g Fwd Diagnoses New onset atrial fibrillation I48.91 Heart failure with reduced ejection fraction I50.20 Multiple vessel coronary artery disease I25.10 Essential hypertension I10 Hypertension type: essential hypertension Type 2 diabetes mellitus with other circulatory complication, with long-term current use of insulin E11.59; Z79.4 Diabetes mellitus complication detail: with other circulatory complications Diabetes mellitus complication status: with circulatory complication Diabetes mellitus kitchen steward/stewardess insulin use: with kitchen steward/stewardess use Diabetes mellitus type: type 2 Chronic kidney disease, unspecified CKD stage N18.9 Chronic kidney disease stage: unspecified stage Elevated troponin R79.89 Pleural effusion, bilateral J90 Generalized weakness R53.1 Tick bites W57.XXXA Otitis media H66.90 Paroxysmal atrial fibrillation with RVR I48.0
[2025-04-18 16:49] VITALS: O2SAT 92; O2SAT 94
[2025-04-18 17:00] VITALS: BP 108/54; PULSE 67; RESP 18; O2SAT 97
--- NOTE | 2025-04-18 17:37 | PC.NURSE ---
has remained in [facility] all shift.discharge instructions given and explained.pt and spouse verb understanding of instructions.discharged via w/c to exit at this time.spouse to drive pt home
[2025-04-20 13:09] LABS: Aldolase 4.5 U/L (< OR = 8.1)
== END 2025-04-18 17:39 | disposition home or self-care (01) ==
LOC: ER 11:39 → MEDSURG 13:28 → CSU 04-17 10:06
PROVIDERS: Admitting Provider Internal Medicine; Emergency Provider Emergency Medicine; PCP Family Medicine; Visit Provider Internal Medicine
DX: I48.0 Paroxysmal atrial fibrillation (principal); I50.20 Unspecified systolic (congestive) heart failure; I25.10 Atherosclerotic heart disease of native coronary artery without angina pectoris; Z79.4 Long term (current) use of insulin; E11.22 Type 2 diabetes mellitus with diabetic chronic kidney disease; I13.0 Hypertensive heart and chronic kidney disease with heart failure and stage 1 through stage 4 chronic kidney disease, or unspecified chronic kidney disease; N18.9 Chronic kidney disease, unspecified; R79.89 Other specified abnormal findings of blood chemistry; J90 Pleural effusion, not elsewhere classified; W57.XXXA Bitten or stung by nonvenomous insect and other nonvenomous arthropods, initial encounter; H66.90 Otitis media, unspecified, unspecified ear; Z79.82 Long term (current) use of aspirin; Z79.84 Long term (current) use of oral hypoglycemic drugs; K21.9 Gastro-esophageal reflux disease without esophagitis; Z87.891 Personal history of nicotine dependence
CPT/HCPCS: 36415; 71045; 71250; 80053; 81001; 82085; 82550; 83605; 83615; 83735; 83880; 84145; 84484; 85025; 85651; 86140; 87040; 87486; 87581; 87633; 93005; 93306; 94760; 96365; 96372; 96375; 96376; 97110; 97161; 99285; G0378; J0283; J1160; J1650; J1815; J1938; J7512; J9999

== ENCOUNTER → 2025-04-27 12:51 | Outpatient (BNVA) | payer MEDICARE, SELFPAY | PROVIDERS: PCP Family Medicine; Visit Provider Nurse Practitioner Family | DX: I25.10 Atherosclerotic heart disease of native coronary artery without angina pectoris (principal); I48.91 Unspecified atrial fibrillation; Z79.01 Long term (current) use of anticoagulants; I11.0 Hypertensive heart disease with heart failure; I50.20 Unspecified systolic (congestive) heart failure; Z87.891 Personal history of nicotine dependence | CPT/HCPCS: 99214 ==

== ENCOUNTER → 2025-06-17 14:38 | Outpatient (BNVA) | payer MEDICARE, SELFPAY | PROVIDERS: PCP Family Medicine; Visit Provider Internal Medicine Cardiovascular Disease | DX: I25.10 Atherosclerotic heart disease of native coronary artery without angina pectoris (principal); I11.0 Hypertensive heart disease with heart failure; I50.20 Unspecified systolic (congestive) heart failure; I48.91 Unspecified atrial fibrillation; Z79.01 Long term (current) use of anticoagulants; Z79.82 Long term (current) use of aspirin; I08.3 Combined rheumatic disorders of mitral, aortic and tricuspid valves; I27.20 Pulmonary hypertension, unspecified; Z95.5 Presence of coronary angioplasty implant and graft; Z87.891 Personal history of nicotine dependence; I50.9 Heart failure, unspecified; I50.1 Left ventricular failure, unspecified | CPT/HCPCS: 99214 ==

== ENCOUNTER 2025-08-11 14:20 | Emergency (ER) | payer MEDICARE, SELFPAY ==
[2025-08-11 14:21] VITALS: BP 109/62; PULSE 72; TEMP 36.4; O2SAT 95
--- OUTSIDE RECORDS SUMMARY | 2025-08-11 14:26 | XMS_ITS | Encounter Summary ---
Author Organization [facility] Address [address] [place] [address] Care Team Providers Care Professor Of Special Education Name Role Phone Micheline Cunningham Primary Care Provider Encounter Details Date Type Department Care Team (Latest Contact Info) Description 06/11/2001 Outpatient Historical [facility] Medicine[address] [address] Pepe Dubon MD [address] [place] [address] Type II or unspecified type diabetes mellitus without mention of complication, not stated as uncontrolled (Primary Dx); Other noninfectious disorders of lymphatic channels; Other lymphedema Social History Tobacco Use Types Packs/Day Years Used Date Smoking Tobacco: Never Assessed Sex and Gender Information Value Date Recorded Sex Assigned at Not on file 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 [place], [address] PCP - General 11/24/03 documented as of this encounter
--- OUTSIDE RECORDS SUMMARY | 2025-08-11 14:26 | XMS_ITS | Clinical Summary ---
Author Organization Address [address] [address] Phone Care Team Providers Care Jig Builder Name Role Phone Valentin Lovett Primary Care Provider [phone] Allergies No known active allergies Medications amiodarone (Pacerone) 200 mg tablet Take 200 mg by mouth 1 (one) time each day. 5 Active Eliquis 2.5 mg tablet Take 2.5 mg by mouth 2 (two) times a day. 5 Active aspirin 81 mg chewable tablet Chew 81 mg 1 (one) time each day. 5 Active atorvastatin (Lipitor) 40 mg tablet Take by mouth 1 (one) time each day. 5 Active clopidogreL (Plavix) 75 mg tablet Take 75 mg by mouth 1 (one) time each day. 5 Active empagliflozin (Jardiance) 10 mg Take 10 mg by mouth 1 (one) time each day. 5 Active furosemide (Lasix) 40 mg tablet Take 40 mg by mouth 1 (one) time each day if needed. 5 Active gabapentin (Neurontin) 300 mg capsule Take 300 mg by mouth 2 (two) times a day. 5 Active isosorbide mononitrate ER (Imdur) 30 mg 24 hr tablet Take 30 mg by mouth 1 (one) time each day. Active lidocaine (Lidoderm) 5 % patch APPLY ONE PATCH TOPICALLY TO CLEAN, DRY SKIN. LEAVE ON FOR 12 HOURS THEN REMOVE. MUST WAIT AT LEAST 12 HOURS BEFORE APPLYING PATCH(ES) AGAIN. 5 Active nitroglycerin (Nitrostat) 0.4 mg SL tablet DISSOLVE ONE TABLET UNDER THE TONGUE EVERY 5 MINUTES NEEDED Active pantoprazole (ProtoNix) 40 mg EC tablet TAKE 1 TABLET BY MOUTH ONCE DAILY IN THE COMPONENT OVERHAUL OPERATOR Active potassium chloride CR (K-Tab) 20 mEq ER tablet TAKE 1 TABLET BY MOUTH ONCE DAILY NEEDED WEIGHT GAIN . 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 Encounters Date Type Department Care Team Description 07/13/2025 Results [facility] [address] [place] [id number] Oanh Beaver LPN US retroperitoneum complete 06/12/2025 10:00 AM CDT Office Visit [facility] [address] [place] [id number] Reuben Macedo MD Stage 3b chronic kidney disease (CMS/HCC) (Primary Dx); CKD (chronic kidney disease) stage 3, GFR 30-59 ml/min (CMS/HCC); Primary hypertension; Elevated serum creatinine 05/14/2025 Telephone [facility] [address] [place] [phone] Сергей Dunbar MD Appointment from Last 3 Months Social History Tobacco Use Types Packs/Day Years Used Date Smoking Tobacco: Former Cigarettes S tarted: 1965 Smokeless Tobacco: Never Tobacco Cessation:Counseling Given: Not Answered AUDIT-C Answer Date Recorded Q1: How often do you have a drink containing alcohol? Never 06/12/2025 Q2: How many drinks containi ng alcohol do you have on a typical day when you are drinking? Patient does not drink Q3: How often do you have si x or more drinks on one occasion? Never 06/12/2025 PHQ-2 Answer Date Recorded Patient Health Questionnaire-2 Score 0 06/12/2025 [facility] - Mental Health Answer Date Recorde d Little interest or pleasure in doing things Not at all 06/12/2025 Feeling down, depressed, or hopeless Not at all 06/12/2025 Feeling of Stress Not on file 06/12/2025 Sex and Gender Information Value Date Recorded Sex Assigned at Not on file Legal Sex Male 12:36 PM CDT Gender Identity Not on file Sexual Orientation Not on file Last Filed Vital Signs Vital Sign Reading Time Taken Comments Blood Pressure 123/69 06/12/2025 10:04 AM CDT Pulse 54 06/12/2025 10:04 AM CDT Temperature 36.4 C (97.6 F) 06/12/2025 10:04 AM CDT Respiratory Rate 22 06/12/2025 10:04 AM CDT Oxygen Saturation 93% 06/12/2025 10:04 AM CDT Inhaled Oxygen Concentration - - Weight 98.9 kg (218 lb) 06/12/2025 10:04 AM CDT Height 177.8 cm (5' 10 ) 06/12/2025 10:04 AM CDT Body Mass Index 31.28 06/12/2025 10:04 AM CDT Plan of Treatment Upcoming Encounters Date Type Department Care Team (Late st Contact Info) Description 12/15/2025 11:15 AM JIG AND FIXTURE MAKER Office Visit [facility] [address] [place] [address] [id number] Reuben Shay MD [address] [place] [phone] [id number] Health Maintenance Due Date Last Done Comments Creatinine Level 1944 Diabetes: Hemoglobin A1C 1944 Potassium Level 1944 MMR Vaccines (1 of 1 - Stand iraida series) 1945 DTaP,Tdap,and Td Vaccines (1 - Tdap) 1951 Diabetes: Foot Exam 1954 Diabetes: Retinopathy Screening 1954 Varicella Vaccines (1 of 2 - 13+ 2-dose series) 1957 Social Drivers of Health (SDoH) 1962 Diabetes: Urine Protein Screening 1963 Pneumococcal Vaccine: 50+ Ye ars (1 of 1 - PCV) 1994 Zoster Vaccines (1 of 2) 1994 RSV Vaccines (1 - 1-dose 75+ series) 2019 COVID-19 Vaccine (1 - 2023-2 5 season) 2025 Influenza Vaccine (#1) 2025 Complete Fall Risk Assessment 06/12/2026 06/12/2025 Depression Screening 06/13/2026 06/12/2025 HIB Vaccines Aged Out No longer eligi ble based on patient's age to complete this topic HPV Vaccines Aged Out No longer eligi ble based on patient's age to complete this topic Hepatitis A Vaccines Aged Out No long er eligible based on patient's age to complete this topic Hepatitis B Vaccines Aged Out No long er eligible based on patient's age to complete this topic IPV Vaccines Aged Out No longer eligi ble based on patient's age to complete this topic Meningococcal B Vaccine Aged Out No l onger eligible based on patient's age to complete this topic Meningococcal Vaccine Aged Out No ana rosa sapna eligible based on patient's age to complete this topic Pneumococcal Vaccine Aged Out No long er eligible based on patient's age to complete this topic Rotavirus Vaccines Aged Out No longer eligible based on patient's age to complete this topic Procedures Procedure Name Priority Date/Time Associated Diagnosis Comments US RETROPERITONEUM COMPLETE Routine 07/09/2025 Elevated serum creatinine from Last 3 Months Results * US retroperitoneum complete (07/09/2025) Anatomical Region Laterality Modality Body Ultrasound us Reuben Laurita FLOOD [facility] US PROCEDURES Final Result from Last 3 Months Insurance [employer] MEDICARE Care Teams Jig Builder Relationship Specialty Start Date End Date Valentin Lovett [address] [phone] PCP - General 05/11/25
--- OUTSIDE RECORDS SUMMARY | 2025-08-11 14:26 | XMS_ITS | Encounter Summary ---
Author Organization [facility] Address [address] [place] [address] Care Team Providers Care Boom Cat Operator Name Role Phone Micheline Cunningham Primary Care Provider [phone] Encounter Details Date Type Department Care Team (Latest Contact Info) Description 09/09/2001 Outpatient Historical [facility] [address] Harjit Hinds MD [address] [address] DIABETES UNCOMPL ADULT-TYPE II (CMS/HCC) (Primary Dx); Pure hypercholesterolem; AFTERCARE ALF USE MEDICATN Social History Tobacco Use Types Packs/Day Years Used Date Smoking Tobacco: Never Assessed Sex and Gender Information Value Date Recorded Sex Assigned at Not on file 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 [address], [address] [facility] [address] PCP - General 11/24/03 documented as of this encounter
--- OUTSIDE RECORDS SUMMARY | 2025-08-11 14:26 | XMS_ITS | Encounter Summary ---
Author Organization [facility] Address [address] [place] [address] Care Team Providers Care Product Safety Specialist Name Role Phone Micheline Cunningham Primary Care Provider Encounter Details Date Type Department Care Team (Late st Contact Info) Description 11/09/2003 Outpatient Historical [facility] Medicine[address] [address] Micheline Cunningham FNP [facility] 76, [address] [facility] [address] [facility] [address] Social History Tobacco Use Types Packs/Day Years Used Date Smoking Tobacco: Never Assessed Sex and Gender Information Value Date Recorded Sex Assigned at Not on file Legal Sex Male 4:03 AM BUCKRAM SEWER Gender Identity Not on file Sexual Orientation Not on file documented as of this encounter Plan of Treatment Not on file documented as of this encounter Visit Diagnoses Not on filedocumented in this encounter Care Teams Product Safety Specialist Relationship Specialty Start Date End Date Micheline Cunningham FNP [facility] 76, [address] [facility] [address] PCP - General 11/24/03 documented as of this encounter
--- OUTSIDE RECORDS SUMMARY | 2025-08-11 14:26 | XMS_ITS | Encounter Summary ---
Author Organization [facility] Address [address] [place] [address] Care Team Providers Care Knowledge Analyst Name Role Phone Micheline Cunningham Primary Care Provider Encounter Details Date Type Department Care Team (Latest Contact Info) Description 02/16/2003 Outpatient Historical [facility] [address] [address] Harjit Hinds MD [address] [address] Pure hypercholesterolem (Primary Dx); [facility] PR[facility] USE MEDICATN Social History Tobacco Use Types Packs/Day Years Used Date Smoking Tobacco: Never Assessed Sex and Gender Information Value Date Recorded Sex Assigned at Not on file Legal Sex Male 4:03 AM METAL TEMPLATE MAKER Gender Identity Not on file Sexual Orientation Not on file documented as of this encounter Plan of Treatment Not on file documented as of this encounter Visit Diagnoses Diagnosis Pure hypercholesterolem- Primary Pure hypercholesterolemia Encounter for long-term (current) use of other medications documented in this encounter Care Teams Knowledge Analyst Relationship Specialty Start Date End Date Micheline Cunningham FNP [facility] 76, [address] [place], [address] PCP - General 11/24/03 documented as of this encounter
--- OUTSIDE RECORDS SUMMARY | 2025-08-11 14:26 | XMS_ITS | Encounter Summary ---
Author Organization [facility] Address [address] [place] [address] Care Team Providers Care Photo Engraver Name Role Phone Micheline Cunningham Primary Care Provider Encounter Details Date Type Department Care Team (Latest Contact Info) Description 05/01/2001 Outpatient Historical [facility] Medicine[address] [address] Harjit Hinds MD [address] [address] Type II or unspecified type diabetes mellitus without mention of complication, not stated as uncontrolled (Primary Dx); Pure hypercholesterolem Social History Tobacco Use Types Packs/Day Years Used Date Smoking Tobacco: Never Assessed Sex and Gender Information Value Date Recorded Sex Assigned at Not on file Legal Sex Male 4:03 AM MANAGER LOSS PREVENTION Gender Identity Not on file Sexual Orientation Not on file documented as of this encounter Plan of Treatment Not on file documented as of this encounter Visit Diagnoses Diagnosis Type II or unspecified type diabetes mellitus without mention of complication, not stated as uncontrolled- Primary Pure hypercholesterolem Pure hypercholesterolemia documented in this encounter Care Teams Photo Engraver Relationship Specialty Start Date End Date Micheline Cunningham FNP [facility] 76, [address] [place] [address] PCP - General 11/24/03 documented as of this encounter
--- OUTSIDE RECORDS SUMMARY | 2025-08-11 14:26 | XMS_ITS | Encounter Summary ---
Author Organization [facility] Address [address] [place] [address] Care Team Providers Care Resistance Machine Welder Setter Name Role Phone Micheline Cunningham Primary Care Provider Encounter Details Date Type Department Care Team (Latest Contact Info) Description 11/09/2003 Outpatient Historical [facility] [address] [address] Maye Anderson MD [address] [place] [address] DIABETES UNCOMPL ADULT-TYPE II (CMS/HCC) (Primary Dx); ESOPHAGEAL REFLUX; CHEST PAIN NOS Social History Tobacco Use Types Packs/Day Years Used Date Smoking Tobacco: Never Assessed Sex and Gender Information Value Date Recorded Sex Assigned at Not on file Legal Sex Male 4:03 AM PEDIATRIC CARE COORDINATOR Gender Identity Not on file Sexual Orientation Not on file documented as of this encounter Plan of Treatment Not on file documented as of this encounter Visit Diagnoses Diagnosis Type II or unspecified type diabetes mellitus without mention of complication, not stated as uncontrolled- Primary Esophageal reflux Chest pain, unspecified documented in this encounter Care Teams Resistance Machine Welder Setter Relationship Specialty Start Date End Date Micheline Cunningham FNP [facility] 76, [address] [facility] [address] PCP - General 11/24/03 documented as of this encounter
--- OUTSIDE RECORDS SUMMARY | 2025-08-11 14:26 | XMS_ITS | Encounter Summary ---
Author Organization [facility] Address [address] [place] [address] Care Team Providers Care Blending Tank Tender Name Role Phone Micheline Cunningham Primary Care Provider Encounter Details Date Type Department Care Team (Latest Contact Info) Description 07/15/2001 Outpatient Historical [facility] Medicine[address] [address] Harjit Hinds MD [address] [facility] [address] [place] [address] Type II or unspecified type diabetes mellitus without mention of complication, not stated as uncontrolled (Primary Dx); Edema Social History Tobacco Use Types Packs/Day Years Used Date Smoking Tobacco: Never Assessed Sex and Gender Information Value Date Recorded Sex Assigned at Not on file Legal Sex Male 4:03 AM SPRING BENDER Gender Identity Not on file Sexual Orientation Not on file documented as of this encounter Plan of Treatment Not on file documented as of this encounter Visit Diagnoses Diagnosis Type II or unspecified type diabetes mellitus without mention of complication, not stated as uncontrolled- Primary Edema documented in this encounter Care Teams Blending Tank Tender Relationship Specialty Start Date End Date Micheline Cunningham FNP [facility] 76, [address] [facility] [address] PCP - General 11/24/03 documented as of this encounter
--- OUTSIDE RECORDS SUMMARY | 2025-08-11 14:27 | XMS_ITS | Encounter Summary ---
Author Organization [facility] Address [address] [place] [address] Care Team Providers Care Picu Nurse Name Role Phone Micheline Cunningham Primary Care Provider Encounter Details Date Type Department Care Team (Latest Contact Info) Description 11/24/2003 Outpatient Historical [facility] [address] [place] [address] Maye Anderson MD [address] [facility] [place] [address] CHEST PAIN NOS (Primary Dx) Social History Tobacco Use Types Packs/Day Years Used Date Smoking Tobacco: Never Assessed Sex and Gender Information Value Date Recorded Sex Assigned at Not on file Legal Sex Male 4:03 AM ENTRY LEVEL ACCOUNT REPRESENTATIVE Gender Identity Not on file Sexual Orientation Not on file documented as of this encounter Plan of Treatment Not on file documented as of this encounter Visit Diagnoses Diagnosis Chest pain, unspecified- Primary documented in this encounter Care Teams Picu Nurse Relationship Specialty Start Date End Date Micheline Cunningham FNP [facility] 76, [address] [place], [address] PCP - General 11/24/03 documented as of this encounter
--- OUTSIDE RECORDS SUMMARY | 2025-08-11 14:27 | XMS_ITS | Encounter Summary ---
Author Organization [facility] Address [address] [place] [address] Care Team Providers Care Plunger Machine Operator Name Role Phone Micheline Cunningham Primary Care Provider Encounter Details Date Type Department Care Team (Latest Contact Info) Description 11/20/2005 Outpatient Historical [facility] Cardiology- [place] [address] [place] [address] Satinder Coleman MD NO ADDRESS ON FILE ADMINISTRTVE ENCOUNT NOS (Primary Dx) Social History Tobacco Use Types Packs/Day Years Used Date Smoking Tobacco: Never Assessed Sex and Gender Information Value Date Recorded Sex Assigned at Not on file Legal Sex Male 4:03 AM USED CAR RENOVATOR Gender Identity Not on file Sexual Orientation Not on file documented as of this encounter Plan of Treatment Not on file documented as of this encounter Visit Diagnoses Diagnosis Encounters for unspecified administrative purpose- Primary documented in this encounter Care Teams Plunger Machine Operator Relationship Specialty Start Date End Date Micheline Cunningham FNP [facility] 76, [address] [facility] [address] PCP - General 11/24/03 documented as of this encounter
--- OUTSIDE RECORDS SUMMARY | 2025-08-11 14:27 | XMS_ITS | Encounter Summary ---
Author Organization [facility] Address [address] [place] [address] Care Team Providers Care Rehabilitation Inspector Name Role Phone Micheline Cunningham Primary Care Provider Encounter Details Date Type Department Care Team (Latest Contact Info) Description 06/13/2005 Outpatient Historical [facility] [address] [address] Micheline Cunningham FNP [facility] 76, [address] [facility] [address] HYPERTENSION NOS (Primary Dx); DIABETES MELLITUS TYPE II-UNCOMPL ([facility]) Social History Tobacco Use Types Packs/Day Years Used Date Smoking Tobacco: Never Assessed Sex and Gender Information Value Date Recorded Sex Assigned at Not on file Legal Sex Male 4:03 AM BIOMATERIALS ENGINEER Gender Identity Not on file Sexual Orientation Not on file documented as of this encounter Plan of Treatment Not on file documented as of this encounter Visit Diagnoses Diagnosis Unspecified essential hypertension- Primary Type II or unspecified type diabetes mellitus without mention of complication, not stated as uncontrolled documented in this encounter Care Teams Rehabilitation Inspector Relationship Specialty Start Date End Date Micheline Cunningham FNP [facility] 76, [address] [facility] [address] PCP - General 11/24/03 documented as of this encounter
--- OUTSIDE RECORDS SUMMARY | 2025-08-11 14:27 | XMS_ITS | Clinical Summary ---
Author Organization [facility] Address [address] [place] [address] Care Team Providers Care Extension Agent Name Role Phone Unavailable Primary Care Provider Unavailabl e Social History Tobacco Use Types Packs/Day Years Used Date Smoking Tobacco: Never Assessed Sex and Gender Information Value Date Recorded Sex Assigned at Not on file Legal Sex Male 1:07 PM EDT Gender Identity Not on file Sexual Orientation Not on file Plan of Treatment Health Maintenance Due Date Last Done Comments Pneumococcal Vaccine: 50+ Ye ars (1 of 2 - PCV) 1964 Diabetes: Hemoglobin A1C 04/29/2025 12/06/2024 Diabetes: Ophthalmology Exam 04/29/2025 Diabetes: Pedal Pulse Checked 04/29/2025 Diabetes: Sensory Foot Exam 04/29/2025 Diabetes: Visual Foot Exam 04/29/2025 Influenza Vaccine (#1) 2025 Hepatitis B Vaccine Aged Out No longe r eligible based on patient's age to complete this topic Insurance [facility] Medicare
--- OUTSIDE RECORDS SUMMARY | 2025-08-11 14:27 | XMS_ITS | Encounter Summary ---
Author Organization [employer] Address [address] [place] [address] Care Team Providers Care Avionics Engineer Name Role Phone Valentin Lovett DO Primary Care Provider [phone] Encounter Details Date Type Department Care Team (Late st Contact Info) Description 08/04/2025 External Device Data STL ABSTRACTION Provider, Abstract [...] No 12/06/2024 Food Insecurity Answer Date Recorded Patient needs follow up regardin 03/09/2025 Transportation Needs Answer Date Record ed Patient needs follow up regardin 03/09/2025 Housing Stability Answer Date Recorded Social/Environmental Concerns No concerns Utility Needs Answer Date Recorded Patient needs follow up regardin 03/09/2025 Sex and Gender Information Value Date Recorded Sex Assigned at Not on file Legal Sex Male 1:08 AM SUPPORT GROUP MANAGER Gender Identity Not on file Sexual Orientation Not on file documented as of this encounter Plan of Treatment Not on file documented as of this encounter Visit Diagnoses Not on filedocumented in this encounter Care Teams Avionics Engineer Relationship Specialty Start Date End Date Valentin Lovett DO [address] [place] [address] PCP - General Family Practice 12/06/24 documented as of this encounter
--- OUTSIDE RECORDS SUMMARY | 2025-08-11 14:27 | XMS_ITS | Clinical Summary ---
Author Organization [facility] Address [address] [place] [address] Care Team Providers Care Redevelopment Manager Name Role Phone Micheline Cunningham RN FIELD Primary Care Provider [phone] Allergies No known active allergies Medications lovastatin [...] on file Legal Sex Male 4:03 AM QC TECH Gender Identity Not on file Sexual Orientation [...] 1-dose 75+ series) 2019 INFLUENZA VACCINE (#1) 2025 Insurance MEDICARE PART A AND B [facility] Care Teams Redevelopment Manager Relationship Specialty Start Date End Date Micheline Cunningham FNP [facility] 76, [address] [facility] [address] PCP - General 11/24/03
--- OUTSIDE RECORDS SUMMARY | 2025-08-11 14:27 | XMS_ITS | Encounter Summary ---
Author Organization [facility] Address [address] [address] Phone Care Team Providers Care Snack Bar Cashier Name Role Phone Valentin Lovett Primary Care Provider [phone] Encounter Details Date Type Department Care Team (Latest Contact Info) Description 07/13/2025 Results Follow-Up [facility] BUILDING [address] [id number] Oanh Beaver LPN [address] [address] US retroperitoneum complete Social History Tobacco Use Types Packs/Day Years Used Date Smoking Tobacco: Former Cigarettes S tarted: 1966 Smokeless Tobacco: Never AUDIT-C Answer Date Recorded Q1: How often [...] Recorded Patient Health Questionnaire-2 Score 0 06/12/2025 [facility] - Mental Health Answer Date Recorde d [...] as of this encounter Plan of Treatment Upcoming Encounters Date Type Department Care Team (Late st Contact Info) Description 12/15/2025 11:15 AM RECEIVING DOCK CHECKER Office Visit [facility]ROLOGY CLINIC MED[facility] OFF[facility] BUILDING [address] [address] Reuben Shay MD [address] [place] [address] documented as of this encounter Visit Diagnoses Not on filedocumented in this encounter Additional Health Concerns Assessment Noted Time A fall risk assessment has been complete d for the patient 06/12/2025 10:04 AM CDT documented as of this encounter Care Teams Snack Bar Cashier Relationship Specialty Start Date End Date Valentin Lovett [address] [address] PCP - General 05/11/25 documented as of this encounter
--- OUTSIDE RECORDS SUMMARY | 2025-08-11 14:27 | XMS_ITS | Encounter Summary ---
Author Organization [facility] Address [address] [place] [address] Care Team Providers Care Dust Puller Name Role Phone Micheline Cunningham Primary Care Provider Encounter Details Date Type Department Care Team (Latest Contact Info) Description 12/03/2003 Outpatient Historical [facility] Cardiology- [place] [address] [place] [address] Satinder Coleman MD NO ADDRESS ON FILE ANGINA PECTORIS NEC/NOS (Primary Dx); MIXED HYPERLIPIDEMIA; ABNORMAL CARDIOVASC STUDY NOS Social History Tobacco Use Types Packs/Day Years Used Date Smoking Tobacco: Never Assessed Sex and Gender Information Value Date Recorded Sex Assigned at Not on file Legal Sex Male 4:03 AM BARREL RIFLER Gender Identity Not on file Sexual Orientation Not on file documented as of this encounter Plan of Treatment Not on file documented as of this encounter Visit Diagnoses Diagnosis Other and unspecified angina pectoris- Primary Mixed hyperlipidemia Nonspecific abnormal unspecified cardiovascular function study documented in this encounter Care Teams Dust Puller Relationship Specialty Start Date End Date Micheline Cunningham FNP [facility] 76, [address] [place], [address] PCP - General 11/24/03 documented as of this encounter
--- OUTSIDE RECORDS SUMMARY | 2025-08-11 14:27 | XMS_ITS | Encounter Summary ---
Author Organization [facility] Address [address] [place] [address] Care Team Providers Care Laborer Cutting Tool Name Role Phone Micheline Cunningham Primary Care Provider [phone] Encounter Details Date Type Department Care Team (Latest Contact Info) Description 06/20/2004 Outpatient Historical [facility] Medicine- [address] [address] Maye Anderson MD [address] [place] [address] ASCVD (Primary Dx); DIABETES MELLITUS TYPE II-UNCOMPL (CMS/[facility]) Social History Tobacco Use Types Packs/Day Years Used Date Smoking Tobacco: Never Assessed Sex and Gender Information Value Date Recorded Sex Assigned at Not on file Legal Sex Male 4:03 AM AGENCY SALES MANAGEMENT ASSISTANT Gender Identity Not on file Sexual Orientation Not on file documented as of this encounter Plan of Treatment Not on file documented as of this encounter Visit Diagnoses Diagnosis ASCVD- Primary Unspecified cardiovascular disease Type II or unspecified type diabetes mellitus without mention of complication, not stated as uncontrolled documented in this encounter Care Teams Laborer Cutting Tool Relationship Specialty Start Date End Date Micheline Cunningham FNP [facility] 76, [address] [facility] [address] PCP - General 11/24/03 documented as of this encounter
--- OUTSIDE RECORDS SUMMARY | 2025-08-11 14:27 | XMS_ITS | Encounter Summary ---
Author Organization [facility] Address [address] [place] [address] Care Team Providers Care Rivet Passer Name Role Phone Micheline Cunningham Primary Care Provider Encounter Details Date Type Department Care Team (Latest Contact Info) Description 01/19/2004 Outpatient Historical [facility] Cardiology- [place] [address] [place] [address] Bot-Jadyn Bear, MANAGER HUMAN RESOURCES [address] [facility] [address] [place] [address] CHR ISCHEMIC HRT DIS NEC (Primary Dx); MIXED HYPERLIPIDEMIA Social History Tobacco Use Types Packs/Day Years Used Date Smoking Tobacco: Never Assessed Sex and Gender Information Value Date Recorded Sex Assigned at Not on file Legal Sex Male 4:03 AM ASSISTANT STORE MANAGER Gender Identity Not on file Sexual Orientation Not on file documented as of this encounter Plan of Treatment Not on file documented as of this encounter Visit Diagnoses Diagnosis 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 [place], [address] PCP - General 11/24/03 documented as of this encounter
--- OUTSIDE RECORDS SUMMARY | 2025-08-11 14:27 | XMS_ITS | Encounter Summary ---
Author Organization [facility] Address [address] [place] [address] Care Team Providers Care Cosmetic Account Coordinator Name Role Phone Micheline Cunningham Primary Care Provider Encounter Details Date Type Department Care Team (Latest Contact Info) Description 12/08/2005 Outpatient Historical [facility] [address] [address] Micheline Cunningham FNP [facility] 76, [address] [facility] [address] ASCVD (Primary Dx) Social History Tobacco Use Types Packs/Day Years Used Date Smoking Tobacco: Never Assessed Sex and Gender Information Value Date Recorded Sex Assigned at Not on file Legal Sex Male 4:03 AM CONE WORKER Gender Identity Not on file Sexual Orientation Not on file documented as of this encounter Plan of Treatment Not on file documented as of this encounter Visit Diagnoses Diagnosis ASCVD- Primary Unspecified cardiovascular disease documented in this encounter Care Teams Cosmetic Account Coordinator Relationship Specialty Start Date End Date Micheline Cunningham FNP [facility] 76, [address] [place], [address] PCP - General 11/24/03 documented as of this encounter
--- OUTSIDE RECORDS SUMMARY | 2025-08-11 14:27 | XMS_ITS | Encounter Summary ---
Author Organization [facility] Address [address] [place] [address] Care Team Providers Care Senior Associate Name Role Phone Micheline Cunningham Primary Care Provider [phone] Encounter Details Date Type Department Care Team (Latest Contact Info) Description 12/08/2003 Inpatient Historical [facility] Cardiac Cinder Crane Operator [address] [place] [address] Satinder Coleman MD NO ADDRESS ON FILE CORON ATHEROSCL [facility] CORON VESSEL (Primary Dx) Social History Tobacco Use Types Packs/Day Years Used Date Smoking Tobacco: Never Assessed Sex and Gender Information Value Date Recorded Sex Assigned at Not on file Legal Sex Male 4:03 AM PORTER HEAD Gender Identity Not on file Sexual Orientation Not on file documented as of this encounter Plan of Treatment Not on file documented as of this encounter Visit Diagnoses Diagnosis Coronary atherosclerosis of [place] coronary artery- Primary documented in this encounter Care Teams Senior Associate Relationship Specialty Start Date End Date Micheline Cunningham FNP [facility] 76, [address] [facility] [address] PCP - General 11/24/03 documented as of this encounter
--- OUTSIDE RECORDS SUMMARY | 2025-08-11 14:27 | XMS_ITS | Encounter Summary ---
Author Organization [facility] Address [address] [place] [address] Care Team Providers Care Dehydration Unit Operator Name Role Phone Micheline Cunningham Primary Care Provider Encounter Details Date Type Department Care Team (Late st Contact Info) Description 02/16/2003 Outpatient Historical [address] [address] Micheline Cunningham FNP [facility] 76, [address] [facility] [address] [facility] [address] Social History Tobacco Use Types Packs/Day Years Used Date Smoking Tobacco: Never Assessed Sex and Gender Information Value Date Recorded Sex Assigned at Not on file Legal Sex Male 4:03 AM INTERNAL INVESTIGATOR Gender Identity Not on file Sexual Orientation Not on file documented as of this encounter Plan of Treatment Not on file documented as of this encounter Visit Diagnoses Not on filedocumented in this encounter Care Teams Dehydration Unit Operator Relationship Specialty Start Date End Date Micheline Cunningham FNP [facility] 76, [address] [facility] [address] PCP - General 11/24/03 documented as of this encounter
--- OUTSIDE RECORDS SUMMARY | 2025-08-11 14:27 | XMS_ITS | Clinical Summary ---
[facility] Organization [facility] Address [address] Attn: Epic Prelude ADT [place] [address] Care Team Providers Care Crepe Machine Operator Name Role Phone Valentin Lovett DO Primary Care Provider [phone] Allergies No known active allergies Medications metFORMIN [...] morning. 60 Tablet 1 12/09/2024 4:42 PM ATHLETIC TEAM PHYSICIAN 12/09/2024 Active nitroglycerin (NITROSTAT) 0.4 mg Tablet, Sublingual Place 1 Tablet (0.4 mg) under tongue every 5 minutes as needed for Chest Pain. 25 Tablet 12/09/2024 4:42 PM ATHLETIC TEAM PHYSICIAN 12/09/2024 Active Active Problems Problem Noted Date [...] Encounters Date Type Department Care Team Description 08/04/2025 External Device Data STL ABSTRACTION Provider, Abstract 07/07/2025 External Device Data [facility] ABSTRACTION Provider, Abstract 06/16/2025 External Device Data [facility] ABSTRACTION Provider, Abstract from Last 3 Months Family History Medical [...] on file Legal Sex Male 1:08 AM ATHLETIC TEAM PHYSICIAN Gender Identity Not on file Sexual Orientation Not on file Last Filed Vital Signs Vital Sign Reading Time Taken Comments Blood Pressure 110/75 12/09/2024 1:21 PM ATHLETIC TEAM PHYSICIAN Pulse 80 12/09/2024 1:21 PM ATHLETIC TEAM PHYSICIAN Temperature 36.2 C (97.2 F) 12/09/2024 1:21 PM ATHLETIC TEAM PHYSICIAN Respiratory Rate 19 12/09/2024 1:21 PM ATHLETIC TEAM PHYSICIAN Oxygen Saturation 97% 12/09/2024 1:21 PM ATHLETIC TEAM PHYSICIAN Inhaled Oxygen Concentration - - Weight 112.3 kg (247 lb 9.2 oz) 12/09/2024 5:37 AM ATHLETIC TEAM PHYSICIAN Height 179.1 cm (5' 10.5 ) 12/08/2024 4:54 AM CS T Body Mass Index 35.02 12/08/2024 4:54 AM ATHLETIC TEAM PHYSICIAN Plan of Treatment Health Maintenance Due Date Last Done Comments DIABETES ANNUAL FOOT EXAM 1962 DIABETES ANNUAL RETINAL EXAM 1962 DIABETES MICROALBUMIN ANNUAL SCREEN 1962 LDL CHOLESTEROL ANNUAL 1962 DTAP/TDAP/TD VACCINES (1 - Tdap) 1963 PNEUMOCOCCAL VACCINE 50+ YEARS (1 of 2 - PCV) 06/27/19 63 ZOSTER VACCINE (1 of 2) 1994 RSV VACCINE (60+ or ) (1 - 1-dose 75+ series) 2019 DIABETES HBA1C Q 6 MONTHS 06/05/2025 12/06/2024 INFLUENZA VACCINE (#1) 2025 Procedures Procedure Name Priority Date/Time Associated Diagnosis Comments HEMOGLOBIN A1C Stat 12/06/2024 1:50 PM ATHLETIC TEAM PHYSICIAN from Last 3 Months or Most Recently Relevant to Health Maintenance Results * (ABNORMAL) HEMOGLOBIN A1C (12/06/2024 1:50 PM ATHLETIC TEAM PHYSICIAN) HEMOGLOBIN A1C 7.9(H) <=5.6 % 12/10/2024 10:17 AM ATHLETIC TEAM PHYSICIAN [facility] EST. AVG GLUCOSE, A1C 180 mg/dL 12/10/2024 10:17 AM ATHLETIC TEAM PHYSICIAN [facility] Blood Venipuncture / Unknown 12/06/2024 1:50 PM ATHLETIC TEAM PHYSICIAN 12/06/2024 1:55 PM ATHLETIC TEAM PHYSICIAN Narrative [facility] Mir[facility] - 12/10/2024 10:17 AM ATHLETIC TEAM PHYSICIAN HGB A1C INTERPRETATION NORMAL: <5.7% PRE-DIABETES: 5.7 - 6.4% DIABETES: 6.5% OR GREATER Mar Conteh [facility] CHEMISTRY ORDERABLES Fin al Result [facility] Mirad[facility] CLIA # [id number] [address] [place] [address] from Last 3 Months or Most Recently Relevant to Health Maintenance Insurance [facility] [id number] Advance Directives For more information, please contact: [phone] * Full Code (Latest Code Status on [...] Non-Invasive (i.e. BiPAP, CPAP): Yes Care Teams Crepe Machine Operator Relationship Specialty Start Date End Date Valentin Lovett DO [address] [place] [address] PCP - General Family Practice 12/06/24
--- OUTSIDE RECORDS SUMMARY | 2025-08-11 14:27 | XMS_ITS | Encounter Summary ---
Author Organization [facility] Address [address] [place] [address] Care Team Providers Care Remediation Bioanalytics Consultant Name Role Phone Micheline Cunningham Primary Care Provider Encounter Details Date Type Department Care Team (Latest Contact Info) Description 05/16/2005 Outpatient Historical 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 [address], [address] [place], [address] PCP - General 11/24/03 documented as of this encounter
--- NOTE | 2025-08-11 14:38 | USR_ITS ---
PROCEDURE INFORMATION: Exam: US Duplex Right Lower Extremity Arteries Or Arterial Bypass Grafts Exam date and time: 08/11/2025 3:25 PM Age: 80 years old Clinical indication: Pain; Other: Decreased pulse; Leg, lower; Right; Additional info: Poor circulation TECHNIQUE: Imaging protocol: Right Real-time duplex scan of the arteries or arterial bypass grafts of the right lower extremity with 2-D cannon scale, color Doppler flow and spectral waveform analysis. Images documented and saved. COMPARISON: No relevant prior studies available. FINDINGS: Right common femoral artery: No occlusion or significant stenosis. Normal waveform. No pseudoaneurysm in the inguinal region. Right superficial femoral artery: No occlusion or significant stenosis. Normal waveform. Right popliteal artery: No occlusion or significant stenosis. Normal waveform. Right calf/foot arteries: No occlusion or significant stenosis in the visualized arteries. Normal waveforms. Dorsalis pedis artery is patent. Soft tissues: No hematoma or [place]. US/[place] [id number] IMPRESSION: No stenosis or occlusion.
[2025-08-11 14:42] VITALS: BP 100/47; PULSE 67; RESP 16; O2SAT 97
--- NOTE | 2025-08-11 14:43 | USCV_ITS ---
Dago Bravo Age: 80 Gender: M : 1945 Exam Date: 08/11/2025 15:19 Ordering Phys: Shane Giron DO Technologist: KEVAN [place] [facility] [place]: Decreased Pulses HISTORY: Lower extremity swelling. PROCEDURES: Venous duplex imaging was performed in only the right lower extremity. The following venous structures were evaluated: common femoral vein, profunda vein, proximal portion of the greater saphenous vein, superficial femoral vein, and the popliteal vein. In addition, the posterior tibial and peroneal trunk were evaluated. Serial compression, augmentation maneuvers, and spectral Doppler flow evaluation were performed. FINDINGS: No evidence of DVT seen in any vessel visualized at this time. CONCLUSIONS No evidence of right lower extremity DVT. Chandana Carnes MD (Electronically Signed) Final Date: 11 August 2025 16:58 S
[2025-08-11] MEDS: tetanus-dipt-pertussis 0.5 mL SDV IM (14:49)
[2025-08-11 15:09] LABS: Hematocrit 41.0 % (37-53); Hemoglobin 13.20 g/dL (11.27-16.99); Mean Corpuscular HGB Conc 32.2 g/dL (30-55); Mean Corpuscular Hemoglobin 28.1 pg (27-33); Mean Corpuscular Volume 87.2 fl (82-101); Nucleated Red Blood Cells % 0 %; Platelet Count 141 10^3/cmm (157-399); Red Blood Count 4.70 10^6/uL (3.85-5.65); White Blood Count 7.99 10^3/uL (3.29-11.43)
[2025-08-11 15:19] LABS: Slide Review Slide Review Perform
[2025-08-11 15:25] LABS: Alanine Aminotransferase 76 U/L (0-41); Albumin Level 3.9 g/dL (3.5-5.2); Alkaline Phosphatase 197 U/L (40-130); Anion Gap 20.4 (5-19); Aspartate Amino Transferase 31 U/L (0-40); Blood Urea Nitrogen 68 mg/dL (8-23); Calcium 8.7 mg/dL (8.5-10.5); Carbon Dioxide 25 mmol/L (22-29); Chloride 88 mmol/L (98-107); Creatinine Clr Calc Pharmacy 25.4882; Globulin 2.4 g/dL (1.3-4.6); Glucose 59 mg/dL (65-115); Osmolality Calculated 286 mOsm/kg (285-295); Potassium 4.4 mmol/L (3.5-5.1); Sodium 129 mmol/L (136-145); Total Protein 6.3 g/dL (6.6-8.7)
--- NOTE | 2025-08-11 15:34 | W.ED.EXTPRO ---
HPI - Extremity Problem General: Chief complaint: Extremity Problem,Nontraumatic Stated complaint: R foot discoloration Time Seen by Provider: 08/11/25 14:32 History of Present Illness: 80-year-old male presents emergency room complaining of discoloration to the toes of his right foot that been there for several days. Additionally Had a Bandage on His Right Lower Leg Where he has has had pat scratched and bit him this morning. He is unsure of the cats vaccination status it still is in his custody. He is also unsure of his last tetanus shot. No fever sweats or chills moderate swelling to the right lower leg. He denies chest pain or shortness of breath. Patient denies any claudication symptoms. Associated symptoms: Deny chest pain or fever(s) Related Data Home Medications ?Medication ?Instructions ?Recorded ?Confirmed Carb & Sugar Kiesha 1 tab PO DAILY 12/18/24 04/27/25 Immununeti 1 tab PO DAILY 12/18/24 04/27/25 ascorbic acid (vitamin C) 500 mg 1 g PO DAILY 12/18/24 04/27/25 chewable tablet calcium carbonate 600 mg PO DAILY 12/18/24 04/27/25 cholecalciferol (vitamin D3) 125 125 mcg PO DAILY 12/18/24 04/27/25 mcg (5,000 unit) capsule cyanocobalamin (vitamin B-12) 500 250 mcg PO DAILY 12/18/24 04/27/25 mcg tablet empagliflozin 25 mg tablet 25 mg PO DAILY 12/18/24 04/27/25 (Jardiance) ferrous sulfate 325 mg (65 mg 325 mg PO DAILY 12/18/24 04/27/25 iron) tablet folic acid 400 mcg tablet 0.4 mg PO DAILY 12/18/24 04/27/25 gabapentin 300 mg capsule See Rx Instructions .Route .COMPLEX 12/18/24 04/27/25 mttopfjmwpz-izqnsajsv-H-Mn-boron 1 tab PO DAILY 12/18/24 04/27/25 750 mg-600 mg-30 mg-1mg-1.5mg tablet herba vision gold 2 gummy PO DAILY 12/18/24 04/27/25 insulin degludec 100 unit/mL (3 20 unit SUBCUT BID PRN 12/18/24 04/27/25 mL) subcutaneous pen (Tresiba Hyperglycemia FlexTouch U-100 insulin) magnesium oxide 400 mg (241.3 mg 400 mg PO DAILY 12/18/24 04/27/25 magnesium) tablet modern mushrooms 1 tab PO DAILY 12/18/24 04/27/25 Held on 04/18/25. Instructions: see pcp nitroglycerin 0.4 mg sublingual 0.4 mg sublingual Q5M PRN Chest 12/18/24 04/27/25 tablet Pain true focus 1 tab PO DAILY 12/18/24 04/27/25 Held on 04/18/25. Instructions: see pcp turmeric 400 mg capsule 400 mg PO DAILY 12/18/24 04/27/25 vitamin A acetate 3,000 mcg 3,000 mcg PO DAILY 12/18/24 04/27/25 (10,000 unit) sublingual tablet vitamin E (dl, acetate) 180 mg 180 mg PO DAILY 12/18/24 04/27/25 (400 unit) capsule zinc acetate 50 mg (zinc) capsule 50 mg PO DAILY 12/18/24 04/27/25 Nervive 3 tab PO DAILY 03/31/25 04/27/25 Held on 04/18/25. Instructions: see pcp clopidogrel 75 mg tablet 75 mg PO DAILY 03/31/25 04/27/25 omega 7-ndi-zvn-fish oil 1,000 mg 2 cap PO DAILY 03/31/25 04/27/25 (120 mg-180 mg) capsule (Fish Oil) isosorbide mononitrate 60 mg 60 mg PO QAM 04/16/25 04/27/25 tablet,extended release 24 hr insulin regular human 100 unit/mL 20 unit SUBCUT TID PRN 06/17/25 06/17/25 injection solution (Novolin R Regular U-100 Insulin) semaglutide 2 mg/dose (8 mg/3 mL) mg SUBCUT 06/17/25 06/17/25 subcutaneous pen injector (Ozempic) furosemide 40 mg tablet (Lasix) 40 mg PO BID PRN weight gain 08/03/25 potassium chloride 20 mEq 20 meq PO DAILY 08/03/25 tablet,extended release Previous Rx's ?Medication ?Instructions ?Recorded aspirin 81 mg tablet,delayed 81 mg PO DAILY #90 tabs 02/25/25 release atorvastatin 80 mg tablet (Lipitor) 80 mg PO BEDTIME #30 tabs 02/25/25 lidocaine 5 % topical patch 1 patch topical [id number] #5 ea 03/31/25 pantoprazole 40 mg tablet,delayed 40 mg PO DAILY #30 tabs 04/03/25 release amiodarone 200 mg tablet (Pacerone) 200 mg PO DAILY #90 tabs 04/27/25 apixaban 2.5 mg tablet (Eliquis) 2.5 mg PO BID #180 tabs 04/27/25 amoxicillin 875 mg-potassium 1 tab PO BID #20 tabs 08/11/25 clavulanate 125 mg tablet Allergies Allergy/AdvReac Type Severity Reaction Status Date / Time No Known Allergies Allergy Verified 08/11/25 14:29 Review of Systems Const: Denies: fever(s) or chills Card: Denies: chest pain Resp: Denies: dyspnea GI: Denies: abdominal pain : Denies: dysuria, urinary frequency or urinary urgency Musc: Denies: neck pain or back pain PFSH ED PFSH: Medical History Diabetes mellitus CAD (coronary artery disease) HTN (hypertension) Family History Mother Pulmonary embolism Father Aortic aneurysm Brother Aortic aneurysm Sister Stroke Social History Smoking and tobacco/nicotine status: former use of tobacco/nicotine (quit 1979) Alcohol intake: never Substance/Drug Use: never Marital status: Physical Exam Const: GENERAL APPEARANCE: cooperative ORIENTATION/CONSCIOUSNESS: Yes awake, Yes oriented to person, Yes oriented to place and Yes oriented to time HENMT: COMMON NORMALS: normocephalic, atraumatic and hearing grossly normal bilaterally HEAD & SCALP: normocephalic and atraumatic Resp: COMMON NORMALS: normal respiratory effort, No retractions, No use of accessory muscles and clear to auscultation bilaterally AUSCULTATION: clear to auscultation bilaterally Cardio: COMMON NORMALS: regular rate, regular rhythm and No murmurs present (Cardio) RATE: regular rate RHYTHM: regular rhythm GI: COMMON NORMALS: Soft to palpation and No hepatosplenomegaly present AUSCULTATION: Yes normoactive bowel sounds PALPATION: Yes Soft to palpation, No Tenderness to palpation present (GI), No Guarding due to palpation present (GI) and Yes No hepatosplenomegaly present Extremity: COMMON NORMALS: capillary refill normal and no calf tenderness OTHER: Patient has discoloration over the 3rd, 4th and 5th toes with venous pooling. He is poor capillary refill. About the lower leg there are multiple scratches and bites which patient reports are from a cat. None appear acutely infected he said they occurred today. No calf tenderness 2+ edema lower extremities bilaterally Neuro: SENSORIUM/ORIENTATION: Yes oriented to person, Yes oriented to place and Yes oriented to time Course Vital Signs: Vital signs: Vital Signs Temperature 97.5 F L 08/11/25 14:21 Pulse Rate 71 08/11/25 15:58 Respiratory Rate 16 08/11/25 15:58 Blood Pressure 130/70 08/11/25 15:58 Pulse Oximetry 98 08/11/25 15:58 Oxygen Delivery Me thod Nasal Cannula 08/11/25 14:21 Oxygen Flow Rate 2 08/11/25 14:21 MDM - Extremity (Nontraumatic) Medical Decision Making Patient has chronic kidney disease which is worsened of late discussing with him and he has been using his Lasix regularly and his creatinine has climbed to 2.8. When asked when his any recent medication changes that he increase the usage of his Lasix. Asked him to hold his Lasix for now elevate his feet whenever possible. Reviewed ultrasound findings with the tech he reported venous duplex is negative. Radiology read arterial Doppler as having no occlusion or significant stenosis with normal waveform. Based on the clinical findings I am asking for a over read of this and were also going to still refer him to interventional cardiology on an outpatient basis. He is not having any signs of critical limb ischemia and he is not having any claudication at this time so I do not believe this is emergent. He currently is on apixaban there is no evidence of DVT on venous duplex per the tech evaluation radiology is overreading. Patient shows multiple bites and scratches that he states he got from a cat this morning. Cat is new to their family he has not had any rabies vaccination as far as they aware. I discussed with the patient the high rate of rabies currently in [facility] despite this he prefers to observe the cat it is still in their custody asked him to watch the cat closely for any signs of illness in the next 10 days. We discussed other options ultimately he prefers just to monitor the cat. Advised him if he notices any illness or loses custody of the cat he needs to return to the emergency room to initiate rabies vaccinations. Additionally because of the high incidence of infection which is even further heightened by his poor blood flow in his leg we will start him on Augmentin and asked him to follow-up with his primary care doctor in 2 days to reevaluate swelling for swelling and infection also to have his kidney function rechecked. If he develops any fever he needs to return to the emergency room immediately. Medical Records I reviewed the patient's medical records. Lab Data I reviewed the patient's lab results. 08/11/25 14:59 08/11/25 14:59 Radiology Impressions Duplex Scan Lower Extremity Artery 08/11/25 14:38 IMPRESSION: No stenosis or occlusion. Laboratory Results WBC 7.99 10^3/uL (3.29-11.43) 08/11/25 14:59 RBC 4.70 10^6/uL (3.85-5.65) 08/11/25 14:59 Hgb 13.20 g/dL (11.27-16.99) 08/11/25 14:59 Hct 41.0 % (37-53) 08/11/25 14:59 MCV 87.2 fl (82-101) 08/11/25 14:59 MCH 28.1 pg (27-33) 08/11/25 14:59 MCHC 32.2 g/dL (30-55) 08/11/25 14:59 RDW 17.4 % (12.1-15.1) H 08/11/25 14:59 Plt Count 141 10^3/cmm (157-399) L 08/11/25 14:59 MPV Not Reportable 08/11/25 14:59 Neut % (Auto) 79.8 % 08/11/25 14:59 Lymph % (Auto) 8.0 % 08/11/25 14:59 Merrick % (Auto) 11.0 % 08/11/25 14:59 Eos % (Auto) 0.8 % 08/11/25 14:59 Baso % (Auto) 0.1 % 08/11/25 14:59 Neut # (Auto) 6.38 10^3/uL (1.8-7.7) 08/11/25 14:59 Lymph # (Auto) 0.6 10^3/uL (0.8-4.8) L 08/11/25 14:59 Merrick # (Auto) 0.9 10^3/uL (0.2-0.9) 08/11/25 14:59 Eos # (Auto) 0.1 10^3/uL (0.0-0.8) 08/11/25 14:59 Baso # (Auto) 0.0 10^3/uL (0.0-0.1) 08/11/25 14:59 Nucleated RBC % (auto) 0 % 08/11/25 14:59 Nucleated RBCs # 0.0 /100WBC 08/11/25 14:59 Sodium 129 mmol/L (136-145) L 08/11/25 14:59 Potassium 4.4 mmol/L (3.5-5.1) 08/11/25 14:59 Chloride 88 mmol/L (98-107) L 08/11/25 14:59 Carbon Dioxide 25 mmol/L (22-29) 08/11/25 14:59 Anion Gap 20.4 (5-19) H 08/11/25 14:59 BUN 68 mg/dL (8-23) H 08/11/25 14:59 Creatinine 2.8 mg/dL (0.7-1.2) H 08/11/25 14:59 GFR Calculation Not Reportable 08/11/25 14:59 Glucose 59 mg/dL (65-115) L 08/11/25 14:59 Calculated Osmolality 286 mOsm/kg (285-295) 08/11/25 14:59 Calcium 8.7 mg/dL (8.5-10.5) 08/11/25 14:59 Total Bilirubin 0.9 mg/dL (0.15-1.2) 08/11/25 14:59 AST 31 U/L (0-40) 08/11/25 14:59 ALT 76 U/L (0-41) H 08/11/25 14:59 Alkaline Phosphatase 197 U/L (40-130) H 08/11/25 14:59 Total Protein 6.3 g/dL (6.6-8.7) L 08/11/25 14:59 Albumin 3.9 g/dL (3.5-5.2) 08/11/25 14:59 Globulin 2.4 g/dL (1.3-4.6) 08/11/25 14:59 All radiology interpretation(s) finalized by discharge Discharge Plan Discharge Patient Disposition: Home Clinical Impression: Peripheral vascular disease, Cat bite of right lower leg Diabetes mellitus Qualifiers: Diabetes mellitus type: type 2 Diabetes mellitus termite treater insulin use: with termite treater use Diabetes mellitus complication status: with circulatory complication Diabetes mellitus complication detail: with other circulatory complications Qualified Code(s): E11.59 - Type 2 diabetes mellitus with other circulatory complications CKD (chronic kidney disease) Qualifiers: Chronic kidney disease stage: unspecified stage Qualified Code(s): N18.9 - Chronic kidney disease, unspecified Condition: Stable Prescriptions: New amoxicillin-pot clavulanate 875-125 mg tablet 1 tab PO BID Qty: 20 0RF No Action gabapentin 300 mg capsule See Rx Instructions .ROUTE .COMPLEX Rx Instructions: Take 300 mg by mouth in the AM and 600mg in the PM. Novolin R Regular U100 Insulin 100 unit/mL solution 20 unit SUBCUT TID PRN Ozempic 2 mg/dose (8 mg/3 mL) pen injector SUBCUT Jardiance 25 mg tablet 25 mg PO DAILY Carb & Sugar Kiesha 1 tab PO DAILY Immununeti 1 tab PO DAILY vitamin A acetate 3,000 mcg (10,000 unit) tablet, sublingual 3,000 mcg PO DAILY cyanocobalamin (vitamin B-12) 500 mcg tablet 250 mcg PO DAILY cholecalciferol (vitamin D3) 125 mcg (5,000 unit) capsule 125 mcg PO DAILY vitamin E (dl, acetate) 180 mg (400 unit) capsule 180 mg PO DAILY modern mushrooms 1 tab PO DAILY true focus 1 tab PO DAILY turmeric 400 mg capsule 400 mg PO DAILY folic acid 400 mcg tablet 0.4 mg PO DAILY ferrous sulfate 325 mg (65 mg iron) tablet 325 mg PO DAILY herba vision gold 2 gummy PO DAILY ascorbic acid (vitamin C) 500 mg tablet,chewable 1 g PO DAILY zinc acetate 50 mg (zinc) capsule 50 mg PO DAILY magnesium oxide 400 mg (241.3 mg magnesium) tablet 400 mg PO DAILY calcium carbonate 600 mg calcium (1,500 mg) tablet 600 mg PO DAILY ewmibtar-cryeyo-zcl C-Mn-boron [id number] mg tablet 1 tab PO DAILY nitroglycerin 0.4 mg tablet, sublingual 0.4 mg sublingual Q5M PRN (Reason: Chest Pain) Rx Instructions: do not exceed 3 doses per episode insulin degludec [Tresiba FlexTouch U-100] 100 unit/mL (3 mL) insulin pen 20 unit SUBCUT BID PRN (Reason: Hyperglycemia) amiodarone [Pacerone] 200 mg tablet 200 mg PO DAILY Qty: 90 1RF Eliquis 2.5 mg tablet 2.5 mg PO BID Qty: 180 0RF pantoprazole 40 mg tablet,delayed release (DR/EC) 40 mg PO DAILY Qty: 30 0RF furosemide [Lasix] 40 mg tablet 40 mg PO BID PRN (Reason: weight gain) Rx Instructions: take 1 40 mg tablet orally as needed with one 20 meq potassium for weight gain of 3 pounds in 1 day potassium chloride 20 mEq tablet extended release 20 meq PO DAILY atorvastatin [Lipitor] 80 mg tablet 80 mg PO BEDTIME Qty: 30 0RF aspirin 81 mg Tablet,Delayed Release (Dr/Ec) 81 mg PO DAILY Qty: 90 0RF clopidogrel 75 mg tablet 75 mg PO DAILY omega 8-kes-xhw-fish oil [Fish Oil] 1,000 (120-180) mg Capsule 2 cap PO DAILY Nervive 3 tab PO DAILY lidocaine 5 % Adhesive Patch,Medicated 1 patch topical [id number] Qty: 5 0RF isosorbide mononitrate 60 mg tablet extended release 24 hr 60 mg PO QAM Discharge Orders: Discharge ED (Routine); Ordered 08/11/25 Ordered By: Shane Giron Referrals: Valentin Lovett MD [Primary Care Provider] Discharge Diet: Usual diet Discharge Activity: Resume usual activity Patient Instructions: Opioid Safety, Pain Management, Patient Portal & Sunil Instructions Activity Restrictions/Additional Instructions: Thank you for choosing [facility] for your healthcare needs today. It is very important that you follow up as instructed or that you return to the Emergency Department should you have concerns or if your condition changes or worsens in any way. Emergency department visits are focused on emergent conditions, in some cases you may require further evaluation on an outpatient basis. You were seen in the emergency room concerned about your right leg. This needs further evaluation in outpatient basis. Case management make arrangements for you to follow-up with the pretzel twister. He also has significantly diminished kidney function this is made worse by regular use of Lasix would recommend that you hold off on the Lasix for the next couple of days. As an incidental note we noticed multiple scratches and bites on your right lower leg today when we are examining you he would told us this was from a cat. [facility] currently has a high incidence of rabies. We discussed this you opted to monitor the cat for the next 10 days if the cat shows any signs of illness she should return to the emergency room to have rabies vaccination initiated. If you lose custody of the cat you should have rabies vaccination initiated. If the cat is still in good health at the end of 10 days you will not need rabies vaccinations. Additionally cat bites tend to have higher rates of infection you were started on oral antibiotics. Because of your poor blood flow you are at very high risk for significant infection to the right lower leg. You should have this rechecked in the next 2 days. If you begin to run a fever return to the emergency room immediately. (Please note that included in your discharge packet is information concerning opioid safety and pain management. This information is given to all patients were discharged from the ER regardless of their discharge diagnosis or the medicines they usually take or are prescribed.) Print Language: Omani Coding Level of Care Code ED Division Sales Manager for Uma Carlton
[2025-08-11 15:39] VITALS: BP 146/77; PULSE 71; RESP 16; O2SAT 96
[2025-08-11 15:58] VITALS: BP 130/70; PULSE 71; RESP 16; O2SAT 98
== END 2025-08-11 16:36 | disposition home or self-care (01) ==
PROVIDERS: Emergency Provider Family Medicine; PCP Family Medicine
DX: I73.9 Peripheral vascular disease, unspecified (principal); S81.851A Open bite, right lower leg, initial encounter; W55.01XA Bitten by cat, initial encounter; E11.59 Type 2 diabetes mellitus with other circulatory complications; E11.22 Type 2 diabetes mellitus with diabetic chronic kidney disease; I12.9 Hypertensive chronic kidney disease with stage 1 through stage 4 chronic kidney disease, or unspecified chronic kidney disease; N18.9 Chronic kidney disease, unspecified; I25.10 Atherosclerotic heart disease of native coronary artery without angina pectoris; Z79.4 Long term (current) use of insulin; Z79.01 Long term (current) use of anticoagulants; Z79.82 Long term (current) use of aspirin; Z79.02 Long term (current) use of antithrombotics/antiplatelets; Z87.891 Personal history of nicotine dependence
CPT/HCPCS: 36415; 80053; 85025; 87040; 90471; 90715; 93926; 93971; 99284

== ENCOUNTER 2025-08-13 10:50 | Outpatient (CLI) | payer MEDICARE, SELFPAY ==
--- NOTE | 2025-08-13 11:15 | USCV_ITS ---
Dago Bravo Age: 80 Gender: M : 1945 Exam Date: 08/13/2025 11:12 Ordering Phys: Jazmine Horn NP Technologist: KEVAN Exam Location: [facility] [place] [facility] [place] Indication: SHF BP: 111 / 47 HR: 67 Rhythm: Sinus Technical Quality: Adequate MEASUREMENTS (Male / Female) Normal Values 2D ECHO LV Diastolic Diameter PLAX 4.8 cm 4.2 - 5.9 / 3.9 - 5.3 cm IVS Diastolic Thickness 1.1 cm 0.6 - 1.0 / 0.6 - 0.9 cm IVS Systolic Thickness 1.6 cm LVPW Diastolic Thickness 2.0 cm 0.6 - 1.0 / 0.6 - 0.9 cm LVPW Systolic Thickness 1.7 cm LVOT Diameter 2.0 cm LV Ejection Fraction 2D Teich 68.8 % LV Ejection Fraction MOD 4C 23.8 % LV Ejection Fraction MOD 2C 42.2 % LV Ejection Fraction 2C AL 42.6 % LA Diameter 4.4 cm RA Systolic Volume 4C AL 49.0 ml RA Systolic Volume 4C MOD 49.0 ml LA Sys Volume AL 52.3 cm cubed LA Sys Volume Index AL 23.2 cm cubed/m squared Aorta at Sinotubular Diameter 2.0 cm IVC Diameter 2.4 cm M-MODE LA Ao Ratio MM 1.5 AV Cusp Separation MM 1.3 cm DOPPLER AV Peak Velocity 157.0 cm/s LVOT Peak Velocity 64.0 cm/s AV Area Cont Eq vti 1.5 cm squared AV Area Cont Eq pk 1.3 cm squared MV Peak Velocity 111.0 cm/s MV Area PHT 4.3 cm squared Mitral E to A Ratio 2.5 TR Peak Velocity 146.0 cm/s TR Peak Gradient 8.5 mmHg TV Peak E Velocity 69.0 cm/s PV Peak Velocity 88.0 cm/s FINDINGS Left Ventricle Moderately increased left ventricular cavity size. Severely decreased left ventricular systolic function. Left ventricular ejection fraction is estimated at 25 %. Global left ventricular hypokinesis. Grade III/IV diastolic dysfunction (restrictive filling pattern), severely elevated filling pressures. Right Ventricle Normal right ventricular size and systolic function. RVSP could not be calculated due to incomplete tricuspid regurgitation velocity profile. Right Atrium Mildly increased right atrial size. Left Atrium Mildly increased left atrial size. IA Septum Normal appearance of the interatrial septum. Mitral Valve Mildly thickened mitral valve. No mitral valve stenosis. Severe mitral valve regurgitation. Aortic Valve Moderate aortic valve calcification. No aortic valve stenosis. Mild aortic valve regurgitation. Tricuspid Valve Severe tricuspid valve regurgitation. Pulmonic Valve Normal pulmonic valve structure. No pulmonic valve stenosis or regurgitation. Pericardium No pericardial effusion. Aorta Normal diameter of the aortic root and ascending thoracic aorta. IVC Moderately dilated IVC. CONCLUSIONS Moderately increased left ventricular cavity size. Severely decreased left ventricular systolic function. Left ventricular ejection fraction is estimated at 25 %. Global left ventricular hypokinesis. Grade III/IV diastolic dysfunction (restrictive filling pattern), severely elevated filling pressures. Mildly increased left atrial size. Mildly thickened mitral valve. No mitral valve stenosis. Severe mitral valve regurgitation. Moderate aortic valve calcification. No aortic valve stenosis. Mild aortic valve regurgitation. Right atrial pressure is around 20 mm of mercury. Autumn Hale MD (Electronically Signed) Final Date: 13 August 2025 12:10 S
== END 2025-08-13 10:51 | disposition home or self-care (01) ==
LOC: RAD 10:53
PROVIDERS: PCP Family Medicine; Visit Provider Nurse Practitioner Family
DX: I50.20 Unspecified systolic (congestive) heart failure (principal); I51.7 Cardiomegaly; I36.1 Nonrheumatic tricuspid (valve) insufficiency; I50.1 Left ventricular failure, unspecified; I50.30 Unspecified diastolic (congestive) heart failure; I34.0 Nonrheumatic mitral (valve) insufficiency; I35.1 Nonrheumatic aortic (valve) insufficiency
CPT/HCPCS: 93306